=== PATIENT | male | born 1960 | race Caucasian/White ===

== ENCOUNTER 2021-12-15 15:53 | Outpatient (CLI) | payer OTHER, SELFPAY ==
--- NOTE | 2021-12-15 16:02 | US_ITS ---
EXAM: US Soft Tissues Head and Neck, Thyroid CLINICAL INDICATION: 61 years old, Male; nodule TECHNIQUE: Greyscale and color doppler imaging was performed of the thyroid gland. This report was created using [employer] report [employer] technology. COMPARISON: None. FINDINGS: Left thyroid lobe: Left thyroid lobe measures 4.2 x 1.5 x 1.4 cm. Homogeneous echotexture with normal vascularity. No thyroid nodules are present. Right thyroid lobe: Right thyroid lobe measures 4.7 x 1.7 x 1.8 cm. Homogeneous echotexture with normal vascularity. No thyroid nodules are present. Isthmus: Isthmus measures 0.3 cm in thickness. No thyroid nodules are present. US/Thyroid IMPRESSION: No abnormal thyroid findings. No thyroid nodule. Electronically Signed: Aj Harry MD at 2:25 EST ,
== END 2021-12-15 23:59 | disposition home or self-care (01) ==
PROVIDERS: PCP Family Medicine; Referring Provider Family Medicine; Visit Provider Family Medicine
DX: E04.1 Nontoxic single thyroid nodule (principal)
CPT/HCPCS: 76536

== ENCOUNTER → 2022-04-20 | Outpatient (CLI) | payer OTHER, SELFPAY | END | disposition home or self-care (01) | LOC: LABSPEC 17:40 | PROVIDERS: PCP Family Medicine; Visit Provider Family Medicine | DX: U07.1 COVID-19 (principal) | CPT/HCPCS: 87635; U0003; U0005 ==

== ENCOUNTER → 2023-05-25 | Outpatient (CLI) | payer OTHER, SELFPAY ==
--- NOTE | 2023-05-25 15:27 | VDLE_ITS ---
Reason For Study: Right leg pain RIGHT LEFT CFV is compressible with decreased venous CFV is compressible, spontaneous, phasic, flow noted. competent, and demonstrates normal Acute deep vein thrombosis is noted in the augmentation. FV, PopV, T/P Trunk, PTV, PeroV, SoleusV, and GastrocV. It is dilated and NONCOMPRESSIBLE. Thrombus in FV does not extend into CFV. Rouleaux flow noted in the PTV mid-distal and GastrocV. Procedure This is a venous duplex using B-mode, color flow and spectral Doppler. Exam performed in department. A preliminary report was called and/or faxed to [facility]. VL/Venous Duplex US, Unilateral Interpretation Summary Decrease flow noted within the right common femoral vein with acute deep venous thrombosis noted in the right femoral, popliteal, tibioperoneal trunk, posterior tibial, peroneal, soleus, and gastrocnemius veins. Normal flow patterns left common femoral vein Ordering Physician: Morgan Moore Referring Physician: Morgan Moore Performed By: No Austin RVT
== END | disposition home or self-care (01) ==
LOC: CVS 15:24
PROVIDERS: PCP Family Medicine; Referring Provider Family Medicine; Visit Provider Family Medicine
DX: M79.661 Pain in right lower leg (principal)
CPT/HCPCS: 93971

== ENCOUNTER → 2023-06-06 | Outpatient (CLI) | payer OTHER, SELFPAY ==
[2023-06-13 12:08] LABS: Dilute Prothrombin Time (dPT) 40.6 sec (0.0-47.6); Interpretation Comment: (.); PTT-LA 31.9 sec (0.0-43.5); Protein C Antigen 119 % (60-150); Protein S, Free 142 % (61-136); Protein S, Total 96 % (60-150); Thrombin Time 16.1 sec (0.0-23.0); dPT Confirm Ratio 1.04 Ratio (0.00-1.34)
== END | disposition home or self-care (01) ==
LOC: MFPLAB 15:48
PROVIDERS: PCP Family Medicine; Visit Provider Family Medicine
DX: I82.409 Acute embolism and thrombosis of unspecified deep veins of unspecified lower extremity (principal)
CPT/HCPCS: 36415; 81241; 85302; 85305; 85306

== ENCOUNTER 2023-12-09 13:06 | Outpatient (CLI) | payer OTHER, SELFPAY ==
--- NOTE | 2023-12-09 13:10 | RAD_ITS ---
INDICATION: ARTHRITIS OF KNEE EXAMINATION/TECHNIQUE: X-RAY - LEFT XR Knee Complete 4 Views or More 4 VIEWS COMPARISON: No relevant prior comparison study available FINDINGS: SOFT TISSUES: No soft tissue swelling or gas. No radiopaque foreign body. BONES/JOINTS: There is medial joint space narrowing, osteophyte formation is noted involving all 3 compartments. Subchondral sclerosis involving the medial compartment particularly the tibial plateau. Additional significant patellofemoral degenerative changes with osteophyte formation. Moderate joint effusion. RAD/Knee 4 or More Views IMPRESSION: 1. Tricompartment osteophytic changes are most significantly the medial compartment however involvement with all 3 compartments. There is a joint effusion. Electronically Signed: Duarte Morrissey MD at 17:30 EST ,
== END 2023-12-09 23:59 | disposition home or self-care (01) ==
LOC: MTRAD 13:09
PROVIDERS: PCP Family Medicine; Referring Provider Family Medicine; Visit Provider Family Medicine
DX: M17.10 Unilateral primary osteoarthritis, unspecified knee (principal)
CPT/HCPCS: 73564

== ENCOUNTER → 2024-01-04 | Outpatient (CLI) | payer OTHER, SELFPAY ==
--- OUTSIDE RECORDS SUMMARY | 2024-01-04 10:25 | XMS RPT_ITS | CCD ---
Author Name Unknown Address [address] [place] [address] Organization [facility] Care Team Providers Care Salesperson [employer] Name Role Phone Azalea Villanueva MD Primary Care Provider Edmundo Yost Unavailable [phone] Unavailable Unavailable MEHNAZ JASSO Attending Unavailable AZALEA VILLANUEVA Primary Care UnavailMEHNAZ Goldstein Admitting Unavailable MEHNAZ JASSO Referring Unavailable AZALEA VILLANUEVA Primary Care UnavailMEHNAZ Goldstein Attending Unavailable AZALEA VILLANUEVA Primary Care Unavailab le Allergies Allergy Classification Reported Allergen(s) Allergy Type Date of Onset Reaction(s) Facility (2 sources) Ibuprofen; Translations: [ibuprofen] Drug Allergy [facility] Work Phone: Medications Current Medications Medication Drug Class(es) Dates Sig (Normalized) Sig (Original) BEE POLLEN ORAL (2 sources) BEE POLLEN ORAL Take by mouth . 0 Active ELDERBERRY FRUIT (2 sources) ELDERBERRY FRUIT ORAL Take by mouth . 0 Active fish oil-omega-3 fatty acids 300-1,000 mg capsule (2 sources) take 1 capsule by mouth once daily fish oil-omega-3 fatty acids 300-1,000 mg capsule Take 2 g by mouth daily. 0 Active loratadine 10 mg oral capsule (2 sources) loratadine 10 mg cap Take by mouth. 0 Active multivitamin capsule (2 sources) take 1 capsule by mouth once daily multivitamin capsule Take 1 capsule by mouth daily. 0 Active Completed/Discontinued Medications Medication Drug Class(es) Dates Sig (Normalized) Sig (Original) aspirin 81 mg delayed release oral tablet (1 source) Platelet Aggregation Inhibitor, Nonsteroidal Anti-inflammatory Drug End: 07-23-2021 take 1 tablet by mouth once daily aspirin 81 MG EC tablet Take 81 mg by mouth daily. 0 07/23/2021 Discontinued (Discontinued by another clinician) pantoprazole 40 mg delayed release oral tablet (2 sources) Proton Pump Inhibitor Start: 10-13-2021 take 1 tablet by mouth once daily Pantoprazole Sodium 40 MG Oral Tablet Delayed Release TAKE 1 TABLET DAILY. Quantity: 30 Refills: 2 Ordered: 13-Oct-2021 Edmundo Yost MD Start : 13-Oct-2021 Active traMADol hydrochloride 50 mg oral tablet (1 source) Opioid Agonist Start: 04-13-2016 End: 07-23-2021 traMADol (ULTRAM) 50 mg tablet 1 ml triamcinolone acetonide 40 mg/ml injection (2 sources) Corticosteroid Start: 10-26-2021 End: 10-26-2021 triamcinolone acetonide (KENALOG-40) injection 40 mg Problems Active Problems Problem Classification Problem Date Documented Da te Episodic/Chronic Esophageal disorders (2 sources) Gastroesophageal reflux disease without esophagitis; Translations: [Esophageal reflux] Chronic Genitourinary symptoms and ill-defined conditions (2 sources) Nocturia; Translations: [Nocturia] Episodic Malaise and fatigue (2 sources) Fatigue; Translations: [Other malaise and fatigue] Episodic Osteoarthritis (2 sources) Osteoarthritis of left knee joint; Translations: [Unilateral primary osteoarthritis, left knee] Chronic Other ear and sense organ disorders (2 sources) Bilateral tinnitus; Translations: [Tinnitus, unspecified] Episodic Other gastrointestinal disorders (2 sources) Dysphagia; Translations: [Dysphagia, unspecified] Episodic Other nervous system disorders (2 sources) Numbness; Translations: [Disturbance of skin sensation] Episodic Other screening for suspected conditions (not mental disorders or infectious disease) (2 sources) Patient encounter status; Translations: [Screening for lipoid disorders] Episodic Past or Other Problems Problem Classification Problem Date Documented Da te Episodic/Chronic Fracture of upper limb (2 sources) Closed fracture of radius; Translations: [Unspecified fracture of unspecified forearm, initial encounter for closed fracture] Onset: 04-14-2016 04-14-2016 Episodic Results Test Name Value Interpretation Reference Range Facil ity Vital Signs Date Time Vital Sign Value Performing Clinician Facility 10-13-2021 14:47-0500 Body height 190.5 cm Edmundo Yost Work Phone: [facility] Work Phone: 10-13-2021 14:47-0500 Body mass index (BMI) [Ratio] 32.66 kg/m2 Edmundo Yost Work Phone: [facility] Work Phone: 10-13-2021 14:47-0500 Body surface area Derived from formula 2.46 m2 Edmundo Yost Work Phone: [facility] Work Phone: 10-13-2021 14:47-0500 Body temperature 96.9 [degF] Edmundo Yost Work Phone: [facility] Work Phone: 10-13-2021 14:47-0500 Body weight 118.53 kg Edmundo Yost Work Phone: [facility] Work Phone: 10-13-2021 14:47-0500 Diastolic blood pressure 68 mm[Hg] Edmundo Yost Work Phone: [facility] Work Phone: 10-13-2021 14:47-0500 Heart rate 69 /min Edmundo Yost Work Phone: [facility] Work Phone: 10-13-2021 14:47-0500 SaO2% (BldA) [Mass fraction] 96 % Edmundo Yost Work Phone: [facility] Work Phone: 10-13-2021 14:47-0500 Systolic blood pressure 116 mm[Hg] Edmundo Yost Work Phone: [facility] Work Phone: 07-23-2021 14:02-0400 Body height 190.5 cm Mehnaz Jasso STATION SUPERVISOR Work Phone: [facility] 07-23-2021 14:02-0400 Body mass index (BMI) [Ratio] 31.87 kg/m2 Mehnaz Gordonarun LEIJA Work Phone: [facility] 07-23-2021 14:02-0400 Body weight 115.67 kg Mehnaz Gordonarun LEIJA Work Phone: [facility] Encounters Encounter Date Encounter Type Care Provider Facility Start: 10-26-2021 End: 10-26-2021 ambulatory MEHNAZ JASSO [facility] Start: 10-26-2021 End: 10-26-2021 Clinical Support Mehnaz Jasso CNP Work Phone: [facility] Procedures Date Procedure Procedure Detail Performing Clinician Start: 10-26-2021 Arthrocentesis aspir &/inj major jt/bursa w/o us Mehnaz Jasso CNP Work Phone: Start: 07-27-2021 Arthrocentesis aspir &/inj major jt/bursa w/o us Mehnazduy Jasso CNP Work Phone: Arthroscopy of knee Edmundotash Yost Work Phone: Strabismus surgery Edmundo T Priyank Work Phone: Tonsillectomy and adenoidectomy Edmundo Parrabrandy Work Phone: Plan of Treatment Date Care Activity Detail Author Start: 07-08-2021 Influenza vaccination Sequenti al Influenza Vaccine (#1) [facility] Start: 03-09-2021 COVID-19 Vaccine (2 - Booster for Dell series) COVID-19 Vaccine (2 - Booster for Dell series) [facility] Start: 2009 Screening for malign ant neoplasm of colon [facility] Start: 1977 Hepatitis C screening Hepatitis C Sc reening [facility] Start: 1974 HIV screening HIV Screening [facility] Start: 1971 Depression screening using PHQ-9 (Patient Health Questionnaire 9) score [facility] Start: 1962 History and physical examination, annual for health maintenance Wellness Visit [facility] Start: 1959 Prostate specific an tigen measurement PSA Level [facility] Start: 1959 Tetanus vaccination Tetanus: Every 1 0yrs [facility] Immunizations Immunization Date Immunization Notes Care Provider Stefan marks 06-09-2021 zoster vaccine recombinant Edmundo Yost Work Phone: [facility] Work Phone: 03-31-2021 zoster vaccine recombinant Edmundotash Parraess Work Phone: [facility] Work Phone: 01-12-2021 Dell COVID-19 Vaccine 0.5 ML Intramuscular Suspension Edmundo Yost Work Phone: [facility] Work Phone: Payers Date Payer Category Payer Unknown [employer] PPO [id number] 2015-Present [phone] [address] [place] [address] [id number] 2015 Unknown 2015 Unknown [id number] 1959 Unknown [id number] 1959 Unknown [id number] 1959 Unknown [id number] Social History Date Type Detail Facility Start: 04-14-2016 Tobacco smoking status NHIS Never sm oked tobacco [facility] Start: 04-14-2016 Tobacco use and exposure Smokeless t obacco non-user [facility] Start: 07-27-2021 End: 10-26-2021 Alcohol intake Ex-drinker (finding) [facility] Start: 07-27-2021 End: 10-26-2021 Alcohol intake [facility] Start: 1960 Sex Assigned At Not on file [facility] Exposure to SARS-CoV -2 (event) Not sure [facility] History of Present illness Narrative 10-26-2021 Mehnaz Jasso CNP - 10/26/2021 11:45 AM [place] Jasso CNP - 10/26/2021 11:41 AM EST Note Date & Type Note Facility 10-26-2021 History of Presen t illness Narrative Associated Order(s): LG Jt Injection/Arthrocentesis: L knee Post-Procedure Diagnose(s): Primary osteoarthritis of left knee LG Jt Injection/Arthrocentesis: L knee Performed by: Mehnaz Jasso CNP Authorized by: Mehnaz Jasso CNP CPT 06011 - Large Joint Arthrocentesis: Consent given by: Patient Time out: Immediately prior to the procedure a time out was called Physician or proceduralist has discussed critical or nonroutine steps, procedure duration and anticipated blood loss: Yes Supporting Documentation: Indications: Pain and diagnostic evaluation Procedure Details: Location: Knee Site: L knee Prep: patient was prepped and draped in usual sterile fashion Needle size: 22 G Approach: Anterolateral Medications: 40 mg triamcinolone acetonide 40 mg/mL Anesthetic used: Lidocaine 1% Anesthetic amount (mL): 2 Patient tolerance: Patient tolerated the procedure well with no immediate complications [facility] [address] [facility] [address] [facility] [id number] Chief Complaint Patient presents with Follow-up Left knee Qian Vora returns to the office today for an injection to his left knee. He has had these in the past and they continue to provide him with adequate pain relief. He isn't ready for any type of surgery at this time. The patient's past medical history, surgical history, social history, family history, medications and allergies were reviewed with the patient today and are available in the chart for further review. 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 Assessment/Plan: Injection to the left knee per patient request. I did this without complications and he tolerated this well. I am more than happy to see him back as needed. documented in this encounter [facility] History of Present illness Narrative 07-27-2021 Mehnaz Jasos CNP - 07/27/2021 12:30 PM [place] Jasso CNP - 07/23/2021 9:02 PM EDT Note Date & Type Note Facility 07-27-2021 History of Presen t illness Narrative Associated Order(s): LG Jt Injection/Arthrocentesis: L knee Post-Procedure Diagnose(s): Primary osteoarthritis of left knee LG Jt Injection/Arthrocentesis: L knee Performed by: Mehnaz Jasso CNP Authorized by: Mehnaz Jasso CNP CPT 31053 - Large Joint Arthrocentesis: Consent given by: Patient Time out: Immediately prior to the procedure a time out was called Physician or proceduralist has discussed critical or nonroutine steps, procedure duration and anticipated blood loss: Yes Supporting Documentation: Indications: Pain and diagnostic evaluation Procedure Details: Location: Knee Site: L knee Prep: patient was prepped and draped in usual sterile fashion Needle size: 22 G Approach: Anterolateral Anesthetic used: Lidocaine 1% Anesthetic amount (mL): 2 Patient tolerance: Patient tolerated the procedure well with no immediate complications Qian Vora 1960 CC: 61 y.o. is a he with left knee pain. Chief Complaint Patient presents with Left Knee - Pain . HPI: Knee Pain: Patient presents to the office with left knee pain. He reports that about 8-9 years ago he felt a tear in the knee. He went on without any type of surgery and up until this past Tuesday never had significant problems with the knee. The past Tuesday, he was walking, turned and felt a sharp pain in the knee. It has been hurting every since. He has swelling in the knee. He has used otc pain medications as needed but only take the edge off. He has been limited to tylenol. He reports he took ibuprofen years ago and had a reaction so he hasn't taken it since. He does feel as though the knee is unstable but it hasn't given out on him. 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 TONSILLECTOMY TONSILLECTOMY Social History Socioeconomic History Marital status: Spouse name: Not on file Number of children: Not on file Years of education: Not on file Highest education level: Not on file Occupational History Not on file Tobacco Use Smoking status: Never Smoker Smokeless tobacco: Never Used Substance and Sexual Activity Alcohol use: Not Currently Alcohol/week: 2.0 standard drinks Types: 2 Cans of beer per week Drug use: Not Currently Sexual activity: Not on file Other Topics Concern Not on file Social History Narrative Not on file Social Determinants of Health Financial Resource Strain: Difficulty of Paying Living Expenses: Not on file Food Insecurity: Worried About Running Out of Food in the Last Year: Not on file Ran Out of Food in the Last Year: Not on file Transportation Needs: Lack of Transportation (Medical): Not on file Lack of Transportation (Non-Medical): Not on file Physical Activity: Days of Exercise per Week: Not on file Minutes of Exercise per Session: Not on file Stress: Feeling of Stress : Not on file Social Connections: Frequency of Communication with Friends and Family: Not on file Frequency of Social Gatherings with Friends and Family: Not on file Attends Yazidism Services: Not on file Active Member of Clubs or Organizations: Not on file Attends Club or Organization Meetings: Not on file Marital Status: Not on file Housing Stability: Unable to Pay for Housing in the Last Year: Not on file Number of Places Lived in the Last Year: Not on file Unstable Housing in the Last Year: Not on file The patient's past medical history, surgical history, social history, family history, medications and allergies were reviewed with the patient today and are available in the chart for further review. ROS: Review of Systems Constitutional: Negative for activity change and fatigue. HENT: Negative for congestion, hearing loss and trouble swallowing. Eyes: Negative for visual disturbance. Respiratory: Negative for chest tightness and shortness of breath. Cardiovascular: Negative for chest pain and palpitations. Gastrointestinal: Negative for abdominal pain, diarrhea, nausea and vomiting. Endocrine: Negative for polydipsia, polyphagia and polyuria. Genitourinary: Negative for decreased urine volume, difficulty urinating and hematuria. Musculoskeletal: Positive for arthralgias and joint swelling. Negative for myalgias. Skin: Negative for color change, rash and wound. Allergic/Immunologic: Negative for immunocompromised state. Neurological: Negative for dizziness, weakness, light-headedness and numbness. Hematological: Does not bruise/bleed easily. Psychiatric/Behavioral: Negative for confusion and sleep disturbance. The patient is not nervous/anxious. PE: Physical Exam Constitutional: Appearance: He is well-developed. HENT: Head: Normocephalic. Eyes: Pupils: Pupils are equal, round, and reactive to light. Cardiovascular: Rate and Rhythm: Normal rate and regular rhythm. Pulmonary: Effort: Pulmonary effort is normal. Breath sounds: Normal breath sounds. Abdominal: General: Bowel sounds are normal. Palpations: Abdomen is soft. Musculoskeletal: General: Swelling and tenderness present. Cervical back: Normal range of motion and neck supple. Left knee: Effusion present. Decreased range of motion. Tenderness present over the medial joint line and lateral joint line. Instability Tests: Medial Bryan test negative and lateral Bryan test negative. Skin: General: Skin is warm and dry. Neurological: Mental Status: He is alert and oriented to person, place, and time. ORTHO: Left Knee Exam Tenderness The patient is experiencing tenderness in the lateral joint line and medial joint line. Range of Motion Extension: normal Flexion: 120 Tests Bryan: Medial - negative Lateral - negative Varus: negative Valgus: negative Barbra: Anterior - negative Drawer: Anterior - negative Posterior - negative Other Erythema: absent Scars: absent Sensation: normal Pulse: present Swelling: mild Effusion: effusion present Imaging:R Knee: No acute osseous abnormality. [id number] medial compartment osteoarthritis. Small suprapatellar joint effusion. Assessment/Plan: After examination and reviewing of the patient x-ray images, we discussed treatment options. I offered him a cortisone injection which he gladly accepted. I did this without complications and he tolerated this well. He is able to have these every 3 months as needed. He verbalizes understanding and is in agreement with the treatment plan. Diagnosis: Problem List Items Addressed This Visit None Follow Up: No follow-ups on file. Mehnaz Jasso CNP documented in this encounter [facility] Evaluation note Note Date & Type Note Facility documented in this encounter [facility] Evaluation note Note Date & Type Note Facility documented in this encounter [facility] History of Present illness Narrative Note Date & Type Note Facility History of Present illness Narrative colonoscopy 2014 - Tics and Hem. 10 years.allergies - takes claritan.heartburn is bad, occ dysphagia. TUMS helps. Need to start him on pantoprazole.home BP 130's/80's.tinnitus - did see ENT Dr Jean-Baptiste.Talked about using low-dose amlodipine or low-dose Zoloft Celexa. He does not want to use medicine at this time. Blood pressure today is good.To think we should check some blood test first. If the blood tests are okay I am okay with watching things for now.OV 6 months, will change the follow-up to 6 weeks for the heartburn [facility] Work Phone: Summary Purpose Family History No Family History Records FoundUnknown Family Member Name Dates Details Family history of type 2 mirza betes mellitus: Mother, Brother(V18.0, Z83.3) Status:Active Family history of abdominal aortic aneurysm (AAA): Father(V17.49, Z82.49) Status:Active Unknown Family Member Name Dates Details Family history of type 2 mirza betes mellitus: Mother, Brother(V18.0, Z83.3) Status:Active Family history of abdominal aortic aneurysm (AAA): Father(V17.49, Z82.49) Status:Active Advance Directives No Advanced Directives Records FoundDocuments on File Type Date Recorded Patient Party Plan 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 Expl anation Advance Directives and Living Will 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 BP Additional Source Comments (unrecognized sect ion and content) No Status Records FoundNo Status Records FoundNo Status Records FoundNo Status Records Found INFORMATION SOURCE (unrecogn ized section and content) DATE CREATED AUTHOR AUTHOR'S ORGANIZ ATION 10/14/2021 [facility] DATE CREATED AUTHOR AUTHOR'S ORGANIZ ATION 10/14/2021 [employer] DATE CREATED AUTHOR AUTHOR'S ORGANIZ ATION 10/26/2021 [facility] Reason for Visit (unrecogniz ed section and content) Reason Comments Follow-up Left knee Care Teams (unrecognized sec tion and content) FOR RECORDS PERTAINING TO PATIENTS WHO ARE OR HAVE BEEN ENROLLED IN A CHEMICAL DEPENDENCY/SUBSTANCEABUSE PROGRAM, SOME INFORMATION MAY BE OMITTED. This clinical summary was aggregated from multiple sources. Caution should be exercised in using it in the provision of clinical care. This summary normalizes information from multiple sources, and as a consequence, information in this document may materially change the coding, format and clinical context of patient data. In addition, data may be omitted in some cases. CLINICAL DECISIONS SHOULD BE BASED ON THE PRIMARY CLINICAL RECORDS. [facility] [employer] provides no warranty or guarantee of the accuracy or completeness of information in this document.
[2024-01-04 10:57] LABS: ALB/GLOB Ratio 1.1 RATIO (0.9-2.4); AST(SGOT) 13 U/L (15-37); Alanine Aminotransfer ALT/SGPT 16 U/L (16-61); Albumin, Serum 3.5 g/dL (3.2-5.0); Alkaline Phosphatase 47 U/L (45-117); Anion Gap 3 (5-15); BUN 21 mg/dL (7-18); BUN/Creat Ratio 21.9 RATIO (10-20); Calcium,Total 8.9 mg/dL (8.5-10.1); Chloride 112 mmol/L (98-107); Cholesterol 232 mg/dL (200); Creatinine, Serum 0.96 mg/dL (0.70-1.30); EST Glomerular Filtration Rate 84 mL/min (>60); Est Glom Filt Rate - Afr Amer 101 mL/min (>60); Globulin 3.3 g/dL (2.2-4.2); Glucose 85 mg/dL (74-106); High Density Lipoprotein 38 mg/dL; PSA,Total- Diagnostic 0.74 ng/mL (0.0-4.0); Protein, Total 6.8 g/dL (6.4-8.2); Sodium Level 141 mmol/L (136-145); Triglycerides 146 mg/dL; Very Low Density Lipoprotein 29 mg/dL (5-40)
== END | disposition home or self-care (01) ==
LOC: MFPLAB 08:58
PROVIDERS: PCP Family Medicine; Visit Provider Family Medicine
DX: Z00.00 Encounter for general adult medical examination without abnormal findings (principal)
CPT/HCPCS: 36415; 80053; 80061; 84153; 84403

== ENCOUNTER 2024-03-17 16:14 | Observation (INO) | payer OTHER, SELFPAY ==
[2024-03-17] VITALS (10 sets, daily range): BP systolic 123–145; BP diastolic 72–94; PULSE 56–68; RESP 13–18; TEMP 35.8–36.6; O2SAT 93–98; BMI 31.4; BMI 30.8
--- NOTE | 2024-03-17 16:25 | CT_ITS ---
INDICATION: NEURO DEFICIT EXAMINATION: CT BRAIN - CT Head Stroke Protocol W/O Contrast Injection TECHNIQUE: Multiple axial images were obtained of the head without intravenous contrast. A radiation dose optimization technique was used for this scan. IV Contrast dosage and agent: None. RADIATION DOSAGE (If Supplied By Facility): CTDIvol = ( 44.99 ) mGy, DLP = ( 847.35 ) mGycm COMPARISON: FINDINGS: BRAIN PARENCHYMA: No intra- or extra-axial hemorrhage. No evidence of acute infarct. No intracranial mass or mass effect. Focal mild diminished attenuation in the left frontal periventricular white matter. Posterior fossa structures are unremarkable. CSF SPACES: Appropriate for age. No hydrocephalus. Basal cisterns are patent. CALVARIUM, SKULL BASE, PARANASAL SINUSES AND MASTOID AIR CELLS: Clear. No discrete lytic or blastic abnormalities. ORBITS: Both globes, extraocular muscles, optic nerves and retrobulbar fat appear unremarkable. CT/STROKE Brain/Head without Cont IMPRESSION: Focal mild diminished attenuation in the left frontal periventricular white matter. Correlate with MRI if clinically indicated. N.B. : The above Results were Read Back by Luan Espino DO to Alex Severino MD, and understanding confirmed on 03/17/2024 17:00:13 (ET). Electronically Signed: Luan Espino DO at 17:01 EDT ,
--- NOTE | 2024-03-17 16:26 | CT_ITS ---
We are attempting to reach an attending provider to discuss findings. An addendum with communication details will be sent when the communication is complete. INDICATION: STROKE EXAMINATION: CTA HEAD, AND CTA NECK TECHNIQUE: Routine carotid CT angiogram protocol was performed without and with IV contrast. In addition, images were obtained of the [place] of [place]. NASCET criteria using the distal ICAs for comparison were used for evaluation of stenoses. 3D reconstructions were reviewed. A radiation dose optimization technique was used for this scan. IV Contrast dosage and agent: COMPARISON: FINDINGS: --CTA NECK: AORTIC ARCH AND BRANCHES: Normal anatomy, patent. RIGHT CCA: No occlusion, significant stenosis or dissection. RIGHT CAROTID BULB: Focal calcification with no hemodynamically significant stenosis. RIGHT ICA: No occlusion, significant stenosis or dissection. LEFT CCA: No occlusion, significant stenosis or dissection. LEFT CAROTID BULB: Focal calcification with no hemodynamically significant stenosis. LEFT ICA: No occlusion, significant stenosis or dissection. RIGHT VERTEBRAL ARTERY: No occlusion, significant stenosis or dissection. LEFT VERTEBRAL ARTERY: No occlusion, significant stenosis or dissection. NECK SOFT TISSUES: Unremarkable. --CTA HEAD: --Anterior circulation: ICAs: No significant stenosis at the intracranial/visualized segments. ACAs: No significant stenosis at the visualized segments. ACOM: Present. MCAs: No significant stenosis at the visualized segments. --Posterior circulation: PCOMs: Patent bilaterally. visitor services information assistant: Hypoplastic P1 segments bilaterally. BASILAR ARTERY: No significant stenosis. VERTEBRAL ARTERIES: Left vertebral artery appears to terminate as the PICA. No evidence of intracranial aneurysm or vascular malformation. CT/STROKE CTA Head AND Neck W/Con IMPRESSION: Negative CTA Carotid, and CTA Brain. Electronically Signed: Luan Espino DO at 17:09 EDT ,
--- NOTE | 2024-03-17 16:27 | NURSING ---
STROKE ALERT CALLED
--- NOTE | 2024-03-17 16:28 | NURSING ---
NO OLD EKGS
[2024-03-17 16:38] LABS: Absolute Lymphocyte Count 1.24 X10^3/uL (0.83-4.51); Absolute Neutrophil Count 4.5 X10^3/uL (2.0-7.7); Basophil# 0.04 X10^3/uL; Basophil% 0.6 % (0-1); Eosinophil# 0.16 X10^3/uL; Eosinophils% 2.4 % (0-5); Hematocrit 44.6 % (40-54); Hemoglobin 14.9 g/dL (13.0-16.5); Lymphocyte # 1.24 X10^3/ul (0.83-4.51); Lymphocyte % 18.4 % (19-41); Mean Corp Hgb Conc 33.4 g/dL (32-36); Mean Corpuscular Volume 95.7 fL (80-94); Mean Platelet Vol. 9.5 fl (6.2-12.0); Monocyte# 0.72 X10^3/uL; Monocyte% 10.7 % (0-10); NRBC Flagged by Analyzer 0 % (0-5); Neutrophil # 4.54 X10^3/uL (2.7-7.7); Neutrophil % 67.5 % (47-70); Platelet Count 218 K/mm3 (150-450); RBC Distribution Width CV 12.5 % (11.6-14.6); RBC Distribution Width SD 43.8 fl (35.1-43.9); Red Blood Count 4.66 M/mm3 (4.6-6.2); White Blood Count 6.7 K/mm3 (4.4-11.0)
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
[2024-03-17 16:46] LABS: Bedside Glucose 93 mg/dL (74-106)
[2024-03-17 16:52] LABS: International Normalized Ratio 1.1; Partial Thromboplast Time 25.5 Seconds (24.1-36.2); Prothrombin Time (Protime)PT. 14.2 SECONDS (11.7-14.9)
[2024-03-17 16:56] LABS: Anion Gap 5 (5-15); BUN 19 mg/dL (7-18); Calcium,Total 9.2 mg/dL (8.5-10.1); Chloride 105 mmol/L (98-107); EST Glomerular Filtration Rate 80 mL/min (>60); Est Glom Filt Rate - Afr Amer 97 mL/min (>60); Estimated Creatinine Clearance 101.59 ml/min; Glucose 101 mg/dL (74-106); Potassium 3.8 mmol/L (3.5-5.1); Sodium Level 138 mmol/L (136-145); Troponin-I HS < 3 pg/mL (3.0-78.0)
--- NOTE | 2024-03-17 16:57 | RAD_ITS ---
INDICATION: Neuro deficit, acute, stroke suspected EXAMINATION/TECHNIQUE: X-RAY - XR Chest 1 View COMPARISON: FINDINGS: LINES/DEVICES: None. LUNGS: Left basilar atelectasis. No pneumothorax. MEDIASTINUM AND CARDIOVASCULAR STRUCTURES: Cardiac silhouette not enlarged. Central airways and mediastinal contour are unremarkable. BONES AND SOFT TISSUES: Unremarkable. RAD/Chest 1 View IMPRESSION: Left basilar atelectasis. Electronically Signed: Luan Espino DO at 17:16 EDT ,
--- NOTE | 2024-03-17 17:02 | ED.RN ---
Dr. Severino called stroke alert to expedite CT scan and lab work. Per Dr. Severino, do not need to call [facility] for neurology d/t resolution of symptoms.
--- NOTE | 2024-03-17 17:26 | ED.RN ---
per Dr. Severino, okay to discontinue NIHSS at this time.
--- NOTE | 2024-03-17 17:28 | NURSING ---
DR CARMEN FOR DR HAGEN
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
--- NOTE | 2024-03-17 17:46 | NURSING ---
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
[2024-03-17 18:16] LABS: Hemoglobin A1c 5.3 % (3.8-5.6)
[2024-03-17] MEDS: Atorvastatin Calcium 40 MG Tablet PO (21:38)
[2024-03-17] MEDS: Acetaminophen 325 MG Tablet 650 MG PO (21:38)
[2024-03-17] MEDS: APIXABAN 5 MG TABLET PO (21:38)
[2024-03-18 01:31] VITALS: BMI 30.8
[2024-03-18 01:38] VITALS: BP 121/70; PULSE 51; RESP 18; TEMP 36.6; O2SAT 96
[2024-03-18 05:35] VITALS: BP 129/77; PULSE 64; RESP 18; TEMP 36.4; O2SAT 959
[2024-03-18 05:35] LABS: Hematocrit 45.5 % (40-54); Hemoglobin 15.4 g/dL (13.0-16.5); Mean Corp Hgb Conc 33.8 g/dL (32-36); Mean Corpuscular Hgb 32.4 pg (27.0-32.0); Mean Corpuscular Volume 95.8 fL (80-94); Mean Platelet Vol. 9.5 fl (6.2-12.0); Platelet Count 217 K/mm3 (150-450); RBC Distribution Width CV 12.4 % (11.6-14.6); RBC Distribution Width SD 44.1 fl (35.1-43.9); Red Blood Count 4.75 M/mm3 (4.6-6.2)
[2024-03-18 06:06] LABS: Anion Gap 4 (5-15); BUN 15 mg/dL (7-18); BUN/Creat Ratio 16.1 RATIO (10-20); Chloride 107 mmol/L (98-107); Cholesterol 164 mg/dL (200); Creatinine, Serum 0.93 mg/dL (0.70-1.30); EST Glomerular Filtration Rate 86 mL/min (>60); Est Glom Filt Rate - Afr Amer 105 mL/min (>60); Estimated Creatinine Clearance 108.57 ml/min; Glucose 86 mg/dL (74-106); High Density Lipoprotein 40 mg/dL; Sodium Level 139 mmol/L (136-145); Triglycerides 159 mg/dL; Very Low Density Lipoprotein 32 mg/dL (5-40)
[2024-03-18 08:00] VITALS: O2SAT 96
[2024-03-18 09:30] VITALS: BP 130/84; PULSE 60; RESP 16; TEMP 36.3; O2SAT 97
[2024-03-18] MEDS: 0.9% Saline Lock 10 ML Syringe IV (09:35)
[2024-03-18] MEDS: Loratadine 10 MG Tablet PO (09:35)
[2024-03-18] MEDS: APIXABAN 5 MG TABLET PO (09:35)
--- NOTE | 2024-03-18 12:32 | CON.PCM.NE_ITS ---
Assessment and Plan: Neuro Assessment/Plan Telestroke (Bidirectiona Audio-video) [facility] Consult Note 63 y/o man with h/o unprovoked right lower extremity DVT in May 2023 on eliquis, ibuprofen allergic episode, DLD on crestor p/w an episode of confusion and right facial numbness/droop while going to his son. Vitals in ED with mild hypertension, otherwise unremarkable. NIHSS-0. CT Head - no acute intracranial process. CTA- no LVO. Today, patient reports feeling back to normal. Discussed with at bedside. Noticed to have mild right facial droop. Diagnosis: TIA/small stroke Plan: Continue eliquis and statin. Follow up MRI brain and TTE. OT/PT/CLIENT CARE REPRESENTATIVE I personally attended this patient and spent a total time of 71 minutes genie luating this patient including clinical assessment, review of chart, medical history imaging, and determining appropriate treatment and workup. HPI Consult Data Date of Consult: 03/18/24 HPI Narrative HPI Narrative: 63 y/o man with h/o unprovoked right lower extremity DVT in May 2023 on eliquis, ibuprofen allergic episode, DLD on crestor p/w an episode of confusion and right facial numbness/droop while going to his son. Vitals in ED with mild hypertension, otherwise unremarkable. NIHSS-0. CT Head - no acute intracranial process. CTA- no LVO. Today, patient reports feeling back to normal. Discussed with at bedside. Noticed to have mild right facial droop. ROS Constitutional Constitutional: Denies chills, fatigue, fever(s) or weakness Eyes Eyes: Denies change in vision Cardiovascular Cardiovascular: Denies chest pain or rapid heart rate Respiratory/Chest Respiratory/Chest: Denies cough or shortness of breath at rest Gastrointestinal Gastrointestinal: Denies abdominal pain Neurologic Neurologic: Denies abnormal gait, abnormal speech, confusion, dizziness, focal weakness, headache(s), numbness, paresthesias or tingling [facility] Medical History Blood clot in leg Blood clots in brain DVT (deep venous thrombosis) Family history of abdominal aortic aneurysm Hypercholesteremia Non-smoker Home Medications apixaban 5 mg tablet (Eliquis) 5 mg PO BID 03/17/24 [History Last Taken Unknown] inositol-choline [id number] B complex and C 500 mg tablet ([employer]) 1 tab PO TID tinnitus 03/17/24 [History Last Taken Unknown] loratadine-pseudoephedrine ER 10 mg-240 mg tablet,extended [id number] (Loratadine-D) 1 tab PO DAILY 03/17/24 [History Last Taken Unknown] rosuvastatin 5 mg tablet 5 mg PO QHS 03/17/24 [History Last Taken Unknown] Allergy/AdvReac Type Severity Reaction Status Date / Time ibuprofen Allergy MAKES Verified 03/17/24 16:16 RIGHT SIDE OF FACE TO GO NUMB Social History (Updated 03/17/24 @ 16:[address] Alex Severino MD) household members: spouse Smoking Status: Never smoker Vital Signs Vital Signs Vital Signs: 03/17/24 16:16 03/17/24 16:15 03/17/24 16:29 Temperature 96.5 F L 96.5 F L Temperature Source Temporal Temporal Pulse Rate 68 68 Pulse Strength Respiratory Rate 16 16 Respiratory Effort Respiratory Depth Respiratory Pattern Blood Pressure 134/87 H 134/87 H Blood Pressure Mean 102 102 Blood Pressure Source Blood Pressure Position Blood Pressure Location Pulse Ox 95 Oxygen Delivery Method Room Air 03/17/24 16:27 03/17/24 16:55 03/17/24 17:27 Temperature Temperature Source Pulse Rate 61 64 65 Pulse Strength Respiratory Rate 13 15 14 Respiratory Effort Respiratory Depth Respiratory Pattern Blood Pressure 138/72 H 123/78 H 145/77 H Blood Pressure Mean 94 93 99 Blood Pressure Source Blood Pressure Position Blood Pressure Location Pulse Ox 97 95 93 Oxygen Delivery Method Room Air Room Air Room Air 03/17/24 17:50 03/17/24 18:19 03/17/24 19:53 Temperature 97.8 F 96.8 F L Temperature Source Temporal Pulse Rate 60 56 L Pulse Strength Respiratory Rate 13 18 Respiratory Effort Normal Non-Labored Respiratory Depth Normal Respiratory Pattern Normal Blood Pressure 127/76 H 128/94 H Blood Pressure Mean 93 105 Blood Pressure Source Monitor Blood Pressure Position Semi-Fowlers Blood Pressure Location Right Arm Pulse Ox 96 98 Oxygen Delivery Method Room Air Room Air 03/17/24 21:32 03/17/24 20:10 03/17/24 21:40 Temperature 96.9 F L Temperature Source Temporal Pulse Rate 64 Pulse Strength Normal (2+) Respiratory Rate 18 Respiratory Effort Respiratory Depth Respiratory Pattern Blood Pressure 127/80 H Blood Pressure Mean 95 Blood Pressure Source Monitor Blood Pressure Position Sitting Blood Pressure Location Right Arm Pulse Ox 95 97 Oxygen Delivery Method Room Air Room Air 03/18/24 01:38 03/18/24 01:45 03/18/24 05:35 Temperature 97.8 F 97.6 F L Temperature Source Oral Oral Pulse Rate 51 L 64 Pulse Strength Respiratory Rate 18 18 Respiratory Effort Normal Non-Labored Respiratory Depth Normal Respiratory Pattern Normal Blood Pressure 121/70 H 129/77 H Blood Pressure Mean 87 94 Blood Pressure Source Monitor Monitor Blood Pressure Position Semi-Fowlers Semi-Fowlers Blood Pressure Location Right Arm Right Arm Pulse Ox 96 959 Oxygen Delivery Method Room Air Room Air Room Air 03/18/24 08:00 03/18/24 09:30 03/18/24 10:00 Temperature 97.3 F L Temperature Source Temporal Pulse Rate 60 Pulse Strength Normal (2+) Respiratory Rate 16 Respiratory Effort Respiratory Depth Respiratory Pattern Blood Pressure 130/84 H Blood Pressure Mean 99 Blood Pressure Source Monitor Blood Pressure Position Semi-Fowlers Blood Pressure Location Right Arm Pulse Ox 96 97 Oxygen Delivery Method Room Air Room Air 03/18/24 10:00 Temperature Temperature Source Pulse Rate Pulse Strength Respiratory Rate Respiratory Effort Normal Non-Labored Respiratory Depth Normal Respiratory Pattern Normal Blood Pressure Blood Pressure Mean Blood Pressure Source Blood Pressure Position Blood Pressure Location Pulse Ox Oxygen Delivery Method Room Air Weight Weight: 112.4 kg Body Mass Index (BMI) 30.8 EEG Results Procedure Details EEG Procedure Details: QIAN SEGAL is a 63 year old M with a past medical history of , who presents for evaluation of Electroencephalogram on DATE at TIME NIHSS NIHSS Nursing Documentation NIHSS Nursing Documentation: NIHSS: Ischemic Stroke/TIA Start: 03/17/24 18:13 Text: For PCU Patients: NIH and Neuro Check every 4 Status: Active hours, PRN and with change in RN caregiver. Freq: [id number] Protocol: Activity Type Activity Date Activity User E-sign Co-sign Detail Recorded Client Recorded Date Recorded By Document 03/18/24 10:00 BS Desktop 03/18/24 12:17 BS 03/18/24 10:00 NIH Stroke Scale [NIHSS] A score of 0 is normal or asymptomatic . Total possible score is 42. Inpatient: RN or Physician to activate a stroke alert for onset of new stroke symptoms or with NIHSS increase >/= 3 points. Following change in neurological status, NIHSS will be performed per physician order or more frequently PRN. -1a. Level of Consciousness Alert; keenly responsive -1b. LOC Questions Answers BOTH questions correctly. -1c. LOC Commands Performs both tasks correctly . -2. Best Gaze Normal -3. Visual No visual loss -4. Facial Palsy Normal symmetrical movements -5a. Left Arm No drift; arm holds 90 (or 45 ) degrees for full 10 seconds -5b. Right Arm No drift; arm holds 90 (or 45 ) degrees for full 10 seconds -6a. Left Leg No drift; leg holds 30-degree position for full 5 seconds -6b. Right Leg No drift; leg holds 30-degree position for full 5 seconds -7. Limb Ataxia Absent -8. Sensory Normal; no sensory loss -9. Best Language No aphasia; normal -10. Dysarthria Normal -11. Extinction and Inattention No abnormality -Total 0 Query Text:A score of 0 is normal or asymptomatic. Total possible score is 42 . ED: Notify Physician for NIHSS increase by > / = 3 points. Inpatient: RN or Physician to activate a stroke alert for NIHSS increase of > / = 3 points. Coma Scale [Assess] -Eye Opening Spontaneous -Motor Obeys Commands -Verbal Oriented [Total] -Coma Scale Total 15 NIHSS 1a. Level of Consciousness: Alert; keenly responsive 1b. LOC Questions: Answers BOTH questions correctly. 1c. LOC Commands: Performs both tasks correctly. 2. Best Gaze: Normal 3. Visual: No visual loss 4. Facial Palsy: Minor paralysis (flattened nasolabial fold, asymmetry on smiling) 5a. Left Arm: No drift; arm holds 90 (or 45) degrees for full 10 seconds 5b. Right Arm: No drift; arm holds 90 (or 45) degrees for full 10 seconds 6a. Left Leg: No drift; leg holds 30-degree position for full 5 seconds 6b. Right Leg: No drift; leg holds 30-degree position for full 5 seconds 7. Limb Ataxia: Absent 8. Sensory: Normal; no sensory loss 9. Best Language: No aphasia; normal 10. Dysarthria: Normal 11. Extinction and Inattention: No abnormality Total: 1 Physical Exam Narrative General: The patient appears nutritionally appropriate, well-groomed, and appears comfortable in no acute distress. Mental Status:? The patient?s mental status was normal including orientation.? Language was intact.? Cranial nerves:? Visual smith full, and extra-ocular motion was intact. Mild right facial droop.? There was no dysarthria. Motor: Normal strength and tone in all four extremities. No pronator drift. Sensation: Intact light touch bilaterally, no extinction.? Coordination:? Bilateral finger to nose was normal.? There was no dysmetria. Gait:? deferred Lab / Micro Data 03/18/24 04:55 03/18/24 04:55 Labs: Laboratory Results - last 24 hr 03/17/24 16:25: WBC 6.7, RBC 4.66, Hgb 14.9, Hct 44.6, MCV 95.7 H, MCH 32.0, MCHC 33.4, RDW Std Deviation 43.8, RDW Coeff of Eladio 12.5, Plt Count 218, MPV 9.5, Immature Gran % (Auto) 0.400, Neut % (Auto) 67.5, Lymph % (Auto) 18.4 L, [place] % (Auto) 10.7 H, Eos % (Auto) 2.4, Baso % (Auto) 0.6, Absolute Neuts (auto) 4.5, Absolute Lymphs (auto) 1.24, Nucleated RBC % 0, PT 14.2, INR 1.1, APTT 25.5, Sodium 138, Potassium 3.8, Chloride 105, Carbon Dioxide 28.0, Anion Gap 5, BUN 19 H, Creatinine 1.00, Estim Creat Clear Calc 101.59, Est GFR (MDRD) Af Amer 97, Est GFR (MDRD) Non-Af 80, BUN/Creatinine Ratio 19.0, Glucose 101, Hemoglobin A1c 5.3, Calcium 9.2, Troponin I High Sens < 3 L, TSH 1.40 03/17/24 16:28: POC Glucose 93 03/18/24 04:55: WBC 7.0, RBC 4.75, Hgb 15.4, Hct 45.5, MCV 95.8 H, MCH 32.4 H, MCHC 33.8, RDW Std Deviation 44.1 H, RDW Coeff of Eladio 12.4, Plt Count 217, MPV 9.5, Sodium 139, Potassium 4.0, Chloride 107, Carbon Dioxide 28.0, Anion Gap 4 L , BUN 15, Creatinine 0.93, Estim Creat Clear Calc 108.57, Est GFR (MDRD) Af Amer 105, Est GFR (MDRD) Non-Af 86, BUN/Creatinine Ratio 16.1, Glucose 86, Calcium 9.0, Triglycerides 159, Cholesterol 164, LDL Cholesterol 92, VLDL Cholesterol 32, HDL Cholesterol 40 Imaging Radiology Impression Brain CT 03/17/24 16:25 IMPRESSION: Focal mild diminished attenuation in the left frontal periventricular white matter. Correlate with MRI if clinically indicated. N.B. : The above Results were Read Back by Luan Espino DO to Alex Severino MD, and understanding confirmed on 03/17/2024 17:00:13 (ET). Electronically Signed: Luan Espino DO at 17:01 EDT , Head/Neck CTA 03/17/24 16:26 IMPRESSION: Negative CTA Carotid, and CTA Brain. Electronically Signed: Luan Espino DO at 17:09 EDT , ADDENDUM: 03/17/24 1718 IMPRESSION: Negative CTA Carotid, and CTA Brain. N.B. : The above Results were Read Back by Luan Espino DO to Alex Severino MD, and understanding confirmed on 03/17/2024 17:11:37 (ET). Electronically Signed: Luan Espino DO at 17:09 EDT , Chest X-Ray 03/17/24 16:57 IMPRESSION: Left basilar atelectasis. Electronically Signed: Luan Espino DO at 17:16 EDT , Active Medications Active Medications Active Medications: Current Medications Generic Name Dose Route Start Last Admin Trade Name Freq PRN Reason Stop Dose Admin Acetaminophen 650 mg 03/17/24 18:13 03/17/24 21:38 Acetaminophen 325 Mg Tablet PO 650 mg Q6H PRN PRN Administration Pain 1-10 Or Fever>100.7 Apixaban 5 mg 03/17/24 22:00 03/18/24 09:35 Apixaban 5 Mg Tablet PO 5 mg BID ANNIE Administration Atorvastatin Calcium 40 mg 03/17/24 22:00 03/17/24 21:38 Atorvastatin Calcium 40 Mg Tablet PO 40 mg QHS ANNIE Administration Sodium Chloride 250 mls @ 15 mls/hr 03/17/24 18:11 IV .[id number] PRN Additional IVPB Infusion Sodium Chloride 250 mls @ 15 mls/hr 03/17/24 18:11 IV .[id number] PRN Saline Flush Labetalol HCl 20 mg 03/17/24 16:25 Labetalol (Prefilled) 20 Mg/4 Ml IV 03/18/24 16:25 X1 PRN Blood Pressure Loratadine 10 mg 03/18/24 10:00 03/18/24 09:35 Loratadine 10 Mg Tablet PO 10 mg DAILY ANNIE Administration Melatonin 3 mg 03/17/24 18:13 Melatonin 3 Mg Tablet PO QHS PRN PRN INSOMNIA Ondansetron HCl 4 mg 03/17/24 18:13 Ondansetron 4 Mg/2 Ml Vial IV Q8H PRN PRN NAUSEA/VOMITING Sodium Chloride 10 - 40 ml 03/17/24 18:11 03/18/24 09:35 0.9% Saline Lock 10 Ml Syringe IV 10 ml UD PRN Administration SALINE FLUSH
--- NOTE | 2024-03-18 14:21 | DS.PCM_ITS ---
Providers Date of Admission: 03/17/24 Date of Discharge: 03/18/24 Primary Care Physician: Dr. Morgan Moore MD Consultations 03/17/24 18:13 Consult: Tele-Neurology Routine Consulting Provider: [facility] Reason for Consult: Acute Ischemic Stroke/TIA EMERGENT Consult: No MD Notified: Yes Date Notified: 03/17/24 Time Notified: 17:36 Method of Notification: Answering Service Nursing Unit Staff Notify [facility] of Tele-Neurology Consult: Yes Reason For Visit: RIGHT FACIAL DROOP W/ NUMBNESS, CVA RULE OUT Diagnosis Discharge Diagnosis (1) Acute confusion: Status: Acute Code(s): R41.0 - Disorientation, unspecified (2) Numbness and tingling of right side of face: Status: Acute Code(s): R20.0 - Anesthesia of skin; R20.2 - Paresthesia of skin Medications at Discharge Home Medications apixaban 5 mg tablet (Eliquis) 5 mg PO BID 03/17/24 inositol-choline [id number] B complex and C 500 mg tablet ([facility] [employer] [facility]) 1 tab PO TID tinnitus 03/17/24 loratadine-pseudoephedrine ER 10 mg-240 mg tablet,extended [id number] (Loratadine-D) 1 tab PO DAILY 03/17/24 aspirin 81 mg capsule 81 mg PO DAILY #1 cap 03/18/24 rosuvastatin 10 mg tablet 10 mg PO DAILY #30 tabs 03/18/24 Hospital Course Operations None Procedures EKG and - (CT brain/CTA head and neck/chest x-ray/MRI brain) Summary of Care Provided Minutes Spent on Discharge: 38 Hospital Course: Mr. 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 Patient reported that he was driving to their grandsons birthday earlier in the afternoon when his reported she began to notice that he was more confused and missed some exits off the highway with the journey. 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 He is never had anything like this previously. Given the above his brought him into the emergency department for further evaluation. Vital signs on presentation showed a temperature of 96.5, heart rate 68, respiratory was 16, blood pressure was 134/87 and oxygen saturations were 95% on room air. His CBC was completely unremarkable. But his differential did show a monocytosis. Coagulation studies were unremarkable. Chemistry panel was unremarkable. Troponin was negative. We did obtain a lipid panel and his total cholesterol was 164/LDL 92/HDL 40 and triglycerides were 159. TSH was 1.4. CT of the brain showed mild focal diminished attenuation in the left frontal periventricular white matter. CTA of the head and neck was negative for any LVO or stenosis. Chest x-ray was unremarkable for any acute findings other than some mild left basilar atelectasis. Given the above there was concern that he could have TIA versus stroke and his NIH was initially 1 for facial droop. Patient was admitted to the telemetry floor where an MRI was performed on the a.m. of 03/18/2024 which was negative for any acute findings. He does have evidence of chronic involutional changes consistent with chronic ischemic changes. He was evaluated by neurology and they recommended continuing his Eliquis and improved control of his LDL. We increased his rosuvastatin from 5 to 10 mg daily and sent a new prescription for Tue supply to his local pharmacy. We also added aspirin 81 mg daily. Neurology felt it was fine for him to go home and follow-up as an outpatient to obtain the echocardiogram to complete workup for stroke. He will need an echocardiogram with bubble study in the next few weeks. NIH was 0 after admission. He was discharged home in stable condition on 03/18/2024. Of asked that he follow-up with his primary care physician within the next week. Discharge diagnoses: Left facial droop/left-sided facial paresthesias-resolved TIA History of DVT Hyperlipidemia Tinnitus Seasonal allergies Obesity Physical Exam Const alert, oriented x3, no apparent distress, no limitations, healthy appearing and well nourished; Negative for average body habitus Constitutional Narrative: Upper middle-aged, white male, sitting up in bed eating lunch, family at bedside, patient appears comfortable and nontoxic General Appearance: cooperative, comfortable, well kempt and well developed Orientation / Consciousness: awake, oriented to person, oriented to place and oriented to time Exam Limitations: no limitations Nutritional Appearance: obese HEENT normocephalic, head/scalp atraumatic, hearing grossly normal bilaterally and moist oral mucous membranes HEENT Narrative: Mallampati 3, no thrush Eyes PERRL, EOMs intact bilaterally and conjunctivae normal Eyes Narrative: No scleral icterus Neck no lymphadenopathy and supple Neck Narrative: Trachea midline, no thyroid enlargement Resp normal respiratory effort, no retractions, no use of accessory muscles and clear to auscultation bilaterally Auscultation: Negative for rales, rhonchi or wheezes Cardio regular rate, regular rhythm, S1 normal heart sound, S2 normal heart sound, no murmurs, no rub, no gallops and no clicks GI normal to inspection, nondistended, normoactive bowel sounds, soft to palpation, non-tender and non-distended Extremity no clubbing, cyanosis or edema Extremity Narrative: Pedal pulses are 2+ Skin no rashes or lesions noted, no wounds, skin turgor normal and no jaundice Neuro oriented x3, CN's II-XII intact bilaterally, moves all extremities, no focal motor deficits and no sensory deficits noted Speech: speech normal Psych affect normal Psych Narrative: Eye contact is good and patient interacts appropriately Weight / BMI Weight Weight: 112.4 kg Body Mass Index (BMI) 30.8 ABG / Lab / Microbiology Data 03/18/24 04:55 03/18/24 04:55 Laboratory: Laboratory Results - last 24 hr 03/17/24 16:25: WBC 6.7, RBC 4.66, Hgb 14.9, Hct 44.6, MCV 95.7 H, MCH 32.0, MCHC 33.4, RDW Std Deviation 43.8, RDW Coeff of Eladio 12.5, Plt Count 218, MPV 9.5, Immature Gran % (Auto) 0.400, Neut % (Auto) 67.5, Lymph % (Auto) 18.4 L, [place] % (Auto) 10.7 H, Eos % (Auto) 2.4, Baso % (Auto) 0.6, Absolute Neuts (auto) 4.5, Absolute Lymphs (auto) 1.24, Nucleated RBC % 0, PT 14.2, INR 1.1, APTT 25.5, Sodium 138, Potassium 3.8, Chloride 105, Carbon Dioxide 28.0, Anion Gap 5, BUN 19 H, Creatinine 1.00, Estim Creat Clear Calc 101.59, Est GFR (MDRD) Af Amer 97, Est GFR (MDRD) Non-Af 80, BUN/Creatinine Ratio 19.0, Glucose 101, Hemoglobin A1c 5.3, Calcium 9.2, Troponin I High Sens < 3 L, TSH 1.40 03/17/24 16:28: POC Glucose 93 03/18/24 04:55: WBC 7.0, RBC 4.75, Hgb 15.4, Hct 45.5, MCV 95.8 H, MCH 32.4 H, MCHC 33.8, RDW Std Deviation 44.1 H, RDW Coeff of Eladio 12.4, Plt Count 217, MPV 9.5, Sodium 139, Potassium 4.0, Chloride 107, Carbon Dioxide 28.0, Anion Gap 4 L , BUN 15, Creatinine 0.93, Estim Creat Clear Calc 108.57, Est GFR (MDRD) Af Amer 105, Est GFR (MDRD) Non-Af 86, BUN/Creatinine Ratio 16.1, Glucose 86, Calcium 9.0, Triglycerides 159, Cholesterol 164, LDL Cholesterol 92, VLDL Cholesterol 32, HDL Cholesterol 40 Radiography Diagnostic Testing: Radiology Impression Brain CT 03/17/24 16:25 IMPRESSION: Focal mild diminished attenuation in the left frontal periventricular white matter. Correlate with MRI if clinically indicated. N.B. : The above Results were Read Back by Luan Espino DO to Alex Severino MD, and understanding confirmed on 03/17/2024 17:00:13 (ET). Electronically Signed: Luan Espino DO at 17:01 EDT , Head/Neck CTA 03/17/24 16:26 IMPRESSION: Negative CTA Carotid, and CTA Brain. Electronically Signed: Luan Espino DO at 17:09 EDT , ADDENDUM: 03/17/24 1718 IMPRESSION: Negative CTA Carotid, and CTA Brain. N.B. : The above Results were Read Back by Luan Espino DO to Alex Severino MD, and understanding confirmed on 03/17/2024 17:11:37 (ET). Electronically Signed: Luan Espino DO at 17:09 EDT , Chest X-Ray 03/17/24 16:57 IMPRESSION: Left basilar atelectasis. Electronically Signed: Luan Espino DO at 17:16 EDT , Brain MRI 03/18/24 17:39 IMPRESSION: 1. Involutional and chronic ischemic changes of the brain, as described above. Electronically Signed: Kota Flores MD at 13:58 EDT , D/C Instructions Discharge Diet: Low fat / Low cholesterol Discharge Activity: Return to Normal Activity Return to work on: 03/19/24 Meaningful Use Info Meaningful Use Meaningful Use Diagnoses (Choose all that apply): None applicable Ischemic Stroke Statin Dosing Therapy Reference: STATIN DOSE THERAPY REFERENCE: * Patients > 75 years receive moderate or high dose statin therapy. * Patients 75 years or YOUNGER should receive HIGH intensity statin dose unless contraindicated. You will be required to document reason for non-treatment if statin daily dose does not meet guidelines. HIGH DOSE STATIN THERAPY DAILY Atorvastatin > than or = to 40 mg Rosuvastatin > than or = to 20 mg Amlodipine + Atorvastatin > than or = to 2.5/40 mg Ezetimibe + Simvastatin 10/80 mg Simvastatin 80mg Discharge Plan Admission Admit Date/Time: 03/17/24 17:34 Primary Reason for Your Visit: Conclusions/right facial droop/right facial numbness Attending Provider: Di Garcia Primary Care Provider: Morgan Moore Consulting Providers: Santino Roland; Lorenzo Holland; Mayra Hutchinson; Kaya Pollock; Zari Meyer; Abraham Molina; Kirstie Licona; Andrew Jean Baptiste; Alberto Wong; Joana Mckay; Andriy Aguilar; Sheree Weir; Char Miller; Jillian Carlin; Vamshi Wen; Jorgito Ortiz; Suhail Hurtado; Nancy Garcia; Awa Wu; Mark James Instructions Additional Instructions / Restrictions: 1. MRI was negative so highly suspect this was a TIA or transient ischemic attack. We will add aspirin 81 mg daily and have you continue your Eliquis. Also your cholesterol LDL is above goal of 70 so we will increase your rosuvastatin from 5 to 10 mg. 2. All of your workup was completed except your echocardiogram. Please follow- up with your primary care physician and asked that an echocardiogram be performed to complete workup for stroke. This was not done while hospitalized due to the fact that we do not do echocardiograms on Sundays. Discharge Orders/Prescriptions Prescriptions: New aspirin 81 mg capsule 81 mg PO DAILY Qty: 1 0RF rosuvastatin 10 mg tablet 10 mg PO DAILY Qty: 30 0RF Discontinued rosuvastatin 5 mg tablet 5 mg PO QHS No Action Eliquis 5 mg tablet 5 mg PO BID [employer] Plus 500 mg tablet 1 tab PO TID Loratadine-D 10-240 mg tablet extended release 24 hr 1 tab PO DAILY Referrals / Follow Up: Morgan Moore MD [Primary Care Provider] - Within 1 Week Disposition Disposition (needs filled in before D/C Order can be placed): Home, Self Care Charges/Coding Visit Charges Inpatient E&M: 64080 Disch Hosp >30min
[2024-03-18 15:30] VITALS: BP 128/76; PULSE 62; RESP 18; TEMP 36.6; O2SAT 96
[2024-03-18 16:00] VITALS: BP 126/74; PULSE 61; RESP 16; TEMP 36.8; O2SAT 98
--- NOTE | 2024-03-18 17:39 | MRI_ITS ---
STUDY: MRI BRAIN WITHOUT CONTRAST REASON FOR EXAM: Male, 63 years old. R facial droop w/ numbness, CVA rule out TECHNIQUE: Standardized multiplanar fat and water weighted pulse sequences were obtained. COMPARISON: Head CT dated March 17, 2024 FINDINGS: Normal size of the ventricles and extra-axial spaces for the patient''s age. There are multiple white matter hyperintensities, distributed throughout the deep white matter tracts of the cerebral hemispheres, consistent with mild to moderate chronic white matter ischemic changes. Normal T2* images of the brain without demonstrated susceptibility artifact. There is no demonstrated hemosiderin stain. There is no evidence for recent intracranial ischemia or other cause of cytotoxic edema on diffusion weighted imaging (DWI). Normal bilateral basal ganglia. Normal thalami. There is no extra-axial fluid accumulation. Normal flow voids within the major intracranial circulation suggesting patency by spin echo criteria. Normal sella turcica, pituitary gland, infundibular stalk, optic chiasm and hypothalamus. Normal tectal plate and pineal gland. Normal midbrain, curt and medulla. Normal cerebellum. Normal basal cisterns. Normal bilateral temporal bones. Normal bilateral internal auditory canals. No demonstrated orbital abnormality, within the constraints of a routine brain study. Normal visualized paranasal sinuses. Normal calvarium and skull base. Normal visualized soft tissue structures. Normal visualized upper cervical spine. MRI/Brain without Contrast IMPRESSION: 1. Involutional and chronic ischemic changes of the brain, as described above. Electronically Signed: Kota Flores MD at 13:58 EDT ,
== END 2024-03-18 16:41 | disposition home or self-care (01) ==
LOC: ED 17:33 → PCU 17:56
PROVIDERS: Admitting Provider Hospitalist; Emergency Provider Emergency Medicine; PCP Family Medicine; Visit Provider Internal Medicine
DX: G45.9 Transient cerebral ischemic attack, unspecified (principal); E78.00 Pure hypercholesterolemia, unspecified; R41.0 Disorientation, unspecified; Z79.01 Long term (current) use of anticoagulants; R20.0 Anesthesia of skin; R29.810 Facial weakness; Z86.718 Personal history of other venous thrombosis and embolism; Z79.899 Other long term (current) drug therapy; R29.701 NIHSS score 1; H93.19 Tinnitus, unspecified ear; E66.9 Obesity, unspecified; Z68.31 Body mass index [BMI] 31.0-31.9, adult; J98.11 Atelectasis
CPT/HCPCS: 36415; 70450; 70496; 70498; 70551; 71045; 80048; 80061; 82962; 83036; 84443; 84484; 85025; 85027; 85610; 85730; 92610; 93005; 94762; 97802; 99221; 99285; Q9967; A4216; G0378

== ENCOUNTER → 2024-07-03 | Outpatient (CLI) | payer MEDICARE, BC, SELFPAY ==
--- NOTE | 2024-07-03 13:06 | ECHOD_ITS ---
Reason For Study: TIA/CVA Procedure This was a 2D Doppler, Color Flow transthoracic echocardiogram. The study was technically difficult. Contrast injection was performed. Exam performed in department. Left Ventricle Normal size and thickness. The left ventricular ejection fraction is 65 %. Normal diastology for age. Right Ventricle Normal right ventricle. Atria The left and right atria are normal. Bubble contrast study is negative for PFO/ASD. Mitral Valve Trivial mitral valve insufficiency. Tricuspid Valve Normal tricuspid valve. Aortic Valve Trisinus/trileaflet aortic valve. Pulmonic Valve The pulmonic valve is not well visualized. Great Vessels Normal sized aortic root. Pericardium/Pleural No pericardial effusion. Medication 22 gauge I.V. with prn adaptor inserted into left arm. Performed a rapid injection of agitated mix of 9 cc saline and 1cc air to assess for atrial septal defect. Diluted definity 2.5ml given slow IV push to enhance endocardial definition. MMode/2D Measurements & Calculations LVIDd: 4.8 cm IVSd: 1.2 cm LVOT diam: 2.2 cm LVIDs: 3.1 cm LVPWd: 1.1 cm RVDd: 4.5 cm FS: 36.0 % LVOT area: 3.9 cm2 Ao root diam: 3.6 cm LAV(MOD-bp): 47.5 ml LVAd ap4: 37.3 cm2 LAV(MOD-bp) Indexed: 19.9 ml/m2 LVLd ap4: 8.6 cm LAV(MOD-sp2): 48.5 ml EDV(MOD-sp4): 128.6 ml LAV(MOD-sp4): 46.1 ml EDV(sp4-el): 136.9 ml LVAs ap4: 24.9 cm2 LVLs ap4: 7.7 cm ESV(MOD-sp4): 65.3 ml ESV(sp4-el): 68.4 ml EF(MOD-sp4): 49.2 % EF(sp4-el): 50.0 % LVAd ap2: 34.4 cm2 SV(MOD-sp4): 63.3 ml SV(MOD-sp2): 55.7 ml LVLd ap2: 9.0 cm EDV(MOD-sp2): 107.2 ml EDV(sp2-el): 111.9 ml LVAs ap2: 22.0 cm2 LVLs ap2: 7.5 cm ESV(MOD-sp2): 51.5 ml ESV(sp2-el): 54.9 ml EF(MOD-sp2): 52.0 % SV(sp4-el): 68.5 ml LA dimension(2D): 3.9 cm LA A4 area: 17.4 cm2 RA A4 area: 12.3 cm2 TAPSE: 2.1 cm Time Measurements MV dec time: 0.20 sec Doppler Measurements & Calculations MV E max travon: 50.7 cm/sec Lat Peak E' Travon: 9.8 cm/sec Med Peak E' Travon: 7.2 cm/sec MV A max travon: 60.9 cm/sec E/E' lat: 5.2 E/E' med: 7.1 MV E/A: 0.83 Ao V2 max: 105.2 cm/sec LV V1 max: 88.1 cm/sec MV dec slope: 257.7 cm/sec2 Ao max P.4 mmHg LV V1 max P.1 mmHg Ao V2 mean: 75.9 cm/sec LV V1 mean P.8 mmHg Ao mean P.5 mmHg LV V1 mean: 62.4 cm/sec Ao V2 VTI: 20.2 cm LV V1 VTI: 20.1 cm AV (velocity ratio): 1.00 RENA(I,D): 3.9 cm2 RENA(V,D): 3.3 cm2 SV(LVOT): 78.3 ml PA V2 max: 101.1 cm/sec PA max PG (full): 3.0 mmHg ECHO/Echo Complete W/ Contrast Interpretation Summary The left ventricular ejection fraction is 65 %. Bubble contrast study is negative for PFO/ASD. Ordering Physician: Krish Leos Referring Physician: Morgan Moore Performed By: Génesis East RDCS
== END | disposition home or self-care (01) ==
PROVIDERS: PCP Family Medicine; Referring Provider Internal Medicine Cardiovascular Disease; Visit Provider Internal Medicine Cardiovascular Disease
DX: G45.9 Transient cerebral ischemic attack, unspecified (principal); E78.5 Hyperlipidemia, unspecified; R03.0 Elevated blood-pressure reading, without diagnosis of hypertension
CPT/HCPCS: 93306; Q9957; A4216; C8929

== ENCOUNTER → 2024-12-10 | Outpatient (CLI) | payer MEDICARE, BC, SELFPAY ==
--- NOTE | 2024-12-10 10:59 | STRESSREP ---
Stress Test Report Date: 12/10/2024 Procedure: Exercise tolerance test Indications: Abnormal ECG Consent: Per the patient Procedure: The patient exercised on a Samuel protocol for 6 minutes achieving a peak heart rate of 155 bpm (100% predicted maximal heart rate) with a peak blood pressure 192/70 mmHg and a peak MET capacity of approximately 7.2 MET's. The baseline ECG demonstrated sinus rhythm. The peak exercise ECG demonstrated sinus tachycardia with no ischemic changes. Rare PVC and PACs noted. The functional capacity was considered average for age. The patient had no complaints of chest discomfort during exercise or recovery. Some shortness of breath with exercise. The examination was discontinued secondary to target heart rate being achieved and fatigue. Impression: 1. Technically adequate (percent predicted maximal heart rate greater than 85%) exercise tolerance test 2. Peak exercise ECG with no ischemic changes 3. No significant cardiac dysrhythmias noted This note was generated with [employer] software. It may contain incorrect words, spelling, and punctuation that were not noted in checking the note before signing.
== END | disposition home or self-care (01) ==
LOC: CVS 10:05
PROVIDERS: PCP Family Medicine; Referring Provider Family Medicine; Visit Provider Family Medicine
DX: R94.31 Abnormal electrocardiogram [ECG] [EKG] (principal)
CPT/HCPCS: 93017

== ENCOUNTER → 2025-02-15 | Outpatient (CLI) | payer MEDICARE, BC, SELFPAY ==
[2025-02-15 17:41] LABS: Hematocrit 43.2 % (40-54); Hemoglobin 14.5 g/dL (13.0-16.5); Mean Corp Hgb Conc 33.6 g/dL (32-36); Mean Corpuscular Hgb 31.9 pg (27.0-32.0); Mean Corpuscular Volume 95.2 fL (80-94); Mean Platelet Vol. 9.8 fl (6.2-12.0); Platelet Count 249 K/mm3 (150-450); RBC Distribution Width CV 12.8 % (11.6-14.6); RBC Distribution Width SD 44.9 fl (35.1-43.9); Red Blood Count 4.54 M/mm3 (4.6-6.2)
[2025-02-15 18:29] LABS: Anion Gap 11 (5-15); BUN 17 mg/dL (4-19); BUN/Creat Ratio 16.8 RATIO (10-20); Calcium,Total 9.4 mg/dL (7.6-11.0); Carbon Dioxide 23.1 mmol/L (21.0-32.0); Chloride 104 mmol/L (98-108); EST Glomerular Filtration Rate 84 (>60); Glucose 92 mg/dL (70-99); Magnesium 2.1 mg/dL (1.5-2.2); Potassium 4.3 mmol/L (3.3-5.1); Sodium Level 138 mmol/L (133-145)
== END | disposition home or self-care (01) ==
LOC: MFPLAB 15:26
PROVIDERS: PCP Family Medicine
DX: R20.0 Anesthesia of skin (principal); R20.2 Paresthesia of skin
CPT/HCPCS: 36415; 80048; 83735; 85027

== ENCOUNTER → 2025-05-15 | Outpatient (CLI) | payer MEDICARE, BC, SELFPAY ==
--- NOTE | 2025-05-15 16:02 | RAD_ITS ---
PROCEDURE: HIPS B/L MIN 2 VIEWS W/ PELVIS 05/15/2025 REASON FOR EXAM: PAIN TECHNIQUE: HIPS B/L MIN 2 VIEWS W/ PELVIS FINDINGS: 1-Right Hip Alignment is within normal limits. Mild hip joint space narrowing and subtle acetabulum sclerosis. No focal lesion noted. Soft tissues appear normal. 2-Left Hip Alignment is within normal limits. There is no evidence of acute fracture or dislocation. Mild hip joint space narrowing and subtle acetabulum sclerosis. No focal lesion noted. Soft tissues appear normal. RAD/Hips B/L min 2 views w/ Pelvis IMPRESSION: No acute osseus abnormality seen. Mild bilateral hips arthritic changes. Reading Location: [id number]
== END | disposition home or self-care (01) ==
LOC: MTRAD 16:01
PROVIDERS: PCP Family Medicine; Referring Provider Family Medicine; Visit Provider Family Medicine
DX: M25.559 Pain in unspecified hip (principal)
CPT/HCPCS: 73521

== ENCOUNTER 2025-09-01 15:38 | Observation (INO) | payer MEDICARE, BC, SELFPAY ==
[2025-09-01] VITALS (8 sets, daily range): BP systolic 120–142; BP diastolic 60–86; PULSE 55–83; RESP 12–22; TEMP 36.6–36.8; O2SAT 96–99; BMI 31.7; BMI 32.1
--- NOTE | 2025-09-01 16:05 | EX.ED.DYSGE1 ---
HPI History of Present Illness Chief Complaint: Confusion Narrative Narrative: Patient is a 65-year-old male presenting to the emergency department for an episode of retrograde amnesia and facial numbness for 1 hour. Patient has a past medical history of DVT on Eliquis. States he is compliant. He also has a history of TIA. He was here in March for a similar occurrence however at that time he did have an NIH of 1. MRI once admitted in the hospital was negative. Patient states that today he was at home with his when he developed a "metallic taste in my mouth" and reportedly complained of facial numbness to his . For about an hour he did not remember his dog's name or having knee replacement surgery for example. He states he does not remember the episode at all other than the metallic taste in his mouth and then coming out of it afterwards. He denies any symptoms at this time including headache, neck pain, vision changes, slurred speech, focal numbness or weakness. Denies any recent head trauma or falls. [facility] Medical History Bone spur Elevated blood pressure reading BMI 31.0-31.9,adult Arthritis of knee Anticoagulant long-term use Dyslipidemia TIA (transient ischemic attack) Non-smoker DVT (deep venous thrombosis) Family history of abdominal aortic aneurysm Hypercholesteremia Blood clot in leg Blood clots in brain Home Medications Medication Instructions Recorded Last Taken Type apixaban 5 mg tablet (Eliquis) 5 mg PO BID blood thinner 03/17/24 09/01/25 History vit B complex and 1 tab PO TID tinnitus 03/17/24 09/01/25 History D-owimkjn-ctdoevgr-bioflavonoid,lemon 500 mg tablet (Ear Health Plus) rosuvastatin 10 mg tablet 10 mg PO DAILY #30 tabs 03/18/24 08/31/25 Rx bee pollen 550 mg capsule 550 mg PO TID 05/30/24 09/01/25 History cinnamon bark 500 mg capsule 500 mg PO BID 05/30/24 09/01/25 History (Cinnamon) elderberry fruit 350 mg capsule 350 mg PO BID 05/30/24 09/01/25 History loratadine 10 mg tablet (Claritin) 10 mg PO DAILY 05/30/24 09/01/25 History beta carotene 30 mg capsule 30 mg PO DAILY 06/28/24 09/01/25 History lycopene 10 mg capsule 10 mg PO QDAY 12/11/24 09/01/25 History mecobalamin (vitamin B12) 1,000 1,000 mcg PO QDAY 12/11/24 09/01/25 History mcg chewable tablet omega-3 fatty acids 1,000 mg 1,000 mg PO QDAY 12/11/24 09/01/25 History capsule Allergy/AdvReac Type Severity Reaction Status Date / Time ibuprofen Allergy MAKES Verified 09/01/25 15:39 RIGHT SIDE OF FACE TO GO NUMB Family History Father AAA (abdominal aortic aneurysm) Surgical History Hx of wisdom tooth extraction Social History household members: spouse Smoking Status: Never smoker alcohol intake: never substance use type: does not use caffeine: No ROS ROS ED ROS Narrative see HPI EXAM Physical Exam Narrative Exam Narrative: Vital signs: Reviewed General: Alert and oriented x 3. No acute distress HEENT: Head is normocephalic and atraumatic, sinuses nontender, pupils equal round and reactive. Nares are patent. Oropharynx and throat exams normal. Neck: Supple without lymphadenopathy nontender Cardiovascular: Regular rate and rhythm, no murmurs. No rubs or gallops. Normal S1 and S2 Respiratory: Clear to auscultation bilaterally. No wheezes, rales, rhonchi Abdominal: Soft and nontender. Normal bowel sounds. No guarding or rebound. Nonsurgical abdomen Extremities: No tenderness. No bruising. Normal range of motion. Normal sensation. Skin: No rash or redness. Neurological: Cranial nerves II through XII are grossly intact. Normal strength and sensation. Normal cerebellar function The rest of the physical exam is unremarkable Const Vital Signs: 09/01/25 15:39 09/01/25 17:27 09/01/25 17:30 Temperature 98.3 F Temperature Source Oral Pulse Rate 80 55 L 58 L Respiratory Rate 18 22 H 16 Blood Pressure 139/84 H 120/60 127/77 H Blood Pressure Mean 102 77 93 Pulse Ox 98 96 97 Oxygen Delivery Method Room Air 09/01/25 17:49 09/01/25 18:00 09/01/25 19:00 Temperature 98 F Temperature Source Pulse Rate 83 60 60 Respiratory Rate 16 12 19 H Blood Pressure 133/82 H 124/75 H 130/82 H Blood Pressure Mean 99 88 96 Pulse Ox 99 99 99 Oxygen Delivery Method NIHSS NIHSS Initial: 1a Level of Consciousness: 0 1b LOC Questions (Score 2 if aphasic/stupor): 0 1c LOC Commands (Only score 1st attempt): 0 4 Facial Palsy: 0 5 Motor Arm Right (UN = amputation/fusion): 0 5 Motor Arm Left: 0 6 Motor Leg Right: 0 6 Motor Leg Left: 0 7 Limb ataxia (Only + if out of proportion): 0 8 Sensory (Aphasia/stupor=0 or 1, coma=2): 0 9 Best Language: 0 10 Dysarthria (mute, coma=2, intubated=UN): 0 11 Extinction and Inattention (only scored if +): 0 Total Score: 0 MDM MDM MDM Narrative Medical decision making narrative: Patient is a 65-year-old male presenting to the emergency department for episode of retrograde amnesia and facial numbness. Patient was seen and examined. Vitals are stable. Patient resting bed comfortably no acute distress. NIH here on my evaluation is 0. No indication for stroke team to be called. Differential includes but is not limited to: TIA, transient global amnesia, partial seizure? CT brain ordered as well as a stroke workup including EKG and labs. EKG shows normal sinus rhythm at a rate of 67 with no ischemic changes. No dysrhythmia. CBC with no leukocytosis and a normal hemoglobin. BMP with no significant abnormalities. CT of brain shows no acute intracranial abnormality. Discussed admission with the patient for MRI, neurology consult possible EEG. Patient agreeable with the plan. Patient admitted to Dr. James. Clinical impression: retrograde amnesia facial numbness History & Record Review Discussion w/independent historian: Patient and Significant other Additional record(s) reviewed:: Prior inpatient record and Prior ED visit Lab Data Attestation: I reviewed the patient's lab results. Labs: Laboratory Results - last 24 hr 09/01/25 16:20 WBC 7.0 RBC 4.68 Hgb 15.2 Hct 43.6 MCV 93.2 MCH 32.5 H MCHC 34.9 RDW Std Deviation 42.0 RDW Coeff of Eladio 12.2 Plt Count 208 MPV 9.6 Immature Gran % (Auto) 0.300 Neut % (Auto) 73.8 H Lymph % (Auto) 15.8 L Elliott % (Auto) 8.6 Eos % (Auto) 0.9 Baso % (Auto) 0.6 Absolute Neuts (auto) 5.2 Absolute Lymphs (auto) 1.10 Nucleated RBC % 0 Sodium 140 Potassium 4.2 Chloride 104 Carbon Dioxide 25.0 Anion Gap 11 BUN 19 Creatinine 1.10 Estim Creat Clear Calc 90.43 Est GFR (MDRD) Non-Af 74 BUN/Creatinine Ratio 17.6 Glucose 99 Calcium 10.0 Radiography Diagnostic Testing: Clinical Impression(s) from Imaging Studies Brain CT 09/01/25 16:40 IMPRESSION: No acute intracranial abnormality. Reading Location: [facility] Discharge Plan Triage Chief Complaint: Confusion ED Provider: Kalie Adorno Dx/Rx/DC Orders Prescriptions: No Action elderberry fruit 350 mg capsule 350 mg PO BID cinnamon bark [Cinnamon] 500 mg capsule 500 mg PO BID bee pollen 550 mg capsule 550 mg PO TID loratadine [Claritin] 10 mg tablet 10 mg PO DAILY beta carotene 30 mg capsule 30 mg PO DAILY mecobalamin (vitamin B12) 1,000 mcg tablet,chewable 1,000 mcg PO QDAY lycopene 10 mg capsule 10 mg PO QDAY Rx Instructions: administer after a meal omega-3 fatty acids 1,000 mg capsule 1,000 mg PO QDAY Eliquis 5 mg tablet 5 mg PO BID Ear Health Plus 500 mg tablet 1 tab PO TID rosuvastatin 10 mg tablet 10 mg PO DAILY Qty: 30 0RF Primary Care Provider: Morgan Moore Referrals: Morgan Moore MD [Primary Care Provider, Family Practice] Print Language: Ethiopian
--- OUTSIDE RECORDS SUMMARY | 2025-09-01 16:05 | XMS RPT_ITS | CCD ---
Author Organization [facility] Care Team Providers Care Supervisor Travel Trailer Name Role Phone Azalea Bay MD Primary Care Provider Edmundo Yost Unavailable Unavailable Unavailable RENATA JASSO Attending Unavailable KAY, AZALEA LAUGHLIN Primary Care Unavailab RENATA Massey Admitting Unavailable RENATA JASSO Referring Unavailable AZALEA BAY Primary Care Unavailab RENATA Massey Attending Unavailable KAY, AZALEA LAUGHLIN Primary Care Unavailab Dr. Morgan Whittaker Primary Care Provider Dr. Morgan Moore Referring Provider Dr. Austin White Attending Provider Dr. Morgan Moore Primary Care Provider Dr. Alex Severino Emergency Provider Dr. Mark James Admit Provider [phone] Dr. Mark James Attending Provider Dr. Mark James Other Provider MD Santino Roland Other Provider Unavailable Dr. Lorenzo Holland Other Provider MD Mayra Hutchinson Other Provider Unavailable Dr. Kaya Pollock Other Provider Dr. Zari Meyer Other Provider Dr. Abraham Molina Other Provider Dr. Kirstie Licona Other Provider Dr. Andrew Jean Baptiste Other Provider Dr. Alberto Wong Other Provider MD Joana Mckay Other Provider Dr. Andriy Aguilar Other Provider Dr. Sheree Weir Other Provider Dr. Char Miller Other Provider Dr. Jillian Carlin Other Provider Dr. Vamshi Wen Other Provider Dr. Jorgito Ortiz Other Provider Dr. Suhail Hurtado Other Provider [phone] Nancy Garcia Other Provider Unavailable MD Awa Wu Other Provider Unavailable Dr. Di Garcia Attending Provider Dr. Di Garcia Other Provider TERESA MONTES DE OCA, DR MORGAN Guerrier Primary Care Physician RIGOBERTO MONTES DE OCA, DR MARISOL Valdez Attending Fletcher Whittaker MD, DR MORGAN Guerrier Primary Care Kimi FRANKLIN MD, DR MARISOL Valdez Attending Fletcher Whittaker MD, DR MORGAN Guerrier Primary Care Kimi FRANKLIN MD, DR MARISOL Valdez Admitting Fletcher Domingo MD, DR MARISOL Valdez Attending Violetaab bhavin ALMANZA REWINDER-BALLER TENDER, EBENEZER M Consulting Unavaila sharan MOORE MD, DR MORGAN Guerrier Primary Care Unavailberenice Moore MD, Dr. Mora Primary Care Provider [phone] Dr. Morgan Moore MD Attending Provider Teresa MONTES DE OCA, Dr. Mora Referring Provider Teresa MONTES DE OCA, Dr. Mora Other Provider Deric MONTES DE OCA, Dr. Rutherford Attending Provider Vannesa FRUIT CUTTER-CAj Attending Provider McMorrow FRUIT CUTTER-C, Jatinder Attending Provider Teresa MONTES DE OCA, Dr. Mora Primary Care Provider Teresa MONTES DE OCA, Dr. Mora Attending Provider Teresa MONTES DE OCA, Dr. Mora Referring Provider [phone] Teresa, Morgan Primary Care Unavailable Deric, Krish Attending Unavailable Faizan FRUIT CUTTER, Mervat Attending Unavailable Moore, Morgan Primary Care Unavailable Ramon Finney Attending Unavailable Moore, Morgan Referring Unavailable Moore, Morgan Primary Care Unavailable Moore, Morgan Consulting Unavailable Moore, Morgan Referring Unavailable Moore, Morgan Primary Care Unavailable Deric, Krish Attending Unavailable Moore, Morgan Primary Care Unavailable Moore, Mrogan Referring Unavailable Deric, Krish Attending Unavailable Moore, Morgan Referring Unavailable Moore, Morgan Primary Care Unavailable Vannesa FRUIT CUTTER, Aj Oneil Attending Unavailable Deric, Krish Referring Unavailable Moore, Morgan Primary Care Unavailable Deric, Krish Attending Unavailable Moore, Morgan Attending Unavailable Moore, Morgan Referring Unavailable Moore, Morgan Primary Care Unavailable McMorrow, Jatinder Attending Unavailable Moore, Morgan Primary Care Unavailable Moore, Morgan Attending Unavailable Moore, Morgan Referring Unavailable Moore, Morgan Primary Care Unavailable Allergies Allergy Classification Reported Allergen(s) Allergy Type Date of Onset Reaction(s) Facility (9 sources) Ibuprofen; Translations: [ibuprofen] Drug Allergy 4 MAKES RIGHT SIDE OF FACE TO GO NUMB, Facial edema [facility] (1 source) Ibuprofen Drug Allergy 5 [facility] Repository Medications Current Medications Medication Drug Class(es) Dates Sig (Normalized) Sig (Original) acetaminophen 1000 mg oral tablet (1 source) Start: 12-19-2024 take 1 tablet by mouth once daily Tylenol Dose : 1,000 mg = 2 tab(s), Oral, TID, not to exceed 3000 mg/day, 0 Refill(s) Start Date: 12/19/24 Status: Ordered Repeat number: 1 apixaban 5 mg oral tablet (7 sources) Factor Xa Inhibitor Start: 03-17-2024 take 1 tablet by mouth twice daily Apixaban (Apixaban 5 Mg Tablet) 5 mg tablet Active 5 mg PO TWICE A DAY March 17, 2024 12:00am blood thinner bee pollen 550 mg oral capsule (2 sources) Start: 05-30-2024 take 1 capsule by mouth three times daily Bee Pollen 550 mg capsule Active 550 mg PO THREE TIMES A DAY May 30, 2024 12:00am BEE POLLEN ORAL (2 sources) BEE POLLEN ORAL Take by mouth . 0 Active Bee pollen oral capsule (3 sources) Start: 11-26-2024 Bee pollen oral capsule 0 Refill(s) Start Date: 11/26/24 Status: Ordered Repeat number: 1 beta carotene 30 mg oral capsule (2 sources) Start: 06-28-2024 Beta Carotene 30 mg capsule Active mg PO June 28, 2024 12:00am cinnamon bark 500 mg oral capsule (5 sources) Start: 05-30-2024 take 1 capsule by mouth twice daily Cinnamon Bark (Cinnamon) 500 mg capsule Active 500 mg PO TWICE A DAY May 30, 2024 12:00am docusate sodium 50 mg / sennosides, long-term 8.6 mg oral tablet (1 source) Start: 12-19-2024 End: 12-22-2024 take 1 tablet by mouth twice daily Senokot S 50 mg-8.6 mg oral tablet Dose = 2 tab(s), Oral, BID, Take until first bowel movement, then as needed, X 3 day(s), # 12 tab(s), 0 Refill(s), Pharmacy: [facility]/pharmacy #[id number], 187.9, cm, 12/18/24 11:12:00 EST, Height, kg, 12/18/24 11:12:00 EST, Dosing Weight Start Date: 12/19/24 Stop Date: 12/22/24 Status: Ordered Quantity: 12.0 Unit: tab(s) Repeat number: 1 ELDERBERRY FRUIT (4 sources) Start: 05-30-2024 take 1 capsule by mouth twice daily Elderberry Fruit 350 mg capsule Active 350 mg PO TWICE A DAY May 30, 2024 12:00am ELDERBERRY FRUIT ORAL Take by mouth . 0 Active Elderberry preparation (3 sources) Start: 11-26-2024 take 1 capsule by mouth once daily elderberry 350 mg oral capsule 350 mg Dose = 1 cap(s), Oral, qDay, # 60 cap(s), 0 Refill(s) Start Date: 11/26/24 Status: Ordered Quantity: 60.0 Unit: cap(s) Repeat number: 1 famotidine 20 mg oral tablet (1 source) Histamine-2 Receptor Antagonist Start: 12-19-2024 Pepcid 20 mg oral tablet Dose : 20 mg = 1 tab(s), Oral, qDay, # 30 tab(s), 0 Refill(s), Pharmacy: [facility]/pharmacy #[id number], 187.9, cm, 12/18/24 11:12:00 EST, Height, kg, 12/18/24 11:12:00 EST, Dosing Weight Start Date: 12/19/24 Status: Ordered Quantity: 30.0 Unit: tab(s) Repeat number: 1 fish oil-omega-3 fatty acids 300-1,000 mg capsule (2 sources) take 1 capsule by mouth once daily fish oil-omega-3 fatty acids 300-1,000 mg capsule Take 2 g by mouth daily. 0 Active Fish Oils (3 sources) Start: 11-26-2024 Fish Oil 1000 mg oral capsule Dose : 1,000 mg = 1 cap(s), Oral, qDay, # 90 cap(s), 0 Refill(s) Start Date: 11/26/24 Status: Ordered Quantity: 90.0 Unit: cap(s) Repeat number: 1 Inositol-Choline Lpf-Hybct-V-C (Ear Health Plus) 500 mg tablet (3 sources) Start: 03-17-2024 Inositol-Choli ne Zpb-Soisr-U-C (Ear Health Plus) 500 mg tablet Active 1 {tbl} PO THREE TIMES A DAY March 17, 2024 12:00am tinnitus Start: 03-17-2024 Inositol-Choli ne Gnz-Efgcu-R-C (Ear Health Plus) 500 mg tablet Active 1 {tbl} PO THREE TIMES A DAY March 17, 2024 12:00am Start: 03-17-2024 take 1 tablet by [facility] three times daily Inositol-Choline Zlc-Vccsq-Z-C (Ear Health Plus) 500 mg tablet Active 1 TABLET PO THREE TIMES A DAY March 17, 2024 12:00am loratadine 5 mg chewable tab let (7 sources) Start: 11-26-2024 loratadine 5 m g oral tablet, chewable Dose : 5 mg = 1 tab(s), Chewed, qDay, # 30 tab(s), 0 Refill(s) Start Date: 11/26/24 Status: Ordered Quantity: 30.0 Unit: tab(s) Repeat number: 1 Start: 05-30-2024 take 1 tablet by christine th once daily Loratadine (Claritin) 10 mg tablet Active 10 mg PO DAILY May 30, 2024 12:00am loratadine 10 mg cap Take by mouth. 0 Active lycopene 10 mg oral capsule (2 sources) Start: 12-11-2024 take 1 capsule by mouth once daily after mealtime Lycopene 10 mg capsule Active 10 mg PO daily December 11, 2024 1:00am administer after a meal mecobalamin 1 mg chewable tablet (4 sources) Start: 12-11-2024 take 1 tablet by mouth once daily Mecobalamin (Vitamin B12) 1,000 mcg tablet,chewable Active 1000 ug PO daily December 11, 2024 2:58pm Start: 05-30-2024 End: 12-11-2024 take 1 tablet by mouth twice daily Mecobalamin (Vitamin B12) 1,000 mcg tablet,chewable Discontinued 1000 ug PO TWICE A DAY May 30, 2024 12:00am December 11, 2024 2:58pm [facility] [facility] (3 sources) Start: 11-26-2024 [facility] [place] [facility] [place] Refill(s) Start Date: 11/26/24 Status: Ordered Repeat number: 1 multivitamin capsule (2 sources) take 1 capsule by mouth once daily multivitamin capsule Take 1 capsule by mouth daily. 0 Active Vienna-3 Fatty Acids 1,000 mg capsule (2 sources) Start: 12-11-2024 take 1 capsule by mouth once daily Vienna-3 Fatty Acids 1,000 mg capsule Active 1000 mg PO daily December 11, 2024 1:00am oxyCODONE hydrochloride 5 mg oral tablet (1 source) Opioid Agonist Start: 12-19-2024 End: 12-26-2024 take 1-2 tablets by mouth every four hours as needed for pain oxyCODONE 5 mg oral tablet ( IMMEDIATE release ) See Instructions, PRN as needed for pain, 1-2 tab(s) Oral q4h, # 42 tab(s), 0 Refill(s), 12/26/24 7:52:00 AM EST, Pharmacy: [facility]/pharmacy #[id number], Status post total left knee replacement, 187.9, cm, 12/18/24 11:12:00 EST, Height, 111.8, kg, 12/18/24 11:12:00 EST, Dosing Weight Start Date: 12/19/24 Stop Date: 12/26/24 Status: Ordered Quantity: 42.0 Unit: tab(s) Repeat number: 1 Indication: Presence of left artificial knee joint rosuvastatin calcium 10 mg oral tablet (10 sources) HMG-CoA Reductase Inhibitor Start: 03-18-2024 take 1 tablet by mouth once daily Rosuvastatin 10 mg tablet Active 10 mg PO DAILY 30 March 18, 2024 12:00am Start: 03-17-2024 End: 03-18-2024 take 1 tablet by mouth at bedtime Rosuvastatin 5 mg tablet Discontinued 5 mg PO AT BEDTIME March 17, 2024 12:00am March 18, 2024 2:23pm Theratrum Complete with Lute in and Lycopene (3 sources) Start: 11-26-2024 Theratrum Comp lete with Lutein and Lycopene Oral, qDay, 0 Refill(s) Start Date: 11/26/24 Status: Ordered Repeat number: 1 Vitamin B12 50 mcg oral tabl et (3 sources) Start: 11-26-2024 Vitamin B12 50 mcg oral tablet Dose : 50 mcg = 1 tab(s), Oral, qDay, # 30 tab(s), 0 Refill(s) Start Date: 11/26/24 Status: Ordered Quantity: 30.0 Unit: tab(s) Repeat number: 1 Vitamin D3 (3 sources) Start: 11-26-2024 Vitamin D3 Dos e : 100 mcg = 1 tab(s), Oral, Daily, # 90 tab(s), 0 Refill(s) Start Date: 11/26/24 Status: Ordered Quantity: 90.0 Unit: tab(s) Repeat number: 1 Completed/Discontinued Medications Medication Drug Class(es) Dates Sig (Normalized) Sig (Original) aspirin 81 mg oral tablet (4 sources) Platelet Aggregation Inhibitor, Nonsteroidal Anti-inflammatory Drug Start: 03-18-2024 End: 06-28-2024 take 1 capsule by mouth once daily Aspirin 81 mg capsule Discontinued 81 mg PO DAILY 1 March 18, 2024 12:00am June 28, 2024 10:39am End: 07-23-2021 take 1 tablet by mouth once daily aspirin 81 MG EC tablet Take 81 mg by mouth daily. 0 07/23/2021 Discontinued (Discontinued by another clinician) 24 hr loratadine 10 mg / pseudoephedrine sulfate 240 mg extended release oral tablet (3 sources) alpha-Adrenergic Agonist Start: 03-17-2024 End: 05-30-2024 take 1 tablet by mouth every twenty-four hours Loratadine-Pseudoephedrine (Loratadine-D) 10-240 mg tablet extended release 24 hr Discontinued 1 {tbl} PO DAILY March 17, 2024 12:00am May 30, 2024 10:09am allergies Start: 03-17-2024 take 1 tablet by christine th once daily, then take 1 tablet by mouth every twenty-four hours Loratadine-Pseudoephedrine (Loratadine-D ) 10-240 mg tablet extended release 24 hr Active 1 TABLET PO DAILY March 17, 2024 12:00am pantoprazole 40 mg delayed release oral tablet [...] 10-26-2021 triamcinolone acetonide (KENALOG-40) injection 40 mg Start: 07-23-2021 End: 07-24-2021 triamcinolone acetonide (SHAISTA ALOG-40) injection 40 mg Problems Active Problems Problem Classification Problem Date Documented Da te Episodic/Chronic Acute cerebrovascular disease (6 sources) Weakness of face muscles; Translations: [Cerebral infarction, unspecified] 03-17-2024 Chronic Cardiac dysrhythmias (3 sources) Premature atrial contraction; Translations: [Atrial premature depolarization] 06-28-2024 Chronic Disorders of lipid metabolism (8 sources) Dyslipidemia; Translations: [Hyperlipidemia, unspecified] Onset: 4 03-17-2024 Chronic Esophageal disorders (3 sources) Gastroesophageal reflux disease without esophagitis; Translations: [Esophageal reflux] Onset: 02-12-202 5 Chronic Genitourinary symptoms and ill-defined conditions (2 sources) Nocturia; Translations: [Nocturia] Episodic Malaise and fatigue (2 sources) Fatigue; Translations: [Other malaise and fatigue] Episodic Osteoarthritis (2 sources) Osteoarthritis of left knee joint; Translations: [Unilateral primary osteoarthritis, left knee] Chronic Other aftercare (5 sources) Long-term current use of anticoagulant; Translations: [senior living (current) use of anticoagulants] 03-17-2024 Episodic Other circulatory disease (2 sources) Elevated blood pressure; Translations: [Elevated blood-pressure reading, without diagnosis of hypertension] 05-30-2024 Episodic Other circulatory disease (3 sources) History of transient ischemic attack; Translations: [Personal history of transient ischemic attack (TIA), and cerebral infarction without residual deficits] 06-28-2024 Episodic Other connective tissue disease (1 source) Artificial knee joint present; Translations: [Presence of left artificial knee joint] Onset: 5 Chronic Other ear and sense organ disorders (2 sources) Bilateral tinnitus; Translations: [Tinnitus, unspecified] Episodic Other gastrointestinal disorders (2 sources) Dysphagia; Translations: [Dysphagia, unspecified] Episodic Other nervous system disorders (2 sources) Numbness; Translations: [Disturbance of skin sensation] Episodic Other nervous system disorders (4 sources) Facial paresthesia; Translations: [Anesthesia of skin] 03-17-2024 Episodic Other non-traumatic joint disorders (1 source) Pain in unspecified hip; Translations: [Pain in unspecified hip] Onset: 5 Episodic Other nutritional; endocrine; and metabolic disorders (2 sources) Body mass index 30+ - obesity; Translations: [Body mass index (BMI) 31.0-31.9, adult] 05-30-2024 Chronic Other nutritional; endocrine; and metabolic disorders (1 source) Body mass index (BMI) 31.0-31.9, adult; Translations: [Body mass index [BMI] 31.0-31.9, adult] Onset: 4 Chronic Phlebitis; thrombophlebitis and thromboembolism (4 sources) Acute deep vein thrombosis of lower limb; Translations: [Acute embolism and thrombosis of unspecified deep veins of unspecified lower extremity] Onset: 5 Episodic Residual codes; unclassified (4 sources) Acute confusion; Translations: [Disorientation, unspecified] 03-17-2024 Episodic Residual codes; unclassified (2 sources) Disorientation, unspecified; Translations: [Delirium due to conditions classified elsewhere] 03-17-2024 Episodic Transient cerebral ischemia (3 sources) Transient cerebral ischemia; Translations: [Transient cerebral ischemic attack, unspecified] Onset: 05-30-2024 Chronic Past or Other Problems Problem Classification Problem Date Documented Da te Episodic/Chronic Fracture of upper limb (2 sources) Closed fracture of radius; Translations: [Unspecified fracture of unspecified forearm, initial encounter for closed fracture] Onset: 04-14-2016 04-14-2016 Episodic Other aftercare (3 sources) senior living (current) use of anticoagulants; Translations: [Long-term (current) use of anticoagulants] Onset: 06-28-2024 03-17-2024 Episodic Other circulatory disease (1 source) Elevated blood-pressure reading, without diagnosis of hypertension; Translations: [Elevated blood-pressure reading, without diagnosis of hypertension] Onset: 06-28-2024 Episodic Other nervous system disorders (3 sources) Anesthesia of skin; Translations: [Disturbance of skin sensation] Onset: 02-18-2025 03-17-2024 Episodic Other screening for suspected conditions (not mental disorders or infectious disease) (4 sources) Patient encounter status; Translations: [Screening for lipoid disorders] Onset: 12-27-2024 Episodic Results Test Name Value Interpretation Reference Range Facility Hips B/L min 2 views w/ Pelv jessica 05-15-2025 Hips B/L min 2 views w/ Pelvis [facility] Imaging Services [facility] [place], [place] [id number] Hips B/L min 2 views w/ Pelvis MR#: [id number] Acct: [id number] Name: QIAN SEGAL Rep #: [id number] : 1960 M 64 From: Dianelys palacios MD PCP: Dr. Morgan Moore MD Status: REG CLI Study: Hips B/L min 2 views w/ Pelvis Date of Exam: 0 05/15/25 Exam# [id number] Ordering Dr: Morgan Moore MD PROCEDURE: HIPS B/L MIN 2 VIEWS W/ PELVIS 05/15/2025 REASON FOR EXAM: PAIN TECHNIQUE: HIPS B/L MIN 2 VIEWS W/ PELVIS FINDINGS: 1-Right Hip Alignment is within normal limits. Mild hip joint space narrowing and subtle acetabulum sclerosis. No focal lesion noted. Soft tissues appear normal. 2-Left Hip Alignment is within normal limits. There is no evidence of acute fracture or dislocation. Mild hip joint space narrowing and subtle acetabulum sclerosis. No focal lesion noted. Soft tissues appear normal. RAD/Hips B/L min 2 views w/ Pelvis IMPRESSION: No acute osseus abnormality seen. Mild bilateral hips arthritic changes. Reading Location: [place] [address] CC: Dr. Morgan Moore MD [employer]urbine Assembler: Signed Normal [facility] Anion gap in Serum or Plasma Ordered By: Jatinder Matias on 02-15-2025 Anion gap [Moles/Vol] 11 mmol/L - [facility] BUN/creatinine ratioOrdered By: Jatinder Matias on 02-15-2025 Urea nitrogen/Creatinine [Mass ratio] 16.8 mg/mg - [facility] Basic Metabolic Profile (BMP )on 02-15-2025 BUN/CRE 16.8 RATIO Normal - [facility] Comment on above: Order Comment: Order Date: 02/15/25 Order Info: [id number] - BMP Order Info: [id number] - MG Comments: numbness in head right side numbness in head right side Performed By: #### L 500.2500 #### [facility] [address] [place], [place], [id number] Calcium [Mass/Vol] 9.4 mg/dL Normal 7.6-11.0 [facility] Comment on above: Order Comment: Order Date: 02/15/25 Order Info: [id number] - BMP Order Info: [id number] - MG Comments: numbness in head right side numbness in head right side Performed By: #### L 500.2500 #### [facility] [address] [place], [place], [id number] Chloride [Moles/Vol] 104 mmol/L Normal 98-108 [facility] Comment on above: Order Comment: Order Date: 02/15/25 Order Info: 0667- - BMP Order Info: [id number] - MG Comments: numbness in head right side numbness in head right side Performed By: #### L 500.2500 #### [facility] [address] [place], [place], [address] CO2 [Moles/Vol] 23.1 mmol/L Normal 21.0-32.0 [facility] Comment on above: Order Comment: Order Date: 02/15/25 Order Info: 06 - BMP Order Info: [id number] - MG Comments: numbness in head right side numbness in head right side Performed By: #### L 500.2500 #### [facility] [address] [place], [place], [address] Creatinine [Mass/Vol] 1.00 mg/dL Normal 0.70-1.20 [facility] Comment on above: Order Comment: Order Date: 02/15/25 Order Info: 0667- - BMP Order Info: [id number] - MG Comments: numbness in head right side numbness in head right side Performed By: #### L 500.2500 #### [facility] [address] [place], [place], [address] GAP 11 Normal 5-15 [facility] Comment on above: Order Comment: Order Date: 02/15/25 Order Info: 0667- - BMP Order Info: [id number] - MG Comments: numbness in head right side numbness in head right side Performed By: #### L 500.2500 #### [facility] [address] [place], [place], [address] GFR/1.73 sq M.predicted among non-blacks MDRD (S/P/Bld) [Vol rate/Area] 84 mL/min/{1.73_m2} Normal >60 [facility] Comment on above: Order Comment: Order Date: 02/15/25 Order Info: 06 - BMP Order Info: [id number] - MG Comments: numbness in head right side numbness in head right side Result Comment: mL/m in/1.73m2 CKD-EPI Creatinine Equation (2020) Performed By: #### L 500.2500 #### [facility] [address] [place], [place], [id number] (005) Glucose [Mass/Vol] 92 mg/dL Normal 70-99 [facility] Comment on above: Order Comment: Order Date: 02/15/25 Order Info: [id number] - BMP Order Info: [id number] - MG Comments: numbness in head right side numbness in head right side Performed By: #### L 500.2500 #### [facility] [address] [place], [address] Potassium [Moles/Vol] 4.3 mmol/L Normal 3.3-5.1 [facility] Comment on above: Order Comment: Order Date: 02/15/25 Order Info: 06 - BMP Order Info: [id number] - MG Comments: numbness in head right side numbness in head right side Performed By: #### L 500.2500 #### [facility] [address] [place], [address] Sodium [Moles/Vol] 138 mmol/L Normal 133-145 [facility] Comment on above: Order Comment: Order Date: 02/15/25 Order Info: 06 - BMP Order Info: [id number] - MG Comments: numbness in head right side numbness in head right side Performed By: #### L 500.2500 #### [facility] [address] [place], [place], [address] [phone] Urea nitrogen [Mass/Vol] 17 mg/dL Normal 4-19 [facility] Comment on above: Order Comment: Order Date: 02/15/25 Order Info: 06- - BMP Order Info: [id number] - MG Comments: numbness in head right side numbness in head right side Performed By: #### L 500.2500 #### [facility] [address] [place], [place], [id number] CBC-Complete Blood Cnt No Violette haji 02-15-2025 Erythrocyte distribution width (RBC) [Ratio] 12.8 % Normal 11.6-14.6 [facility] Comment on above: Order Comment: Order Date: 02/15/25 Order Info: [id number] - CBC Comments: numbness in head Performed By: #### L 100.0500 #### [facility] [address] [place], [address] Hematocrit (Bld) [Volume fraction] 43.2 % Normal 40-54 [facility] Comment on above: Order Comment: Order Date: 02/15/25 Order Info: [id number] - CBC Comments: numbness in head Performed By: #### L 100.0500 #### [facility] [address] [place], [address] Hemoglobin (Bld) [Mass/Vol] 14.5 g/dL Normal 13.0-16.5 [facility] Comment on above: Order Comment: Order Date: 02/15/25 Order Info: [id number] - CBC Comments: numbness in head Performed By: #### L 100.0500 #### [facility] [address] [place], [address] MCH (RBC) [Entitic mass] 31.9 pg Normal 27.0-32.0 [facility] Comment on above: Order Comment: Order Date: 02/15/25 Order Info: [id number] - CBC Comments: numbness in head Performed By: #### L 100.0500 #### [facility] [address] [place], [address] MCHC (RBC) [Mass/Vol] 33.6 g/dL Normal 32-36 [facility] Comment on above: Order Comment: Order Date: 02/15/25 Order Info: [id number] - CBC Comments: numbness in head Performed By: #### L 100.0500 #### [facility] [address] [place], [address] MCV (RBC) [Entitic vol] 95.2 fL High 80-[address] [facility] Comment on above: Order Comment: Order Date: 02/15/25 Order Info: [id number] - CBC Comments: numbness in head Performed By: #### L 100.0500 #### [facility] [address] [place], [address] Platelet mean volume (Bld) [Entitic vol] 9.8 fL Normal 6.2-12.0 [facility] Comment on above: Order Comment: Order Date: 02/15/25 Order Info: [id number] - CBC Comments: numbness in head Performed By: #### L 100.0500 #### [facility] [address] [place], [address] Platelets (Bld) [#/Vol] 249 10*3/uL Normal 150-450 [facility] Comment on above: Order Comment: Order Date: 02/15/25 Order Info: [id number] - CBC Comments: numbness in head Performed By: #### L 100.0500 #### [facility] [address] [place], [address] RBC (Bld) [#/Vol] 4.54 10*6/uL Low 4.6-6.2 [facility] Comment on above: Order Comment: Order Date: 02/15/25 Order Info: [id number] - CBC Comments: numbness in head Performed By: #### L 100.0500 #### [facility] [address] [place], [address] RDW SD 44.9 fl High 35.1-43.9 [facility] Comment on above: Order Comment: Order Date: 02/15/25 Order Info: [id number] - CBC Comments: numbness in head Performed By: #### L 100.0500 #### [facility] [address] [place], [place], [id number] WBC (Bld) [#/Vol] 8.0 10*3/uL Normal 4.4-11.0 [facility] Comment on above: Order Comment: Order Date: 02/15/25 Order Info: [id number] - CBC Comments: numbness in head Performed By: #### L 100.0500 #### [facility] [address] [facility] [place], [place], [address] Carbon dioxide, total [Moles /volume] in Central venous bloodOrdered By: [facility]der [facility] on 02-15-2025 CO2 [Moles/Vol] 23.1 mmol/L 21.0-32.0 [facility] Chloride assayOrdered By: An gel orr on 02-15-2025 Chloride [Moles/Vol] 104 mmol/L 98-108 [facility] Erythrocyte distribution wid th (RBC) [Ratio]Ordered By: [facility]atinder [facility] on 02-15-2025 Erythrocyte distribution width (RBC) [Entitic vol] 44.9 fL High 35.1-43.9 [facility] Erythrocyte distribution wid th ratioOrdered By: Jatinder [facility]-2025 Erythrocyte distribution width (RBC) [Ratio] 12.8 % 11.6-14.6 [facility] Erythrocyte distribution wid th standard deviationOrdered By: Jatinder [facility] on 02-15-2025 Erythrocyte distribution width (RBC) [Ratio] 44.9 fl High 35.1-43.9 [facility] GFR/1.73 sq M.predicted hai g non-blacks MDRD (S/P/Bld) [Vol rate/Area]Ordered By: Jatinder Cora on 02-15-2025 Estimated GFR (MDRD) Non-Af Amer 84 >60 [facility] Comment on above: mL/min/1.73m2 CKD-EP I Creatinine Equation (2020) Glomerular filtration rate ( GFR) estimation/1.73 sq m using serum, plasma, or whole bOrdered By: Jatinder Cora on 02-15-2025 GFR/1.73 sq M.predicted among non-blacks MDRD (S/P/Bld) [Vol rate/Area] 84 mL/min/{1.73_m2} >60 [facility] Comment on above: mL/min/1.73m2 CKD-EP I Creatinine Equation (2020) Hematocrit Auto (Bld) [Volum e fraction]Ordered By: Jatinder Matias on 02-15-2025 Hematocrit (Bld) [Volume fraction] 43.2 % 40-54 [facility] Hemoglobin measurementOrdere d By: Jatinder Matias on 02-15-2025 Hemoglobin (Bld) [Mass/Vol] 14.5 g/dL 13.0-16.5 [facility] MCV (mean corpuscular volume ) determinationOrdered By: Jatinder Matias on 02-15-2025 MCV (RBC) [Entitic vol] 95.2 fL High 80-[address] [facility] Magnesiumon 02-15-2025 Magnesium [Mass/Vol] 2.1 mg/dL Normal 1.5-2.2 [facility] Comment on above: Order Comment: Order Date: 02/15/25 Order Info: [id number] - BMP Order Info: [id number] - MG Comments: numbness in head right side Performed By: #### L 501.5200 #### [facility] [address] [place] [address], [id number] Magnesium (Unsp spec) [Mass/ Vol]Ordered By: Jatinder Matias on 02-15-2025 Magnesium [Mass/Vol] 2.1 mg/dL 1.5-2.2 [facility] Magnesium measurement (mass/ volume)Ordered By: Jatinder Matias on 02-15-2025 Magnesium (Unsp spec) [Mass/Vol] 2.1 mg/dL 1.5-2.2 [facility] Mean corpuscular hemoglobin (MCH) determinationOrdered By: Jatinder Matias on 02-15-2025 MCH (RBC) [Entitic mass] 31.9 pg 27.0-32.0 [facility] Mean corpuscular hemoglobin concentration (MCHC) determinationOrdered By: Jatinder Matias on 02-15-2025 MCHC (RBC) [Mass/Vol] 33.6 g/dL 32-36 [facility] Mean platelet volume determi nationOrdered By: Jatinder Corasiria on 02-15-2025 Platelet mean volume (Bld) [Entitic vol] 9.8 fL 6.2-12.0 [facility] Platelet countOrdered By: Paola lynn orrsiria on 02-15-2025 Platelets (Bld) [#/Vol] 249 10*3/uL 150-450 [facility] Potassium (Unsp spec) [Mass/ Vol]Ordered By: Jatinder Corasiria on 02-15-2025 Potassium [Moles/Vol] 4.3 mmol/L 3.3-5.1 [facility] Potassium measurement (mass/ volume)Ordered By: Jatinder Indrasiria on 02-15-2025 Potassium (Unsp spec) [Mass/Vol] 4.3 mmol/L 3.3-5.1 [facility] RBC Auto (Bld) [#/Vol]Ordere d By: Jatinder Indrasiria on 02-15-2025 RBC (Bld) [#/Vol] 4.54 10*6/uL Low 4.6-6.2 [facility] Serum creatinine measurement (mass/volume)Ordered By: Jatinder Corasiria on 02-15-2025 Creatinine [Mass/Vol] 1.00 mg/dL 0.70-1.20 [facility] Serum glucose measurement (m ass/volume)Ordered By: Jatinder Burrell on 02-15-2025 Glucose [Mass/Vol] 92 mg/dL 70-99 [facility] Serum or plasma calcium fabrizio urement (mass/volume)Ordered By: Jatinder Indrasiria on 02-15-2025 Calcium [Mass/Vol] 9.4 mg/dL 7.6-11.0 [facility] Serum or plasma urea nitroge n measurement (mass/volume)Ordered By: Jatinder Corasiria 02-15-2025 Urea nitrogen [Mass/Vol] 17 mg/dL 4-19 [facility] Sodium levelOrdered By: Lisa Matias on 02-15-2025 Sodium [Moles/Vol] 138 mmol/L 133-145 [facility] White blood cell (WBC) count Ordered By: Jatinder Corasiria 02-15-2025 WBC (Bld) [#/Vol] 8.0 10*3/uL 4.4-11.0 [facility] .Auto Diffon 12-19-2024 Basophil, Absolute 0.0 10 3/mcL Normal 0.0-0.2 [facility] Comment on above: Performed By: #### A NICK ABSGEL #### [address] [address] Basophils/100 WBC (Bld) 0.1 % Normal 0.0-2.5 [facility] Comment on above: Performed By: #### A NICK ABSGEL #### [address] [address] Eosinophil, Absolute 0.0 10 3/mcL Normal 0.0-0.7 [facility] Comment on above: Performed By: #### A NICK ABSGEL #### [address] [address] Eosinophils/100 WBC (Bld) 0.0 % Normal 0.0-7.0 [facility] Comment on above: Performed By: #### A NICK ABSGEL #### [address] [address] Lymphocyte, Absolute 0.8 10 3/mcL Low 0.9-4.3 [facility] Comment on above: Performed By: #### A NICK ABSGEL #### [address] [address] Lymphocytes/100 WBC (Bld) 5.4 % Low 20.0-40.0 [facility] Comment on above: Performed By: #### A NICK ABSGEL #### [address] [address] Monocyte, Absolute 1.9 10 3/mcL High 0.1-1.4 [facility] Comment on above: Performed By: #### A NICK ABSGEL #### [address] [address] Monocytes/100 WBC (Bld) 13.3 % High 2.0-13.0 [facility] Comment on above: Performed By: #### A ALYSSIA ROMERO #### [address] [address] Neutrophils/100 WBC (Bld) 81.2 % High 50.0-75.0 [facility] Comment on above: Performed By: #### A ALYSSIA ROMERO #### [address] [address] .GFRon 12-19-2024 Estimated Glomerular Filtration Rate 77 ml/min/1.73sqm Normal [facility] Comment on above: Result Comment: Stages of Chronic Kidney Disease (CKD) Stage Description eGFR(ml/min/1.73 sq.m.) CKD 1 Normal kidney function or >=90 normal kindney function with possible kidney damage (ex. Proteinuria) CKD 2 Kidney damage with mild loss 60-89 of kidney function CKD 3a Mild to moderate loss of kidney 45-59 function CKD 3b Moderate to severe loss of 30-44 of kindey function CKD 4 Severe loss of kidney function 15-29 CKD 5 Kidney failure <15 Note: (go live 2024) the eGFR calculation was updated to the 2020 CKD-EPI creatinine equation without a race factor to calculate the eGFR results. Performed By: #### A ALYSSIA ROMERO #### [address] [address] .NEUABSon 12-19-2024 Neutrophil, Absolute 11.8 10 3/mcL High 2.3-8.1 [facility] Comment on above: Performed By: #### ALYSSIA OBRIEN #### [address] [address] BMPon 12-19-2024 BUN/Creatinine Ratio 23 ratio Normal 7-27 [facility] Comment on above: Performed By: #### A ALYSSIA ROMERO #### [address] [address] Calcium [Mass/Vol] 8.9 mg/dL Normal 8.4-10.2 [facility] Comment on above: Performed By: #### A ALYSSIA ROMERO #### [address] [address] Chloride [Moles/Vol] 102 mmol/L Normal 98-107 [facility] Comment on above: Performed By: #### A ALYSSIA ROMERO #### [address] [address] CO2 [Moles/Vol] 28 mmol/L Normal 23-31 [facility] Comment on above: Performed By: #### A ALYSSIA ROMERO #### [address] [address] Creatinine [Mass/Vol] 1.07 mg/dL Normal 0.70-1.[address] [facility] Comment on above: Result Comment: Test ing performed on Siemens Dimension EXL analyzer using a modified kinetic Angi technique. Performed By: #### A ALYSSIA ROMERO #### [address] [address] Electrolyte Balance 6.0 mEq/L Normal 4.0-15.0 [facility] Comment on above: Performed By: #### A ALYSSIA ROMERO #### [address] [address] Glucose [Mass/Vol] 124 mg/dL High 80-115 [facility] Comment on above: Performed By: #### A ALYSSIA ROMERO #### [address] [address] Potassium [Moles/Vol] 4.8 mmol/L Normal 3.5-5.[address] [facility] Comment on above: Performed By: #### A ALYSSIA ROMERO #### [address] [address] Sodium [Moles/Vol] 136 mmol/L Normal 136-145 [facility] Comment on above: Performed By: #### A ALYSSIA ROMERO #### [address] [address] Urea nitrogen [Mass/Vol] 25 mg/dL High 7-18 [facility] Comment on above: Performed By: #### A ALYSSIA ROMERO #### [address] [address] CBCon 12-19-2024 Erythrocyte distribution width (RBC) [Ratio] 12.9 % Normal 11.5-15.5 [facility] Comment on above: Performed By: #### A ALYSSIA ROMERO #### [address] [address] Hematocrit (Bld) [Volume fraction] 37.9 % Low 40.0-52.0 [facility] Comment on above: Performed By: #### A ALYSSIA ROMERO #### [address] [address] Hgb 13.0 G/dL Normal 13.0-17.5 [facility] Comment on above: Performed By: #### A ALYSSIA ROMERO #### [address] [address] MCH (RBC) [Entitic mass] 32.5 pg Normal 27.0-33.0 [facility] Comment on above: Performed By: #### A ALYSSIA ROMERO #### [address] [address] MCHC 34.3 G/dL Normal 32.0-36.0 [facility] Comment on above: Performed By: #### A ALYSSIA ROMERO #### [address] [address] MCV (RBC) [Entitic vol] 94.7 fL Normal 81.0-100.0 [facility] Comment on above: Performed By: #### A ALYSSIA ROMERO #### [address] [address] Platelet 193 10 3/mcL Normal 150-450 [facility] Comment on above: Performed By: #### A ALYSSIA ROMERO #### [address] [address] Platelet mean volume (Bld) [Entitic vol] 8.0 fL Normal 6.4-10.5 [facility] Comment on above: Performed By: #### A ALYSSIA ROMERO #### [address] [place], [place] [address] RBC 4.00 10 6/mcL Low 4.50-6.00 [facility] Comment on above: Performed By: #### ALYSSIA OBRIEN #### [facility] [address] [place], [place] [address] WBC 14.5 10 3/mcL High 4.5-10.8 [facility] Comment on above: Performed By: #### ALYSSIA OBRIEN #### [address] [place], [place] [address] LABORATORYOrdered By: SYSTEM SYSTEM on 12-19-2024 Basophils (Bld) [#/Vol] 0.0 103/mcL Normal 0.0 - 0.2 10^3/mcL AO Workflow SS Basophils/100 WBC (Bld) 0.1 % Normal 0.0 - 2.5 % AO Workflow SS Calcium [Mass/Vol] 8.9 mg/dL Normal 8.4 - 10. 2 mg/dL AO ADM SS Chloride [Moles/Vol] 102 mmol/L Normal 98 - 10 7 mmol/L AO ADM SS CO2 [Moles/Vol] 28 mmol/L Normal 23 - 31 mmol/L AO ADM SS Creatinine [Mass/Vol] 1.07 mg/dL Normal 0.70 - 1.30 mg/dL AO ADM SS Comment on above: Interpretive Data: T esting performed on Siemens Dimension EXL analyzer using a modified kinetic Angi technique. Electrolyte Balance 6.0 mEq/L Normal 4.0 - 15 .0 mEq/L AO ADM SS Eosinophil, Absolute 0.0 103/mcL Normal 0.0 - 0 .7 10^3/mcL AO Workflow SS Eosinophils/100 WBC (Bld) 0.0 % Normal 0.0 - 7.0 % AO Workflow SS Erythrocyte distribution width (RBC) [Ratio] 12.9 % Normal 11.5 - 15.5 % AO Workflow SS Estimated Glomerular Filtration Rate 77 ml/min/1.73sqm Invalid Interpretation Code AO Chemistry S Comment on above: Interpretive Data: Stages of Chronic Kidney Disease (CKD) Stage Description eGFR(ml/min/1.73 sq.m.) CKD 1 Normal kidney function or >=90 normal kindney function with possible kidney damage (ex. Proteinuria) CKD 2 Kidney damage with mild loss 60-89 of kidney function CKD 3a Mild to moderate loss of kidney 45-59 function CKD 3b Moderate to severe loss of 30-44 of kindey function CKD 4 Severe loss of kidney function 15-29 CKD 5 Kidney failure <15 Note: (go live 2024) the eGFR calculation was updated to the 2020 CKD-EPI creatinine equation without a race factor to calculate the eGFR results. Glucose [Mass/Vol] 124 mg/dL High 80 - 115 mg/dL AO ADM SS Hematocrit (Bld) [Volume fraction] 37.9 % Low 40.0 - 52.0 % AO Workflow SS Hemoglobin (Bld) [Mass/Vol] 13.0 G/dL Normal 13.0 - 17.5 G/dL AO Workflow SS Lymphocytes (Bld) [#/Vol] 0.8 103/mcL Low 0.9 - 4.3 10^3/mcL AO Workflow SS Lymphocytes/100 WBC (Bld) 5.4 % Low 20.0 - 40.0 % AO Workflow SS MCH (RBC) [Entitic mass] 32.5 pg Normal 27.0 - 33.0 pg AO Workflow SS MCHC 34.3 G/dL Normal 32.0 - 36.0 G/dL AO Workflow SS MCV (RBC) [Entitic vol] 94.7 fL Normal 81.0 - 100.0 fL AO Workflow SS Monocytes (Bld) [#/Vol] 1.9 103/mcL High 0.1 - 1.4 10^3/mcL AO Workflow SS Monocytes/100 WBC (Bld) 13.3 % High 2.0 - 13.0 % AO Workflow SS Neutrophils (Bld) [#/Vol] 11.8 103/mcL High 2.3 - 8.1 10^3/mcL AO Workflow SS Neutrophils/100 WBC (Bld) 81.2 % High 50.0 - 75.0 % AO Workflow SS Platelet mean volume (Bld) [Entitic vol] 8.0 fL Normal 6.4 - 10.5 fL AO Workflow SS Platelets (Bld) [#/Vol] 193 103/mcL Normal 150 - 450 10^3/mcL AO Workflow SS Potassium [Moles/Vol] 4.8 mmol/L Normal 3.5 - 5.1 mmol/L AO ADM SS RBC (Bld) [#/Vol] 4.00 106/mcL Low 4.50 - 6.0 0 10^6/mcL AO Workflow SS Sodium [Moles/Vol] 136 mmol/L Normal 136 - 145 mmol/L AO ADM SS Urea nitrogen [Mass/Vol] 25 mg/dL High 7 - 18 mg/dL AO ADM SS Urea nitrogen/Creatinine [Mass ratio] 23 ratio Normal 7 - 27 ratio AO ADM SS WBC (Bld) [#/Vol] 14.5 103/mcL High 4.5 - 10.8 10^3/mcL AO Workflow SS ABO/Rh (Gel)on 12-18-2024 ABO/Rh Interp Positive Invalid Interpretation Code [facility] Comment on above: Performed By: #### A ALYSSIA ROMERO #### [address] [place], [place] [address] ABS (Gel)on 12-18-2024 ABSC Interp (Gel) Negative Normal [facility] Comment on above: Performed By: #### A ALYSSIA ROMERO #### [address] [address] LABORATORYOrdered By: Kristal Rodrigez on 12-18-2024 ABO and Rh group Nom (Bld) Blood group A Rh(D) positive Invalid Interpretation Code AO BB Auto SS Blood group antibody screen Ql Negative ABSC (12/18/24 6:02 AM) Normal AO BB Auto SS US ANESTHESIA BLOCKon 2024 US ANESTHESIA BLOCK ORIGINAL Images acquired, not reported on this accession number. Normal [facility] XR KNEE 1 OR 2 VIEWS LEFTon 12-18-2024 XR KNEE 1 OR 2 VIEWS LEFT ORIGINAL EXAMINATION: TWO XRAY VIEWS OF THE LEFT KNEE 12/18/2024 9:12 am COMPARISON: CT knee 11/26/2024 HISTORY: ORDERING SYSTEM PROVIDED HISTORY: Reason for Exam: Status Post Arthroplasty IMPRESSION: Postop surgical skin vinh along the left knee. Left knee arthroplasty. Immediate expected postoperative changes including swelling subcutaneous and intra-articular gas and joint effusion. The hardware is intact. There is no evidence of periprosthetic lucency or fracture. Interpreted by: Fatimah Mcintyre Preliminary Report By: Fatimah Mcintyre Electronically signed By Fatimah Mcintyre Dictated Date: 12/18/2024 9:40:29 AM Prelim Date: 12/18/2024 9:41:30 AM Sign Date: 12/18/2024 9:41:30 AM Ordering Provider: MARISOL Dhaliwal [facility] Cardiology Visit Reporton Cardiology Visit Report [facility] [address] [place] [address] OFFICE VISIT Date of Service: 12/11/24 MR#: [id number] Acct: [id number] Name: QIAN SEGAL Rep #: [id number] : 1960 Provider: SUKHI dominguez Age/Sex: 64/M Location: [facility] Status: Signed HPI HPI History of Present Illness Details: This gentleman was admitted to the hospital in March with transient facial droop. Workup was negative for CVA. Likely a TIA. He has been referred to us for evaluation of any cardiac cause of his TIA. He states 1 episode of chest spasm after food poisoning and violent vomiting. This has not been reoccurring. This has not occurred with exercise. He denies chest, arm, jaw, or neck discomfort. He denies palpitations. He denies bilateral lower extremity edema. He denies claudication. He denies shortness of breath with activity, shortness of breath at rest, orthopnea, or PND. He denies chronic cough. He denies significant, sudden weight gain. He denies lightheadedness, dizziness, near-syncope, or syncope. He denies blood in urine, blood in stool, or epistaxis. He denies fever with chills. He denies myalgia. He states chronic fatigue that he attributes to boredom. His exercise level has remained stable. Intake Vital Signs 06/28/24 10:32 12/11/24 12:26 Height 6 ft 3.2 in 6 ft 3 in Weight: 253 lb BMI 31.6 BP 113/78 Blood Pressure Location Lt brachial Position Sitting Respiration 16 Pulse 71 Pulse Source NIBP Intake Visit Reasons: Pre-op visit (general surgery) Radiation Control Specialist Required: No Is patient in pain?: No Allergies ibuprofen Allergy (Verified 12/11/24 13:57) MAKES RIGHT SIDE OF FACE TO GO NUMB Medications ???Medication ???Instructions ???Recorded ???Confirmed ???Type apixaban 5 mg tablet (Eliquis) 5 mg PO BID blood thinner 03/17/24 12/11/24 History inositol-choline [id number] 1 tab PO TID tinnitus 03/17/24 0 12/11/24 History B complex and C 500 mg tablet (Ear Health Plus) rosuvastatin 10 mg tablet 10 mg PO DAILY #30 tabs 03/18/24 0 12/11/24 Rx bee pollen 550 mg capsule 550 mg PO TID 05/30/24 12/11/24 Hi story cinnamon bark 500 mg capsule 500 mg PO BID 05/30/24 12/11/24 Hi story (Cinnamon) elderberry fruit 350 mg capsule 350 mg PO BID 05/30/24 12/11/24 Hi story loratadine 10 mg tablet (Claritin) 10 mg PO DAILY 05/30/24 12/11/24 History beta carotene 30 mg capsule mg PO 06/28/24 12/11/24 History lycopene 10 mg capsule 10 mg PO QDAY 12/11/24 12/11/24 Hi story mecobalamin (vitamin B12) 1,000 1,000 mcg PO QDAY 12/11/24 5 History mcg chewable tablet omega-3 fatty acids 1,000 mg 1,000 mg PO QDAY 12/11/24 12/11/24 History capsule Ejection fraction %: 65 Have you fallen in the past year?: No Nurse's Note: Last dose of Eliquis was taken yesterday prior to surgery on 12/18/24 [facility] Medical History Bone spur Elevated blood pressure reading BMI 31.0-31.9,adult Arthritis of knee Anticoagulant long-term use Dyslipidemia TIA (transient ischemic attack) Non-smoker DVT (deep venous thrombosis) Family history of abdominal aortic aneurysm Hypercholesteremia Blood clot in leg 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 Relates to being bored); Negative for weakness Eyes Eyes: Negative for change in vision ENT ENT: Negative for dizziness or balance problems Cardio Chest Pain: Yes (Spasm type pain after food poisoning and violent vomiting) Palpitations: No Edema: None Muscle aches with walking: None Resp Respiratory: Negative for SOB with activity, SOB at rest or SOB orthopnea SOB lying down GI GI: Negative nausea or heartburn : Negative for hematuria or frequent nighttime urination/ nocturia Musc Musc: Negative for balance problems Skin Skin: Negative non-healing lesions or rash Neuro Neuro: Negative for dizziness, lightheadedness, near syncope, syncope or weakness Endo Endo: Positive for fatigue (Always tired. Relates to being bored) Allergy Allergy/Immunology: Negative for rash Cardiology Exam Const Appearance: cooperative, healthy appearing, comfortable and no acute distress Nutritional Appearance: well nourished and obese Orientation: alert, awake and oriented x3 Head Head: normal to inspection Ears: hearing grossly normal bilaterally (more content not included)... Normal [facility] Stress Reporton 12-10-2024 Stress Report [facility] [address] [place] [address] MR#: [id number] Acct: [id number] Name: QIAN SEGAL Rep #: [id number] : 1960 64 From: Krish Leos MD Primary Care: Dr. Morgan Moore MD Status: REG I Referring Dr: Morgan Moore MD Sex: M C Stress Test Report Date: 12/10/2024 Procedure: Exercise tolerance test Indications: Abnormal ECG Consent: Per the patient Procedure: The patient exercised on a Samuel protocol for 6 minutes achieving a peak heart rate of 155 bpm (100% predicted maximal heart rate) with a peak blood pressure 192/70 mmHg and a peak MET capacity of approximately 7.2 MET's. The baseline ECG demonstrated sinus rhythm. The peak exercise ECG demonstrated sinus tachycardia with no ischemic changes. Rare PVC and PACs noted. The functional capacity was considered average for age. The patient had no complaints of chest discomfort during exercise or recovery. Some shortness of breath with exercise. The examination was discontinued secondary to target heart rate being achieved and fatigue. Impression: 1. Technically adequate (percent predicted maximal heart rate greater than 85%) exercise tolerance test 2. Peak exercise ECG with no ischemic changes 3. No significant cardiac dysrhythmias noted This note was generated with [employer] software. It may contain incorrect words, spelling, and punctuation that were not noted in checking the note before signing. 12/10/24 1101 Date Krish Leos MD CC: Dr. Morgan Moore MD Date Dictated: 12/10/241058 Date Transcribed: 12/10/241058 [employer]: [place] Dhaliwal [facility] .Auto Diffon 11-26-2024 Basophil, Absolute 0.0 10 3/mcL Normal 0.0-0.2 [facility] Comment on above: Performed By: #### A BSGEL, BMP, ANEU, GFR, ADIFF, ABOGEL, ALB, CBC #### [address] [address] Basophils/100 WBC (Bld) 0.5 % Normal 0.0-2.5 [facility] Comment on above: Performed By: #### A BSGEL, BMP, ANEU, GFR, ADIFF, ABOGEL, ALB, CBC #### [address] [address] Eosinophil, Absolute 0.1 10 3/mcL Normal 0.0-0.7 [facility] Comment on above: Performed By: #### A BSGEL, BMP, ANEU, GFR, ADIFF, ABOGEL, ALB, CBC #### [address] [address] Eosinophils/100 WBC (Bld) 2.2 % Normal 0.0-7.0 [facility] Comment on above: Performed By: #### A BSGEL, BMP, ANEU, GFR, ADIFF, ABOGEL, ALB, CBC #### [address] [address] Lymphocyte, Absolute 0.9 10 3/mcL Normal 0.9-4.3 [facility] Comment on above: Performed By: #### A BSGEL, BMP, ANEU, GFR, ADIFF, ABOGEL, ALB, CBC #### [address] [address] Lymphocytes/100 WBC (Bld) 14.3 % Low 20.0-40.0 [facility] Comment on above: Performed By: #### A BSGEL, BMP, ANEU, GFR, ADIFF, ABOGEL, ALB, CBC #### [address] [address] Monocyte, Absolute 0.7 10 3/mcL Normal 0.1-1.4 [facility] Comment on above: Performed By: #### A BSGEL, BMP, ANEU, GFR, ADIFF, ABOGEL, ALB, CBC #### [address] [address] Monocytes/100 WBC (Bld) 10.4 % Normal 2.0-13.0 [facility] Comment on above: Performed By: #### A BSGEL, BMP, ANEU, GFR, ADIFF, ABOGEL, ALB, CBC #### [address] [address] Neutrophils/100 WBC (Bld) 72.6 % Normal 50.0-75.0 [facility] Comment on above: Performed By: #### A BSGEL, BMP, ANEU, GFR, ADIFF, ABOGEL, ALB, CBC #### [address] [address] .GFRon 11-26-2024 GFR 82 ml/min/1.73sqm Normal [facility] Comment on above: Result Comment: GFR Population mean for , Non- Americans Ages 20-29 = 116 mL/min/1.73 sq.m. Ages 30-39 = 107 mL/min/1.73 sq.m. Ages 40-49 = 99 mL/min/1.73 sq.m. Ages 50-59 = 93 mL/min/1.73 sq.m. Ages 60-69 = 85 mL/min/1.73 sq.m. Ages 70+ = 75 mL/min/1.73 sq.m. Chronic Kidney Disease: Less than 60 mL/min/1.73 square meters End Stage Renal Disease: Less than 15 mL/min/1.73 square meters Performed By: #### A ALYSSIA ROMERO #### [address] [address] GFR Non- 68 ml/min/1.73sqm Normal [facility] Comment on above: Result Comment: GFR Population mean for , Non- Americans Ages 20-29 = 116 mL/min/1.73 sq.m. Ages 30-39 = 107 mL/min/1.73 sq.m. Ages 40-49 = 99 mL/min/1.73 sq.m. Ages 50-59 = 93 mL/min/1.73 sq.m. Ages 60-69 = 85 mL/min/1.73 sq.m. Ages 70+ = 75 mL/min/1.73 sq.m. Chronic Kidney Disease: Less than 60 mL/min/1.73 square meters End Stage Renal Disease: Less than 15 mL/min/1.73 square meters Performed By: #### A ALYSSIA ROMERO #### [address] [address] .NEUABSon 11-26-2024 Neutrophil, Absolute 4.7 10 3/mcL Normal 2.3-8.1 [facility] Comment on above: Performed By: #### A BSGEL, BMP, ANEU, GFR, ADIFF, ABOGEL, ALB, CBC #### [address] [address] ABO/Rh (Gel)on 11-26-2024 ABO/Rh Interp Positive Invalid Interpretation Code [facility] Comment on above: Order Comment: SURG ANNIE 2/11 -AC Performed By: #### A ALYSSIA ROMERO #### [address] [address] ABS (Gel)on 11-26-2024 ABSC Interp (Gel) Negative Normal [facility] Comment on above: Order Comment: SURG ANNIE 2/11 -AC Performed By: #### A ALYSSIA ROMERO #### [address] [address] ALBon 11-26-2024 Albumin Level 3.5 G/dL Normal 3.4-4.8 [facility] Comment on above: Performed By: #### A BSGEL, BMP, ANEU, GFR, ADIFF, ABOGEL, ALB, CBC #### [address] [address] BMPon 11-26-2024 BUN/Creatinine Ratio 18 ratio Normal 7-27 [facility] Comment on above: Performed By: #### A BSGEL, BMP, ANEU, GFR, ADIFF, ABOGEL, ALB, CBC #### [address] [address] Calcium [Mass/Vol] 9.1 mg/dL Normal 8.4-10.2 [facility] Comment on above: Performed By: #### A BSGEL, BMP, ANEU, GFR, ADIFF, ABOGEL, ALB, CBC #### [address] [address] Chloride [Moles/Vol] 106 mmol/L Normal 98-107 [facility] Comment on above: Performed By: #### A BSGEL, BMP, ANEU, GFR, ADIFF, ABOGEL, ALB, CBC #### [address] [address] CO2 [Moles/Vol] 27 mmol/L Normal 23-31 [facility] Comment on above: Performed By: #### A BSGEL, BMP, ANEU, GFR, ADIFF, ABOGEL, ALB, CBC #### [address] [address] Creatinine [Mass/Vol] 1.09 mg/dL Normal 0.70-1.[address] [facility] Comment on above: Result Comment: Test ing performed on [employer] Dimension EXL analyzer using a modified kinetic Angi technique. Performed By: #### A BSGEL, BMP, ANEU, GFR, ADIFF, ABOGEL, ALB, CBC #### [address] [address] Electrolyte Balance 8.0 mEq/L Normal 4.0-15.0 [facility] Comment on above: Performed By: #### A BSGEL, BMP, ANEU, GFR, ADIFF, ABOGEL, ALB, CBC #### [address] [address] Glucose [Mass/Vol] 94 mg/dL Normal 80-115 [facility] Comment on above: Performed By: #### A BSGEL, BMP, ANEU, GFR, ADIFF, ABOGEL, ALB, CBC #### [address] [address] Potassium [Moles/Vol] 4.1 mmol/L Normal 3.5-5.[address] [facility] Comment on above: Performed By: #### A BSGEL, BMP, ANEU, GFR, ADIFF, ABOGEL, ALB, CBC #### [address] [address] Sodium [Moles/Vol] 141 mmol/L Normal 136-145 [facility] Comment on above: Performed By: #### A BSGEL, BMP, ANEU, GFR, ADIFF, ABOGEL, ALB, CBC #### [address] [address] Urea nitrogen [Mass/Vol] 20 mg/dL High 7-18 [facility] Comment on above: Performed By: #### A BSGEL, BMP, ANEU, GFR, ADIFF, ABOGEL, ALB, CBC #### [address] [address] CBCon 11-26-2024 Erythrocyte distribution width (RBC) [Ratio] 13.1 % Normal 11.5-15.5 [facility] Comment on above: Order Comment: Pre-A dmission Testing Performed By: #### A BSGEL, BMP, ANEU, GFR, ADIFF, ABOGEL, ALB, CBC #### [address] [address] Hematocrit (Bld) [Volume fraction] 45.4 % Normal 40.0-52.0 [facility] Comment on above: Order Comment: Pre-A dmission Testing Performed By: #### A BSGEL, BMP, ANEU, GFR, ADIFF, ABOGEL, ALB, CBC #### [address] [address] Hgb 15.7 G/dL Normal 13.0-17.5 [facility] Comment on above: Order Comment: Pre-A dmission Testing Performed By: #### A BSGEL, BMP, ANEU, GFR, ADIFF, ABOGEL, ALB, CBC #### [address] [address] MCH (RBC) [Entitic mass] 32.9 pg Normal 27.0-33.0 [facility] Comment on above: Order Comment: Pre-A dmission Testing Performed By: #### A BSGEL, BMP, ANEU, GFR, ADIFF, ABOGEL, ALB, CBC #### [place] [address] MCHC 34.6 G/dL Normal 32.0-36.0 [facility] Comment on above: Order Comment: Pre-A dmission Testing Performed By: #### A BSGEL, BMP, ANEU, GFR, ADIFF, ABOGEL, ALB, CBC #### [place] [address] MCV (RBC) [Entitic vol] 95.1 fL Normal 81.0-100.0 [facility] Comment on above: Order Comment: Pre-A dmission Testing Performed By: #### A BSGEL, BMP, ANEU, GFR, ADIFF, ABOGEL, ALB, CBC #### [address] [address] Platelet 201 10 3/mcL Normal 150-450 [facility] Comment on above: Order Comment: Pre-A dmission Testing Performed By: #### A BSGEL, BMP, ANEU, GFR, ADIFF, ABOGEL, ALB, CBC #### [address] [address] Platelet mean volume (Bld) [Entitic vol] 8.2 fL Normal 6.4-10.5 [facility] Comment on above: Order Comment: Pre-A dmission Testing Performed By: #### A BSGEL, BMP, ANEU, GFR, ADIFF, ABOGEL, ALB, CBC #### [place] [address] [place], [place] [address] RBC 4.77 10 6/mcL Normal 4.50-6.00 [facility] Comment on above: Order Comment: Pre-A dmission Testing Performed By: #### A BSGEL, BMP, ANEU, GFR, ADIFF, ABOGEL, ALB, CBC #### [place] [address] [place], [place] [address] WBC 6.5 10 3/mcL Normal 4.5-10.8 [facility] Comment on above: Order Comment: Pre-A dmission Testing Performed By: #### A BSGEL, BMP, ANEU, GFR, ADIFF, ABOGEL, ALB, CBC #### [place] [address] [place], [place] [address] CT KNEE W/O CONTRAST LEFTon 11-26-2024 CT KNEE W/O CONTRAST LEFT ORIGINAL EXAMINATION: CT OF THE LEFT KNEE WITHOUT CONTRAST 11/26/2024 1:45 pm TECHNIQUE: CT of the left knee was performed without the administration of intravenous contrast. Multiplanar reformatted images are provided for review. Automated exposure control, iterative reconstruction, and/or weight based adjustment of the mA/kV was utilized to reduce the radiation dose to as low as reasonably achievable. MA KO protocol was performed with axial images through the left hip and left ankle. COMPARISON: None. HISTORY ORDERING SYSTEM PROVIDED HISTORY: Reason for Exam: N17.12 kisha protocol FINDINGS: There is no acute fracture or dislocation. There is no suspicious lytic or blastic osseous lesion. There is no aggressive periosteal reaction. Bone demineralization. Mild left femoroacetabular joint space narrowing. The pelvis is only partially visualized, there are some prostatic calcifications recommend correlation with PSA and KIRK. Diffuse moderate to severe vascular calcifications. Quadriceps enthesopathy. Moderate knee joint effusion. Severe tricompartmental osteoarthritis of the left knee most pronounced in the medial compartment with [id number], asymmetric joint space narrowing, marginal osteophyte formation and subchondral sclerosis. There is mild lateral coronal tibiofemoral subluxation. There is no evidence of solid or cystic soft tissue mass. Limited evaluation of the neurovascular structures lack contrast. IMPRESSION: Severe tricompartmental osteoarthritis of the left knee most pronounced in the medial compartment. Moderate knee joint effusion. Additional incidental findings above. Interpreted by: Fatimah Mcintyre Preliminary Report By: Fatimah Mcintyre Electronically signed By Fatimah Mcintyre Dictated Date: 11/26/2024 3:39:18 PM Prelim Date: 11/26/2024 3:43:26 PM Sign Date: 11/26/2024 3:43:26 PM Ordering Provider: MARISOL Dhaliwal [facility] LABORATORYOrdered By: Kisha Silveira on 11-26-2024 ABO and Rh group Nom (Bld) Blood group A Rh(D) positive Invalid Interpretation Code AO BB Auto SS Blood group antibody screen Ql Negative ABSC (11/26/24 12:18 PM) Normal AO BB Auto SS LABORATORYOrdered By: [employer] on 11-26-2024 Albumin BCP dye [Mass/Vol] 3.5 G/dL Normal 3.4 - 4.8 G/dL AO ADM SS Basophils (Bld) [#/Vol] 0.0 103/mcL Normal 0.0 - 0.2 10^3/mcL AO Workflow SS Basophils/100 WBC (Bld) 0.5 % Normal 0.0 - 2.5 % AO Workflow SS Calcium [Mass/Vol] 9.1 mg/dL Normal 8.4 - 10. 2 mg/dL AO ADM SS Chloride [Moles/Vol] 106 mmol/L Normal 98 - 10 7 mmol/L AO ADM SS CO2 [Moles/Vol] 27 mmol/L Normal 23 - 31 mmol/L AO ADM SS Creatinine [Mass/Vol] 1.09 mg/dL Normal 0.70 - 1.30 mg/dL AO ADM SS Comment on above: Interpretive Data: T esting performed on [employer] Dimension EXL analyzer using a modified kinetic Angi technique. Electrolyte Balance 8.0 mEq/L Normal 4.0 - 15 .0 mEq/L AO ADM SS Eosinophil, Absolute 0.1 103/mcL Normal 0.0 - 0 .7 10^3/mcL AO Workflow SS Eosinophils/100 WBC (Bld) 2.2 % Normal 0.0 - 7.0 % AO Workflow SS Erythrocyte distribution width (RBC) [Ratio] 13.1 % Normal 11.5 - 15.5 % AO Workflow SS GFR/1.73 sq M.predicted among blacks MDRD (S/P/Bld) [Vol rate/Area] 82 ml/min/1.73sqm Invalid Interpretation Code AO Chemistry S Comment on above: Interpretive Data: GFR Population mean for , Non- Americans Ages 20-29 = 116 mL/min/1.73 sq.m. Ages 30-39 = 107 mL/min/1.73 sq.m. Ages 40-49 = 99 mL/min/1.73 sq.m. Ages 50-59 = 93 mL/min/1.73 sq.m. Ages 60-69 = 85 mL/min/1.73 sq.m. Ages 70+ = 75 mL/min/1.73 sq.m. Chronic Kidney Disease: Less than 60 mL/min/1.73 square meters End Stage Renal Disease: Less than 15 mL/min/1.73 square meters GFR/1.73 sq M.predicted among non-blacks MDRD (S/P/Bld) [Vol rate/Area] 68 ml/min/1.73sqm Invalid Interpretation Code AO Chemistry S Comment on above: Interpretive Data: GFR Population mean for , Non- Americans Ages 20-29 = 116 mL/min/1.73 sq.m. Ages 30-39 = 107 mL/min/1.73 sq.m. Ages 40-49 = 99 mL/min/1.73 sq.m. Ages 50-59 = 93 mL/min/1.73 sq.m. Ages 60-69 = 85 mL/min/1.73 sq.m. Ages 70+ = 75 mL/min/1.73 sq.m. Chronic Kidney Disease: Less than 60 mL/min/1.73 square meters End Stage Renal Disease: Less than 15 mL/min/1.73 square meters Glucose [Mass/Vol] 94 mg/dL Normal 80 - 115 mg/dL AO ADM SS Hematocrit (Bld) [Volume fraction] 45.4 % Normal 40.0 - 52.0 % AO Workflow SS Hemoglobin (Bld) [Mass/Vol] 15.7 G/dL Normal 13.0 - 17.5 G/dL AO Workflow SS Lymphocytes (Bld) [#/Vol] 0.9 103/mcL Normal 0.9 - 4.3 10^3/mcL AO Workflow SS Lymphocytes/100 WBC (Bld) 14.3 % Low 20.0 - 40.0 % AO Workflow SS MCH (RBC) [Entitic mass] 32.9 pg Normal 27.0 - 33.0 pg AO Workflow SS MCHC 34.6 G/dL Normal 32.0 - 36.0 G/dL AO Workflow SS MCV (RBC) [Entitic vol] 95.1 fL Normal 81.0 - 100.0 fL AO Workflow SS Monocytes (Bld) [#/Vol] 0.7 103/mcL Normal 0.1 - 1.4 10^3/mcL AO Workflow SS Monocytes/100 WBC (Bld) 10.4 % Normal 2.0 - 13.0 % AO Workflow SS Neutrophils (Bld) [#/Vol] 4.7 103/mcL Normal 2.3 - 8.1 10^3/mcL AO Workflow SS Neutrophils/100 WBC (Bld) 72.6 % Normal 50.0 - 75.0 % AO Workflow SS Platelet mean volume (Bld) [Entitic vol] 8.2 fL Normal 6.4 - 10.5 fL AO Workflow SS Platelets (Bld) [#/Vol] 201 103/mcL Normal 150 - 450 10^3/mcL AO Workflow SS Potassium [Moles/Vol] 4.1 mmol/L Normal 3.5 - 5.1 mmol/L AO ADM SS RBC (Bld) [#/Vol] 4.77 106/mcL Normal 4.50 - 6.0 0 10^6/mcL AO Workflow SS Sodium [Moles/Vol] 141 mmol/L Normal 136 - 145 mmol/L AO ADM SS Urea nitrogen [Mass/Vol] 20 mg/dL High 7 - 18 mg/dL AO ADM SS Urea nitrogen/Creatinine [Mass ratio] 18 ratio Normal 7 - 27 ratio AO ADM SS WBC (Bld) [#/Vol] 6.5 103/mcL Normal 4.5 - 10.8 10^3/mcL AO Workflow SS LABORATORYOrdered By: Toby Carranza on 11-26-2024 MRSA (PCR) Not Detected 1 (11/26/24 12:18 PM) Normal Not Detected AH Auto Viro/Sero SS Comment on above: Result Comment: [place] [id number] MRSA PCR Int MRSA DNA not detecte d by Real-Time Polymerase Chain Reaction (PCR). A negative result may be due to intermittent colonization. Colonization may vary depending on patient treatment, patient status, or exposure to high-risk environments.As with all PCR based in vitro diagnostic tests, extremely low levels of target below the limit of detection of the assay may be detected, but results may not be reproducible. Invalid Interpretation Code AH Auto Viro/Sero SS MRSAPCRon 11-26-2024 MRSA (PCR) Not detected Normal Not Detected [facility] Comment on above: Result Comment: [place] [id number] Performed By: #### A ALYSSIA ROMERO #### [address] [id number] [place], [place] [address] MRSA PCR Int Normal [facility] Comment on above: Result Comment: MRSA DNA not detected by Real-Time Polymerase Chain Reaction (PCR). A negative result may be due to intermittent colonization. Colonization may vary depending on patient treatment, patient status, or exposure to high-risk environments. As with all PCR based in vitro diagnostic tests, extremely low levels of target below the limit of detection of the assay may be detected, but results may not be reproducible. See Below Performed By: #### A ALYSSIA ROMERO #### [address] [address] Echo Complete W/ Contraston 07-03-2024 Echo Complete W/ Contrast [facility] [address] [place] [address] Echo Complete W/ Contrast 07/03/24 1316 MR#: [id number] Acct: [id number] Name: QIAN SEGAL Rep #: [id number] : 1960 64 From: Krish Leos MD Attending Dr: Dr. Krish Leos MD Status: REG CLI Ordering Dr: Krish Leos MD Date: 07/03/24 Location: CVS Sex: M C Admitted: Reason For Study: TIA/CVA Procedure This was a 2D Doppler, Color Flow transthoracic echocardiogram. The study was technically difficult. Contrast injection was performed. Exam performed in department. Left Ventricle Normal size and thickness. The left ventricular ejection fraction is 65 %. Normal diastology for age. Right Ventricle Normal right ventricle. Atria The left and right atria are normal. Bubble contrast study is negative for PFO/ASD. Mitral Valve Trivial mitral valve insufficiency. Tricuspid Valve Normal tricuspid valve. Aortic Valve Trisinus/trileaflet aortic valve. Pulmonic Valve The pulmonic valve is not well visualized. Great Vessels Normal sized aortic root. Pericardium/Pleural No pericardial effusion. Medication 22 gauge I.V. with prn adaptor inserted into left arm. Performed a rapid injection of agitated mix of 9 cc saline and 1cc air to assess for atrial septal defect. Diluted definity 2.5ml given slow IV push to enhance endocardial definition. MMode/2D Measurements Calculations LVIDd: 4.8 cm IVSd: 1.2 cm LVOT diam: 2.2 cm LVIDs: 3.1 cm LVPWd: 1.1 cm RVDd: 4.5 cm FS: 36.0 % LVOT area: 3.9 cm2 Ao root diam: 3.6 cm LAV(MOD-bp): 47.5 ml LVAd ap4: 37.3 cm2 LAV(MOD-bp) Indexed: 19.9 ml/m2 LVLd ap4: 8.6 cm LAV(MOD-sp2): 48.5 ml EDV(MOD-sp4): 128.6 ml LAV(MOD-sp4): 46.1 ml EDV(sp4-el): 136.9 ml LVAs ap4: 24.9 cm2 LVLs ap4: 7.7 cm ESV(MOD-sp4): 65.3 ml ESV(sp4-el): 68.4 ml EF(MOD-sp4): 49.2 % EF(sp4-el): 50.0 % LVAd ap2: 34.4 cm2 SV(MOD-sp4): 63.3 ml SV(MOD-sp2): 55.7 ml LVLd ap2: 9.0 cm EDV(MOD-sp2): 107.2 ml EDV(sp2-el): 111.9 ml LVAs ap2: 22.0 cm2 LVLs ap2: 7.5 cm ESV(MOD-sp2): 51.5 ml ESV(sp2-el): 54.9 ml EF(MOD-sp2): 52.0 % SV(sp4-el): 68.5 ml LA dimension(2D): 3.9 cm LA A4 area: 17.4 cm2 RA A4 area: 12.3 cm2 TAPSE: 2.1 cm Time Measurements MV dec time: 0.20 sec Doppler Measurements Calculations MV E max oziel: 50.7 cm/sec Lat Peak E' Oziel: 9.8 cm/sec Med Peak E' Oziel: 7.2 cm/sec MV A max oziel: 60.9 cm/sec E/E' lat: 5.2 E/E' med: 7.1 MV E/A: 0.83 Ao V2 max: 105.2 cm/sec LV V1 max: 88.1 cm/sec MV dec slope: 257.7 cm/sec2 Ao max P.4 mmHg LV V1 max P.1 mmHg Ao V2 mean: 75.9 cm/sec LV V1 mean P.8 mmHg Ao mean P.5 mmHg LV V1 mean: 62.4 cm/sec Ao V2 VTI: 20.2 cm LV V1 VTI: 20.1 cm AV (velocity ratio): 1.00 RENA(I,D): 3.9 cm2 RENA(V,D): 3.3 cm2 SV(LVOT): 78.3 ml PA V2 max: 101.1 cm/sec PA max PG (full): 3.0 mmHg ECHO/Echo Complete W/ Contrast Interpretation Summary The left ventricular ejection fraction is 65 %. Bubble contrast study is negative for PFO/ASD. Ordering Physician: Krish Leos Referring Physician: Morgan Moore Performed By: Génesis East RDCS 07/04/24 1001 Date Krish Leos MD CC: Dr. Krish Leos MD; Dr. Morgan Moore MD Date Dictated: 07/03/24 1316 Date Transcribed: 07/04/24 1001 [employer]er: Signed Normal [facility] 12 Lead EKG performed by [facility] on 06-28-2024 12 Lead EKG performed by [facility] [address] [place] [address] 12 Lead EKG performed by [facility] 06/28/24 1032 MR#: [id number] Acct: [id number] Name: QIAN SEGAL Rep #: [id number] : 1960 64 From: Krish Leos MD Attending Dr: Dr. Krish Leos MD Status: DEP AMB Ordering Dr: Krish Leos MD Date: 06/28/24 Location: [facility] Sex: M C Admitted: [facility]/12 Lead EKG performed by [facility] ECG Report Interpretation ---Sinus Rhythm WITHIN NORMAL LIMITSElectronically signed on 12/03/2024 at 10:[address] Krish Leos [employer] Version [id number] 12/03/24 1029 Date Krish Leos MD CC: Dr. Morgan Moore MD Date Dictated: 06/28/24 1032 Date Transcribed: 06/28/24 1032 [employer]er: AR Signed Normal [facility] Cardiology Visit Reporton Cardiology Visit Report [facility] [address] [place] [address] OFFICE VISIT Date of Service: 06/28/24 MR#: [id number] Acct: [id number] Name: QIAN SEGAL Rep #: [id number] : 1960 Provider: Dr. Krish Leos MD Age/Sex: 64/M Location: [facility] Status: Signed HPI HPI History of Present Illness Details: This gentleman was admitted to the hospital in March of this year with transient facial droop. Workup was negative for CVA. Likely a TIA. He has been referred to us for evaluation of any cardiac cause of his TIA. Patient denies any history of coronary artery disease. Denies any chest pains or shortness of breath either at rest or with exertion. Denies any palpitations. No orthopnea. No PND. No syncope or presyncope. According to him, sometimes if he changes his posture from lying to a standing position quickly, he feels momentarily lightheaded. 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 Patient has had event monitoring done which is reported as showing some episodes of atrial tachycardia. Longest was 3 beats. No atrial fibrillation was reported. Intake Vital Signs 03/18/24 10:55 06/28/24 10:32 Height 6 ft 3.2 in 6 ft 3.2 in Weight: 249 lb 7 oz BMI 31.0 BP 135/88 H Blood Pressure Location Lt brachial Position Sitting Respiration 16 Pulse 75 Pulse Source Monitor Intake Visit Reasons: TIA (TERESA) Radiation Control Specialist Required: No Accompanied by: Is patient in pain?: No Allergies ibuprofen Allergy (Verified 06/28/24 10:38) MAKES RIGHT SIDE OF FACE TO GO NUMB Medications ???Medication ???Instructions ???Recorded ???Confirmed ???Type apixaban 5 mg tablet (Eliquis) 5 mg PO BID blood thinner 03/17/24 06/28/24 History inositol-choline [id number] 1 tab PO TID tinnitus 03/17/24 06/28/24 History B complex and C 500 mg tablet (Ear Health Plus) rosuvastatin 10 mg tablet 10 mg PO DAILY #30 tabs 03/18/24 06/28/24 Rx bee pollen 550 mg capsule 550 mg PO TID 05/30/24 06/28/24 History cinnamon bark 500 mg capsule 500 mg PO BID 05/30/24 06/28/24 History (Cinnamon) elderberry fruit 350 mg capsule 350 mg PO BID 05/30/24 06/28/24 History loratadine 10 mg tablet (Claritin) 10 mg PO DAILY 05/30/24 06/28/24 History mecobalamin (vitamin B12) 1,000 1,000 mcg PO BID 05/30/24 06/28/24 History mcg chewable tablet beta carotene 30 mg capsule mg PO 06/28/24 06/28/24 History Have you fallen in the past year?: No PFSH Medical History (Updated 06/28/24 @ 11:[address] Krish Leos MD) Bone spur Elevated blood pressure reading BMI 31.0-31.9,adult Arthritis of knee Anticoagulant long-term use Dyslipidemia TIA (transient ischemic attack) Non-smoker DVT (deep venous thrombosis) Family history of abdominal aortic aneurysm Hypercholesteremia Blood clot in leg Blood clots in brain Surgical History (Updated 06/28/24 @ 10:41 by Lilly Rose, LUCIO) Hx of wisdom tooth extraction Family History (Updated 06/28/24 @ 10:41 by Lilly Rose RN) Father AAA (abdominal aortic aneurysm) Social History household members: spouse Smoking Status: Never smoker ROS Const Const: Positive for fatigue, headache(s) and daytime sleepiness; Negative for weakness or difficulty sleeping ENT ENT: Positive for headache(s); Negative for dizziness or Nosebleed/epistaxis Cardio Chest Pain: Yes Frequency: other ("once in awhile") Character: tightness Onset: with meals Location: epigastric and mid sternal Duration: minutes Exacerbation: eating Relieving: positional Palpitations: No Edema: None Resp Respiratory: Positive for SOB with activity; Negative for SOB at rest, SOB orthopnea SOB lying down or Cough GI GI: Negative nausea, vomiting or heartburn Neuro Neuro: Positive for headache(s); Negative for dizziness, lightheadedness, near syncope or weakness Endo Endo: Positive for fatigue Cardiology Exam Const Appearance: comfortable and no acute distress Nutritional Appearance: well nourished Neck Neck: no JVD Carotids: Negative bruit Chest Auscultation: Bilateral: Clear to Auscultation Cardio Rate: regular rate Rhythm: regular rhythm Heart sounds: S1 normal and S2 normal Neuro General: patient alert, patient awake and patient oriented x3 Extremities Lower Extremity Edema: None: Bilateral Supplemental Info Supplemental Information 7 DAY EVENT MONITOR 03/23/24-03/30/24: FINDINGS SUMMARY - Predominant rhythm: NSR - Atrial Tachycardia (AT) 68 episodes, longest 6 beats @ AVG 81 bpm up to 238 bpm, Fastest 3 beats @AVG 226 bpm up to 250 bpm - PAC 0.1% - PVC <0.1% - AVG HR 70 bpm - MIN HR 42 bpm 03/26 0602 - MAX HR 154 bpm 03/29 1824 V (more content not included)... Normal [facility] Basophil percentageOrdered B y: Mark James on 03-18-2024 Chloride [Moles/Vol] 107 mmol/L 98-107 [facility] Cholesterol [Mass/Vol] 164 mg/dL <200 [facility] Comment on above: <200 mg/dL Desirable 200-240 mg/dL Borderline >240 mg/dL High Risk Glucose [Mass/Vol] 86 mg/dL 74-106 [facility] Hemoglobin (Bld) [Mass/Vol] 15.4 g/dL 13.0-16.5 [facility] Potassium [Moles/Vol] 4.0 mmol/L 3.5-5.1 [facility] Sodium [Moles/Vol] 139 mmol/L 136-145 [facility] Triglyceride [Mass/Vol] 159 mg/dL <[address] [facility] Comment on above: The drugs N-Acetylcy steine and Metamizole may falsely depress this assay.Serum Triglycerides Reference Interval Normal <150 mg/dL Borderline high 150 - 199 mg/dL High 200 - 499 mg/dL Very High > or = 500 mg/dL WBC (Bld) [#/Vol] 7.0 10*3/uL 4.4-11.0 [facility] Determination of erythrocyte mean corpuscular volume (MCV)Ordered By: Mark James on 03-18-2024 MCV (RBC) [Entitic vol] 95.8 fL 80-[address] [facility] Erythrocyte distribution wid th ratioOrdered By: Mark James on 03-18-2024 Erythrocyte distribution width (RBC) [Ratio] 12.4 % 11.6-14.6 [facility] Erythrocyte distribution wid th standard deviationOrdered By: Mark James on 03-18-2024 Erythrocyte distribution width (RBC) [Entitic vol] 44.1 fL 35.1-43.9 [facility] Hematocrit Auto (Bld) [Volum e fraction]Ordered By: Mark James on 03-18-2024 Hematocrit (Bld) [Volume fraction] 45.5 % 40-54 [facility] - Chemistry and C hemistry - challengeOrdered By: Mark James on 03-18-2024 Cholesterol in HDL [Mass/Vol] 40 mg/dL >40 [facility] Comment on above: The drugs N-Acetylcy steine and Metamizole may falsely depress this assay. Reference Range HDL <40 mg/dL Low HDL Cholesterol HDL >or= 60 mg/dL High HDL Cholesterol Cholesterol in LDL [Mass/Vol] 92 mg/dL 0-130 [facility] CO2 [Moles/Vol] 28.0 mmol/L 21.0-32.0 [facility] Urea nitrogen/Creatinine [Mass ratio] 16.1 mg/mg 10-20 [facility] - Hematology and Cell countsOrdered By: Mark James on 03-18-2024 MCH (RBC) [Entitic mass] 32.4 pg 27.0-32.0 [facility] MCHC (RBC) [Mass/Vol] 33.8 g/dL 32-36 [facility] Platelet mean volume (Bld) [Entitic vol] 9.5 fL 6.2-12.0 [facility] Platelets (Bld) [#/Vol] 217 10*3/uL 150-450 [facility] No Panel InformationOrdered By: Mark James on 03-18-2024 Estimated Creatinine Clearance Calc 108.57 ml/min [facility] Estimated GFR (MDRD) Amer 105 mL/min >60 [facility] Comment on above: GFR Calc Estimated GFR (MDRD) Non-Af Amer 86 mL/min >60 [facility] Comment on above: Non- GFR Calc VLDL Cholesterol 32 mg/dL 5-40 [facility] RBC Auto (Bld) [#/Vol]Ordere d By: Mark James on 03-18-2024 RBC (Bld) [#/Vol] 4.75 10*6/uL 4.6-6.2 [facility] Serum or plasma calcium fabrizio urement (mass/volume)Ordered By: Mark James on 03-18-2024 Calcium [Mass/Vol] 9.0 mg/dL 8.5-10.1 [facility] Serum or plasma creatinine m easurement (mass/volume)Ordered By: Mark James on 03-18-2024 Creatinine [Mass/Vol] 0.93 mg/dL 0.70-1.30 [facility] Comment on above: The validity of the calculated GFR & GFRAA in patients over 70 years has not been determined. Clinical correlation is essential. Serum or plasma urea nitroge n measurement (mass/volume)Ordered By: Mark James on 03-18-2024 Urea nitrogen [Mass/Vol] 15 mg/dL 7-18 [facility] Thin prep Papanicolaou smear with manual screeningOrdered By: Mark James on 03-18-2024 Thin prep Papanicolaou smear with manual screening 4 5-15 [facility] Absolute lymphocyte countOrd ered By: [facility] on 03-17-2024 Lymphocytes Auto (Unsp spec) [#/Vol] 1.24 10*3/uL 0.83-4.51 [facility] Activated partial thrombopla stin time (aPTT) in platelet poor plasma by coagulation aOrdered By: [facility] on 03-17-2024 aPTT Coag (PPP) [Time] 25.5 s 24.1-36.2 [facility] Automated lymphocyte count a s percentage of total leukocytesOrdered By: Alex [facility] on 03-17-2024 Lymphocytes/100 WBC Auto (Unsp spec) 18.4 % 19-41 [facility] Basophil percentageOrdered B y: [facility] on 03-17-2024 Basophils/100 WBC (Bld) 0.6 % 0-1 [facility] Chloride [Moles/Vol] 105 mmol/L 98-107 [facility] Eosinophils/100 WBC (Bld) 2.4 % 0-5 [facility] Glucose [Mass/Vol] 101 mg/dL 74-106 [facility] Comment on above: Fasting Glucose resu lt from 100 to 125 mg/dL suggests IMPAIRED HOMEOSTASIS per A.D.A. criteria. Hemoglobin (Bld) [Mass/Vol] 14.9 g/dL 13.0-16.5 [facility] Monocytes/100 WBC (Bld) 10.7 % 0-10 [facility] Neutrophils (Bld) [#/Vol] 4.5 10*3/uL 2.0-7.7 [facility] Neutrophils/100 WBC (Bld) 67.5 % 47-70 [facility] Potassium [Moles/Vol] 3.8 mmol/L 3.5-5.1 [facility] Sodium [Moles/Vol] 138 mmol/L 136-145 [facility] WBC (Bld) [#/Vol] 6.7 10*3/uL 4.4-11.0 [facility] Determination of erythrocyte mean corpuscular volume (MCV)Ordered By: Alexjordan Severino on 03-17-2024 MCV (RBC) [Entitic vol] 95.7 fL 80-[address] [facility] Erythrocyte distribution wid th ratioOrdered By: [facility] Erythrocyte distribution width (RBC) [Ratio] 12.5 % 11.6-14.6 [facility] Erythrocyte distribution wid th standard deviationOrdered By: [facility] on 03-17-2024 Erythrocyte distribution width (RBC) [Entitic vol] 43.8 fL 35.1-43.9 [facility] Hematocrit Auto (Bld) [Volum e fraction]Ordered By: Alexjordan Severino on 03-17-2024 Hematocrit (Bld) [Volume fraction] 44.6 % 40-54 [facility] Immature granulocytes/100 WB C Auto (Bld)Ordered By: [facility] on 03-17-2024 Immature granulocytes/100 WBC (Bld) 0.400 % 0.0-0.9 [facility] Comment on above: IG% - Immature Granu locytes (promyelocytes, myelocytes and metamyelocytes) > 1% indicates that a LEFT SHIFT is Present. Laboratory - Chemistry and C hemistry - challengeOrdered By: Alex Severino on 03-17-2024 CO2 [Moles/Vol] 28.0 mmol/L 21.0-32.0 [facility] Urea nitrogen/Creatinine [Mass ratio] 19.0 mg/mg 10-20 [facility] Laboratory - CoagulationOrde red By: Alexjordan Severino on 03-17-2024 INR Coag (Bld) [Relative time] 1.1 {INR} [facility] PT Coag (PPP) [Time] 14.2 s 11.7-14.9 [facility] Laboratory - Hematology and Cell countsOrdered By: Alexjordan Severino on 03-17-2024 MCH (RBC) [Entitic mass] 32.0 pg 27.0-32.0 [facility] MCHC (RBC) [Mass/Vol] 33.4 g/dL 32-36 [facility] Nucleated RBC/100 WBC (Bld) [Ratio] 0 % 0-5 [facility] Platelet mean volume (Bld) [Entitic vol] 9.5 fL 6.2-12.0 [facility] Platelets (Bld) [#/Vol] 218 10*3/uL 150-450 [facility] No Panel InformationOrdered By: Alex Severino on 03-17-2024 Estimated Creatinine Clearance Calc 101.59 ml/min [facility] Estimated GFR (MDRD) Amer 97 mL/min >60 [facility] Comment on above: GFR Calc Estimated GFR (MDRD) Non-Af Amer 80 mL/min >60 [facility] Comment on above: Non- GFR Calc Troponin I High Sensitivity < 3 pg/mL 3.0-78.0 [facility] Comment on above: Please Note: New Elva t Units and Gender Specific Reference Ranges. For more information see Policy Stat Procedure [place] High Sensitivity Troponin (TNIH) and attachments. RBC Auto (Bld) [#/Vol]Ordere d By: Alex Severino on 03-17-2024 RBC (Bld) [#/Vol] 4.66 10*6/uL 4.6-6.2 [facility] Serum or plasma calcium fabrizio urement (mass/volume)Ordered By: Alex Severino on 03-17-2024 Calcium [Mass/Vol] 9.2 mg/dL 8.5-10.1 [facility] Serum or plasma creatinine m easurement (mass/volume)Ordered By: Alexjordan Severino on 03-17-2024 Creatinine [Mass/Vol] 1.00 mg/dL 0.70-1.30 [facility] Comment on above: The validity of the calculated GFR & GFRAA in patients over 70 years has not been determined. Clinical correlation is essential. Serum or plasma thyroid stim ulating hormone (TSH) measurement (units/volume)Ordered By: Mark James on 03-17-2024 TSH Qn 1.40 uIU/mL 0.358-3.74 [facility] Serum or plasma urea nitroge n measurement (mass/volume)Ordered By: Alex Severino on 03-17-2024 Urea nitrogen [Mass/Vol] 19 mg/dL 7-18 [facility] Thin prep Papanicolaou smear with manual screeningOrdered By: Alex Severino on 03-17-2024 Thin prep Papanicolaou smear with manual screening 93 mg/dL 74-106 [facility] Comment on above: MANAGEMENT OF PATIEN T CARE PER NURSING PROTOCOL Thin prep Papanicolaou smear with manual screening 5 5-15 [facility] Whole blood hemoglobin A1c/t otal hemoglobin ratio (mass fraction)Ordered By: Mark James on 03-17-2024 HbA1c (Bld) [Mass fraction] 5.3 % 3.8-5.6 [facility] Comment on above: Normal < 5.7 % Predi abetic 5.7 - 6.4 % Diabetic >or= 6.5 % Please note range changes. Basophil percentageOrdered B y: Morgan Moore on 01-04-2024 Basophil percentage 0.74 ng/mL 0.0-4.0 [facility] Comment on above: This test was perfor med using the TPSA assay method for the[employer]es chemistry system. Values obtained with differentassay methods cannot be used interchangably.When changing PSA assays in the course of monitoring apatient, additional sequential testing should be carriedout to confirm baseline values. Bilirubin [Mass/Vol] 0.50 mg/dL 0.20-1.00 [facility] Comment on above: For patients on eltr ombopag therapy, use of Dimension [place] TBIL is not recommended. Chloride [Moles/Vol] 112 mmol/L 98-107 [facility] Cholesterol [Mass/Vol] 232 mg/dL <200 [facility] Comment on above: <200 mg/dL Desirable 200-240 mg/dL Borderline >240 mg/dL High Risk Glucose [Mass/Vol] 85 mg/dL 74-106 [facility] Potassium [Moles/Vol] 4.0 mmol/L 3.5-5.1 [facility] Protein [Mass/Vol] 6.8 g/dL 6.4-8.2 [facility] Sodium [Moles/Vol] 141 mmol/L 136-145 [facility] Testosterone [Mass/Vol] 688.23 ng/dL [facility] Comment on above: CENTRAL 90% REFERENC E RANGES MALE AGE <50 197.44 - 669.58 ng/dL MALE AGE > or = 50 187.72 - 684.19 ng/dL FEMALE AGE <50 8.38 - 35.01 ng/dL FEMALE AGE > or = 50 <7.00 - 35.92 ng/dL Effective as of 06/02/21 Triglyceride [Mass/Vol] 146 mg/dL <[address] [facility] Comment on above: The drugs N-Acetylcy steine and Metamizole may falsely depress this assay.Serum Triglycerides Reference Interval Normal <150 mg/dL Borderline high 150 - 199 mg/dL High 200 - 499 mg/dL Very High > or = 500 mg/dL Laboratory - Chemistry and C hemistry - challengeOrdered By: Morgan Moore on 01-04-2024 Albumin/Globulin [Mass ratio] 1.1 {ratio} 0.9-2.4 [facility] ALP [Catalytic activity/Vol] 47 U/L 45-117 [facility] ALT [Catalytic activity/Vol] 16 U/L 16-61 [facility] Cholesterol in HDL [Mass/Vol] 38 mg/dL >40 [facility] Comment on above: The drugs N-Acetylcy steine and Metamizole may falsely depress this assay. Reference Range HDL <40 mg/dL Low HDL Cholesterol HDL >or= 60 mg/dL High HDL Cholesterol Cholesterol in LDL [Mass/Vol] 165 mg/dL 0-130 [facility] CO2 [Moles/Vol] 26.0 mmol/L 21.0-32.0 [facility] Globulin (S) [Mass/Vol] 3.3 g/dL 2.2-4.[address] [facility] Urea nitrogen/Creatinine [Mass ratio] 21.9 mg/mg 10-20 [facility] No Panel InformationOrdered By: Morgan Moore on 01-04-2024 Estimated GFR (MDRD) Amer 101 mL/min >60 [facility] Comment on above: GFR Calc Estimated GFR (MDRD) Non-Af Amer 84 mL/min >60 [facility] Comment on above: Non- GFR Calc VLDL Cholesterol 29 mg/dL 5-40 [facility] Serum or plasma calcium fabrizio urement (mass/volume)Ordered By: Morgan Moore on 01-04-2024 Calcium [Mass/Vol] 8.9 mg/dL 8.5-10.1 [facility] Serum or plasma creatinine m easurement (mass/volume)Ordered By: Morgan Moore on 01-04-2024 Creatinine [Mass/Vol] 0.96 mg/dL 0.70-1.30 [facility] Comment on above: The validity of the calculated GFR & GFRAA in patients over 70 years has not been determined. Clinical correlation is essential. Serum or plasma urea nitroge n measurement (mass/volume)Ordered By: Morgan Moore on 01-04-2024 Urea nitrogen [Mass/Vol] 21 mg/dL 7-18 [facility] Thin prep Papanicolaou smear with manual screeningOrdered By: Morgan Moore on 01-04-2024 Thin prep Papanicolaou smear with manual screening 3.5 g/dL 3.2-5.0 [facility] Thin prep Papanicolaou smear with manual screening 13 U/L 15-37 [facility] Thin prep Papanicolaou smear with manual screening 3 5-15 [facility] Laboratory - Microbiology an d Antimicrobial susceptibilityon 04-20-2022 SARS-CoV-2 (COVID-19) RNA PIO+probe Ql (Unsp spec) Detected Not Detect [facility] Work Phone: Comment on above: Normal Reference Ran ge: Not DetectedMethod:(RT-PCR) real-time reverse transcriptase PCRLuminex HALIE Instrument*The Food and Drug Administration (FDA) has issued an Emergency Use Authorization (EAU) for the HALIE SARS-CoV-2 Assay for the rapid detection of the virus that causes COVID-19. This test has been validated, but the FDAs independent review of this validation is pending.*Negative results do not preclude infection and should not be used as the sole basis for treatment or patient management. Optimum specimen types and timing for peak viral levels during infections caused by SARS-CoV-2 have not been determined. Collection of multiple specimens from the same patient may be necessary to detect the virus. The possibility of a false negative result should be considered if the patient has clinical presentation or has had recent exposure. BONITA Jt Injection/Arthrocentes is: Margaret mcnally 10-26-2021 Renata Jasso CNP 10/26/2021 11:46 AM LG Jt Injection/Arthrocentesi s: L knee Performed by: Renata Jasso CNP Authorized by: Renata Jasso CNP CPT 07038 - Large Joint Arthrocentesis: Consent given by: [...] the procedure well with no immediate complications [facility] 10-13-2021 Erythrocyte distribution width (RBC) [Ratio] 13.4 % Normal 11.5 - 14.5 [facility] Comment on above: Performed By: #### C BC #### [place] [address] Hematocrit (Bld) [Volume fraction] 46.1 % Normal 41.0 - 52.0 [facility] Comment on above: Performed By: #### C BC #### [address] [address] Hemoglobin (Bld) [Mass/Vol] 15.5 g/dL Normal 13.5 - 17.5 [facility] Comment on above: Performed By: #### C BC #### [address] [address] MCHC (RBC) [Mass/Vol] 33.7 g/dL Normal 32.0 - 36.0 [facility] Comment on above: Performed By: #### C BC #### [address] [address] MCV (RBC) [Entitic vol] 97 fL Normal 80 - 100 [facility] Comment on above: Performed By: #### C BC #### [place] [id number] Platelets (Bld) [#/Vol] 222 10*3/uL Normal 150 - 450 [facility] Comment on above: Performed By: #### C BC #### [address] [address] RBC 4.77 x10E12/L Normal 4.50 - 5.90 [facility] [place] Comment on above: Performed By: #### C BC #### [address] [address] WBC (Bld) [#/Vol] 5.9 10*3/uL Normal 4.4 - 11.3 [facility] Comment on above: Performed By: #### C BC #### [address] [address] COMPREHENSIVE PANELon 2020 Albumin [Mass/Vol] 4.4 g/dL Normal 3.4 - 5.0 [facility] Comment on above: Performed By: #### C MP #### [address] [address] ALP [Catalytic activity/Vol] 43 U/L Normal 33 - 136 [facility] Comment on above: Performed By: #### C MP #### [address] [address] ALT [Catalytic activity/Vol] 12 U/L Normal 10 - 52 [facility] Comment on above: Result Comment: Jannie ents treated with Sulfasalazine may generate falsely decreased results for ALT. Performed By: #### C MP #### [address] [address] Anion gap [Moles/Vol] 11 mmol/L Normal 10 - 20 [facility] Comment on above: Performed By: #### C MP #### [address] [address] AST [Catalytic activity/Vol] 13 U/L Normal 9 - 39 [facility] Comment on above: Performed By: #### C MP #### [address] [address] Bilirubin [Mass/Vol] 0.5 mg/dL Normal 0.0 - 1.2 [facility] Comment on above: Performed By: #### C MP #### [address] [address] Calcium [Mass/Vol] 9.1 mg/dL Normal 8.6 - 10.3 [facility] Comment on above: Performed By: #### C MP #### [address] [address] Chloride [Moles/Vol] 106 mmol/L Normal 98 - 107 [facility] Comment on above: Performed By: #### C MP #### [address] [address] Creatinine [Mass/Vol] 0.95 mg/dL Normal 0.50 - 1.30 [facility] Comment on above: Performed By: #### C MP #### [address] [address] GFR- AM. >60 Normal >60 [facility] Comment on above: Result Comment: CALC ULATIONS OF ESTIMATED GFR ARE PERFORMED USING THE MDRD STUDY EQUATION FOR THE IDMS-TRACEABLE CREATININE METHODS. CLIN CHEM 2007;53:766-72 Performed By: #### C MP #### [address] [address] GFR-NON AM. >60 Normal >60 [facility] Comment on above: Performed By: #### C MP #### [address] [address] Glucose [Mass/Vol] 86 mg/dL Normal 74 - 99 [facility] Comment on above: Performed By: #### C MP #### [address] [address] HCO3 (Bld) [Moles/Vol] 28 mmol/L Normal 21 - 32 [facility] Comment on above: Performed By: #### C MP #### [address] [address] Potassium [Moles/Vol] 4.2 mmol/L Normal 3.5 - 5.3 [facility] Comment on above: Performed By: #### C MP #### [address] [address] Protein [Mass/Vol] 6.6 g/dL Normal 6.4 - 8.2 [facility] Comment on above: Performed By: #### C MP #### [address] [address] Sodium [Moles/Vol] 141 mmol/L Normal 136 - 145 [facility] Comment on above: Performed By: #### C MP #### [address] [address] Urea nitrogen [Mass/Vol] 19 mg/dL Normal 6 - 23 [facility] Comment on above: Performed By: #### C MP #### [address] [address] LIPID PANEL (CORONARY RISK 2 )on 10-13-2021 Cholesterol [Mass/Vol] 226 mg/dL High 0 - 199 [facility] Comment on above: Result Comment: . AGE DESIRABLE BORDERLINE HIGH HIGH 0-19 Y 0 - 169 170 - 199 >/= 200 20-24 Y 0 - 189 190 - 224 >/= 225 >24 Y 0 - 199 200 - 239 >/= 240 All ranges are based on fasting samples. Specific therapeutic targets will vary based on patient-specific cardiac risk. . Pediatric guidelines reference:Pediatrics 2011, 128(S5). Adult guidelines reference: NCEP ATPIII Guidelines, DESTIN 2001, 258:2486-97 . Venipuncture immediately after or during the administration of Metamizole may lead to falsely low results. Testing should be performed immediately prior to Metamizole dosing. Performed By: #### L IPID #### [address] [address] Cholesterol in HDL [Mass/Vol] 37.0 mg/dL Abnormal [facility] Comment on above: Result Comment: . AGE VERY LOW LOW NORMAL HIGH 0-19 Y < 35 < 40 40-45 ---- 20-24 Y ---- < 40 >45 ---- >24 Y ---- < 40 40-60 >60 . Performed By: #### L IPID #### [address] [address] Cholesterol in LDL [Mass/Vol] 139 mg/dL High 0 - 99 [facility] Comment on above: Result Comment: . NEAR BORD AGE DESIRABLE OPTIMAL HIGH HIGH VERY HIGH 0-19 Y 0 - 109 --- 110-129 >/= 130 ---- 20-24 Y 0 - 119 --- 120-159 >/= 160 ---- >24 Y 0 - 99 100-129 130-159 160-189 >/=190 . Performed By: #### L IPID #### [address] [address] Cholesterol in VLDL [Mass/Vol] 50 mg/dL High 0 - 40 [facility] Comment on above: Performed By: #### L IPID #### [address] [address] Cholesterol.total/Ingrid sterol in HDL [Mass ratio] 6.1 {ratio} Abnormal [facility] Comment on above: Result Comment: REF VALUES DESIRABLE < 3.4 HIGH RISK > 5.0 Performed By: #### L IPID #### [address] [address] NON-HDL CHOLESTEROL 189 mg/dL Normal [facility] Comment on above: Result Comment: AGE DESIRABLE BORDERLINE HIGH HIGH VERY HIGH 0-19 Y 0 - 119 120 - 144 >/= 145 >/= 160 20-24 Y 0 - 149 150 - 189 >/= 190 ---- >24 Y 30 MG/DL ABOVE LDL CHOLESTEROL GOAL . Performed By: #### L IPID #### [address] [address] Triglyceride [Mass/Vol] 250 mg/dL High 0 - 149 [facility] Comment on above: Result Comment: . AGE DESIRABLE BORDERLINE HIGH HIGH VERY HIGH 0 D-90 D 19 - 174 ---- ---- ---- 91 D- 9 Y 0 - 74 75 - 99 >/= 100 ---- 10-19 Y 0 - 89 90 - 129 >/= 130 ---- 20-24 Y 0 - 114 115 - 149 >/= 150 ---- >24 Y 0 - 149 150 - 199 200- 499 >/= 500 . Venipuncture immediately after or during the administration of Metamizole may lead to falsely low results. Testing should be performed immediately prior to Metamizole dosing. Performed By: #### L IPID #### [facility] [address] [place] [id number] Laboratory - Chemistry and C hemistry - challengeon 10-13-2021 Albumin BCP dye [Mass/Vol] 4.4 g/dL 3.4 - 5.[address] [facility] Work Phone: ALP [Catalytic activity/Vol] 43 U/L 33 - [address] [facility] Work Phone: [phone] ALT With P-5'-P [Catalytic activity/Vol] 12 U/L 10 - [address] [facility] Work Phone: [phone] Comment on above: Patients treated wit h Sulfasalazine may generate falsely decreased results for ALT. Anion gap [Moles/Vol] 11 mmol/L 10 - [address] [facility] Work Phone: [phone] AST With P-5'-P [Catalytic activity/Vol] 13 U/L 9 - [address] [facility] Work Phone: [phone] Bilirubin [Mass/Vol] 0.5 mg/dL 0.0 - 1.2 [facility] [employer] [facility] Work Phone: Calcium [Mass/Vol] 9.1 mg/dL 8.6 - 10.3 [employer] [facility] Work Phone: Chloride [Moles/Vol] 106 mmol/L 98 - 107 [employer] [facility] Work Phone: CO2 [Moles/Vol] 28 mmol/L 21 - 32 [facility] [employer] [facility] Work Phone: Creatinine [Mass/Vol] 0.95 mg/dL See Below [facility] Work Phone: [phone] Comment on above: Reference Range: 0.5 0 - 1.30 Glucose [Mass/Vol] 86 mg/dL 74 - 99 [facility] [employer] [facility] Work Phone: [phone] Potassium [Moles/Vol] 4.2 mmol/L 3.5 - 5.[address] [facility] Work Phone: [phone] Protein [Mass/Vol] 6.6 g/dL 6.4 - 8.2 [facility] Work Phone: [phone] Sodium [Moles/Vol] 141 mmol/L 136 - 145 [facility] Work Phone: [phone] Urea nitrogen [Mass/Vol] 19 mg/dL 6 - [address] [facility] Work Phone: [phone] Laboratory - Hematology and Cell countson 10-13-2021 Erythrocyte distribution width (RBC) [Ratio] 13.4 % See Below [facility] Work Phone: [phone] Comment on above: Reference Range: 11. 5 - 14.5 Hematocrit (Bld) [Volume fraction] 46.1 % See Below [facility] Work Phone: [phone] Comment on above: Reference Range: 41. 0 - 52.0 Hemoglobin (Bld) [Mass/Vol] 15.5 g/dL See Below [facility] Work Phone: [phone] Comment on above: Reference Range: 13. 5 - 17.5 MCHC (RBC) [Mass/Vol] 33.7 g/dL See Below [facility] Work Phone: [phone] Comment on above: Reference Range: 32. 0 - 36.0 MCV (RBC) [Entitic vol] 97 fL 80 - 100 [facility] Work Phone: [phone] Platelets (Bld) [#/Vol] 222 10*3/uL 150 - 450 [facility] Work Phone: [phone] RBC (Bld) [#/Vol] 4.77 {x10E12/L} See Below [facility] Work Phone: [phone] Comment on above: Reference Range: 4.5 0 - 5.90 WBC (Bld) [#/Vol] 5.9 10*3/uL 4.4 - 11.3 [employer] [facility] [employer] [facility] Work Phone: Lipid Panelon 10-13-2021 Cholesterol [Mass/Vol] 226 mg/dL above hig h threshold 0 - 199 [employer] [facility] Work Phone: Comment on above: . AGE DESIRABLE BORD DEZ HIGH HIGH 0-19 Y 0 - 169 170 - 199 >/= 200 20-24 Y 0 - 189 190 - 224 >/= 225 >24 Y 0 - 199 200 - 239 >/= 240 All ranges are based on fasting samples. Specific therapeutic targets will vary based on patient-specific cardiac risk.. Pediatric guidelines reference:Pediatrics 2011, 128(S5). Adult guidelines reference: NCEP ATPIII Guidelines, DESTIN 2001, 258:2486-97. Venipuncture immediately after or during the administration of Metamizole may lead to falsely low results. Testing should be performed immediately prior to Metamizole dosing. Cholesterol in HDL [Mass/Vol] 37.0 mg/dL Abnormal [employer] [facility] Work Phone: Comment on above: . AGE VERY LOW LOW N ORMAL HIGH 0-19 Y < 35 < 40 40-45 ---- 20-24 Y ---- < 40 >45 ---- >24 Y ---- < 40 40-60 >60. Cholesterol in LDL [Mass/Vol] 139 mg/dL above high threshold 0 - 99 [employer] [facility] Work Phone: Comment on above: . NEAR BORD AGE ROHINI RABLE OPTIMAL HIGH HIGH VERY HIGH 0-19 Y 0 - 109 --- 110-129 >/= 130 ---- 20-24 Y 0 - 119 --- 120-159 >/= 160 ---- >24 Y 0 - 99 100-129 130-159 160-189 >/=190. Cholesterol non HDL [Mass/Vol] 189 mg/dL [employer] [facility] Work Phone: Comment on above: AGE DESIRABLE BORDER LINE HIGH HIGH VERY HIGH 0-19 Y 0 - 119 120 - 144 >/= 145 >/= 160 20-24 Y 0 - 149 150 - 189 >/= 190 ---- >24 Y 30 MG/DL ABOVE LDL CHOLESTEROL GOAL. Cholesterol.total/Ingrid sterol in HDL [Mass ratio] 6.1 {ratio} Abnormal [employer] [facility] Work Phone: Comment on above: REF VALUESDESIRABLE < 3.4HIGH RISK > 5.0 Triglyceride [Mass/Vol] 250 mg/dL above hi gh threshold 0 - 149 [employer] [facility] Work Phone: Comment on above: . AGE DESIRABLE BORD DEZ HIGH HIGH VERY HIGH 0 D-90 D 19 - 174 ---- ---- ----91 D- 9 Y 0 - 74 75 - 99 >/= 100 ---- 10-19 Y 0 - 89 90 - 129 >/= 130 ---- 20-24 Y 0 - 114 115 - 149 >/= 150 ---- >24 Y 0 - 149 150 - 199 200- 499 >/= 500. Venipuncture immediately after or during the administration of Metamizole may lead to falsely low results. Testing should be performed immediately prior to Metamizole dosing. Lipid Panel 50 mg/dL above high threshold 0 - 40 [employer] [facility] Work Phone: No Panel Informationon 10-13 >60 >60 [employer] [facility] Work Phone: Comment on above: CALCULATIONS OF FANY MATED GFR ARE PERFORMED USING THE MDRD STUDY EQUATION FOR THE IDMS-TRACEABLE CREATININE METHODS. CLIN CHEM 2007;53:766-72 Office Visit (Primary Care T xt/Forms)on 10-13-2021 Follow-up visit Diagnoses/Problems Assessed Fatigue (780.79) (R53.83) Gastroesophageal reflux disease without esophagitis (530.81) (K21.9) Nocturia (788.43) (R35.1) Numbness (782.0) (R20.0) Screening for hyperlipidemia (V77.91) (Z13.220) Tinnitus of both ears (388.30) (H93.13) Dysphagia (787.20) (R13.10) Orders Fatigue, Nocturia, Numbness, Screening for hyperlipidemia Complete Blood Count; Status:In Progress - Specimen/Data Collected; Done: [id number] Comprehensive Metabolic Panel; Status:In Progress - Specimen/Data Collected; Done: [id number] Lipid Panel; Status:In Progress - Specimen/Data Collected; Done: [id number] Prostate Specific Antigen; Status:In Progress - Specimen/Data Collected; Done: [id number] TSH - Thyroid Stimulating Hormone, Serum; Status:In Progress - Specimen/Data Collected; Done: [id number] Vitamin B12, Serum; Status:In Progress - Specimen/Data Collected; Done: [id number] Provider Impressions Provider Impressions Free Text Note Form: 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 10 years. allergies - takes claritan. heartburn is bad, occ dysphagia. TUMS helps. Need to start him on pantoprazole. home BP 130's/80's. tinnitus - did see ENT Dr Jean-Baptiste. Talked about using low-dose amlodipine or low-dose Zoloft Celexa. He does not want to use medicine at this time. Blood pressure today is good. To think we should check some blood test first. If the blood tests are okay I am okay with watching things for now. OV 6 months, will change the follow-up to 6 weeks for the heartburn Review of Systems Constitutional: feeling tired. Eyes: no eyesight problems, no blurry vision and no double vision. ENT: ringing in ears, but no ear pain, no nasal discharge, no nasal congestion and no post nasal drip. Cardiovascular: no chest pain, no palpitations and no chest pressure. Respiratory: chronic cough, but no dyspnea with exertion, no wheezing and no coughing up sputum. Gastrointestinal: heartburn, bloody stools and dysphagia, but no abdominal pain, no constipation, no diarrhea and no nausea. Genitourinary: nocturia, but no hematuria. No change in urine stream, no urinary retention, nocturia x 0-1. Musculoskeletal: joint pain localized to one or more joints and joint stiffness, but no myalgias. Integumentary: no skin lesions and no rashes. Neurological: headache and numbness/tingling, but no dizziness. Psychiatric: feelings of anxiety, but no mood changes and no sleep disturbances. Endocrine: no weight change, no temperature intolerance and no increase in thirst. Surgical History Problems History of Knee arthroscopy History of Strabismus surgery History of Tonsillectomy with adenoidectomy Family History Mother Family history of type 2 diabetes mellitus (V18.0) (Z83.3) Father Family history of abdominal aortic aneurysm (AAA) (V17.49) (Z82.49) Brother Family history of type 2 diabetes mellitus (V18.0) (Z83.3) Social History Problems No alcohol use No illicit drug use Non-smoker (V49.89) (Z78.9) Allergies Medication ibuprofen Vitals Vital Signs Recorded: [id number] 02:47PM Temperature: 96.9 F Heart Rate: 69 Systolic: 116 Diastolic: 68 Height: 6 ft 3 in Weight: 261 lb 5 oz BMI Calculated: 32.66 kg/m2 BSA Calculated: 2.46 Tobacco Use: b) No Fall Screening: a) No falls within the last year O2 Saturation: 96 Physical Exam General: Alert and oriented, No acute distress. Ambulation status: With steady gait. Appearance: Well nourished, Calm. Behavior: Cooperative. Respiratory: Lungs are clear to auscultation, Respirations are non-labored, Breath sounds are equal, Symmetrical chest wall expansion. Cardiovascular: Normal rate, Regular rhythm, No murmur, No gallop. Integumentary: Warm, Dry, Dewar, Intact. Psychiatric: Cooperative, Appropriate mood AND affect, Normal judgment. Signatures Electronically signed by : Edmundo Yost MD; Oct 13 2021 3:24PM EST (Author) Normal [employer] PROSTATE SPECIFIC AGon 10-13 Prostate specific Ag [Mass/Vol] 0.60 ng/mL Normal 0.00 - 4.00 [facility] Comment on above: Result Comment: The FDA requires that the method used for PSA assay be reported to the physician. Values obtained with different assay methods must not be used interchangeably. This test was performed at [facility] using the [employer] PSA assay is a two-site immunoenzymatic sandwich assay. The assay is approved for measurement of prostate-specific antigen (PSA)in serum and may be used in conjunction with a digital rectal examination in men 50 years and older as an aid in detection of prostate cancer. 0-Gkmyz-jvrofykrz inhibitors (e.g. Proscar, Finasteride, Avodart, Dutasteride and Miriam) for the treatment of BPH have been shown to lower PSA levels by an average of 50% after 6 months of treatment. Performed By: #### P SA #### [address] [address] Prostate Specific Antigenon 10-13-2021 Prostate specific Ag [Mass/Vol] 0.60 ng/mL See Below -[employer] [facility] Work Phone: Comment on above: Reference Range: 0.0 0 - 4.00The FDA requires that the method used for PSA assay be reported to the physician. Values obtained with different assay methods must not be used interchangeably. This testwas performed at [facility] using the [employer] PSA assay is a two-site immunoenzymatic sandwich assay. The assay is approved for measurement of prostate-specific antigen (PSA)in serum and may be used in conjunction with a digital rectal examination in men 50 years and older as an aid in detection of prostate cancer.2-Cdcon-hnqatcvfv inhibitors (e.g. Proscar, Finasteride, Avodart, Dutasteride and Miriam) for the treatment of BPH have been shown to lower PSA levels by an average of 50% after 6 months of treatment. TSHon 10-13-2021 TSH Qn 1.64 m[IU]/L Normal 0.44 - 3.98 [facility] Comment on above: Result Comment: TSH testing is performed using different testing methodology at [facility] than at other [facility]. Direct result comparisons should only be made within the same method. Performed By: #### T SH2 #### [address] [address] TSH - Thyroid Stimulating Ho rmone, Serumon 10-13-2021 TSH Qn 1.64 m[IU]/L See Below [employer] [facility] Work Phone: Comment on above: Reference Range: 0.4 4 - 3.98 TSH testing is performed using different testing methodology at [facility] than at other [facility]. Direct result comparisons should only be made within the same method. Tobacco Screening.on Fall risk assessment a) No falls within the last year MP[facility] Work Phone: Tobacco use status CPHS b) No M -[facility] Work Phone: VITAMIN B12on 10-13-2021 Cobalamin (Vitamin B12) [Mass/Vol] pg/mL High 211 - 911 [facility] Comment on above: Performed By: #### V TB12 #### [facility] [address] [place] [address] Vitamin B12, Serumon 021 Cobalamin (Vitamin B12) [Mass/Vol] pg/mL above high threshold 211 - 911 [employer] [facility] Work Phone: [place] ORT LARGE JOINT ARTHROCEN TESISon 07-27-2021 Renata Jasso CNP 07/27/2021 12:33 PM LG Jt Injection/Arthrocentesi s: L knee Performed by: Renata Jasso CNP Authorized by: Renata Jasso CNP CPT 14481 - Large Joint Arthrocentesis: Consent given by: [...] the procedure well with no immediate complications [facility] XR KNEE LEFT 4+ VIEWS (SPECI FY VIEWS IN COMMENTS)on 07-23-2021 XR KNEE LEFT 4+ VIEWS (SPECIFY VIEWS IN COMMENTS) EXAMINATION: XR KNEE LEFT 4+ VIEWS (SPECIFY VIEWS IN COMMENTS) 07/23/2021 2:13 PM HISTORY: ORDERING SYSTEM PROVIDED HISTORY: Pain, TECHNOLOGIST PROVIDED HISTORY: Injury/Trauma Reason for exam: l knee pain x 10 yrs getting worse Cancer History: u Surgery, RadiationHistory: u Encounter Type: Unknown Mechanism of injury: l knee pain x 10 yrs getting worse ORDERING SYSTEM PROVIDED DIAGNOSIS CODES: R52 Pain COMPARISON: None. FINDINGS: LEFT KNEE: The knee alignment is preserved. There is no acute fracture. The soft tissues are radiographically normal. Zffrpfny-ed-cptsgh medial compartment, mild lateral, hzlg-yr-nbrunxme patellofemoral compartment osteoarthritis. Small suprapatellar joint effusion. Arteriovascular calcifications. Limited evaluation of the right knee demonstrates preserved alignment. Fzcq-lg-dxibdkzk medial compartment osteoarthritis. IMPRESSION: No acute osseous abnormality. Fxygdski-cy-lddgni medial compartment osteoarthritis. Small suprapatellar joint effusion. SA/lab Workstation ID: [id number] Dictated by: JONATHAN MCKENNA on TueJul 24, 2021 6:13:56 AM EDT Transcribed by: RIVERA DUBOSE on TueJul 24, 2021 6:31:33 AM EDT Finalized by: JONATHAN MCKENNA on TueJul 26, 2021 1:23:11 PM EDT Normal [facility] Comment on above: Order Comment: Injur y/Trauma or Illness?:Injury/Trauma How long have you had these symptoms (acute/chronic)?:Chronic Reason for exam?:l knee pain x 10 yrs getting worse History of cancer?:u Surgeries, chemotherapy, or radiation?:u Type of Exam?:Unknown Mechanism of injury?:l knee pain x 10 yrs getting worse Auto Diffon 09-30-2018 Basophils Auto #/vol (Bld) 0.1 E3/mcL Normal 0.0-0.2 [facility] Comment on above: Order Comment: Order Added by Discern Expert. Performed By: #### 2 [id number] ####SHARONA [address] [place] [address] Basophils/100 WBC Auto (Bld) 0.8 % Normal 0.0-2.0 [facility] Comment on above: Order Comment: Order Added by Discern Expert. Performed By: #### 2 [id number] ####SHARONA [address] [place] [address] Eos Absolute 0.3 E3/mcL Normal 0.0-0.7 [facility] Comment on above: Order Comment: Order Added by Discern Expert. Performed By: #### 2 [id number] ####SHARONA [address] [place] [address] Eosinophils/100 WBC Auto (Bld) 3.8 % Normal 0.0-11.0 [facility] Comment on above: Order Comment: Order Added by Discern Expert. Performed By: #### 2 [id number] ####SHARONA [address] [place] [address] Lymphocytes Auto #/vol (Bld) 1.4 E3/mcL Normal 1.2-3.4 [facility] Comment on above: Order Comment: Order Added by Discern Expert. Performed By: #### 2 [id number] ####SHARONA [address] [place] [address] Lymphocytes/100 WBC Auto (Bld) 19.3 % Low 20.0-55.0 [facility] Comment on above: Order Comment: Order Added by Discern Expert. Performed By: #### 2 [id number] ####SHARONA [address] [place] [address] [place] Absolute 0.8 E3/mcL High 0.0-0.7 [facility] Comment on above: Order Comment: Order Added by Discern Expert. Performed By: #### 2 [id number] ####SHARONA [address] [place] [address] Monocytes/100 WBC Auto (Bld) 10.0 % Normal 0.0-10.0 [facility] Comment on above: Order Comment: Order Added by Discern Expert. Performed By: #### 2 605241 ####SHARONA [address] [place] [address] Neutro Absolute 5.0 E3/mcL Normal 1.4-6.5 [facility] Comment on above: Order Comment: Order Added by Discern Expert. Performed By: #### 2 653839 ####SHARONA [address] [place] [address] Neutro Auto 66.1 % Normal 37.0-75.0 [facility] Comment on above: Order Comment: Order Added by Discern Expert. Performed By: #### 2 079246 ####SHARONA [address] [place] [address] BMPon 09-30-2018 Anion gap 3 molar conc 9 mmol/L Low 10-20 [facility] Comment on above: Performed By: #### 2 [id number] ####SHARONA [address] [place] [address] Calcium mass conc 9.0 mg/dL Normal 8.6-10.3 [facility] Comment on above: Performed By: #### 2 809976 ####SHARONA [address] [place] [address] Chloride molar conc 108 mmol/L High 98-107 [facility] Comment on above: Performed By: #### 2 [id number] ####SHARONA [address] [place] [address] CO2 molar conc 26.0 mmol/L Normal 21.0-32.0 [facility] Comment on above: Performed By: #### 2 898529 ####SHARONA [address] [place] [address] Creatinine mass conc 0.9 mg/dL Normal 0.5-1.3 [facility] Comment on above: Performed By: #### 2 249375 ####SHARONA [address] [place] [address] Glucose mass conc 92 mg/dL Normal 70-99 [facility] Comment on above: Performed By: #### 2 510352 ####SHARONA [address] [place] [address] Potassium molar conc 3.9 mmol/L Normal 3.5-5.3 [facility] Comment on above: Performed By: #### 2 484584 ####SHARONA [address] [place] [address] Sodium molar conc 139 mmol/L Normal 136-145 [facility] Comment on above: Performed By: #### 2 005123 ####SHARONA [address] [place] [address] Urea nitrogen mass conc 15 mg/dL Normal 6-23 [facility] Comment on above: Performed By: #### 2 826921 ####SHARONA [address] [place] [address] Urea nitrogen/Creatinine mass ratio 16.7 ratio Normal 5.4-30.0 [facility] Comment on above: Performed By: #### 2 246134 ####SHARONA [address] [place] [address] CBC w/ Auto Diffon 8 Erythrocyte distribution width Auto Ratio (RBC) 13.2 % Normal 11.5-14.5 [facility] Comment on above: Performed By: #### 2 806123 ####SHARONA [address] [place] [id number] Hematocrit Auto Volume Fraction (Bld) 42.6 % Normal 42.0-52.0 [facility] Comment on above: Performed By: #### 2 335479 ####SHARONA [address]Cir[address] [place] [address] Hemoglobin mass conc (Bld) 14.5 g/dL Normal 13.5-18.0 [facility] Comment on above: Performed By: #### 2 525903 ####SHARONA [address]rs[address] [place] [address] MCH Auto Entitic mass (RBC) 32.4 pg High 27.0-31.0 [facility] Comment on above: Performed By: #### 2 019750 ####SHARONA [address]zl[address] [place] [address] MCHC Auto mass conc (RBC) 34.2 g/dL Normal 33.0-37.0 [facility] Comment on above: Performed By: #### 2 410379 ####SHARONA [address] [place] [address] MCV Auto Entitic volume (RBC) 94.8 fL Normal 78.0-100.0 [facility] Comment on above: Performed By: #### 2 093115 ####SHARONA [address]zaf[address] [place] [address] Platelet mean volume Auto Entitic volume (Bld) 7.9 fL Normal 7.4-11.0 [facility] Comment on above: Performed By: #### 2 161771 ####SHARONA ZfcEtws[address] [place] [address] Platelets Auto #/vol (Bld) 228 E3/mcL Normal 130-400 [facility] Comment on above: Performed By: #### 2 522009 ####SHARONACourtney [address]zNfdb[address] [place] [address] RBC Auto #/vol (Bld) 4.49 E6/mcL Normal 3.90-6.10 [facility] Comment on above: Performed By: #### 2 822577 ####SHARONA [address]tp[address]few[address] [place] [address] WBC Auto #/vol (Bld) 7.5 E3/mcL Normal 3.6-11.0 [facility] Comment on above: Performed By: #### 2 [id number] ####SHARONA L[address]Qlwb[address] [place] [address] CT Soft Tissue Neck w/ Contr stacy 09-30-2018 CT Soft Tissue Neck w/ Contrast Exam Date/Time:09/29/2018 22:59 ESTReason for Exam:Sore throat (pharyngitis)ReportSTUD Y:CT Soft Tissue Neck w/ Contrast; 09/29/2018 10:59 pmINDICATION:Sore throat (pharyngitis).COMPARISO N:NoneACCESSION NUMBER(S):[id number] CLINICIAN:Jean Marie Garibay:Followi ng intravenous injection axial CT was performed from the skullbase to the thoracic inlet and multiplanar reconstructions were made. 90 mL Omnipaque 350FINDINGS:There is dental metallic artifact.There is prominence of the pharyngeal mucosa and multiple nonenlarged lymph nodes, likely reactive in nature; attention on follow-up.There is no focal mass or abscess.There is moderate polypoid mucosal thickening of the maxillary sinuses.The other visualized paranasal sinuses, mastoid air cells, nasopharynx and oropharynx, major salivary glands, larynx and related cartilages, and thyroid gland are unremarkable.There is mild-moderate multilevel spondylosis and bilateral dependent atelectasis and areas of air trapping.IMPRESSION:Pro minence of the pharyngeal mucosa and multiple nonenlarged lymph nodes, likely reactive in nature; attention on follow-up.No focal mass or abscess.Exam Date/Time:09/29/2018 22:59 ESTReportDirect visualization is recommended for further evaluation if clinically indicated. FINAL REPORT Dictated: 09/29/2018 11:56 pm Avel Lam MD OSigned (Electronic Signature): 09/29/2018 11:56 pmSigned by: Carole MONTES DE OCA, Avel Neil Technologist: ABRAHAM [facility] eGFRon 09-30-2018 eGFR AA >[address] [facility] Comment on above: Order Comment: Order added by Discern Expert. Performed By: #### 1 [id number] ####SHARONA [address]uvx[address] [place] [address] GFR/1.73 sq M predicted among non-blacks MDRD vol rate/area (S/P/Bld) mL/min/{1.73_m2} [facility] Comment on above: Order Comment: Order added by Discern Expert. Performed By: #### 1 [id number] ####SHARONA [address]dd[address] [place] [address] Vital Signs Date Time Vital Sign Value Performing Clinician Facility 12-19-2024 14:15-0500 Body temperature 98.06 [degF] DR MARISOL FRANKLIN MD [facility] 12-19-2024 14:15-0500 Diastolic Blood Pressure Non-Invasive 66 mm[Hg] DR MARISOL FRANKLIN MD [facility] 12-19-2024 14:15-0500 Heart rate 78 /min DR MARISOL FRANKLIN MD [facility] 12-19-2024 14:15-0500 Reason For Taking VItal Signs DR MARISOL FRANKLIN MD [facility] 12-19-2024 14:15-0500 Respiratory rate 18 /min DR MARISOL FRANKLIN MD [facility] 12-19-2024 14:15-0500 Systolic Blood Pressure Non-Invasive 146 mm[Hg] DR MARISOL FRANKLIN MD [facility] 12-19-2024 07:19-0500 Body temperature 98.42 [degF] DR MARISOL FRANKLIN MD [facility] 12-19-2024 07:19-0500 Diastolic Blood Pressure Non-Invasive 68 mm[Hg] DR MARISOL FRANKLIN MD [facility] 12-19-2024 07:19-0500 Heart rate 61 /min DR MARISOL FRANKLIN MD [facility] 12-19-2024 07:19-0500 Reason For Taking VItal Signs DR MARISOL FRANKLIN MD [facility] 12-19-2024 07:19-0500 Respiratory rate 18 /min DR MARISOL FRANKLIN MD [facility] 12-19-2024 07:19-0500 Systolic Blood Pressure Non-Invasive 142 mm[Hg] DR MARISOL FRANKLIN MD [facility] 12-19-2024 04:12-0500 Body temperature 96.8 [degF] DR MARISOL FRANKLIN MD [facility] 12-19-2024 04:12-0500 Diastolic Blood Pressure Non-Invasive 66 mm[Hg] DR MARISOL FRANKLIN MD [facility] 12-19-2024 04:12-0500 Heart rate 64 /min DR MARISOL FRANKLIN MD [facility] 12-19-2024 04:12-0500 Reason For Taking VItal Signs DR MARISOL FRANKLIN MD [facility] 12-19-2024 04:12-0500 Respiratory rate 18 /min DR MARISOL FRANKLIN MD [facility] 12-19-2024 04:12-0500 Systolic Blood Pressure Non-Invasive 137 mm[Hg] DR MARISOL FRANKLIN MD [facility] 12-18-2024 23:11-0500 Heart rate 66 /min DR MARISOL FRANKLIN MD [facility] 12-18-2024 18:48-0500 Heart rate 68 /min DR MARISOL FRANKLIN MD [facility] 12-18-2024 14:30-0500 Heart rate 60 /min DR MARISOL FRANKLIN MD [facility] 12-18-2024 11:12-0500 Body height 187.[address] MARISOL FRANKLIN MD [facility] 12-18-2024 11:12-0500 Body weight 111.[address] MARISOL FRANKLIN MD [facility] 12-18-2024 11:12-0500 Body weight 31.67 kg/m2 DR MARISOL FRANKLIN MD [facility] 12-18-2024 10:39-0500 Body temperature 97.7 [degF] DR MARISOL FRANKLIN MD [facility] 12-18-2024 08:50-0500 Respiratory Rate - Anes 3 br/min DR MARISOL FRANKLIN MD [facility] 12-18-2024 08:45-0500 Respiratory Rate - Anes 17 br/min DR MARISOL FRANKLIN MD [facility] 12-18-2024 08:40-0500 Respiratory Rate - Anes 18 br/min DR MARISOL FRANKLIN MD [facility] 12-18-2024 05:55-0500 Body height 187.[address] MARISOL FRANKLIN MD [facility] 12-18-2024 05:55-0500 Body temperature 98.6 [degF] DR MARISOL FRANKLIN MD [facility] 12-18-2024 05:55-0500 Body weight 111.[address] MARISOL FRANKLIN MD [facility] 12-18-2024 05:55-0500 Heart rate 64 /min DR MARISOL FRANKLIN MD [facility] 12-11-2024 12:26-0500 Body height 190.[address] Morgan Moore MD Work Phone: [facility] 12-11-2024 12:26-0500 Body mass index (BMI) [Ratio] 31.6 kg/m2 Dr. Morgan Moore MD Work Phone: [facility] 12-11-2024 12:26-0500 Body weight 114.[address] Morgan Moore MD Work Phone: [facility] 12-11-2024 12:26-0500 Diastolic blood pressure 78 mm[Hg] Dr. Morgan Moore MD Work Phone: [facility] 12-11-2024 12:26-0500 Heart rate 71 /min Dr. Morgan Moore MD Work Phone: [facility] 12-11-2024 12:26-0500 Respiratory rate 16 /min Dr. Morgan Moore MD Work Phone: [facility] 12-11-2024 12:26-0500 Systolic blood pressure 113 mm[Hg] Dr. Morgan Moore MD Work Phone: [facility] 11-26-2024 11:45-[address] MARISOL FRANKLIN MD [facility] 11-26-2024 11:45-[address] MARISOL FRANKLIN MD [facility] 11-26-2024 11:45-0500 Body height [address] MARISOL FRANKLIN MD [facility] 11-26-2024 11:45-0500 Body weight 113.[address] MARISOL FRANKLIN MD [facility] 11-26-2024 11:45-0500 Body weight 32.14 kg/m2 DR MARISOL FRANKLIN MD [facility] 11-26-2024 11:45-0500 Diastolic Blood Pressure Non-Invasive 82 mm[Hg] DR MARISOL FRANKLIN MD [facility] 11-26-2024 11:45-0500 Heart rate 74 /min DR MARISOL FRANKLIN MD [facility] 11-26-2024 11:45-0500 Respiratory rate 18 /min DR MARISOL FRANKLIN MD [facility] 11-26-2024 11:45-0500 Systolic Blood Pressure Non-Invasive 124 mm[Hg] DR MARISOL FRANKLIN MD [facility] 03-18-2024 16:00-0400 Body temperature 98.3 [degF] Dr. Morgan Moore Work Phone: [facility] 03-18-2024 16:00-0400 Diastolic blood pressure 74 mm[Hg] Dr. Morgan Moore Work Phone: [facility] 03-18-2024 16:00-0400 Heart rate 61 /min Dr. Morgan Moore Work Phone: [facility] 03-18-2024 16:00-0400 Respiratory rate 16 /min Dr. Morgan Moore Work Phone: [facility] 03-18-2024 16:00-0400 SaO2% (BldA) [Mass fraction] 98 % Dr. Morgan Moore Work Phone: [facility] 03-18-2024 16:00-0400 Systolic blood pressure 126 mm[Hg] Dr. Morgan Moore Work Phone: [facility] 03-18-2024 10:55-0400 Body height 191.[address] Morgan Moore Work Phone: [facility] 03-18-2024 10:55-0400 Body weight 112.[address] Morgan Moore Work Phone: [facility] 03-18-2024 01:31-0400 Body mass index (BMI) [Ratio] 30.8 kg/m2 Dr. Morgan Moore Work Phone: [facility] 03-17-2024 17:50-0400 Body temperature 97.8 [degF] [facility] 03-17-2024 17:50-0400 Diastolic blood pressure 76 mm[Hg] [facility] 03-17-2024 17:50-0400 Heart rate 60 /min [facility] 03-17-2024 17:50-0400 Respiratory rate 13 /min [facility] 03-17-2024 17:50-0400 SaO2% (BldA) [Mass fraction] 96 % [facility] 03-17-2024 17:50-0400 Systolic blood pressure 127 mm[Hg] [facility] 03-17-2024 16:29-0400 Body height 190.5 cm [facility] 03-17-2024 16:29-0400 Body mass index (BMI) [Ratio] 31.4 kg/m2 [facility] 03-17-2024 16:29-0400 Body weight 113.85 kg [facility] 10-13-2021 14:47-0500 Body height 190.5 cm Edmundo Yost Work Phone: -Medical [facility] Work Phone: 10-13-2021 14:47-0500 Body mass index (BMI) [Ratio] 32.66 kg/m2 Edmundo Yost Work Phone: [facility] Work Phone: 10-13-2021 14:47-0500 Body surface area Derived from formula 2.46 m2 Edmundo Yost Work Phone: [facility] Work Phone: 10-13-2021 14:47-0500 Body temperature 96.9 [degF] Edmundo Yost Work Phone: [facility] Work Phone: 10-13-2021 14:47-0500 Body weight 118.53 kg Edmundo Yost Work Phone: [facility] Work Phone: 10-13-2021 14:47-0500 Diastolic blood pressure 68 mm[Hg] Edmundo Yost Work Phone: [facility] Work Phone: 10-13-2021 14:47-0500 Heart rate 69 /min Edmundo Yost Work Phone: [facility] Work Phone: 10-13-2021 14:47-0500 SaO2% (BldA) [Mass fraction] 96 % Edmundo Yost Work Phone: [facility] Work Phone: 10-13-2021 14:47-0500 Systolic blood pressure 116 mm[Hg] Edmundo Yost Work Phone: [facility] Work Phone: 07-23-2021 14:02-0400 Body height 190.5 cm Renata Jasso CNP Work Phone: [facility] 07-23-2021 14:02-0400 Body mass index (BMI) [Ratio] 31.87 kg/m2 Renata Jasso CNP Work Phone: [facility] 07-23-2021 14:02-0400 Body weight 115.67 kg Renata Jasso CNP Work Phone: [facility] Encounters Encounter Date Encounter Type Care Provider Facility Start: 06-26-2025 ambulatory Ramon Finney Facility :[facility] Start: 05-15-2025 End: 05-15-[address] Morgan Moore MD Work Phone: -[facility] Start: 05-15-2025 End: 05-15-[address] Morgan Moore MD -[facility] Work Phone: Start: 05-15-2025 End: 05-15-2025 ambulatory Morgan Moore Facility:[facility] Start: 02-15-2025 End: 02-15-[address] Morgan Moore MD Work Phone: [facility] Work Phone: Start: 02-15-2025 End: 02-15-2025 Patient encounter procedure Jatinder [facility] FRUIT CUTTER-C -[facility] Start: 02-15-2025 End: 02-15-2025 ambulatory Jatinder [facility] Facility:[facility] Start: 12-18-2024 End: 12-19-[address] MARISOL FRANKLIN MD Facility:[facility] Start: 12-18-2024 End: 12-19-[address] MARISOL FRANKLIN MD [facility] Start: 12-11-2024 End: 12-11-2024 Patient encounter procedure Aj Granado NP-C -[facility] Work Phone: Start: 12-11-2024 End: 12-11-2024 Preoperative state Aj Granado NP-C [facility] Start: 12-11-2024 End: 12-11-2024 ambulatory Morgan Moore Facility:[facility] Start: 12-11-[address] Christian Moore MD Work Phone: [facility] Start: 12-10-2024 ambulatory Morgan Moore Facility:[facility] Start: 12-10-2024 Non-patient / Non-visit Dr. Krish olson MD -[facility] Start: 12-10-2024 End: 12-10-[address] Morgan Moore MD -Cardiovascular Services Work Phone: Start: 12-10-2024 End: 12-10-2024 ambulatory Morgan Moore Facility:[facility] Start: 11-26-2024 End: 11-26-[address] MARISOL FRANKLIN MD Facility:[facility] Start: 11-26-2024 End: 11-26-[address] MARISOL FRANKLIN MD [facility] Start: 11-26-2024 End: 11-26-[address] MARISOL FRANKLIN MD [facility] Start: 11-26-2024 End: 11-26-[address] MARISOL FRANKLIN MD Facility:[facility] Start: 07-04-2024 ambulatory Mervat Gloria NP Facili ty:[facility] Start: 07-03-2024 ambulatory Morgan Moore Facility:[facility] Start: 07-03-2024 End: 07-03-2024 ambulatory Krish Leos Facility:[facility] Start: 06-28-2024 End: 06-28-2024 ambulatory Morgan Moore Facility:[facility] Start: 03-18-2024 Non-patient / Non-visit Dr. Serafin Moore Work Phone: [facility] Work Phone: Start: 03-17-2024 Non-patient / Non-visit Dr. Serafin Moore Work Phone: [facility] Work Phone: Start: 03-17-2024 End: 03-18-2024 Evaluation and management of inpatient [facility] Work Phone: Start: 03-17-2024 End: 03-18-[address] Morgan Moore Work Phone: [facility] Work Phone: Start: 01-04-2024 End: 01-04-2024 ambulatory [facility] Work Phone: Start: 01-04-2024 End: 01-04-2024 Patient encounter procedure [facility] Start: 12-09-2023 End: 12-09-2023 ambulatory [facility] Work Phone: Start: 12-09-2023 End: 12-09-2023 [facility] Start: 06-06-2023 End: 06-06-[address] Morgan Moore Work Phone: [facility] Work Phone: Start: 06-06-2023 End: 06-06-[address] Morgan Moore Work Phone: [facility] Start: 05-25-2023 Non-patient / Non-visit Dr. Serafin Moore Work Phone: [facility] Start: 05-25-2023 End: 05-25-[address] Morgan Moore Work Phone: [facility]Cardiov[facility]cul[facility] Work Phone: Start: 04-20-2022 End: 04-20-2022 Patient encounter procedure [facility]-Laboratory, Specimen Start: 10-26-2021 End: 10-26-2021 ambulatory RENATA JASSO [facility] Start: 10-26-2021 End: 10-26-2021 Clinical Support Renata Jasso [facility] Work Phone: [facility] Comment on above: Primary osteoarthrit is of left knee (Primary Dx) Start: 10-14-2021 Chart Update Edmundo nava Work Phone: [facility] Work Phone: Start: 10-13-2021 Office outpatient ne w 45 minutes Edmundo Yost Work Phone: [facility] Work Phone: Start: 07-23-2021 End: 07-27-2021 [facility] Start: 07-23-2021 End: 07-23-2021 Office outpatient new 45 minutes Renata Gordoncock BALLER TENDER Work Phone: [facility] Comment on above: Primary osteoarthrit is of left knee (Primary Dx) Procedures Date Procedure Procedure Detail Performing Clinician Start: 05-15-2025 Plain x-ray of pelvi s and lower extremity Dr. Morgan Moore MD Work Phone: Start: 03-18-2024 MRI of brain without contrast Dr. Morgan Moore Work Phone: Start: 03-17-2024 Plain chest X-ray Start: 03-17-2024 CT angiography of he ad and neck Start: 03-17-2024 CT of head without contrast Dr. Morgan Moore Work Phone: Start: 12-09-2023 Radiologic examinati on of knee Start: 10-26-2021 Arthrocentesis aspir &/inj major jt/bursa w/o us Renata Jasso BALLER TENDER Work Phone: Start: 07-27-2021 Arthrocentesis aspir &/inj major jt/bursa w/o us Renata Jasso BALLER TENDER Work Phone: Arthroplasty of knee DR EDILSON FRANKLIN MD Comment on above: LEFT Arthroscopy of knee Edmundo Yost Work Phone: Colonoscopy DR MARISOL Guerrier MD Osteophyte of bone (disorder) DR MARISOL FRANKLIN MD Comment on above: left knee Strabismus surgery Edmundo Yost Work Phone: Tonsillectomy and adenoidectomy Edmundo Ribeiro Priyank Work Phone: Tonsillectomy and adenoidectomy DR MARISOL FRANKLIN MD Plan of Treatment Date Care Activity Detail Author Start: 03-18-2024 Patient discharge [facility] Start: 03-17-2024 Aspiration precautions [facility] Start: 03-17-2024 Assessment of risk of venous thromboembolism [facility] Start: 03-17-2024 Cardiac monitoring [facility] Start: 03-17-2024 Catheterization of vein [facility] Start: 03-17-2024 Consultation [facility] Start: 03-17-2024 Continuous pulse oximetry [facility] Start: 03-17-2024 Elevation of head of bed [facility] Start: 03-17-2024 Exercises [facility] Start: 03-17-2024 Insertion of catheter into peripheral vein [facility] Start: 03-17-2024 Notification of physician [facility] Start: 03-17-2024 Patient referral to dietitian [facility] Start: 03-17-2024 Providing care according to standard [facility] Start: 03-17-2024 Referral to occupational therapist [facility] Start: 03-17-2024 Referral to service [facility] Start: 03-17-2024 Speech therapy assessment [facility] Start: 03-17-2024 Telemedicine consultation with patient [facility] Start: 03-17-2024 Tobacco use cessation education [facility] Start: 03-17-2024 End: 03-17-2024 [facility] Start: 03-17-2024 Vital signs measurements [facility] Start: 03-17-2024 Following clinical pathway protocol [facility] Start: 03-17-2024 MRI of brain without contrast Brain without Contrast [facility] Start: 03-17-2024 Verification routine [facility] Start: 03-17-2024 Admission procedure [facility] Start: 03-17-2024 Hospital admission, emergency, from emergency room, medical nature [facility] Start: 03-17-2024 CT of head without contrast STROKE Brain/Head without Cont [facility] Start: 03-17-2024 CT Unspecified body region WO contrast [facility] Start: 03-17-2024 Oxygen therapy [facility] Start: 03-17-2024 Thyroid stimulating hormone measurement [facility] Start: 03-17-2024 [facility] Start: 03-17-2024 Patient referral to dietitian [facility] Start: 03-17-2024 [facility] Start: 06-06-2023 Factor V Leiden genotype [facility] Start: 06-06-2023 Lupus anticoagulant assay [facility] Start: 06-06-2023 Protein S assay [facility] Start: 07-08-2021 Influenza vaccination Sequential Influenza Vaccine (#1) [facility] Start: 03-09-2021 COVID-19 Vaccine (2 - Booster for Dell series) COVID-19 Vaccine (2 - Booster for Dell series) [facility] Start: 2009 Scre[facility] Start: 1977 Hepatitis C screening Hepatitis C Screening [facility] Start: 1974 HIV screening HIV Screening [facility] Start: 1971 Depression screening using PHQ-9 (Patient Health Questionnaire 9) score [facility] Start: 1962 History and physical examination, annual for health maintenance Wellness Visit [facility] Start: 1959 Prostate specific antigen measurement PSA Level [facility] Start: 1959 Tetanus vaccination Tetanus: Every 10yrs [facility] F5 gene mutations fo und [Identifier] in Blood or Tissue by Molecular genetics method Nominal [facility] Hemoglobin A1c/Hemoglobin.total in Blood [facility] Lupus anticoagulant neutralization platelet [Time] in Platelet poor plasma by Coagulation assay [facility] Partial thromboplast in time ratio [facility] Patient referral [facility] Work Phone: Protein C Ag actual/ normal in Platelet poor plasma by Immunoassay [facility] Protein S Free Ag actual/normal in Platelet poor plasma by Immunoassay [facility] Thrombin time [facility] Immunizations Immunization Date Immunization Notes Care Provider Fa cility 10-02-2024 influenza virus vacc ine, unspecified formulation DR MARISOL FRANKLIN MD [facility] 09-06-2023 influenza virus vacc ine, unspecified formulation DR MARISOL FRANKLIN MD [facility] 09-22-2022 influenza virus vacc ine, unspecified formulation DR MARISOL FRANKLIN MD [facility] 09-22-2022 SARS-CoV-2 (CV19)mRNA-[address] MARISOL FRANKLIN MD [facility] Comment on above: Result Comment: 2024: [id number] 12-01-2021 tetanus toxoid, redu joseph diphtheria toxoid, and acellular pertussis vaccine, adsorbed DR MARISOL FRANKLIN MD [facility] 10-14-2021 SARS-CoV-2 (COVID-19 ) Ad26 vaccine, recombinant DR MARISOL FRANKLIN MD [facility] 06-09-2021 zoster vaccine recombinant Edmundo T Aidabrandy Work Phone: [facility] 03-31-2021 zoster vaccine recombinant Edmundo T Furness Work Phone: [facility] 01-12-2021 Dell COVID-19 Vac cine 0.5 ML Intramuscular Suspension Edmundo T Priyank Work Phone: [facility] Comment on above: Result Comment: 2024: [id number] Payers Date Payer Category Payer Medicare [id number] 2024 Medicare [id number] 2024 Unknown [id number] 2024 Self-pay [id number] 2015 Unknown MMO MED [employer] S UPERMED PPO [id number] 2015-Present [phone] [address] [place] [address] [id number] 2015 Unknown 2015 Unknown [id number] 1959 Unknown [id number] 1959 Unknown [id number] 1959 Unknown [id number] [id number] 1959 Unknown [id number] [id number] 1959 Unknown [id number] 1959 Unknown [id number] [id number] Unknown [id number] Unknown [facility] [id number] Unknown [id number] Unknown [id number] [id number] Unknown [id number] Unknown [id number] [id number] Unknown [id number] Unknown [id number] Unknown [id number] [id number] Unknown [id number] Unknown [id number] Unknown [id number] Social History Date Type Detail Facility Start: 04-14-2016 End: 12-11-2024 Tobacco smoking status NHIS Never smoked tobacco [facility] Start: 04-14-2016 Tobacco use and exposure Smoke less tobacco non-user [facility] Start: 07-27-2021 End: 10-26-2021 Alcohol intake Ex-drinker (finding) [facility] Start: 07-27-2021 End: 10-26-2021 Alcohol intake [facility] Start: 1960 Sex Assigned At Not on file [facility] Exposure to SARS-CoV -2 (event) Not sure [facility] Start: 1960 Sex Assigned At Male W [facility] Start: 03-17-2024 End: 03-18-2024 Tobacco smoking status NHIS Unknown if ever smoked [facility] Start: 03-18-2024 Non-smoker [facility] Sexual Orientation [facility] Start: 11-20-2024 End: 02-18-2025 Sex Male (finding) [facility] Goals Date Patient Goal Desired Activity /State Functional Status Date Assessment Result Facility 12-19-2024 Functional Status Supervised [facility] 12-19-2024 Functional Status [facility] 12-19-2024 Functional Status Breakfast Percent 100 A [facility] 12-19-2024 Functional Status Identified as high risk, Fall ID band on, Room located near nursing station, Door open, Non-Slip footwear [facility] 12-19-2024 Functional Status [facility] 12-19-2024 Functional Status Shikha [facility] 12-18-2024 Functional Status Antiembolism S tocking On/Re-applied bilateral thigh high [facility] 12-18-2024 Functional Status Shikha [facility] 12-18-2024 Functional Status Shikha [facility] 12-18-2024 Functional Status Shikha [facility] 12-18-2024 [facility] Functional Status Multilevel glenn e, 2nd floor bedroom, 2nd floor bathroom [facility] 12-18-2024 Functional Status [facility] 03-18-2024 Functional status Ambulates [facility] Work Phone: Mental Status Date Assessment Result Facility 12-19-2024 Mental Status Oriented x 4 [facility] 12-18-2024 Mental Status [facility] 12-18-2024 Mental Status [facility] 03-18-2024 Cognitive function Voice/Name [facility] Work Phone: 03-17-2024 Cognitive function Voice/Name [facility] Work Phone: Clinical Notes 07-27-2021 to 05-16-2025 Note Date & Type Note Facility 05-16-2025 Radiology Diagnostic study note [facility] Imaging Services [address] [place] [address] Hips B/L min 2 views w/ Pelvis MR#: [id number] Acct: [id number] Name: QIAN SEGAL Rep #: [id number] : 1960 M 64 From: Danitza Pleitez MD PCP: Dr. Morgan Moore MD Status: REG C RENETTA Study:Hips B/L min 2 views w/ Pelvis Date of Exam: 05/15/25 Exam# [id number] Ordering Dr: Morgan Moore MD PROCEDURE: HIPS B/L MIN 2 VIEWS W/ PELVIS 05/15/2025 REASON FOR EXAM: PAIN TECHNIQUE: HIPS B/L MIN 2 VIEWS W/ PELVIS FINDINGS: 1-Right Hip Alignment is within normal limits. Mild hip joint space narrowing and subtle acetabulum sclerosis. No focal lesion noted. Soft tissues appear normal. 2-Left Hip Alignment is within normal limits. There is no evidence of acute fracture or dislocation. Mild hip joint space narrowing and subtle acetabulum sclerosis. No focal lesion noted. Soft tissues appear normal. RAD/Hips B/L min 2 views w/ Pelvis IMPRESSION: No acute osseus abnormality seen. Mild bilateral hips arthritic changes. Reading [facility] CC: Dr. Morgan Moore MD ~ [employer]ine [employer]er: Signed [facility] 12-19-2024 Hospital Discharge instructions Patient Education 12/19/2024 13:49:00 Total Knee Replacement, Care After, [id number] Total Knee Replacement, Care After This sheet gives you information about how to care for yourself after your procedure. Your doctor may also give you more specific instructions. If you have problems or questions, contact your doctor. What can I expect after the procedure? After the procedure, it is common to have: Pain. Swelling. A small amount of blood coming from your cut from surgery (incision). Clear fluid coming from your cut from surgery. Limited movement of your knee. Follow these instructions at home: Medicines Take gmjm-rmg-fryrnov and prescription medicines only as told by your doctor. If you were prescribed a blood thinner (anticoagulant), take it as told by your doctor. Ask your doctor if the medicine prescribed to you: ?Requires you to avoid driving or using heavy machinery. ?Can cause trouble pooping (constipation). You may need to take steps to prevent or treat trouble pooping: ?Drink enough fluid to keep your pee (urine) pale yellow. ?Take oahp-itg-xocghtm or prescription medicines. ?Eat foods that are high in fiber. These include beans, whole grains, and fresh fruits and vegetables. ?Limit foods that are high in fat and sugar. These include fried or sweet foods. Bathing Do not take baths, swim, or use a hot tub until your doctor approves. Ask your doctor if you may take showers. You may only be allowed to take sponge baths. Keep your bandage (dressing) dry until your doctor says it can be taken off. Incision care and drain care Follow instructions from your doctor about how to take care of your cut from surgery. Make sure you: ?Wash your hands with soap and water before and after you change your bandage. If you cannot use soap and water, use hand cod clerk. ?Change your bandage as told by your doctor. ?Leave stitches (sutures), skin glue, or skin tape (adhesive) strips in place. They may need to stay in place for 2 weeks or longer. If tape strips get loose and curl up, you may trim the loose edges. Do not remove tape strips completely unless your doctor says it is okay. Check your cut from surgery and your drain site every day for signs of infection. Check for: ?More redness, swelling, or pain. ?More fluid or blood. ?Warmth. ?Pus or a bad smell. If you have a drain, follow instructions from your doctor about caring for it. Managing pain, stiffness, and swelling If told, put ice on your knee. ?Put ice in a plastic bag or use the icing device (cold flow pad or cryocuff) that you were given. Follow your doctor's directions about how to use the icing device. ?Place a towel between your skin and the bag or between your skin and the icing device. ?Leave the ice on for 20 minutes, 2 3 times per day. If told, put heat on your knee before you exercise. Use the heat source that your doctor recommends, such as a moist heat pack or a heating pad. ?Place a towel between your skin and the heat source. ?Leave the heat on for 20 30 minutes. ?Remove the heat if your skin turns bright red. This is very important if you are unable to feel pain, heat, or cold. You may have a greater risk of getting burned. Move your toes often. Raise (elevate) your knee above the level of your heart while you are sitting or lying down. ?Use several pillows to keep your leg straight. ?Do not put a pillow just under the knee. If the knee is bent for a long time, this may make the knee stiff. Wear elastic knee support as told by your doctor. Activity Rest as told by your doctor. Do not sit for a long time without moving. Get up to take short walks every 1 2 hours. This is important. Ask for help if you feel weak or unsteady. Ask your doctor what activities are safe for you. Avoid activities that put stress on your knees. These include running, jumping rope, and jumping jacks. Do not play contact sports until your doctor says it is okay. Do exercises as told by your physical therapist. If you have been sent home with a knee joint motion machine (continuous passive motion machine), use it as told by your doctor. Safety Do not use your leg to support your body weight until your doctor says that you can. Use crutches or a walker as told by your doctor. Do not drive until your doctor says it is okay. Ask your doctor when it is safe to drive. General instructions Do not use any products that contain nicotine or tobacco, such as cigarettes, e-cigarettes, and chewing tobacco. These can delay healing. If you need help quitting, ask your doctor. Wear special socks (compression stockings) as told by your doctor. Tell your doctor if you plan to have dental work. Also: ?Tell your dentist about your joint replacement. ?Ask your doctor if there are instructions you need to follow before dental care and routine cleanings. Keep all follow-up visits as told by your doctor. This is important. Contact a doctor if: You have more redness, swelling, or pain around your cut from surgery or your drain. You have more fluid or blood coming from your cut from surgery or your drain. You have pus or a bad smell coming from your cut from surgery or your drain. Your cut from surgery or your drain area feels warm to the touch. You have a fever. Your cut breaks open. You have knee pain that does not go away. The movement of your knee is getting worse. Your new joint feels loose. Get help right away if you have: Pain in your calf or thigh. Swelling in your calf or thigh. Shortness of breath. Trouble breathing. Chest pain. Summary After the procedure, it is common to have pain and swelling, blood or fluid coming from your cut from surgery, and trouble moving your knee. Follow instructions from your doctor about how to take care of your cut from surgery. Use crutches or a walker as told by your doctor. If you were prescribed a blood thinner, take it as told by your doctor. Keep all follow-up visits as told by your doctor. This is important. This information is not intended to replace advice given to you by your health care provider. Make sure you discuss any questions you have with your health care provider. Document Released: 01/15/2013 Document Revised: 03/03/2020 Document Reviewed: 06/07/2019 [employer] Patient Education 2020 [employer]. 12/19/2024 07:50:55 5 - [facility] Post-op Instruction 06/2017 ([id number]) [facility] Post-operative Instructions PLEASE FOLLOW [facility] POST-OP INSTRUCTIONS GIVEN WATCH FOR SIGNS OF INFECTION: call the office ([phone]) if experencing any of the following: (Usually appears 36-48 hours after surgery) Increased temperature (101 degrees Fahrenheit or higher) Redness or swelling Increased uncontrolled pain Foul odor or drainage Calf discomfort Significant swelling Or if having any chest pain, shortness of breath, or difficulty breathing or swallowing call the office or go the nearest Emergency Room. If you have any questions, please call your doctor at the number listed on your follow up instructions. Form: [id number]) R: 03/13 Follow Up Care 11/20/2024 09:15:24 With:Donavan Overton [facility] Address: [address] [place] [phone] When:12/21/2024 10:00:00 Comments:This is your first physical therapy appointment. Follow-up as scheduled. With:DARYL PASTRANA PA-C, Orthopedic Address: [facility] [address] [place] [phone] When:12/31/2024 15:15:00 Comments:This is your post-op appointment. Follow-up as scheduled. [facility] 12-19-2024 Note Discharge Instructions Thank you for allowing [facility] to assist you with your healthcare needs. The following is important discharge information regarding your hospital visit. Your Care Team Marisol Franklin MD Your Diagnosis DVT (deep venous thrombosis) GERD (gastroesophageal reflux disease) Status post total left knee replacement What to do next Follow Up Appointments Follow Up with [facility] When:12/21/2024 10:00 AM EST Where:[address] [place] [address]- [phone] Additional Information: This is your first physical therapy appointment. Follow-up as scheduled. Follow Up with DARYL PASTRANA PA-C, Orthopedic When:12/31/2024 03:15 PM EST Where:[facility] [address] [place] [address]- Additional Information: This is your post-op appointment. Follow-up as scheduled. The Following Treatments Have Been Ordered for You Discharge Labs No qualifying data available. Discharge Radiology No qualifying data available. Other Therapies No qualifying data available. Post Acute Orders No qualifying data available. Allergies ibuprofen Facial edema Medications Please ask your primary doctor or pharmacist before taking any other medication not listed, including over the counter drugs, herbal medications, vitamins and or supplements as they may interact with your home medications. What How Much When Why Instructions Last Dose Unchanged acetaminophen (Tylenol) 1,000 Milligram by mouth Three (3) times a day not to exceed 3000 mg/ day Unchanged apixaban (Eliquis 5 mg oral tablet) 1 tab(s) by mouth Two (2) times a day Unchanged cholecalciferol (Vitamin D3) 100 Microgram by mouth Every day Unchanged cinnamon (do notuse) (cinnamon 500 mg oral capsule) 2 cap by mouth Two (2) times a day Unchanged cyanocobalamin (Vitamin B12 50 mcg oral tablet) 1 tab(s) by mouth Once a day Unchanged docusate-senna (Senokot S 50 mg-8.6 mg oral tablet) 2 tab(s) by mouth Two (2) times a day Duration: 3 Days Take until first bowel movement, then as needed Pickup at [facility]/pharmacy #[id number] Unchanged elderberry (elderberry 350 mg oral capsule) 1 cap by mouth Once a day Unchanged famotidine (Pepcid 20 mg oral tablet) 1 tab(s) by mouth Once a day Pickup at [facility]/pharmacy #[id number] Unchanged herbal/ nutritional product (Bee pollen oral capsule) Unchanged loratadine (loratadine 5 mg oral tablet, chewable) 1 tab(s) Chewed Once a day Unchanged Misc Medication Unchanged multivitamin with minerals (Theratrum Complete with Lutein and Lycopene) by mouth Once a day Unchanged omega-3 polyunsaturated fatty acids (Fish Oil 1000 mg oral capsule) 1 cap by mouth Once a day Unchanged oxyCODONE (oxyCODONE 5 mg oral tablet ( IMMEDIATE release )) See instructions Status post total left knee replacement 1-2 tab(s) Oral q4h, As needed for as needed for pain Pickup at [facility]/pharmacy #[id number] Unchanged rosuvastatin (rosuvastatin 10 mg oral tablet) 1 tab(s) by mouth Once a day Pharmacy Information [facility]/pharmacy #[id number]: [address] [place], [place] [phone] Please take this list to your next doctor s visit. Bring all medications you take, including over the counter medications, herbals and other supplements with you to your doctor s visit. Patients and families are reminded to discard old lists and to update any records with all medication providers or retail pharmacies. Medication Leaflets famotidine (oral/injection) (fam [place] ti pepito) Heartburn Relief, Pepcid, Pepcid AC, Pepcid AC Maximum Strength, Zantac 360 What is the most important information I should know about famotidine? Follow all directions on the label and package. Use exactly as directed. What is famotidine? Famotidine is used to treat and prevent ulcers in the stomach and intestines. It also treats conditions in which the stomach produces too much acid, such as Mark-Gaston syndrome. Famotidine also treats gastroesophageal reflux disease (GERD) and other conditions in which acid backs up from the stomach into the esophagus, causing heartburn. The Zantac 360 brand of this medicine does not contain ranitidine, a medicine that was withdrawn from market in the [place]. Famotidine may also be used for purposes not listed in this medication guide. What should I discuss with my healthcare provider before taking famotidine? Heartburn can feel like a heart attack. Get emergency medical help if you have chest pain that spreads to your jaw or shoulder. You should not use this medicine if you are allergic to famotidine or similar medicines such as ranitidine (Zantac), cimetidine (Tagamet), or nizatidine (Axid). Ask a doctor or pharmacist if this medicine is safe to use if you have: kidney disease; liver disease; cancer stomach; or long QT syndrome (in you or a family member). Ask a doctor before using this medicine if you are or . How should I take famotidine? Use exactly as directed on the label, or as prescribed by your doctor. Famotidine oral is taken by mouth. Famotidine injection is given in a vein if you are unable to take the medicine by mouth. You may take famotidine oral with or without food. Measure liquid medicine with the supplied syringe or a dose-measuring device (not a kitchen spoon). Most ulcers heal within 4 weeks of famotidine treatment, but it may take up to 8 weeks of using this medicine before your ulcer heals. Keep using the medication as directed. Call your doctor if the condition you are treating with famotidine does not improve, or if it gets worse while using famotidine. Your treatment may also include changes in diet or lifestyle habits. Follow all instructions of your doctor or dietitian. Store at room temperature away from moisture, heat, and light. Do not allow the liquid medicine to freeze. Throw away any unused famotidine liquid that is older than 30 days. What happens if I miss a dose? Take the medicine as soon as you can, but skip the missed dose if it is almost time for your next dose. Do not take two doses at one time. What happens if I overdose? Seek emergency medical attention or call the Poison Help line at . What should I avoid while taking famotidine? Drinking alcohol may increase the risk of damage to your stomach. Avoid taking other stomach acid reducers unless your doctor has told you to. However, you may take an antacid (such as Maalox, Mylanta, Gaviscon, Milk of Magnesia, Rolaids, or Tums) with famotidine. What are the possible side effects of famotidine? Get emergency medical help if you have signs of an allergic reaction: hives; difficult breathing; swelling of your face, lips, tongue, or throat. Stop using famotidine and call your doctor at once if you have: confusion, hallucinations, agitation, lack of energy; a seizure; fast or pounding heartbeats, sudden dizziness (like you might pass out); or unexplained muscle pain, tenderness, or weakness especially if you also have fever, unusual tiredness, and dark colored urine. Some side effects may be more likely in older adults and in people who have severe kidney disease. Common side effects may include: headache; dizziness; or constipation or diarrhea. This is not a complete list of side effects and others may occur. Call your doctor for medical advice about side effects. You may report side effects to FDA at 3-189-ZMN-8941. What other drugs will affect famotidine? Famotidine oral can make it harder for your body to absorb other medicines you take by mouth. Tell your doctor if you are taking: cefditoren; dasatinib; delavirdine; fosamprenavir; or tizanidine (if you are taking famotidine liquid). This list is not complete. Other drugs may affect famotidine, including prescription and mavy-zge-tsdbjbq medicines, vitamins, and herbal products. Not all possible drug interactions are listed here. Where can I get more information? Your doctor or pharmacist can provide more information about famotidine. Remember, keep this and all other medicines out of the reach of children, never share your medicines with others, and use this medication only for the indication prescribed. Every effort has been made to ensure that the information provided by [employer] is accurate, up-to-date, and complete, but no guarantee is made to that effect. Drug information contained herein may be time sensitive. [employer] information has been compiled for use by healthcare practitioners and consumers in the [place] and therefore [employer] does not warrant that uses outside of the [place] are appropriate, unless specifically indicated otherwise. [employer] drug information does not endorse drugs, diagnose patients or recommend therapy. [employer] drug information is an informational resource designed to assist licensed healthcare practitioners in caring for their patients and/or to serve consumers viewing this service as a supplement to, and not a substitute for, the expertise, skill, knowledge and judgment of healthcare practitioners. The absence of a warning for a given drug or drug combination in no way should be construed to indicate that the drug or drug combination is safe, effective or appropriate for any given patient. [employer] does not assume any responsibility for any aspect of healthcare administered with the aid of information [employer] provides. The information contained herein is not intended to cover all possible uses, directions, precautions, warnings, drug interactions, allergic reactions, or adverse effects. If you have questions about the drugs you are taking, check with your doctor, nurse or pharmacist. Copyright 3538-9209 [employer]. Version: . Revision Date: 05/30/2023. docusate and senna (DOK danny sate and SEN a) Colace 2-in-1, Senexon-S, Senna Plus, Senna S, Senna-Time S, Senokot S, SenoSol-SS, Stool Softener + Stimulant Laxative, Stool Softener with Laxative What is the most important information I should know about docusate and senna? Use exactly as directed on the label, or as prescribed by your doctor. What is docusate and senna? Docusate is a stool softener. Senna is a laxative. Docusate and senna is a combination medicine used to treat occasional constipation. Docusate and senna may also be used for purposes not listed in this medication guide. What should I discuss with my healthcare provider before using docusate and senna? You should not use this medicine if you are allergic to docusate or senna, or if you are also taking mineral oil. Ask a doctor or pharmacist if this medicine is safe to use if you have ever had: nausea or vomiting; stomach pain; a sudden change in bowel habits that lasts for 2 weeks or longer; or an intestinal disorder such as Crohn's disease or ulcerative colitis. Ask a doctor before using this medicine if you are or . Do not give this medicine to a child younger than 2 years old without medical advice. How should I use docusate and senna? Use exactly as directed on the label, or as prescribed by your doctor. Take docusate and senna with a full glass of water. It may be best to take this medicine at night or at bedtime. Docusate and senna should cause you to have a bowel movement within 6 to 12 hours. Do not take docusate and senna for longer than 7 days in a row, unless your doctor tells you to. Call your doctor if your constipation does not improve or if it gets worse after taking docusate and senna. Store at room temperature away from moisture and heat. What happens if I miss a dose? Since docusate and senna is used when needed, you may not be on a dosing schedule. Skip any missed dose if it's almost time for your next dose. Do not use two doses at one time. What happens if I overdose? Seek emergency medical attention or call the Poison Help line at . Overdose symptoms may include nausea, vomiting, stomach pain, or diarrhea. What should I avoid while using docusate and senna? Ask a doctor or pharmacist before using any other laxative or other stool softener that may contain ingredients similar to docusate or senna. What are the possible side effects of docusate and senna? Get emergency medical help if you have signs of an allergic reaction: hives; difficulty breathing; swelling of your face, lips, tongue, or throat. Stop using docusate and senna and call your doctor at once if you have: rectal bleeding; severe stomach pain, nausea, vomiting; or no bowel movement. Common side effects may include: gas, bloating; diarrhea; or mild nausea. This is not a complete list of side effects and others may occur. Call your doctor for medical advice about side effects. You may report side effects to FDA at 1-368-TVR-1004. What other drugs will affect docusate and senna? Other drugs may affect docusate and senna, including prescription and hzif-ill-gwovhpa medicines, vitamins, and herbal products. Tell your doctor about all your current medicines and any medicine you start or stop using. Where can I get more information? Your pharmacist can provide more information about docusate and senna. Remember, keep this and all other medicines out of the reach of children, never share your medicines with others, and use this medication only for the indication prescribed. Every effort has been made to ensure that the information provided by [employer] is accurate, up-to-date, and complete, but no guarantee is made to that effect. Drug information contained herein may be time sensitive. [employer] information has been compiled for use by healthcare practitioners and consumers in the [place] and therefore [employer] does not warrant that uses outside of the [place] are appropriate, unless specifically indicated otherwise. [employer]'s drug information does not endorse drugs, diagnose patients or recommend therapy. [employer] drug information is an informational resource designed to assist licensed healthcare practitioners in caring for their patients and/or to serve consumers viewing this service as a supplement to, and not a substitute for, the expertise, skill, knowledge and judgment of healthcare practitioners. The absence of a warning for a given drug or drug combination in no way should be construed to indicate that the drug or drug combination is safe, effective or appropriate for any given patient. [facility] does not assume any responsibility for any aspect of healthcare administered with the aid of information [facility] provides. The information contained herein is not intended to cover all possible uses, directions, precautions, warnings, drug interactions, allergic reactions, or adverse effects. If you have questions about the drugs you are taking, check with your doctor, nurse or pharmacist. Copyright 9198-8444 [facility]. Version: 5.. Revision Date: 06/13/2023. oxycodone (ox i KOE done) Oxaydo, OxyCONTIN, Roxicodone, RoxyBond, Xtampza ER What is the most important information I should know about oxycodone? MISUSE OF OPIOID MEDICINE CAN CAUSE ADDICTION, OVERDOSE, OR . Fatal side effects may occur if you also drink alcohol or use other drugs that cause drowsiness or slow breathing. Using opioid medicine during may cause life-threatening withdrawal symptoms in the . What is oxycodone? Oxycodone is an opioid pain medication used to treat moderate to severe pain. Oxycodone is usually given after other treatments did not work or were not tolerated. Extended-release oxycodone is for eqmzae-agt-segts treatment of severe and chronic pain that requires longer treatment. This medicine is not for use on an as-needed basis. Oxycodone may also be used for purposes not listed in this medication guide. What should I discuss with my healthcare provider before taking oxycodone? You should not use oxycodone if you are allergic to it, or if you have severe asthma, breathing problems or a stomach or bowel obstruction (including paralytic ileus). Tell your doctor if you have ever had: other breathing problems, sleep apnea (breathing that stops during sleep); a head injury, brain tumor, high pressure inside the skull, or seizures, drug or alcohol addiction, or mental illness; if you have used an MAO inhibitor in the past 14 days, such as isocarboxazid, linezolid, methylene blue injection, phenelzine, or tranylcypromine; urination problems, problems with your gallbladder, pancreas, thyroid, or adrenal gland; or liver or kidney disease. Most forms of oxycodone are not approved for use in people under 18 years old. The extended-release tablets should not be given to a child younger than 11 years old. Tell your doctor if you also use stimulant medicine, opioid medicine, herbal products, or medicine for depression, mental illness, Parkinson's disease, migraine headaches, serious infections, or prevention of nausea and vomiting. An interaction with oxycodone could cause a serious condition called serotonin syndrome. May harm an unborn baby. Tell your doctor if you are or plan to become . If you use oxycodone during , your baby could be born with life-threatening withdrawal symptoms, and may need medical treatment for several weeks. Do not breastfeed. Oxycodone in breast milk can cause life-threatening side effects in a nursing baby. Long-term oxycodone may affect fertility in men or women. could be harder to achieve while either parent is using this medicine. How should I take oxycodone? Follow the directions on your prescription label and read all medication guides or instruction sheets. Never use oxycodone in larger amounts, or for longer than prescribed. Tell your doctor if you feel an increased urge to use more of this medicine. Never share opioid medicine with another person, especially someone with a history of drug addiction. MISUSE CAN CAUSE ADDICTION, OVERDOSE, OR . Keep the medicine where others cannot get to it. Selling or giving away this medicine is against the law. Never crush a pill or use the liquid to inhale the mixture or inject it into your vein. This could result in . Your dose needs may change if you switch to a different brand, strength, or form of this medicine. Avoid medication errors by using exactly as directed on the label, or as prescribed by your doctor. Stop taking all other jtjzru-elk-nuwxs opioid pain medicines when you start taking extended-release oxycodone. Swallow the extended-release forms whole to avoid exposure to a potentially fatal overdose. Do not crush, chew, break, open, or dissolve. Take the extended-release capsules with food. Read and carefully follow the instructions for use on how to prepare and take this medicine if you cannot swallow extended release capsules whole or you use a feeding tube. Ask your doctor or pharmacist if you don't understand these instructions. Measure liquid medicine with the supplied measuring device (not a kitchen spoon). You may be given other medications to help prevent or treat certain side effects. You may have withdrawal symptoms if you stop using oxycodone suddenly. Ask your doctor before stopping the medicine. Store at room temperature away from moisture and heat. Keep your medicine in a place where no one can use it improperly. Do not keep leftover medicine. Just one dose can cause in someone using it accidentally or improperly. Ask your pharmacist about a drug take-back program, or flush the unused medicine down the toilet. What happens if I miss a dose? Since oxycodone is used for pain, you are not likely to miss a dose. Skip any missed dose if it is almost time for your next dose. Do not use two doses at one time. What happens if I overdose? Seek emergency medical attention or call the Poison Help line at . An overdose can be fatal, especially in a child or person using opioid medicine without a prescription. Your doctor may recommend you get naloxone (a medicine to reverse an opioid overdose) and keep it with you at all times. A person caring for you can give the naloxone if you stop breathing or don't wake up. Your caregiver must still get emergency medical help and may need to perform CPR (cardiopulmonary resuscitation) on you while waiting for help to arrive. Anyone can buy naloxone from a pharmacy or local health department. Make sure any person caring for you knows where you keep naloxone and how to use it. What should I avoid while taking oxycodone? Do not drink alcohol or any products that contain alcohol. Dangerous side effects or could occur. Avoid driving or hazardous activity until you know how this medicine will affect you. Dizziness or drowsiness can causing falls, accidents, or severe injuries. Also avoid getting up too fast from a sitting or lying position, or you may feel dizzy. What are the possible side effects of oxycodone? Get emergency medical help if you have signs of an allergic reaction: hives, difficult breathing, swelling of your face, lips, tongue, or throat. Opioid medicine can slow or stop your breathing, and may occur, especially if you drink alcohol or use other drugs that cause drowsiness or slow breathing. A person caring for you should give naloxone and/or seek emergency medical attention if you have slow breathing with long pauses, blue colored lips, or if you are hard to wake up. Call your doctor at once if you have: slow heart rate, weak pulse, fainting, slow breathing (breathing may stop); chest pain, fast or pounding heartbeats; a seizure, extreme drowsiness; or decreased adrenal gland hormones--nausea, vomiting, stomach pain, loss of appetite, feeling tired or light-headed, muscle or joint pain, skin discoloration, craving salty foods. Serious breathing problems may be more likely in older adults and in those who are debilitated or have wasting syndrome or chronic breathing disorders. Seek medical attention right away if you have symptoms of serotonin syndrome, such as: agitation, hallucinations, fever, sweating, shivering, fast heart rate, muscle stiffness, twitching, loss of coordination, nausea, vomiting, or diarrhea. Common side effects may include: sleep problems (insomnia), itching; drowsiness, headache, dizziness, tiredness; or constipation, stomach pain, nausea, vomiting. This is not a complete list of side effects and others may occur. Call your doctor for medical advice about side effects. You may report side effects to FDA at 7-374-ABC-1309. What other drugs will affect oxycodone? You may have a fatal oxycodone overdose if you start or stop using certain medicines. Tell your doctor about all your medications. Tell your doctor about all your medications especially if you use medicine to treat HIV, antibiotic, antifungal medication, or seizure medication. Many other drugs can be dangerous when used with opioid medicine. Tell your doctor if you also use: medicine for allergies, asthma, blood pressure, motion sickness, irritable bowel, or overactive bladder; other opioid medicines, a benzodiazepine sedative like Valium, Klonopin, or Xanax; sleep medicine, muscle relaxers, or other drugs that make you drowsy; or drugs that affect serotonin, such as antidepressants, stimulants, or medicine for migraines or Parkinson's disease. This list is not complete and many other drugs may affect oxycodone. This includes prescription and wios-avn-pfxkkam medicines, vitamins, and herbal products. Not all possible drug interactions are listed here. Where can I get more information? Your doctor or pharmacist can provide more information about oxycodone. Remember, keep this and all other medicines out of the reach of children, never share your medicines with others, and use this medication only for the indication prescribed. Every effort has been made to ensure that the information provided by [employer]. ('[employer]') is accurate, up-to-date, and complete, but no guarantee is made to that effect. Drug information contained herein may be time sensitive. [employer] information has been compiled for use by healthcare practitioners and consumers in the [place] and therefore [employer] does not warrant that uses outside of the [place] are appropriate, unless specifically indicated otherwise. [employer]'s drug information does not endorse drugs, diagnose patients or recommend therapy. [employer] drug information is an informational resource designed to assist licensed healthcare practitioners in caring for their patients and/or to serve consumers viewing this service as a supplement to, and not a substitute for, the expertise, skill, knowledge and judgment of healthcare practitioners. The absence of a warning for a given drug or drug combination in no way should be construed to indicate that the drug or drug combination is safe, effective or appropriate for any given patient. [employer] does not assume any responsibility for any aspect of healthcare administered with the aid of information [employer] provides. The information contained herein is not intended to cover all possible uses, directions, precautions, warnings, drug interactions, allergic reactions, or adverse effects. If you have questions about the drugs you are taking, check with your doctor, nurse or pharmacist. Copyright 8129-6786 [employer]. Version: 17.. Revision Date: 11/29/2023. Education Materials Total Knee Replacement, Care After This sheet gives you information about how to care for yourself after your procedure. Your doctor may also give you more specific instructions. If you have problems or questions, contact your doctor. What can I expect after the procedure? After the procedure, it is common to have: Pain. Swelling. A small amount of blood coming from your cut from surgery (incision). Clear fluid coming from your cut from surgery. Limited movement of your knee. Follow these instructions at home: Medicines Take ocrl-ckp-hfhdlgd and prescription medicines only as told by your doctor. If you were prescribed a blood thinner (anticoagulant), take it as told by your doctor. Ask your doctor if the medicine prescribed to you: ? Requires you to avoid driving or using heavy machinery. ? Can cause trouble pooping (constipation). You may need to take steps to prevent or treat trouble pooping: ? Drink enough fluid to keep your pee (urine) pale yellow. ? Take hjbk-fhn-slzmecp or prescription medicines. ? Eat foods that are high in fiber. These include beans, whole grains, and fresh fruits and vegetables. ? Limit foods that are high in fat and sugar. These include fried or sweet foods. Bathing Do not take baths, swim, or use a hot tub until your doctor approves. Ask your doctor if you may take showers. You may only be allowed to take sponge baths. Keep your bandage (dressing) dry until your doctor says it can be taken off. Incision care and drain care Follow instructions from your doctor about how to take care of your cut from surgery. Make sure you: ? Wash your hands with soap and water before and after you change your bandage. If you cannot use soap and water, use hand cod clerk. ? Change your bandage as told by your doctor. ? Leave stitches (sutures), skin glue, or skin tape (adhesive) strips in place. They may need to stay in place for 2 weeks or longer. If tape strips get loose and curl up, you may trim the loose edges. Do not remove tape strips completely unless your doctor says it is okay. Check your cut from surgery and your drain site every day for signs of infection. Check for: ? More redness, swelling, or pain. ? More fluid or blood. ? Warmth. ? Pus or a bad smell. If you have a drain, follow instructions from your doctor about caring for it. Managing pain, stiffness, and swelling If told, put ice on your knee. ? Put ice in a plastic bag or use the icing device (cold flow pad or cryocuff) that you were given. Follow your doctor's directions about how to use the icing device. ? Place a towel between your skin and the bag or between your skin and the icing device. ? Leave the ice on for 20 minutes, 2 3 times per day. If told, put heat on your knee before you exercise. Use the heat source that your doctor recommends, such as a moist heat pack or a heating pad. ? Place a towel between your skin and the heat source. ? Leave the heat on for 20 30 minutes. ? Remove the heat if your skin turns bright red. This is very important if you are unable to feel pain, heat, or cold. You may have a greater risk of getting burned. Move your toes often. Raise (elevate) your knee above the level of your heart while you are sitting or lying down. ? Use several pillows to keep your leg straight. ? Do not put a pillow just under the knee. If the knee is bent for a long time, this may make the knee stiff. Wear elastic knee support as told by your doctor. Activity Rest as told by your doctor. Do not sit for a long time without moving. Get up to take short walks every 1 2 hours. This is important. Ask for help if you feel weak or unsteady. Ask your doctor what activities are safe for you. Avoid activities that put stress on your knees. These include running, jumping rope, and jumping jacks. Do not play contact sports until your doctor says it is okay. Do exercises as told by your physical therapist. If you have been sent home with a knee joint motion machine (continuous passive motion machine), use it as told by your doctor. Safety Do not use your leg to support your body weight until your doctor says that you can. Use crutches or a walker as told by your doctor. Do not drive until your doctor says it is okay. Ask your doctor when it is safe to drive. General instructions Do not use any products that contain nicotine or tobacco, such as cigarettes, e-cigarettes, and chewing tobacco. These can delay healing. If you need help quitting, ask your doctor. Wear special socks (compression stockings) as told by your doctor. Tell your doctor if you plan to have dental work. Also: ? Tell your dentist about your joint replacement. ? Ask your doctor if there are instructions you need to follow before dental care and routine cleanings. Keep all follow-up visits as told by your doctor. This is important. Contact a doctor if: You have more redness, swelling, or pain around your cut from surgery or your drain. You have more fluid or blood coming from your cut from surgery or your drain. You have pus or a bad smell coming from your cut from surgery or your drain. Your cut from surgery or your drain area feels warm to the touch. You have a fever. Your cut breaks open. You have knee pain that does not go away. The movement of your knee is getting worse. Your new joint feels loose. Get help right away if you have: Pain in your calf or thigh. Swelling in your calf or thigh. Shortness of breath. Trouble breathing. Chest pain. Summary After the procedure, it is common to have pain and swelling, blood or fluid coming from your cut from surgery, and trouble moving your knee. Follow instructions from your doctor about how to take care of your cut from surgery. Use crutches or a walker as told by your doctor. If you were prescribed a blood thinner, take it as told by your doctor. Keep all follow-up visits as told by your doctor. This is important. This information is not intended to replace advice given to you by your health care provider. Make sure you discuss any questions you have with your health care provider. Document Released: 01/15/2013 Document Revised: 03/03/2020 Document Reviewed: 06/07/2019 [employer] Patient Education 2020 [employer] [facility] Post-operative Instructions PLEASE FOLLOW [facility] POST-OP INSTRUCTIONS GIVEN WATCH FOR SIGNS OF INFECTION: call the office ([phone]) if experencing any of the following: (Usually appears 36-48 hours after surgery) Increased temperature (101 degrees Fahrenheit or higher) Redness or swelling Increased uncontrolled pain Foul odor or drainage Calf discomfort Significant swelling Or if having any chest pain, shortness of breath, or difficulty breathing or swallowing call the office or go the nearest Emergency Room. If you have any questions, please call your doctor at the number listed on your follow up instructions. Form: 338A (34432) R: 03/13 Additional Information VACCINATE! IT SAVES LIVES! Members of the community who have not yet received the COVID-19 vaccine and would like to receive it can visit one of [facility] vaccine clinics. There are many vaccine clinic locations within the [facility]. For locations and available times, please visit https://gettheshot.coronavirus.[place] h[place].gov/. It is important to note that some COVID mobile vaccine clinics are held outdoors and may be canceled in rainy or stormy conditions. To learn more about pediatric vaccinations (ages 5-11), we invite you to visit the [facility] webpage. https://www.[employer].org/p ages/6611-Ojxge-Vghxgnnztdu-Freq gniusw-Auiup-Htqafesld.html To learn more about the COVID-19 vaccine, we invite you to visit the CDC website for a list of frequently asked questions.https://www.cdc.gov/co ronavirus/2019-ncov/vaccines/faq .html [email or web address] Patient Portal Access Instructions: Stay connected with your healthcare team and access your personal medical information anytime with the [email or web address] Patient Portal. Please follow the directions below to create your [email or web address] account: 1.Access the email account you provided upon registration to the hospital/physician office.2.Look for an invitation email from [facility].3.Open the email and access the invitation link: Accept Invitation to [email or web address].4.Fill in the required smith to create your account. To access your account, visit [facility]. Click the blue button labeled "Access Patient Portal" and then log in with the username and password that you created in the steps above. You will be able to view your test results, lab results, a summary of your visits, upcoming appointments and more. There is also a convenient messaging option where you can send secure messages to your provider. In addition, you will have the ability to download any documents or summaries to your computer and/or send the information securely to a physician. Remember that your healthcare information is confidential, so carefully consider who you will allow to register on the [email or web address] Patient Portal for access to your information. You can also access the [email or web address] Patient Portal on the [employer] nilo. Simply click on "Patient Portal" and then log into your account. If you would like to receive a full copy of your medical records, please contact the [facility] Medical Records Department by calling [phone], Tuesday through Tuesday between 8 a.m. and 4:30 p.m. HOW TO SAFELY DISPOSE OF PRESCRIPTION MEDICATIONS Please use one of the following methods to safely dispose of your unused medications. 1.Use a drug disposal kit: the drug disposal pouch allows you to safely discard your old and unused drugs. Ask your nurse to give you one when you are discharged.2.Visit a local take-back location: Many local pharmacies and police departments have programs that collect old and unwanted prescription drugs. Call your local pharmacy or go to http://Nirvanix.Natrix Separations/8Y1Di1l to find one close to you.3.Make use of household items: Use cat litter or old coffee grounds to dispose medications if other options are not available. Mix your drugs with these household products, seal them in an airtight container and throw it into the garbage. Call [facility]: [phone] to be sure your drugs can be disposed of in this way. Some medicines may require a different approach.4.Never flush your medications down the toilet. IF YOU HAVE BEEN PRESCRIBED AN OPIOID FOR PAIN If you have been prescribed an opioid (such as hydrocodone, oxycodone or morphine), it is critical to understand the possible side effects and risks of opioid pain medications. Even when taken as directed, opioids can have several side effects including: Tolerance, meaning you might need to take more of a medication for the same pain relief. Nausea, vomiting and/or constipation. Sleepiness, dizziness, dry mouth, confusion, depression or itching. Physical dependence, meaning you have withdrawal symptoms when a medication is stopped, can develop within a few days. KNOW YOUR RESPONSIBILITIES It is important to know exactly how much and how often to take the opioid pain medications you are prescribed. Never take opioids in higher amounts or more often than prescribed. Do not combine opioids with alcohol or other drugs that cause drowsiness, such as benzodiazepines, also known as benzos, including diazepam and alprazolam, muscle relaxants or sleep aids. Never sell or share prescription opioids. This is illegal. Store opioids in a secure place and out of reach of others (including children, family, friends and visitors). The last page of this document has been signed and retained as a CHART COPY. Signatures Patient Education Materials Total Knee Replacement, Care After, Dddi-qz-Tfbu 5 - [facility] Post-op Instruction 06/2017 (41765) Medication Leaflets famotidine (oral/injection), docusate and senna, oxycodone My discharge plan and instructions have been reviewed and explained to me and I,QIAN SEGAL understand my current condition and have read and understand these discharge instructions. I have received a written copy of the plan/instructions. If I have questions, I am aware that I should contact my doctor. Patient/Pharmacy Graduate Intern Signature: Date/Time: Relationship to Patient: Witness Name/Signature: Date/Time: [facility] 12-19-2024 Note Date of Service December 19, 2024 Subjective The patient was sitting in bed upon examination. Patient denies any chest pain, shortness of breath, dizziness, lightheadedness, nausea or vomiting, or calf pain this morning. Patient states he has had lightheadedness yesterday and was not able to get out of the bed. He denies lightheadedness this morning. He has been able to stand at the bedside with his walker in which she tolerated. He has increased pain with weightbearing. Patient states he feels "wiped out". Objective Vitals and Measurements T: 36.9 C (Oral) TMIN: 36 C (Oral) TMAX: 36.9 C (Oral) HR: 61 (Monitored) RR: 18 BP: 142/68 SpO2: 92% HT: 187.9 cm WT: 111.8 kg BMI: 31.67 Intake and Output 7AM Yesterday to 7AM Today Intake and Output (Last 24 hours) Intake Administration Information 1348.66 Oral Intake 180.00 Supplement Intake 120.00 Output Urine Voided 380.00 Intra-Op EBL 200.00 Urine Count 1.00 Total Summary Total Intake 1648.66 Total Output 580.00 Fluid Balance 1068.66 Physical Exam Vital signs stable, afebrile SCD's and MAYRA Hose in place bilaterally Patient is able to plantarflex and dorsiflex actively Sensation is intact to saphenous, sural, superficial and deep peroneal, and tibial distribution Dressings are clean dry and intact Negative signs and symptoms of DVT, negative Homans bilaterally Weight Dosing Weight: 111.8 kg (12/18/24) Dosing Weight: 111.8 kg (12/18/24) Medications Medications (21) Active Scheduled: (11) acetaminophen 500 mg Tablet 1,000 mg 2 tab(s), Oral, q8h atorvastatin 10 mg tablet 20 mg 2 tab(s), Oral, qHS bisacodyl 5 mg EC tablet 10 mg 2 tab(s), Oral, Once docusate sodium 100 mg Capsule 100 mg 1 cap(s), Oral, BID docusate-senna (Senokot S) 50 mg-8.6 mg Tablet 2 tab(s), Oral, BID famotidine 20 mg tablet 20 mg 1 tab(s), Oral, qDay loratadine 10 mg Tablet 5 mg 0.5 tab(s), Oral, qDay magnesium hydroxide 8% Suspension 30 mL UD 30 mL, Oral, Daily multivitamin (Myadec) with minerals Therapeutic Multiple Vitamins with Minerals Tablet 1 tab(s), Oral, qDayM iebvg-4-jdpa ethyl esters 1000 mg capsule 1,000 mg 1 cap(s), Oral, qDay ondansetron 2 mg/ 1 mL 2 mL INJ 4 mg 2 mL, IV Push, q8h Continuous: (1) Lactated Ringers 1,000 mL 1,000 mL, Intravenous, 100 mL/hr PRN: (9) acetaminophen 325 mg Tablet 650 mg 2 tab(s), Oral, q4h diphenhydramine 25 mg tablet 25 mg 1 tab(s), Oral, q6h diphenhyDRAMINE 50 mg/mL (1 mL) INJ 25 mg 0.5 mL, IV Push, q6h morphine 2 mg/mL 1 mL syringe 2 mg 1 mL, IV Push, q1h ondansetron 2 mg/ 1 mL 2 mL INJ 4 mg 2 mL, IV Push, q8h oxycodone 5 mg tablet (immediate release) 5 mg 1 tab(s), Oral, q4h oxycodone 5 mg tablet (immediate release) 10 mg 2 tab(s), Oral, q4h prochlorperazine 10 mg/2 mL vial 5 mg 1 mL, IV Push, q6h sodium biphosphate-sodium phosphate 19 gm-7 gm Enema 133 mL, Rectal, qDay Lab Results 12/19 06:13 WBC: 14.5 H Hgb: 13.0 Hct: 37.9 L Platelet: 193 Neutrophil %: 81.2 H Glucose Level: 124 H Sodium Level: 136 Potassium Level: 4.8 BUN: 25 H Creatinine Lvl (s): 1.07 EKG No qualifying data available. Assessment/Plan 1. Status post left robotic assisted total knee arthroplasty postop day #1 2. Continue pain medications: Tylenol and oxycodone. We are avoiding nonsteroidal anti-inflammatories due to anticoagulation 3. DVT prophylaxis: Patient will resume his Eliquis today. 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 This will cover him for DVT prophylaxis. Patient will continue with MAYRA hose postoperatively. 4. Physical therapy: Weightbearing as tolerated with walker. I would like therapy to assess patient today and appreciate recommendations for appropriate discharge. Patient was not able to do any therapy or get out of bed yesterday due to lightheadedness. 5. H & H: 13.0/37.9, asymptomatic. Postoperative drop in hemoglobin from surgery without intraoperative complications. At this time there is no need for treatment. 6. Reactive Leukocytosis: currently 14.5, afebrile. Patient did receive decadron intra-operatively. No clinical signs of infection. 7. Encouraged incentive spirometry 8. Continue postoperative medical management per medicine 9. Thigh pain: I did discuss with the patient thigh pain secondary to tourniquet. I do recommend gentle massage over the thigh. Do not massage near the incision. He voiced understanding. Instructed patient it can take a couple weeks for improvement. 10. Postoperative constipation: Discussed with the patient to continue stool softener until first bowel movement. After first bowel movement patient can then take as needed. They were also instructed that if they are not able to have a bowel movement within 3 days they are to contact our office for change of medication. Patient voiced understanding. 11. Disposition: Plan will be for possible discharge home today as long as patient is medically stable. Patient had difficulty yesterday due to lightheadedness getting out of bed. He does feel better today. I would like therapy to assess patient and appreciate recommendations for discharge planning. He does have outpatient physical therapy established. Patient had his on the phone in which she was able to ask questions. Plan will be for possible discharge home this afternoon if patient is doing well. Patient initially wanted his prescriptions E scribed to [facility]. However I did discuss with him the complications we have had with narcotics with this pharmacy. We will now send his medications to [facility] in [facility]. He does have outpatient physical therapy established. Upon discharge patient will contact our office with any concerns or complications. I will call back in to talk with nursing to see how patient has done with therapy and possible discharge. I have reviewed the [place] Automated Rx Reporting System (OARRS) report for this patient for refill pattern and other prescriber involvement as part of the appropriate surveillance for the provision of acute and chronic controlled medications. The report was requested and reviewed on the date of this entry, and was considered in the prescribing process This dictation was created using voice recognition software. Phonetic and/or grammatical errors may exist. Digitally Signed by DARYL PASTRANA PA-C on 12/19/2024 07:50 AM Digitally Signed by DARYL PASTRANA PA-C on 12/19/2024 08:14 AM [facility] 12-18-2024 Note Exam Date Time Procedure Performing Provider Status 12/18/24 9:12 AM XR Knee 1 or 2 Views Left BUZZ MCINTYRE MD; Auth (Verified) [id number] ORIGINAL EXAMINATION: TWO XRAY VIEWS OF THE LEFT KNEE 12/18/2024 9:12 am COMPARISON: CT knee 11/26/2024 HISTORY: ORDERING SYSTEM PROVIDED HISTORY: Reason for Exam: Status Post Arthroplasty IMPRESSION: Postop surgical skin vinh along the left knee. Left knee arthroplasty. Immediate expected postoperative changes including swelling subcutaneous and intra-articular gas and joint effusion. The hardware is intact. There is no evidence of periprosthetic lucency or fracture. Interpreted by: Fatimah Mcintyre Preliminary Report By: Fatimah Mcintyre Electronically signed By Fatimah Mcintyre Dictated Date: 12/18/2024 9:40:29 AM Prelim Date: 12/18/2024 9:41:30 AM Sign Date: 12/18/2024 9:41:30 AM Ordering Provider: MARISOL FRANKLIN [facility]02-11-2025 Note* Exam Date Time Procedure Performing Provider Status 12/18/24 7:36 AM US Anesthesia Block Auth (Verified) [id number] ORIGINAL Images acquired, not reported on this accession number. [facility]02-11-2025 Anesthesiology Consult note Patient: QIAN SEGAL Age: 64 years Sex: Male : 1960 Associated Diagnoses: None Author: JACEY DUPONT APRN-ORTHOPEDIC DESIGNER Preoperative Information Anesthesia history Patient's history: negative. Family's history: negative. Health Status Allergies: Allergic Reactions (Selected) Severity Not Documented Ibuprofen- Facial edema., Allergies (1) ActiveSeverityReaction ibuprofenFacial edema Current medications: (Selected) Inpatient Medications Ordered Cyklokapron IVPB: 2,000 mg, 20 mL, 0 mL/hr, Topical (INT), PREOP pharm Decadron: 10 mg, 1 mL, IV Push, AsDirected Naropin 25 mg + morphine 2.5 mg + EPINEPHrine 0.3 m mg, 5 mL, 0 mL/hr, Other, PREOP pharm Naropin 25 mg + morphine 2.5 mg + EPINEPHrine 0.3 m mg, 5 mL, 0 mL/hr, Other, PREOP pharm ceFAZolin: 2 gram(s), 200 mL/hr, IV Piggyback, PREOP pharm Documented Medications Documented Bee pollen oral capsule: 0 Refill(s) Eliquis 5 mg oral tablet: 5 mg, 1 tab(s), Oral, BID, 0 Refill(s) Fish Oil 1000 mg oral capsule: 1,000 mg, 1 cap(s), Oral, qDay, 90 cap(s), 0 Refill(s) Misc Medication: 0 Refill(s) Theratrum Complete with Lutein and Lycopene: Oral, qDay, 0 Refill(s) Vitamin B12 50 mcg oral tablet: 50 mcg, 1 tab(s), Oral, qDay, 30 tab(s), 0 Refill(s) Vitamin D3: 100 mcg, 1 tab(s), Oral, Daily, 90 tab(s), 0 Refill(s) cinnamon 500 mg oral capsule: 1,000 mg, 2 cap(s), Oral, BID, 100 cap(s), 0 Refill(s) elderberry 350 mg oral capsule: 350 mg, 1 cap(s), Oral, qDay, 60 cap(s), 0 Refill(s) loratadine 5 mg oral tablet, chewable: 5 mg, 1 tab(s), Chewed, qDay, 30 tab(s), 0 Refill(s) rosuvastatin 10 mg oral tablet: 10 mg, 1 tab(s), Oral, qDay, 0 Refill(s), Medications (5) Active Scheduled: (5) ceFAZolin 2 gram(s), IV Piggyback, PREOP pharm dexamethasone 10 mg/mL (1mL) SDV 10 mg 1 mL, IV Push, AsDirected ropivacaine 25 mg + morphine 2.5 mg + epinephrine 0.3 mg 25 mg 5 mL, Other, PREOP pharm ropivacaine 25 mg + morphine 2.5 mg + epinephrine 0.3 mg 25 mg 5 mL, Other, PREOP pharm tranexamic acid 2,000 mg 20 mL, Topical (INT), PREOP pharm Continuous: (0) PRN: (0) Problem list: Active Problems (7) DVT (deep venous thrombosis) GERD (gastroesophageal reflux disease) Hyperlipidemia Osteoarthritis Stroke TIA (transient ischemic attack) Tinnitus Histories Past Medical History: No active or resolved past medical history items have been selected or recorded. Family History: Diabetes Mother Brother Procedure history: Tonsillectomy and adenoidectomy ([id number]). Colonoscopy ([id number]). Bone spur ([id number]). Comments: 12/18/2024 5:50 EST - Juany Rogel RN left knee Social History: Social & Psychosocial Habits Alcohol 11/26/2024 Use: Never Substance Abuse 11/26/2024 Use: Never Tobacco 11/26/2024 Tobacco Use: Never (less than 100 in l Home/Environment 11/26/2024 Domestic Concerns None Lives In Multilevel home Spouse Name BRIGID Marital Status of Patient if Patient Independent Adult: Nutrition/Health 11/26/2024 Type of diet: Regular Eating Difficulties None Physical Examination Vital Signs 12/18/2024 5:55 EST Temperature Temporal Artery 37.0 DegC Apical Heart Rate 64 bpm Respiratory Rate 16 br/min Systolic Blood Pressure Non-Invasive 133 mmHg Diastolic Blood Pressure Non-Invasive 83 mmHg Vital Signs (last 24 hrs) Last Charted Temp Jjfssmjf05.0 DegC (DEC 18 05:55) Heart Rate Fyeisa45 bpm (DEC 18 05:55) GEE810 mmHg (DEC 18 05:55) DBP83 mmHg (DEC 18 05:55) Measurements from flowsheet : Measurements 12/18/2024 5:55 EST Height 187.9 cm Height in inches 74 inch(es) Admission Weight 111.8 kg Weight Lbs 246 lb [place] Body Weight 82.15 kg Admission Body Mass Index 31.67 m2 Pain assessment: Pain Assessment 12/18/2024 6:21 EST Primary Pain Intensity 0 12/18/2024 5:55 EST Primary Pain Intensity 0 Pain Scale Type 0-10 Pain scale . General: Alert and oriented. Airway: Normal temporomandibular joint mobility. Mallampati classification: II (soft palate, fauces, uvula visible). Dentition Evaluation: Denies loose/chipped teeth. Respiratory: Lungs are clear to auscultation, Respirations are non-labored. Cardiovascular: Normal rate, Regular rhythm. Neurologic: Alert, Oriented. Review / Management Results review: No qualifying data available , Lab results 12/18/2024 6:51 EST SN - CAt - Case Attendee SN - CAt - Case Attendee 12/18/2024 6:50 EST SN - SP - Prep Agents Chloraprep SN - SP - HR - Method Clipped 12/18/2024 6:50 EST SN - Irl - Irrigant Normal Saline SN - Irl - Irrigant Sterile Water SN - IrI - Volume In 450 mL SN - IrI - Volume In 450 mL SN - Irl - Additive IRRIGATION CHG 0.05% IRRISEPT /CA [id number] SN - Irl - Additive BETADINE (POVIDONE IODINE) SOLUT SN - IrI - Volume Out 450 mL SN - IrI - Volume Out 450 mL 12/18/2024 6:46 EST SN - WV - Route of Administration Local SN - WV - Route of Administration Local SN - WV - Route of Administration Local SN - WV - By (Single) SN - WV - By (Single) SN - WV - By (Single) SN - WV - By (Single) SN - WV - By (Single) SN - WV - By (Single) 12/18/2024 6:44 EST SN - CAt - Case Attendee SN - CAt - Case Attendee SN - CAt - Case Attendee SN - CAt - Case Attendee SN - CAt - Case Attendee SN - CAt - Case Attendee SN - CAt - Case Attendee SN - CAt - Case Attendee SN - CAt - Case Attendee SN - CAt - Case Attendee SN - CAt - Case Attendee SN - CAt - Case Attendee SN - CAt - Role Performed Primary Surgeon SN - CAt - Role Performed Goat Driver 1 SN - CAt - Role Performed Scrub 1 SN - CAt - Role Performed Checker 1 SN - CAt - Role Performed ORTHOPEDIC DESIGNER SN - CAt - Role Performed Physician Opto Mechanical Engineer SN - CAt - Role Performed Washtub Worker 12/18/2024 6:24 EST SN - Preop - CTm Pt Ready for OR/Proced 12/18/2024 6:24 12/18/2024 6:21 EST Primary Pain Intensity 0 oxyCODONE 10 mg mg Lactated Ringers Injection 1,000 mL mL 12/18/2024 6:20 EST famotidine 20 mg mg 12/18/2024 6:03 EST Continuous IV Infusions NS Hand Right 12/18/2024 20 gauge Peripheral IV Activity: Insert new site Peripheral IV Dressing Condition: Clean, Dry, Intact Peripheral IV Dressing Activity: Applied, Transparent dressing Peripheral IV Line Status/Patency: Flushes easily, Continuous infusion Peripheral IV Site Condition: No complications Peripheral IV Equipment: Extension set, PRN Adaptor 12/18/2024 6:00 EST citric acid-sodium citrate Not Done: Not Appropriate at this Time (Not Done) 12/18/2024 5:55 EST Height 187.9 cm Height in inches 74 inch(es) Admission Weight 111.8 kg Weight Lbs 246 lb [place] Body Weight 82.15 kg Admission Body Mass Index 31.67 m2 Temperature Temporal Artery 37.0 DegC Apical Heart Rate 64 bpm Respiratory Rate 16 br/min Systolic Blood Pressure Non-Invasive 133 mmHg Diastolic Blood Pressure Non-Invasive 83 mmHg Primary Pain Intensity 0 Pain Scale Type 0-10 Pain scale Heart Rhythm Regular Respirations Unlabored Respiratory Pattern Regular All Lobes Breath Sounds Clear Oxygen Therapy Room air Oxygen Saturation 95 % Abdomen Description Non-distended Abdomen Palpation Non-Tender Bowel Sounds All Quadrants Present Urinary Elimination Voiding, no difficulties Skin Temperature Warm Skin Description Dewar, Normal for ethnicity, Dry Skin Integrity Intact Neurological Symptoms Patient denies Extremity Movement Equal Characteristics of Speech Clear Level of Consciousness Alert Strength All Extremities Strong Tone All Extremities Normal Sensation All Extremities Intact Affect/Behavior Appropriate Orientation Oriented x 4 Activity Status ADL Awake Sequential Compression Device right knee high applied/on Antiembolism Stocking On/Re-applied right thigh high Standard Safety ID band on, Allergy Band on, Call device within reach, Bed in low position, Wheels locked, Upper/Half-Length side-rails up, Safety level maintained, Non-Slip footwear 12/18/2024 5:51 EST Designated Person #1 We May Share PHI BRIGID [phone] Designated Person #1 Relationship Spouse Privacy Restrictions Requested None Status N/A IV Present Present Sensory Deficits None Sleep Apnea Snore Yes Sleep Apnea Tired Yes Sleep Apnea Obstruction No Sleep Apnea Pressure No Sleep Apnea BMI No Sleep Apnea Age Yes Sleep Apnea Neck No Sleep Apnea Gender Yes Sleep Apnea Score 4 Diagnosed With Sleep Apnea No Advanced Directives Yes Advance Directive Type [place] Durable Power of Welding Process [place] Declaration (Living Will) Advance Directive Location Patient instructed to bring in copy Infectious Disease Symptoms Patient states no symptoms Infectious Disease Recent Exposure No Alcohol and Drug Use No Employee of Institutional Living No Health Care Employee No History of Exposure to TB No History of Positive Chest X-Ray for TB No History of Positive TB Skin Test No Homeless No Known Immunosuppression No Recent Immigrant No Resident of Institutional Living No Bloody Sputum No Fatigue No Fever No Loss of Appetite No Night Sweats No Persistent Cough > 3 Weeks No Weight Loss No Pre-Op Patient Education NPO after midnight, No smoking after midnight, No makeup, No jewelry, Aware of surgery location, Pre-op education done, 1 bottle CHG wash with instructions given, No ordered medications, Anesthesia block education provided SN - Preprocedure Comments Spoke with patient, Verbalizes/Nonverbally indicates understanding Allergies Yes Anesthesia Extension Set Applied Yes Sleep Medicine Physician On Yes Consent Form Signed Yes Patient Dressed In Hospital gown CHG Preoperative Wash/Wipe Night before procedure, Day of procedure, Site specific wipe Preop Nasal Swab Povidone-Iodine CHG Skin Prep Completed for Eligible Surgery History & Physical Update On Chart Yes History & Physical On Chart Yes Obstructive Sleep Apnea Assess Completed Yes Barriers to Learning None evident Teaching Method Explanation, Printed materials Preferred Spoken Language German Preferred Written Language German Teaching Evaluation Verbalizes/Nonverbally indicates understanding Total Joint Book Given Yes Safety Brochure Information Reviewed Unable to complete Shikha Curran Video Viewed No Patient's Current Physicians Patient's Current Physicians Belongings At Bedside Pants, Shirt, Shoes, Socks, T-shirt, Undergarments Discharge To, Anticipated Home with family care NPO Status Maintained Prev Test Positive/Diagnosis w/COVID-19 Yes Previous COVID-19 Positive Date 2020 Current Quarantine/Isolated any Illness No Any Contact with Sick Animals/Birds No Traveled Anywhere in Last 30 Days No Allergy Band on and Verified Yes Patient ID Band on and Verified Yes Implants Verified Yes Pacemaker/AICD Verified Yes Site Verified by Patient/Family Yes Anesthesia Consent Signed Yes Blood Consent Signed Yes Last Fluid Intake 12/17/2024 21:30 Last Food Intake 12/17/2024 21:30 Patient Cleared for Surgery By MORGAN MOORE MD Lost Weight Unintentionally Recently No Eat Poorly Due to Decreased Appetite No Total MST Score 0 N/A Personal Devices, Patient Valuables Glasses Anesthesia/Transfusions Prior anesthesia Admission Note-Nursing Same Day Patient History 12/18/2024 5:47 EST SN - Preop - CTm Pt in SDS Room 12/18/2024 5:41 . Assessment and Plan [place] [employer] Anesthesiologists (ASA) physical status classification: Class III. Anesthetic Preoperative Plan Anesthetic technique: Spinal. Regional: Spinal. Postoperative pain management: adductor canal block. Risks discussed: nausea, vomiting, headache, hypotension, allergic reaction, serious complications. Informed consent: signed by patient. Digitally Signed by JACEY DUPONT on 12/18/2024 06:52 AM [facility]02-04-2025 Evaluation note* Diagnosis Onset Date Resolution Status Admit Date Anticoagulant long-term use chronic December 11, 2024 1:22pm Dyslipidemia chronic December 1:22pm History of DVT (deep vein thrombosis) chronic December 11 1:22pm PAC (premature atrial contraction) chronic December 11 1:22pm History of TIA (transient ischemic attack) resolved December 11 1:22pm Encounter for preoperative examination for general surgical procedure noneactive December 11, 2024 1:22pm [facility] Work Phone: 1(701) 287-581801-20-2025 Note* Exam Date Time Procedure Performing Provider Status 11/26/24 1:[address] Knee w/o Contrast Left BUZZ MCINTYRE MD; Auth (Verified) [id number] ORIGINAL EXAMINATION: CT OF THE LEFT KNEE WITHOUT CONTRAST 11/26/2024 1:45 pm TECHNIQUE: CT of the left knee was performed without the administration of intravenous contrast. Multiplanar reformatted images are provided for review. Automated exposure control, iterative reconstruction, and/or weight based adjustment of the mA/kV was utilized to reduce the radiation dose to as low as reasonably achievable. MA KO protocol was performed with axial images through the left hip and left ankle. COMPARISON: None. HISTORY ORDERING SYSTEM PROVIDED HISTORY: Reason for Exam: N17.12 kisha protocol FINDINGS: There is no acute fracture or dislocation. There is no suspicious lytic or blastic osseous lesion. There is no aggressive periosteal reaction. Bone demineralization. Mild left femoroacetabular joint space narrowing. The pelvis is only partially visualized, there are some prostatic calcifications recommend correlation with PSA and KIRK. Diffuse moderate to severe vascular calcifications. Quadriceps enthesopathy. Moderate knee joint effusion. Severe tricompartmental osteoarthritis of the left knee most pronounced in the medial compartment with zaeo-kq-idin, asymmetric joint space narrowing, marginal osteophyte formation and subchondral sclerosis. There is mild lateral coronal tibiofemoral subluxation. There is no evidence of solid or cystic soft tissue mass. Limited evaluation of the neurovascular structures lack contrast. IMPRESSION: Severe tricompartmental osteoarthritis of the left knee most pronounced in the medial compartment. Moderate knee joint effusion. Additional incidental findings above. Interpreted by: Fatimah Mcintyre Preliminary Report By: Fatimah Mcintyre Electronically signed By Fatimah Mcintyre Dictated Date: 11/26/2024 3:39:18 PM Prelim Date: 11/26/2024 3:43:26 PM Sign Date: 11/26/2024 3:43:26 PM Ordering Provider: [facility]05-12-2024 Discharge summary Author Di Garcia [facility] March 18, 2024 2:34pm Note Date/Time March 18, 2024 2:23p m [facility] Medical Records Department [address] [place] [address] Discharge Summary 03/18/24 1421 MR#: [id number] Acct: [id number] Name: QIAN SEGAL Rep #:[id number] : 1960 63 From: Di Garcia DO PCP: Dr. Morgan Moore MD Status:ADM I NO Location: [place] [address] Providers Date of Admission: 03/17/24 Date of Discharge: 03/18/24 Primary Care Physician: Dr. Morgan Moore MD Consultations 03/17/24 18:13 Consult: Tele-Neurology Routine Consulting Provider: [facility] Reason for Consult: Acute Ischemic Stroke/TIA EMERGENT Consult: No MD Notified: Yes Date Notified: 03/17/24 Time Notified: 17:36 Method of Notification: Answering Service Nursing Unit Staff Notify [facility] of Tele-Neurology Consult: Yes Reason For Visit: RIGHT FACIAL DROOP W/ NUMBNESS, CVA RULE OUT Diagnosis Discharge Diagnosis (1) Acute confusion: Status: Acute Code(s): R41.0 - Disorientation, unspecified (2) Numbness and tingling of right side of face: Status: Acute Code(s): R20.0 - Anesthesia of skin; R20.2 - Paresthesia of skin Medications at Discharge Home Medications apixaban 5 mg tablet (Eliquis) 5 mg PO BID 03/17/24 inositol-choline [id number]-dcm B complex and C 500 mg tablet (Ear Health Plus) 1 tab PO TID tinnitus 03/17/24 loratadine-pseudoephedrine ER 10 mg-240 mg tablet,extended [id number] (Loratadine-D) 1 tab PO DAILY 03/17/24 aspirin 81 mg capsule 81 mg PO DAILY #1 cap 03/18/24 rosuvastatin 10 mg tablet 10 mg PO DAILY #30 tabs 03/18/24 Hospital Course Operations None Procedures EKG and - (CT brain/CTA head and neck/chest x-ray/MRI brain) Summary of Care Provided Minutes Spent on Discharge: 38 Hospital Course: Mr. 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 Patient reported that he was driving to their grandsons birthday earlier in the afternoon when his reported she began to notice that he was more confused and missed some exits [address]fthe highway with the journey. 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 He is never had anything like this previously. Given the above his brought him into the emergency department for further evaluation. Vital signs on presentation showed a temperature of 96.5, heart rate 68, respiratory was 16, blood pressure was 134/87 and oxygen saturations were 95% on room air. His CBC was completely unremarkable. But hisdifferential did show a monocytosis. Coagulation studies were unremarkable. Chemistry panel was unremarkable. Troponin was negative. We did obtain a lipidpanel and his total cholesterol was 164/LDL 92/HDL 40 and triglycerides were 159. TSH was 1.4. CT of the brain showed mild focal diminished attenuation in the left frontal periventricular white matter. CTA of the head and neck was negative for any LVO or stenosis. Chest x-ray was unremarkable for any acute findings other than some mild left basilar atelectasis. Given the above there was concern that he could have TIA versus stroke and his NIH was initially 1 forfacial droop. Patient was admitted to the telemetry floor where an MRI was performed on the a.m. of 03/18/2024 which was negative for any acute findings. He does have evidence of chronic involutional changes consistent with chronic ischemic changes. He was evaluated by neurology and they recommended continuinghis Eliquis and improved control of his LDL. We increased his rosuvastatin from5 to 10 mg daily and sent a new prescription for Tue month supply to his local pharmacy. We also added aspirin 81 mg daily. Neurology felt it was fine for him to go home and follow-up as an outpatient to obtain the echocardiogram to complete workup for stroke. He will need an echocardiogram with bubble study inthe next few weeks. NIH was 0 after admission. He was discharged home in stable condition on 03/18/2024. Of asked that he follow-up with his primary care physician within the next week. Discharge diagnoses: Left facial droop/left-sided facial paresthesias-resolved TIA History of DVT Hyperlipidemia Tinnitus Seasonal allergies Obesity Physical Exam Const alert, oriented x3, no apparent distress, no limitations, healthy appearing and well nourished; Negative for average body habitus Constitutional Narrative: Upper middle-aged, white male, sitting up in bed eating lunch, family at bedside, patient appears comfortable and nontoxic General Appearance: cooperative, comfortable, well kempt and well developed Orientation / Consciousness: awake, oriented to person, oriented to place and oriented to time Exam Limitations: no limitations Nutritional Appearance: obese HEENT normocephalic, head/scalp atraumatic, hearing grossly normal bilaterally and moist oral mucous membranes HEENT Narrative: Mallampati 3, no thrush Eyes PERRL, EOMs intact bilaterally and conjunctivae normal Eyes Narrative: No scleral icterus Neck no lymphadenopathy and supple Neck Narrative: Trachea midline, no thyroid enlargement Resp normal respiratory effort, no retractions, no use of accessory muscles and clearto auscultation bilaterally Auscultation: Negative for rales, rhonchi or wheezes Cardio regular rate, regular rhythm, S1 normal heart sound, S2 normal heart sound, no murmurs, no rub, no gallops and no clicks GI normal to inspection, nondistended, normoactive bowel sounds, soft to palpation,non-tender and non-distended Extremity no clubbing, cyanosis or edema Extremity Narrative: Pedal pulses are 2+ Skin no rashes or lesions noted, no wounds, skin turgor normal and no jaundice Neuro oriented x3, CN's II-XII intact bilaterally, moves all extremities, no focal motor deficits and no sensory deficits noted Speech: speech normal Psych affect normal Psych Narrative: Eye contact is good and patient interacts appropriately Weight / BMI Weight Weight: 112.4 kg Body Mass Index (BMI) 30.8 ABG / Lab / Microbiology Data 03/18/24 04:55 03/18/24 04:55 Laboratory: Laboratory Results - last 24 hr 03/17/24 16:25: WBC 6.7, RBC 4.66, Hgb 14.9, Hct 44.6, MCV 95.7 H, MCH 32.0, MCHC 33.4, RDW Std Deviation 43.8, RDW Coeff of Eladio 12.5, Plt Count 218, MPV 9.5, Immature Gran % (Auto) 0.400, Neut % (Auto) 67.5, Lymph % (Auto) 18.4 L, [place] % (Auto) 10.7 H, Eos % (Auto) 2.4, Baso % (Auto) 0.6, Absolute Neuts (auto)4.5, Absolute Lymphs (auto) 1.24, Nucleated RBC % 0, PT 14.2, INR 1.1, APTT 25.5, Sodium 138, Potassium 3.8, Chloride 105, Carbon Dioxide 28.0, Anion Gap 5,BUN 19 H, Creatinine 1.00, Estim Creat Clear Calc 101.59, Est GFR (MDRD) Af Amer97, Est GFR (MDRD) Non-Af 80, BUN/Creatinine Ratio 19.0, Glucose 101, NwjhlljjunX5c 5.3, Calcium 9.2, Troponin I High Sens < 3 L, TSH 1.40 03/17/24 16:28: POC Glucose 93 03/18/24 04:55: WBC 7.0, RBC 4.75, Hgb 15.4, Hct 45.5, MCV 95.8 H, MCH 32.4 H, MCHC 33.8, RDW Std Deviation 44.1 H, RDW Coeff of Eladio 12.4, Plt Count 217, MPV 9.5, Sodium 139, Potassium 4.0, Chloride 107, Carbon Dioxide 28.0, Anion Gap 4 L, BUN 15, Creatinine 0.93, Estim Creat Clear Calc 108.57, Est GFR (MDRD) Af [id number], Est GFR (MDRD) Non-Af 86, BUN/Creatinine Ratio 16.1, Glucose 86, Calcium 9.0, Triglycerides 159, Cholesterol 164, LDL Cholesterol 92, VLDL Cholesterol 32, HDL Cholesterol 40 Radiography Diagnostic Testing: Radiology Impression Brain CT 03/17/24 16:25 IMPRESSION: Focal mild diminished attenuation in the left frontal periventricular white matter. Correlate with MRI if clinically indicated. N.B. : The above Results were Read Back by Luan Espino DO to Alex Severino MD, and understanding confirmed on 03/17/2024 17:00:13 (ET). Electronically Signed: Luan Espino DO at 17:01 EDT , Head/Neck CTA 03/17/24 16:26 IMPRESSION: Negative CTA Carotid, and CTA Brain. Electronically Signed: Luan Espino DO at 17:09 EDT , ADDENDUM: 03/17/24 1718 IMPRESSION: Negative CTA Carotid, and CTA Brain. N.B. : The above Results were Read Back by Luan Espino DO to Alex Severino MD, and understanding confirmed on 03/17/2024 17:11:37 (ET). Electronically Signed: Luan Espino DO at 17:09 EDT , Chest X-Ray 03/17/24 16:57 IMPRESSION: Left basilar atelectasis. Electronically Signed: Luan Espino DO at 17:16 EDT , Brain MRI 03/18/24 17:39 IMPRESSION: 1. Involutional and chronic ischemic changes of the brain, as described above. Electronically Signed: Kota Flores MD at 13:58 EDT , D/C Instructions Discharge Diet: Low fat / Low cholesterol Discharge Activity: Return to Normal Activity Return to work on: 03/19/24 Meaningful Use Info Meaningful Use Meaningful Use Diagnoses (Choose all that apply): None applicable Ischemic Stroke Statin Dosing Therapy Reference: STATIN DOSE THERAPY REFERENCE: * Patients > 75 years receive moderate or high dose statin therapy. * Patients 75 years or YOUNGER should receive HIGH intensity statin dose unless contraindicated. You will be required to document reason for non-treatment if statin daily dose does not meet guidelines. HIGH DOSE STATIN THERAPY DAILY Atorvastatin > than or = to 40 mg Rosuvastatin > than or = to 20 mg Amlodipine + Atorvastatin > than or = to 2.5/40 mg Ezetimibe + Simvastatin 10/80 mg Simvastatin 80mg Discharge Plan Admission Admit Date/Time: 03/17/24 17:34 Primary Reason for Your Visit: Conclusions/right facial droop/right facial numbness Attending Provider: Di Garcia Primary Care Provider: Morgan Moore Consulting Providers: Santino Roland; Lorenzo Holland; Mayra Hutchinson; Kaya Pollock; Zari Meyer; Abraham Molina; Kirstie Licona; Andrew Jean Baptiste; Alberto Wong; Joana Mckay; Andriy Aguilar; Sheree Weir; Char Miller; Jillian Carlin; Vamshi Wen; Jorgito Ortiz; Suhail Hurtado; Nancy Garcia; Awa Wu;Mark James Instructions Additional Instructions / Restrictions: 1. MRI was negative so highly suspect this was a TIA or transient ischemic attack. We will add aspirin 81 mg daily and have you continue your Eliquis. Also your cholesterol LDL is above goal of 70 so we will increase your rosuvastatin from 5 to 10 mg. 2. All of your workup was completed except your echocardiogram. Please follow-up with your primary care physician and asked that an echocardiogram be performed to complete workup for stroke. This was not done while hospitalized due to the fact that we do not do echocardiograms on Sundays. Discharge Orders/Prescriptions Prescriptions: New aspirin 81 mg capsule 81 mg PO DAILY Qty: 1 0RF rosuvastatin 10 mg tablet 10 mg PO DAILY Qty: 30 0RF Discontinued rosuvastatin 5 mg tablet 5 mg PO QHS No Action Eliquis 5 mg tablet 5 mg PO BID Ear Health Plus 500 mg tablet 1 tab PO TID Loratadine-D 10-240 mg tablet extended release 24 hr 1 tab PO DAILY Referrals / Follow Up: Morgan Moore MD [Primary Care Provider] - Within 1 Week Disposition Disposition (needs filled in before D/C Order can be placed): Home, Self Care Charges/Coding Visit Charges Inpatient E&M: 37617 Disch Hosp >30min 03/18/24 1434 <Electronically signed by Di Garcia DO> Cosigner Signature (if applicable): CC: Dr. Di Garcia DO; Dr. Morgan Moore MD~ Signed [facility] Work Phone: 1(844) 691-692705-12-2024 Consult note Author Abraham Molina [facility] March 18, 2024 12:39pm Note Date/Time March 18, 2024 12:39 pm [facility] Medical Records Department [address] [place] [address] Consultation - Neurology 03/18/24 1232 MR#: [id number] Acct: [id number] Name: QIAN SEGAL Rep #:[id number] : 1960 63 From: Abraham Ulrich PCP: Dr. Morgan Moore MD Status:ADM I NO Location: [place] [id number] Assessment and Plan: Neuro Assessment/Plan Telestroke (Bidirectiona Audio-video) [facility] Consult Note 63 y/o man with h/o unprovoked right lower extremity DVT in May 2023 on eliquis, ibuprofen allergic episode, DLD on crestor p/w an episode of confusion and right facial numbness/droop while going to his son. Vitals in ED with mild hypertension, otherwise unremarkable. NIHSS-0. CT Head - no acute intracranial process. CTA- no LVO. Today, patient reports feeling back to normal. Discussed with at bedside. Noticed to have mild right facial droop. Diagnosis: TIA/small stroke Plan: Continue eliquis and statin. Follow up MRI brain and TTE. 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 HPI Consult Data Date of Consult: 03/18/24 HPI Narrative HPI Narrative: 63 y/o man with h/o unprovoked right lower extremity DVT in May 2023 on eliquis, ibuprofen allergic episode, DLD on crestor p/w an episode of confusion and right facial numbness/droop while going to his son. Vitals in ED with mild hypertension, otherwise unremarkable. NIHSS-0. CT Head - no acute intracranial process. CTA- no LVO. Today, patient reports feeling back to normal. Discussed with at bedside. Noticed to have mild right facial droop. ROS Constitutional Constitutional: Denies chills, fatigue, fever(s) or weakness Eyes Eyes: Denies change in vision Cardiovascular Cardiovascular: Denies chest pain or rapid heart rate Respiratory/Chest Respiratory/Chest: Denies cough or shortness of breath at rest Gastrointestinal Gastrointestinal: Denies abdominal pain Neurologic Neurologic: Denies abnormal gait, abnormal speech, confusion, dizziness, focal weakness, headache(s), numbness, paresthesias or tingling [facility] Medical History Blood clot in leg Blood clots in brain DVT (deep venous thrombosis) Family history of abdominal aortic aneurysm Hypercholesteremia Non-smoker Home Medications apixaban 5 mg tablet (Eliquis) 5 mg PO BID 03/17/24 [History Last Taken Unknown] inositol-choline [id number] B complex and C 500 mg tablet (Ear Health Plus) 1 tab PO TID tinnitus 03/17/24 [History Last Taken Unknown] loratadine-pseudoephedrine ER 10 mg-240 mg tablet,extended [id number] (Loratadine-D) 1 tab PO DAILY 03/17/24 [History Last Taken Unknown] rosuvastatin 5 mg tablet 5 mg PO QHS 03/17/24 [History Last Taken Unknown] Allergy/AdvReac Type Severity Reaction Status Date / Time ibuprofen Allergy MAKES Verified 03/17/24 16:16 RIGHT SIDE OF FACE TO GO NUMB Social History (Updated 03/17/24 @ 16:[address] Alex Severino MD) household members: spouse Smoking Status: Never smoker Vital Signs Vital Signs Vital Signs: 03/17/24 16:16 03/17/24 16:15 03/17/24 16:29 Temperature 96.5 F L 96.5 F L Temperature Source Temporal Temporal Pulse Rate 68 68 Pulse Strength Respiratory Rate 16 16 Respiratory Effort Respiratory Depth Respiratory Pattern Blood Pressure 134/87 H 134/87 H Blood Pressure Mean 102 102 Blood Pressure Source Blood Pressure Position Blood Pressure Location Pulse Ox 95 Oxygen Delivery Method Room Air 03/17/24 16:27 03/17/24 16:55 03/17/24 17:27 Temperature Temperature Source Pulse Rate 61 64 65 Pulse Strength Respiratory Rate 13 15 14 Respiratory Effort Respiratory Depth Respiratory Pattern Blood Pressure 138/72 H 123/78 H 145/77 H Blood Pressure Mean 94 93 99 Blood Pressure Source Blood Pressure Position Blood Pressure Location Pulse Ox 97 95 93 Oxygen Delivery Method Room Air Room Air Room Air 03/17/24 17:50 03/17/24 18:19 03/17/24 19:53 Temperature 97.8 F 96.8 F L Temperature Source Temporal Pulse Rate 60 56 L Pulse Strength Respiratory Rate 13 18 Respiratory Effort Normal Non-Labored Respiratory Depth Normal Respiratory Pattern Normal Blood Pressure 127/76 H 128/94 H Blood Pressure Mean 93 105 Blood Pressure Source Monitor Blood Pressure Position Semi-Fowlers Blood Pressure Location Right Arm Pulse Ox 96 98 Oxygen Delivery Method Room Air Room Air 03/17/24 21:32 03/17/24 20:10 03/17/24 21:40 Temperature 96.9 F L Temperature Source Temporal Pulse Rate 64 Pulse Strength Normal (2+) Respiratory Rate 18 Respiratory Effort Respiratory Depth Respiratory Pattern Blood Pressure 127/80 H Blood Pressure Mean 95 Blood Pressure Source Monitor Blood Pressure Position Sitting Blood Pressure Location Right Arm Pulse Ox 95 97 Oxygen Delivery Method Room Air Room Air 03/18/24 01:38 03/18/24 01:45 03/18/24 05:35 Temperature 97.8 F 97.6 F L Temperature Source Oral Oral Pulse Rate 51 L 64 Pulse Strength Respiratory Rate 18 18 Respiratory Effort Normal Non-Labored Respiratory Depth Normal Respiratory Pattern Normal Blood Pressure 121/70 H 129/77 H Blood Pressure Mean 87 94 Blood Pressure Source Monitor Monitor Blood Pressure Position Semi-Fowlers Semi-Fowlers Blood Pressure Location Right Arm Right Arm Pulse Ox 96 959 Oxygen Delivery Method Room Air Room Air Room Air 03/18/24 08:00 03/18/24 09:30 03/18/24 10:00 Temperature 97.3 F L Temperature Source Temporal Pulse Rate 60 Pulse Strength Normal (2+) Respiratory Rate 16 Respiratory Effort Respiratory Depth Respiratory Pattern Blood Pressure 130/84 H Blood Pressure Mean 99 Blood Pressure Source Monitor Blood Pressure Position Semi-Fowlers Blood Pressure Location Right Arm Pulse Ox 96 97 Oxygen Delivery Method Room Air Room Air 03/18/24 10:00 Temperature Temperature Source Pulse Rate Pulse Strength Respiratory Rate Respiratory Effort Normal Non-Labored Respiratory Depth Normal Respiratory Pattern Normal Blood Pressure Blood Pressure Mean Blood Pressure Source Blood Pressure Position Blood Pressure Location Pulse Ox Oxygen Delivery Method Room Air Weight Weight: 112.4 kg Body Mass Index (BMI) 30.8 EEG Results Procedure Details EEG Procedure Details: QIAN SEGAL is a 63 year old M with a past medical history of , who presents for evaluation of Electroencephalogram on DATE at TIME NIHSS NIHSS Nursing Documentation NIHSS Nursing Documentation: NIHSS: Ischemic Stroke/TIA Start: 03/17/24 18:13 Text: For PCU Patients: NIH and Neuro Check every 4 Status: Active hours, PRN and with change in RN caregiver. Freq: [id number] Protocol: Activity Type Activity Date Activity User E-sign Co-sign Detail Recorded Client Recorded Date Recorded By Document 03/18/24 10:00 BS Desktop 03/18/24 12:17 BS 03/18/24 10:00 NIH Stroke Scale [NIHSS] A score of 0 is "normal" or asymptomatic . Total possible score is 42. Inpatient: RN or Physician to activate a stroke alert for onset of new stroke symptoms or with NIHSS increase >/= 3 points. Following change in neurological status, NIHSS will be performed per physician order or more frequently PRN. -1a. Level of Consciousness Alert; keenly responsive -1b. LOC Questions Answers BOTH questions correctly. -1c. LOC Commands Performs both tasks correctly . -2. Best Gaze Normal -3. Visual No visual loss -4. Facial Palsy Normal symmetrical movements -5a. Left Arm No drift; arm holds 90 (or 45 ) degrees for full 10 seconds -5b. Right Arm No drift; arm holds 90 (or 45 ) degrees for full 10 seconds -6a. Left Leg No drift; leg holds 30-degree position for full 5 seconds -6b. Right Leg No drift; leg holds 30-degree position for full 5 seconds -7. Limb Ataxia Absent -8. Sensory Normal; no sensory loss -9. Best Language No aphasia; normal -10. Dysarthria Normal -11. Extinction and Inattention No abnormality -Total 0 Query Text:A score of 0 is "normal" or asymptomatic. Total possible score is 42 . ED: Notify Physician for NIHSS increase by > / = 3 points. Inpatient: RN or Physician to activate a stroke alert for NIHSS increase of > / = 3 points. Coma Scale [Assess] -Eye Opening Spontaneous -Motor Obeys Commands -Verbal Oriented [Total] -Coma Scale Total 15 NIHSS 1a. Level of Consciousness: Alert; keenly responsive 1b. LOC Questions: Answers BOTH questions correctly. 1c. LOC Commands: Performs both tasks correctly. 2. Best Gaze: Normal 3. Visual: No visual loss 4. Facial Palsy: Minor paralysis (flattened nasolabial fold, asymmetry on smiling) 5a. Left Arm: No drift; arm holds 90 (or 45) degrees for full 10 seconds 5b. Right Arm: No drift; arm holds 90 (or 45) degrees for full 10 seconds 6a. Left Leg: No drift; leg holds 30-degree position for full 5 seconds 6b. Right Leg: No drift; leg holds 30-degree position for full 5 seconds 7. Limb Ataxia: Absent 8. Sensory: Normal; no sensory loss 9. Best Language: No aphasia; normal 10. Dysarthria: Normal 11. Extinction and Inattention: No abnormality Total: 1 Physical Exam Narrative General: The patient appears nutritionally appropriate, well-groomed, and appears comfortable in no acute distress. Mental Status:? The patient?s mental status was normal including orientation.? Language was intact.? Cranial nerves:? Visual smith full, and extra-ocular motion was intact. Mild right facial droop.? There was no dysarthria. Motor: Normal strength and tone in all four extremities. No pronator drift. Sensation: Intact light touch bilaterally, no extinction.? Coordination:? Bilateral finger to nose was normal.? There was no dysmetria. Gait:? deferred Lab / Micro Data 03/18/24 04:55 03/18/24 04:55 Labs: Laboratory Results - last 24 hr 03/17/24 16:25: WBC 6.7, RBC 4.66, Hgb 14.9, Hct 44.6, MCV 95.7 H, MCH 32.0, MCHC 33.4, RDW Std Deviation 43.8, RDW Coeff of Eladio 12.5, Plt Count 218, MPV 9.5, Immature Gran % (Auto) 0.400, Neut % (Auto) 67.5, Lymph % (Auto) 18.4 L, [place] % (Auto) 10.7 H, Eos % (Auto) 2.4, Baso % (Auto) 0.6, Absolute Neuts (auto) 4.5, Absolute Lymphs (auto) 1.24, Nucleated RBC % 0, PT 14.2, INR 1.1, APTT 25.5, Sodium 138, Potassium 3.8, Chloride 105, Carbon Dioxide 28.0, Anion Gap 5, BUN 19 H, Creatinine 1.00, Estim Creat Clear Calc 101.59, Est GFR (MDRD) Af Amer 97, Est GFR (MDRD) Non-Af 80, BUN/Creatinine Ratio 19.0, Glucose 101, Hemoglobin A1c 5.3, Calcium 9.2, Troponin I High Sens < 3 L, TSH 1.40 03/17/24 16:28: POC Glucose 93 03/18/24 04:55: WBC 7.0, RBC 4.75, Hgb 15.4, Hct 45.5, MCV 95.8 H, MCH 32.4 H, MCHC 33.8, RDW Std Deviation 44.1 H, RDW Coeff of Eladio 12.4, Plt Count 217, MPV 9.5, Sodium 139, Potassium 4.0, Chloride 107, Carbon Dioxide 28.0, Anion Gap 4 L, BUN 15, Creatinine 0.93, Estim Creat Clear Calc 108.57, Est GFR (MDRD) Af Amer 105, Est GFR (MDRD) Non-Af 86, BUN/Creatinine Ratio 16.1, Glucose 86, Calcium 9.0, Triglycerides 159, Cholesterol 164, LDL Cholesterol 92, VLDL Cholesterol 32, HDL Cholesterol 40 Imaging Radiology Impression Brain CT 03/17/24 16:25 IMPRESSION: Focal mild diminished attenuation in the left frontal periventricular white matter. Correlate with MRI if clinically indicated. N.B. : The above Results were Read Back by Luan Espino DO to Alex Severino MD, and understanding confirmed on 03/17/2024 17:00:13 (ET). Electronically Signed: Luan Espino DO at 17:01 EDT , Head/Neck CTA 03/17/24 16:26 IMPRESSION: Negative CTA Carotid, and CTA Brain. Electronically Signed: Luan Espino DO at 17:09 EDT , ADDENDUM: 03/17/24 1718 IMPRESSION: Negative CTA Carotid, and CTA Brain. N.B. : The above Results were Read Back by Luan Espino DO to Alex Severino MD, and understanding confirmed on 03/17/2024 17:11:37 (ET). Electronically Signed: Luan Espino DO at 17:09 EDT , Chest X-Ray 03/17/24 16:57 IMPRESSION: Left basilar atelectasis. Electronically Signed: Luan DO Srinivas at 17:16 EDT , Active Medications Active Medications Active Medications: Current Medications Generic Name Dose Route Start Last Admin Trade Name Freq PRN Reason Stop Dose Admin Acetaminophen 650 mg 03/17/24 18:13 03/17/24 21:38 Acetaminophen 325 Mg Tablet PO 650 mg Q6H PRN PRN Administration Pain 1-10 Or Fever>100.7 Apixaban 5 mg 03/17/24 22:00 03/18/24 09:35 Apixaban 5 Mg Tablet PO 5 mg BID ANNIE Administration Atorvastatin Calcium 40 mg 03/17/24 22:00 03/17/24 21:38 Atorvastatin Calcium 40 Mg Tablet PO 40 mg QHS ANNIE Administration Sodium Chloride 250 mls @ 15 mls/hr 03/17/24 18:11 IV .[id number] PRN Additional IVPB Infusion Sodium Chloride 250 mls @ 15 mls/hr 03/17/24 18:11 IV .[id number] PRN Saline Flush Labetalol HCl 20 mg 03/17/24 16:25 Labetalol (Prefilled) 20 Mg/4 Ml IV 03/18/24 16:25 X1 PRN Blood Pressure Loratadine 10 mg 03/18/24 10:00 03/18/24 09:35 Loratadine 10 Mg Tablet PO 10 mg DAILY ANNIE Administration Melatonin 3 mg 03/17/24 18:13 Melatonin 3 Mg Tablet PO QHS PRN PRN INSOMNIA Ondansetron HCl 4 mg 03/17/24 18:13 Ondansetron 4 Mg/2 Ml Vial IV Q8H PRN PRN NAUSEA/VOMITING Sodium Chloride 10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 aphasic/stupor): 0 1c LOC Commands (Only score 1st attempt): 0 2 Best Gaze (If aphasic, use reflexive mvmts.): 0 3 Visual: 0 4 Facial Palsy: 1 5 Motor Arm Right (UN = amputation/fusion): 0 5 Motor Arm Left: 0 6 Motor Leg Right: 0 6 Motor Leg Left: 0 7 Limb ataxia (Only + if out of proportion): 0 8 Sensory (Aphasia/stupor=0 or 1, coma=2): 0 9 Best Language: 0 10 Dysarthria (mute, coma=2, intubated=UN): 0 11 Extinction and Inattention (only scored if +): 0 Total Score: 1 MDM MDM MDM Narrative Medical decision making narrative: Patient's symptoms are concerning for neurologic event TIA/stroke. Patient is not a candidate for TNK since he is on Eliquis. Will obtain CT CTA per protocoland stroke order set was initiated. Patient's blood pressure slight elevated. This will be tolerated. History & Record Review Discussion w/independent historian: Patient and Family Additional record(s) reviewed:: Prior outpatient record (May 2023 report for lower extremity exam he was reviewed.) Lab Data Attestation: I reviewed the patient's lab results. Lab results narrative: CBC is normal. Blood sugar is normal. Basic metabolic panel is normal. Troponin is normal. Labs: Laboratory Results - last 24 hr 03/17/24 03/17/24 16:25 16:28 WBC 6.7 RBC 4.66 Hgb 14.9 Hct 44.6 MCV 95.7 H MCH 32.0 MCHC 33.4 RDW Std Deviation 43.8 RDW Coeff of Eladio 12.5 Plt Count 218 MPV 9.5 Immature Gran % (Auto) 0.400 Neut % (Auto) 67.5 Lymph % (Auto) 18.4 L [place] % (Auto) 10.7 H Eos % (Auto) 2.4 Baso % (Auto) 0.6 Absolute Neuts (auto) 4.5 Absolute Lymphs (auto) 1.24 Nucleated RBC % 0 PT 14.2 INR 1.1 APTT 25.5 Sodium 138 Potassium 3.8 Chloride 105 Carbon Dioxide 28.0 Anion Gap 5 BUN 19 H Creatinine 1.00 Estim Creat Clear Calc 101.59 Est GFR (MDRD) Af Amer 97 Est GFR (MDRD) Non-Af 80 BUN/Creatinine Ratio 19.0 Glucose 101 Calcium 9.2 Troponin I High Sens < 3 L POC Glucose 93 Radiography Diagnostic Testing: Clinical Impression(s) from Imaging Studies Head/Neck CTA 03/17/24 16:26 IMPRESSION: Negative CTA Carotid, and CTA Brain. Electronically Signed: Luan Espino DO at 17:09 EDT , ADDENDUM: 03/17/24 1718 IMPRESSION: Negative CTA Carotid, and CTA Brain. N.B. : The above Results were Read Back by Luan Espino DO to Alex Severino MD, and understanding confirmed on 03/17/2024 17:11:37 (ET). Electronically Signed: Luan Espino DO at 17:09 EDT , Chest X-Ray 03/17/24 16:57 IMPRESSION: Left basilar atelectasis. Electronically Signed: Luan Espino DO at 17:16 EDT , I received a call at 1712 by radiologist at the CTA was negative. EKG Initial EKG: Attestation: I personally reviewed and interpreted this EKG as follows: Interpretation: Sinus Rhythm (Rate is 60. MS interval is 186 ms. Cures duration is 98 ms. QT duration 418 ms. [place] is normal. There is a flipped T wave in lead III which is a normal variant.) Management Discussion w/another healthcare provider: Hospitalist (Spoke with Dr. James. 23 observation PCU for TIA/stroke workup) Discharge Plan Triage Chief Complaint: Neuro S/Sx ED Provider: Alex Severino Dx/Rx/DC Orders Clinical Impression: Facial droop due to acute cerebrovascular accident (CVA), Dyslipidemia, Anticoagulant long-term use, Numbness and tingling of right side of face, Acute confusion Prescriptions: No Action rosuvastatin 5 mg tablet 5 mg PO QHS Eliquis 5 mg tablet 5 mg PO BID Primary Care Provider: Morgan Moore Referrals: Morgan Moore MD [Primary Care Provider] - Disposition Disposition: Acute Care Hospital [facility] What to do if you have Problems For any increased pain, shortness of breath, bleeding, nausea or vomiting, chestpain, or any unexpected problems, contact your Primary Care Provider. Call [facility] ([phone]) or report to the closest Emergency Room. Call 911 if necessary. 03/17/24 1733 <Electronically signed by Alex Severino MD> Cosigner Signature (if applicable): CC: Dr. Morgan Moore MD ~ Signed ADDENDUM by Dr. Alex Severino MD on 03/17/24 at 1745 Single view portable chest x-rays obtained reviewed interpreted by me. Patient has some chronic changes. There is probable atelectasis left base. Cardiac silhouette and size normal. Hilum is unremarkable. Osseous structures are unremarkable. 03/17/24 1745<Electronically signed by Alex Severino MD> Cosigner Signature (if applicable): cc: Dr. Morgan Moore MD ~* Signed [facility] Work Phone: 1(939) 114-424912-20-2021 History of Present illness Narrative* Renata Jasso CNP - 10/26/2021 11:45 AM EST Associated Order(s): LG Jt Injection/Arthrocentesis: L knee Post-Procedure Diagnose(s): Primary osteoarthritis of left knee LG Jt Injection/Arthrocentesis: L knee Performed by: Renata Jasso CNP Authorized by: Renata Jasso CNP CPT 35335 - Large Joint Arthrocentesis: Consent given by: [...] the procedure well with no immediate complications * Renata Jasso CNP - 10/26/2021 11:41 AM EST [facility] [address] [facility] [address] [facility] [id number] Chief Complaint Patient presents with Follow-up Left knee Qian Segal returns to the office today for an [...] him back as needed. documented in this [id number] History of Present illness Narrative* Renata Jasso CNP - 07/27/2021 12:30 PM EDT Associated Order(s): LG Jt Injection/Arthrocentesis: L knee Post-Procedure Diagnose(s): Primary osteoarthritis of left knee LG Jt Injection/Arthrocentesis: L knee Performed by: Renata Jasso CNP Authorized by: Renata Jasso CNP CPT 48865 - Large Joint Arthrocentesis: Consent given by: [...] the procedure well with no immediate complications * Renata Jasso CNP - 07/23/2021 9:02 PM EDT Qian Segal 1960 CC: 61 y.o. is a he with left knee pain. Chief Complaint Patient presents with Left Knee - Pain . HPI: Knee Pain: Patient presents to the office with left knee pain. He reports that about 8-9 yearsago he felt a tear in the knee. [...] Friends and Family: Not on file Attends [employer]: Not on file Active Member of [...] present Imaging:R Knee: No acute osseous abnormality. [id number] medial compartment osteoarthritis. Small suprapatellar joint effusion. [...] None Follow Up: No follow-ups on file. Renata Jasso CNP documented in this encounterOhioHealthEvaluation + Plan note Future Appointments [facility] Evaluation note* Diagnosis Primary osteoarthritis of left knee- Primary [facility]* Diagnosis Primary osteoarthritis of left knee- Primary [facility] noteNo assessment information [facility]WMer[facility] Work Phone: Evaluation note* Diagnosis Onset Date Resolution Status Acute confusion acute Anticoagulant long-term use acute Dyslipidemia acute Facial droop due to acute cerebrovascular accident (CV A) acute Numbness and tingling of right side of face acute [facility] Work Phone: History of Present illness Narrative* colonoscopy 2014 - Tics and Hem. 10 years. * allergies - takes claritan. * heartburn is bad, occ dysphagia. TUMS helps. Need to start him on pantoprazole. * home BP 130's/80's. * tinnitus - did see ENT Dr Jean-Baptiste. * Talked about using low-dose amlodipine or low-dose Zoloft Celexa. He does not want to use medicine at this time. Blood pressure today is good. * To think we should check some blood test first. If the blood tests are okay I am okay with watchingthings for now. * OV 6 months, will change the follow-up to 6 weeks for the heartburn [facility] Work Phone: Hospital course Narrative No data available for this section [facility] Hospital Discharge instructions No data available for this section [facility] Progress note No data available for this section [facility] Reason for referral (narrative)No reason for referral information availableWMercy Health St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 Advance Directives and Living Will Advance Directive Response Recorded Date/ Time Name of Medical Power of Welding Process Engineer Brigid Diony March 17, 2024 4:29pm Living Will Yes March 17, 2024 4 :29pm Power of Welding Process Engineer Yes March 17, 2024 4:29pm Advance Directive Response Recorded Date/ Time Name of Medical Power of Welding Process Engineer Brigid Diony March 17, 2024 6:34pm Living Will Yes March 17, 2024 6 :34pm Power of Welding Process Engineer Yes March 17, 2024 6:34pm 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 Chief Complaint and Reason for Visit Chief Complaint Pain in right lower leg Chief Complaint Unilateral primary o steoarthritis, knee Chief Complaint Unilateral primary o steoarthritis, knee RIGHT FACIAL DROOP W/ NUMBNESS, CVA RULE OUT Reason for Visit Acute confusion Anticoagulant long-term use Dyslipidemia Facial droop due to acute cerebrovascular accident (CVA) Numbness and tingling of right side of face Chief Complaint Unilateral primary o steoarthritis, knee RIGHT FACIAL DROOP W/ NUMBNESS, CVA RULE OUT RIGHT FACIAL DROOP W/ NUMBNESS, CVA RULE OUT RIGHT FACIAL DROOP W/ NUMBNESS, CVA RULE OUT Reason for Visit Acute confusion Anticoagulant long-term use Dyslipidemia Facial droop due to acute cerebrovascular accident (CVA) Numbness and tingling of right side of face Chief Complaint Admit Date INVERTED T WAVE December 10, 2024 1 0:03am INVERTED T WAVE December 10, 2024 1 0:59am Pre-op visit (general surgery) December 11, 2024 1:22pm Reason for Visit Admit Date Anticoagulant long-term use December 1:22pm Dyslipidemia December 11, 2024 1 :22pm History of DVT (deep vein thrombosis) Fe bruary 2024 1:22pm PAC (premature atrial contraction) Febru celena 2024 1:22pm History of TIA (transient ischemic attac k) December 11, 2024 1:22pm Encounter for preoperative e xamination for general surgical procedure December 11, 2024 1:22pm Additional Source Comments (unrecognized sect ion and content) No Status Records FoundNo Status Records FoundNo Status Records FoundNo Status Records FoundNo Status Records FoundNo Status Records Found INFORMATION SOURCE (unrecogn ized section and content) DATE CREATED AUTHOR 10/16/2018 [facility] DATE CREATED AUTHOR AUTHOR'S ORGANIZ ATION 10/14/2021 [facility] DATE CREATED AUTHOR AUTHOR'S ORGANIZ ATION 10/14/2021 [employer] DATE CREATED AUTHOR AUTHOR'S ORGANIZ ATION 10/26/2021 [facility] DATE CREATED AUTHOR AUTHOR'S ORGANIZ ATION 12/24/2024 [facility] DATE CREATED AUTHOR AUTHOR'S ORGANIZ ATION 06/25/2025 [facility] Reason for Visit (unrecogniz ed section and content) Reason Comments Pain Reason Comments Follow-up Left knee Care Teams (unrecognized sec tion and content) Team Status: Active Member Role Status Dates Dr. Morgan Moore MD Primary Care Provider Active Team Status: Inactive Member Role Status Dates Dr. Morgan Moore MD Primary Care Provider Active Start: December 10, 2024 End: December 10, 2024 Dr. Morgan Moore MD Attending Provider Active Start: December 10, 2024 End: December 10, 2024 Dr. Morgan Moore MD Referring Provider Active Start: December 10, 2024 End: December 10, 2024 Team Status: Active Member Role Status Dates Dr. Morgan Moore MD Primary Care Provider Active Start: December 10, 2024 Dr. Morgan Moore MD Referring Provider Active Start: December 10, 2024 Dr. Morgan Moore MD Other Provider Active Star t: December 10, 2024 Dr. Krish Leos MD Attending Provider Active Start: December 10, 2024 Team Status: Inactive Member Role Status Dates Dr. Morgan Moore MD Primary Care Provider Active Start: December 11, 2024 End: December 11, 2024 Dr. Morgan Moore MD Referring Provider Active Start: December 11, 2024 End: December 11, 2024 Aj Granado FRUIT CUTTER, FRUIT CUTTER-C Attending Provider Active S tart: December 11, 2024 End: December 11, 2024 Team Status: Inactive Member Role Status Dates Dr. Morgan Moore MD Primary Care Provider Active Start: February 15, 2025 End: February 15, 2025 Jatinder Matias FRUIT CUTTER, FRUIT CUTTER-C Attending Provider Active Start: February 15, 2025 End: February 15, 2025 Team Status: Active Member Role Status Dates Dr. Morgan Moore MD Primary Care Provider Active Dr. Alex Severino MD Emergency Provider Active Dr. Mark James DO Admit Provi andrew, Attending Provider, Other Provider Active Santino Roland MD Other Provider Active Dr. Lorenzo Holland MD Other Provider Active Mayra Hutchinson MD Other Provider Active Dr. Kaya Pollock DO Other Provider Active Dr. Zari Meyer MD Other Provider Active Dr. Abraham Molina MD Other Provider Active Dr. Kirstie Licona MD Other Provider Active Dr. Andrew Jean Baptiste MD Other Provider Active Dr. Alberto Wong MD Other Provider Active Joana Mckay MD Other Provider Active Dr. Andriy Aguilar MD Other Provider Active Dr. Sheree Weir MD Other Provider Active Dr. Char Miller MD Other Provider Active Dr. Jillian Carlin MD Other Provider Active Dr. Vamshi Wen MD Other Provider Active Dr. Jorgito Ortiz MD Other Provider Active Dr. Suhail Hurtado MD Other Provider Active Dr. Nancy Garcia MD Other Provider Active Awa Wu MD Other Provider Active Team Status: Active Member Role Status Dates Dr. Morgan Moore MD Primary Care Provider Active Dr. Alex Severino MD Emergency Provider Active Dr. Mark James , DO Admit Provider, Other Pro vider Active Santino Roland MD Other Provider Active Dr. Lorenzo Holland MD Other Provider Active Mayra Hutchinson MD Other Provider Active Dr. Kaya Pollock DO Other Provider Active Dr. Zari Meyer MD Other Provider Active Dr. Abraham Molina MD Other Provider Active Dr. Kirstie Licona MD Other Provider Active Dr. Andrew Jean Baptiste MD Other Provider Active Dr. Alberto Wong MD Other Provider Active Joana Mckay MD Other Provider Active Dr. Andriy Aguilar MD Other Provider Active Dr. Sheree Weir MD Other Provider Active Dr. Char Miller MD Other Provider Active Dr. Jillian Carlin MD Other Provider Active Dr. Vamshi Wen MD Other Provider Active Dr. Jorgito Ortiz MD Other Provider Active Dr. Suhail Hurtado MD Other Provider Active Dr. Nancy Garcia MD Other Provider Active Awa Wu MD Other Provider Active Dr. Di Garcia DO Attending Provider, Other Provide r Active Team Status: Inactive Member Role Status Dates Dr. Morgan Moore MD Primary Care Provi andrew, Attending Provider, Referring Provider Active Team Status: Inactive Member Role Status Dates Dr. Morgan Moore MD Primary Care Provider, Attending Provider Active Team Status: Inactive Member Role Status Dates Dr. Morgan Moore MD Primary Care Provider Active Dr. Alex Severino MD Emergency Provider Active Dr. Mark James , DO Admit Provider, Other Pro vider Active Santino Roland MD Other Provider Active Dr. Lorenzo Holland MD Other Provider Active Mayra Hutchinson MD Other Provider Active Dr. Kaya Pollock , Other Provider Active Dr. Zari Meyer MD Other Provider Active Dr. Abraham Molina MD Other Provider Active Dr. Kirstie Licona MD Other Provider Active Dr. Andrew Jean Baptiste MD Other Provider Active Dr. Alberto Wong MD Other Provider Active Joana Mckay MD Other Provider Active Dr. Andriy Aguilar MD Other Provider Active Dr. Sheree Weir MD Other Provider Active Dr. Char Miller MD Other Provider Active Dr. Jillian Carlin MD Other Provider Active Dr. Vamshi Wen MD Other Provider Active Dr. Jorgito Ortiz MD Other Provider Active Dr. Shuail Hurtado MD Other Provider Active Dr. Nancy Garcia MD Other Provider Active Awa Wu MD Other Provider Active Dr. Di Garcia DO Attending Provider Active Supervisor Travel Trailer Relationship Specialty Start Date End Date Azalea Bay MD [address] [place] [address] PCP - General Family Medicine 04/14/16 Team Status: Active Member Role Status Dates Dr. Morgan Moore MD Primary Care Provider, Referring Provider Active Dr. Austin White MD Attending Provider Active Team Status: Active Member Role Status Dates Dr. Morgan Moore MD Primary Care Provider Active Dr. Alex Severino MD Emergency Provider Active Dr. Mark James DO Admit Provider, Attending Provider Active Team Status: Active Member Role/Relationship Status Dates Dr. Morgan Moore MD Primary Care Provider Active Team Status: Inactive Member Role/Relationship Status Dates Dr. Morgan Moore MD Primary Care Provider Active Start: February 15, 2025 End: February 15, 2025 [facility] FRUIT CUTTER, FRUIT CUTTER-C Attending Provider Active Start: February 15, 2025 End: February 15, 2025 Team Status: Inactive Member Role/Relationship Status Dates Dr. Morgan Moore MD Primary Care Provider Active Start: May 15, 2025 End: May 15, 2025 Dr. Morgan Moore MD Attending Provider Active Start: May 15, 2025 End: May 15, 2025 Dr. Morgan Moore MD Referring Provider Active Start: May 15, 2025 End: May 15, 2025 Goals (unrecognized section and content) Goals may be documented in a n alternate sectionGoals may be documented in an alternate sectionGoals may be documented in an alternate sectionGoals may be documented in an alternate sectionGoals may be documented in an alternate section No data available for this section No data available for this section No data available for this sectionGoals may be documented in an alternate sectionGoals may be documented in an alternate section FOR RECORDS PERTAINING TO PATIENTS WHO ARE [...] BE BASED ON THE PRIMARY CLINICAL RECORDS. [facility]. provides no warranty or guarantee of the accuracy or completeness of information in this document.
[2025-09-01 16:34] LABS: Hematocrit 43.6 % (40-54); Hemoglobin 15.2 g/dL (13.0-16.5); Immature Granulocytes Count 0.020 X10^3/uL (0.0-0.0); Mean Corp Hgb Conc 34.9 g/dL (32-36); Mean Corpuscular Volume 93.2 fL (80-94); Mean Platelet Vol. 9.6 fl (6.2-12.0); NRBC Flagged by Analyzer 0 % (0-5); Platelet Count 208 K/mm3 (150-450); RBC Distribution Width CV 12.2 % (11.6-14.6); RBC Distribution Width SD 42.0 fl (35.1-43.9); Red Blood Count 4.68 M/mm3 (4.6-6.2); White Blood Count 7.0 K/mm3 (4.4-11.0)
--- NOTE | 2025-09-01 16:40 | CT_ITS ---
PROCEDURE: BRAIN/HEAD WITHOUT CONTRAST 09/01/2025 REASON FOR EXAM: FACIAL NUMBNESS, HX OF TIA, TGA? TECHNIQUE: Procedure Code: CTBR Modality: CT Procedure: BRAIN/HEAD WITHOUT CONTRAST Coronal and Sagittal reconstruction series were provided. One or more dose reduction techniques were used (e.g., Automated exposure control, adjustment of the mA and/or kV according to patient size, use of iterative reconstruction technique. RADIATION DOSE SUMMARY: CTDlvol: 44.99 mGy DLP: 917 mGycm COMPARISON: None. FINDINGS: BRAIN: No acute intraparenchymal hemorrhage. No mass lesion. No CT evidence for acute territorial infarct. No midline shift or extra-axial collection. Mild periventricular white matter low attenuation, likely microvascular ischemic changes. VENTRICLES: No hydrocephalus. ORBITS: The orbits are unremarkable. SINUSES AND MASTOIDS: Bilateral maxillary sinus retention cysts/polyps. The mastoid air cells are clear. SOFT TISSUES: No acute abnormality seen. BONES: No acute osseous abnormality seen. OTHER: Carotid siphon calcification bilaterally. Soft tissue density within the external auditory canals bilaterally, likely cerumen. CT/Brain/Head without Contrast IMPRESSION: No acute intracranial abnormality. Reading Location: [id number]
[2025-09-01 16:52] LABS: Anion Gap 11 (5-15); BUN 19 mg/dL (4-19); BUN/Creat Ratio 17.6 RATIO (10-20); Calcium,Total 10.0 mg/dL (7.6-11.0); Carbon Dioxide 25.0 mmol/L (21.0-32.0); Chloride 104 mmol/L (98-108); Estimated Creatinine Clearance 90.43 ml/min (50-250); Glucose 99 mg/dL (70-99); Potassium 4.2 mmol/L (3.3-5.1)
--- NOTE | 2025-09-01 18:24 | PCM.HP.STD ---
HPI - General General Date of Admission: 09/01/25 Date of Service: 09/01/25 Chief Complaint: Altered sense of taste and transient amnesia HPI Narrative QIAN SEGAL, is a 65 M who presented to [facility] ED on 09/01/2025 with an episode of altered sense of taste and transient amnesia. Patient lives at home with his , has good functional status at baseline. He was hospitalized here in March 2024 for CVA rule out when he presented with acute confusion and right facial droop with numbness. Symptoms resolved during hospitalization and MRI brain was negative, and he was discharged home in stable condition on hospital day 2. Patient notes today that he had an episode of sensing a metallic taste in his mouth, and that he does not remember much for over an hour. His was there and notes that he appeared glassy eyed and was not able to remember anything. He did not have any weakness in his arms or legs and had no facial drooping noted. She notes that after about an hour he started to show signs of improvement and it took another few hours for him to come back to baseline. In the ED he was normotensive, in normal sinus rhythm and stable on room air at rest. CBC and BMP were benign. CT brain was unremarkable. Given his symptoms, hospitalist was contacted for admission. I saw the patient at bedside in the ED, is present. Patient was sitting back comfortably in bed, conversing normally, in no acute distress. On discussion with him, he notes that he has had similar episodes to this over the past several months but never to this degree. Each time he has a sensation of a metallic taste in his mouth prior to the amnesia. He otherwise is in good health, denies any new medications or any recent infections. He has no prior seizure history. No other acute concerns currently. Will be admitted for further management. [facility] Medical History Bone spur Elevated blood pressure reading BMI 31.0-31.9,adult Arthritis of knee Anticoagulant long-term use Dyslipidemia TIA (transient ischemic attack) Non-smoker DVT (deep venous thrombosis) Family history of abdominal aortic aneurysm Hypercholesteremia Blood clot in leg Blood clots in brain Home Medications Medication Instructions Recorded Last Taken Type apixaban 5 mg tablet (Eliquis) 5 mg PO BID blood thinner 03/17/24 09/01/25 History vit B complex and 1 tab PO TID tinnitus 03/17/24 09/01/25 History T-twinrke-jnswhkzn-bioflavonoid,lemon 500 mg tablet (Ear Health Plus) rosuvastatin 10 mg tablet 10 mg PO DAILY #30 tabs 03/18/24 08/31/25 Rx bee pollen 550 mg capsule 550 mg PO TID 05/30/24 09/01/25 History cinnamon bark 500 mg capsule 500 mg PO BID 05/30/24 09/01/25 History (Cinnamon) elderberry fruit 350 mg capsule 350 mg PO BID 05/30/24 09/01/25 History loratadine 10 mg tablet (Claritin) 10 mg PO DAILY 05/30/24 09/01/25 History beta carotene 30 mg capsule 30 mg PO DAILY 06/28/24 09/01/25 History lycopene 10 mg capsule 10 mg PO QDAY 12/11/24 09/01/25 History mecobalamin (vitamin B12) 1,000 1,000 mcg PO QDAY 12/11/24 09/01/25 History mcg chewable tablet omega-3 fatty acids 1,000 mg 1,000 mg PO QDAY 12/11/24 09/01/25 History capsule Allergy/AdvReac Type Severity Reaction Status Date / Time ibuprofen Allergy MAKES Verified 09/01/25 15:39 RIGHT SIDE OF FACE TO GO NUMB Family History Father AAA (abdominal aortic aneurysm) Surgical History Hx of wisdom tooth extraction Social History household members: spouse Smoking Status: Never smoker alcohol intake: never substance use type: does not use caffeine: No ROS Constitutional Constitutional: Denies chills, fatigue, fever(s) or weakness Eyes Eyes: Denies change in vision Cardiovascular Cardiovascular: Denies chest pain, dyspnea on exertion, edema, lightheadedness or palpitations Respiratory/Chest Respiratory/Chest: Denies cough or shortness of breath at rest Gastrointestinal Gastrointestinal: Denies abdominal pain Musculoskeletal Musculoskeletal: Denies arthralgias or myalgias Neurologic Neurologic: Denies dizziness, focal weakness, headache(s), numbness or tingling Vital Signs Vital Signs Vital Signs: 09/01/25 15:39 09/01/25 17:27 09/01/25 17:30 Temperature 98.3 F Temperature Source Oral Pulse Rate 80 55 L 58 L Respiratory Rate 18 22 H 16 Blood Pressure 139/84 H 120/60 127/77 H Blood Pressure Mean 102 77 93 Pulse Ox 98 96 97 Oxygen Delivery Method Room Air 09/01/25 17:49 Temperature 98 F Temperature Source Pulse Rate 83 Respiratory Rate 16 Blood Pressure 133/82 H Blood Pressure Mean 99 Pulse Ox 99 Oxygen Delivery Method Weight Weight: 115.212 kg Body Mass Index (BMI) 31.7 Physical Exam Const alert, oriented x3 and no apparent distress Constitutional Narrative: Pleasant upper middle-age male, class I obesity, sitting back comfortably in bed, conversing normally, in no acute distress. General Appearance: cooperative and comfortable HEENT normocephalic, head/scalp atraumatic, hearing grossly normal bilaterally, nasal mucous membranes and turbinates normal and moist oral mucous membranes Eyes PERRL, EOMs intact bilaterally and conjunctivae normal Neck full ROM Chest inspection of chest normal Resp normal respiratory effort, normal air movement, no use of accessory muscles and clear to auscultation bilaterally Cardio regular rate, regular rhythm, no murmurs and peripheral pulses 2+ throughout GI normal to inspection, nondistended, normoactive bowel sounds, soft to palpation, non-tender and non-distended Back/Spine normal ROM Extremity normal to inspection, full ROM and no pedal edema Skin no rashes or lesions noted Neuro CN's II-XII intact bilaterally, moves all extremities and no focal motor deficits Speech: speech normal Motor Exam: strength 5/5 throughout Psych mental status grossly normal Results Lab / Micro Data 09/01/25 16:20 09/01/25 16:20 Labs: Laboratory Results - last 24 hr 09/01/25 16:20: WBC 7.0, RBC 4.68, Hgb 15.2, Hct 43.6, MCV 93.2, MCH 32.5 H, MCHC 34.9, RDW Std Deviation 42.0, RDW Coeff of Eladio 12.2, Plt Count 208, MPV 9.6, Immature Gran % (Auto) 0.300, Neut % (Auto) 73.8 H, Lymph % (Auto) 15.8 L, [place] % (Auto) 8.6, Eos % (Auto) 0.9, Baso % (Auto) 0.6, Absolute Neuts (auto) 5.2, Absolute Lymphs (auto) 1.10, Nucleated RBC % 0, Sodium 140, Potassium 4.2, Chloride 104, Carbon Dioxide 25.0, Anion Gap 11, BUN 19, Creatinine 1.10, Estim Creat Clear Calc 90.43, Est GFR (MDRD) Non-Af 74, BUN/Creatinine Ratio 17.6, Glucose 99, Calcium 10.0 Imaging Radiology Impression Brain CT 09/01/25 16:40 IMPRESSION: No acute intracranial abnormality. Reading Location: [facility] [place] & Plan Assessment/Plan (1) Dysgeusia: (2) Transient amnesia: PLAN: Plan Patient is a 65-year-old male who presented to [facility] ED on 09/01/2025 with altered taste and transient amnesia. 1. Altered sense of taste and transient amnesia – Admit under observation status to PCU. Neurology consulted. NIH score of 0 in the ED. Had previous stroke workup in March 2024 with MRI brain negative and workup otherwise benign. Patient reports recurrent episodes over the past several months of altered sense of taste/metallic taste followed by a period of amnesia that his /family notice. Episode on this admission is the longest one has lasted. Unclear etiology but cannot rule out CVA or focal seizures. MRI brain with and without contrast and EEG ordered. Given normal NIH score and symptoms have resolved, will hold off on further stroke orders. Appreciate neurology recommendations. 2. History of DVT, hyperlipidemia – Continue home Eliquis and statin. 3. Class I obesity – BMI 31 on admit. Encouraged lifestyle modifications. DVT prophylaxis: Not indicated, on Eliquis CODE STATUS: Full code, verified Expected disposition: Home, 1 to 2 days Total clinical time spent by myself addressing the patient's medical issues, reviewing all the data, and collaborating with patient's care team: 59 minutes. Charges/Coding Visit Charges Inpatient E&M: 81791 Init Hosp L2
--- OUTSIDE RECORDS SUMMARY | 2025-09-01 19:29 | XMS RPT_ITS | CCD ---
Author Organization [facility] Care Team Providers Care Solder Sprayer Name Role Phone Azalea Bay MD Primary Care Provider Edmundo Yost Unavailable [phone] Unavailable Unavailable RENATA JASSO Attending Unavailable KAY, [...] Provider Dr. Mark James Admit Provider [phone] [address]. Mark James Attending Provider Dr. Mark James Other Provider [phone] MD Santino Roland Other Provider Unavailable Dr. Lorenzo Holland Other Provider MD Mayra Hutchinson Other Provider Unavailable Dr. Kaya Pollock Other Provider Dr. Zari Meyer Other Provider Dr. Abraham Molina Other Provider [phone] Kirstie Licona Other Provider Dr. Andrew Jean Baptiste Other Provider Dr. Alberto Wong Other Provider MD Joana Mckay Other Provider Dr. Andriy Aguilar Other Provider Dr. Sheree Weir Other Provider Dr. Char Miller Other Provider Dr. Jillian Carlin Other Provider Dr. Vamshi Wen Other Provider Dr. Jorgito Ortiz Other Provider Dr. Suhail Hurtado Other Provider Dr. Nancy Garcia Other Provider Unavailable MD [...] DR MARISOL Valdez Attending Violetaab bhavin ALMANZA CUSTOMER RETENTION SPECIALIST-RUBBER AND PLASTICS WORKER, EBENEZER M Consulting Unavaila sharan MOORE MD, DR MORGAN Guerrier Primary Care Unavailberenice Moore MD, Dr. Mora Primary Care Provider [phone] Dr. Morgan Moore MD Attending Provider Teresa MONTES DE OCA, Dr. Mora Referring Provider Teresa MONTES DE OCA, Dr. Mora Other Provider Deric MONTES DE OCA, Dr. Rutherford Attending Provider Vannesa EMU FARMER-CAj Attending Provider McMorrow EMU FARMER-C, Jatinder Attending Provider Teresa MONTES DE OCA, Dr. Mora Primary Care Provider Teresa MONTES DE OCA, Dr. Mora Attending Provider [phone] Teresa MONTES DE OCA, Dr. Mora Referring Provider Teresa, Morgan Primary Care Unavailable Deric, Krish Attending Unavailable Faizan EMU FARMER, Mervat Attending Unavailable Moore, Morgan Primary Care Unavailable Ramon Finney Attending Unavailable Moore, Morgan Referring Unavailable Moore, Morgan Primary Care Unavailable Moore, Morgan Consulting Unavailable Moore, Morgan Referring Unavailable Moore, Morgan Primary Care Unavailable Deric, Krish Attending Unavailable Moore, Morgan Primary Care Unavailable Moore, Morgan Referring Unavailable Deric, Krish Attending Unavailable Moore, Morgan Referring Unavailable Moore, Morgan Primary Care Unavailable Vannesa EMU FARMER, Aj Oneil Attending Unavailable Deric, Krish Referring Unavailable Moore, Morgan Primary Care Unavailable Deric, Krish Attending Unavailable Moore, Morgan Attending Unavailable Moore, Morgan Referring Unavailable Moroe, Morgan Primary Care Unavailable McMorrow, Jatinder Attending Unavailable Moore, Morgan Primary Care Unavailable Moore, Morgan Attending Unavailable Moore, Morgan Referring Unavailable Moore, Morgan Primary Care Unavailable Allergies Allergy Classification Reported Allergen(s) Allergy Type Date of Onset Reaction(s) Facility (9 sources) Ibuprofen; Translations: [ibuprofen] Drug Allergy 4 MAKES RIGHT SIDE OF FACE TO GO NUMB, Facial edema [facility] (1 source) Ibuprofen Drug Allergy 5 [facility] Repository Medications Current Medications Medication Drug [...] 12:00am docusate sodium 50 mg / sennosides, mcc 8.6 mg oral tablet (1 source) Start: 12-19-2024 End: 12-22-2024 take 1 tablet by mouth twice daily Senokot S 50 mg-8.6 mg oral tablet Dose = 2 tab(s), Oral, BID, Take until first bowel movement, then as needed, X 3 day(s), # 12 tab(s), 0 Refill(s), Pharmacy: [facility]/pharmacy #[id number], 187.9, cm, 12/18/24 11:12:00 EST, Height, [...] qDay, # 30 tab(s), 0 Refill(s), Pharmacy: [facility]/pharmacy #[id number], 187.9, cm, 12/18/24 11:12:00 EST, Height, [...] 90.0 Unit: cap(s) Repeat number: 1 Inositol-Choline Tjk-Vsmun-V-C ([facility]) 500 mg tablet (3 sources) Start: 03-17-2024 Inositol-Choli ne Xia-Inkjs-Q-C ([facility]) 500 mg tablet Active 1 {tbl} PO THREE TIMES A DAY March 17, 2024 12:00am tinnitus Start: 03-17-2024 Inositol-Choli ne Vcz-Ibsvv-S-C ([facility]) 500 mg tablet Active 1 {tbl} PO THREE TIMES A DAY March 17, 2024 12:00am Start: 03-17-2024 take 1 tablet by [facility] three times daily Inositol-Choline Pjp-Egkds-Z-C ([facility]) 500 mg tablet Active [...] 30, 2024 12:00am December 11, 2024 2:58pm [facility] Medication (3 sources) Start: 11-26-2024 [facility] Medicatio n 0 Refill(s) Start Date: 11/26/24 Status: Ordered Repeat number: 1 multivitamin capsule (2 sources) take 1 capsule by mouth once daily multivitamin capsule Take 1 capsule by mouth daily. 0 Active [place]-3 Fatty Acids 1,000 mg capsule (2 sources) Start: 12-11-2024 take 1 capsule by mouth once daily [place]-3 Fatty Acids 1,000 mg capsule Active 1000 [...] 0 Refill(s), 12/26/24 7:52:00 AM EST, Pharmacy: [facility]/pharmacy #[id number], Status post total left knee replacement, 187.9, [...] sources) Long-term current use of anticoagulant; Translations: [jail (current) use of anticoagulants] 03-17-2024 Episodic Other [...] 04-14-2016 04-14-2016 Episodic Other aftercare (3 sources) jail (current) use of anticoagulants; Translations: [Long-term (current) [...] Hips B/L min 2 views w/ Pelvis [facility] Imaging Services [facility] [place], [place] [id number] Hips B/L min 2 views w/ Pelvis MR#: [id number] Acct: [id number] Name: QIAN SEGAL Rep #: [id number] : 1960 M 64 From: Dianleys paalcios MD PCP: Dr. Morgan Moore MD Status: REG CLI Study: Hips B/L min 2 views w/ Pelvis Date of Exam: 0 05/15/25 Exam# [id number] Ordering Dr: Morgan Moore MD PROCEDURE: HIPS [...] Mild bilateral hips arthritic changes. Reading Location: [place] [address] CC: Dr. Morgan Moore MD Electronic Tester: Signed Normal [facility] Anion gap in Serum or Plasma Ordered By: Jatinder Matias on 02-15-2025 Anion gap [Moles/Vol] 11 mmol/L - [facility] BUN/creatinine ratioOrdered By: Jatinder Matias on 02-15-2025 Urea nitrogen/Creatinine [Mass ratio] 16.8 mg/mg - [facility] Basic Metabolic Profile (BMP )on 02-15-2025 BUN/CRE 16.8 RATIO Normal - [facility] Comment on above: Order Comment: Order Date: 02/15/25 Order Info: 0667-1 - BMP Order Info: [id number] - MG Comments: numbness in head right side numbness in head right side Performed By: #### L 500.2500 #### [facility] [address] [place], [place], [id number] Calcium [Mass/Vol] 9.4 mg/dL Normal 7.6-11.0 [facility] Comment on above: Order Comment: Order Date: 02/15/25 Order Info: 0667-1 - BMP Order Info: [id number] - MG Comments: numbness in head right side numbness in head right side Performed By: #### L 500.2500 #### [facility] [address] [place], [place], [id number] Chloride [Moles/Vol] 104 mmol/L Normal 98-108 [facility] Comment on above: Order Comment: Order Date: 02/15/25 Order Info: 0667- - BMP Order Info: [id number] - MG Comments: numbness in head right side numbness in head right side Performed By: #### L 500.2500 #### [facility] [address] [place], [place], [address] CO2 [Moles/Vol] 23.1 mmol/L Normal 21.0-32.0 [facility] Comment on above: Order Comment: Order Date: 02/15/25 Order Info: 06 - BMP Order Info: 15612-2 - MG Comments: numbness in head right side numbness in head right side Performed By: #### L 500.2500 #### [facility] [address] [place], [place], [address] Creatinine [Mass/Vol] 1.00 mg/dL Normal 0.70-1.20 [facility] Comment on above: Order Comment: Order Date: 02/15/25 Order Info: 0667- - BMP Order Info: [id number] - MG Comments: numbness in head right side numbness in head right side Performed By: #### L 500.2500 #### [facility] [address] [place], [place], [address] GAP 11 Normal 5-15 [facility] Comment on above: Order Comment: Order Date: 02/15/25 Order Info: 0667- - BMP Order Info: 11557-9 - MG Comments: numbness in head right side numbness in head right side Performed By: #### L 500.2500 #### [facility] [address] [place], [place], [address] GFR/1.73 sq M.predicted among non-blacks MDRD (S/P/Bld) [Vol rate/Area] 84 mL/min/{1.73_m2} Normal >60 [facility] Comment on above: Order Comment: Order Date: 02/15/25 Order Info: 06 - BMP Order Info: [id number] - MG Comments: numbness in head right side numbness in head right side Result Comment: mL/m in/1.73m2 CKD-EPI Creatinine Equation (2020) Performed By: #### L 500.2500 #### [facility] [address] [place], [place], [phone] (770) Glucose [Mass/Vol] 92 mg/dL Normal 70-99 [facility] Comment on above: Order Comment: Order Date: 02/15/25 Order Info: 666-11 - BMP Order Info: 21553-0 - MG Comments: numbness in head right side numbness in head right side Performed By: #### L 500.2500 #### [facility] [address] [place], [address] Potassium [Moles/Vol] 4.3 mmol/L Normal 3.3-5.1 [facility] Comment on above: Order Comment: Order Date: 02/15/25 Order Info: 06 - BMP Order Info: [id number] - MG Comments: numbness in head right side numbness in head right side Performed By: #### L 500.2500 #### [facility] [address] [place], [address] Sodium [Moles/Vol] 138 mmol/L Normal 133-145 [facility] Comment on above: Order Comment: Order Date: 02/15/25 Order Info: 06 - BMP Order Info: 70019-8 - MG Comments: numbness in head right side numbness in head right side Performed By: #### L 500.2500 #### [facility] [address] [place], [place], [address] [phone] Urea nitrogen [Mass/Vol] 17 mg/dL Normal 4-19 [facility] Comment on above: Order Comment: Order Date: 02/15/25 Order Info: 06- - BMP Order Info: [id number] - MG Comments: numbness in head right side numbness in head right side Performed By: #### L 500.2500 #### [facility] [address] [place], [place], [id number] CBC-Complete Blood Cnt No Violette haji 02-15-2025 Erythrocyte distribution width (RBC) [Ratio] 12.8 % Normal 11.6-14.6 [facility] Comment on above: Order Comment: Order Date: 02/15/25 Order Info: [id number] - CBC Comments: numbness in head Performed By: #### L 100.0500 #### [facility] [address] [place], [address] Hematocrit (Bld) [Volume fraction] 43.2 % Normal 40-54 [facility] Comment on above: Order Comment: Order Date: 02/15/25 Order Info: [id number] - CBC Comments: numbness in head Performed By: #### L 100.0500 #### [facility] [address] [place], [address] Hemoglobin (Bld) [Mass/Vol] 14.5 g/dL Normal 13.0-16.5 [facility] Comment on above: Order Comment: Order Date: 02/15/25 Order Info: [id number] - CBC Comments: numbness in head Performed By: #### L 100.0500 #### [facility] [address] [place], [address] MCH (RBC) [Entitic mass] 31.9 pg Normal 27.0-32.0 [facility] Comment on above: Order Comment: Order Date: 02/15/25 Order Info: [id number] - CBC Comments: numbness in head Performed By: #### L 100.0500 #### [facility] [address] [place], [address] MCHC (RBC) [Mass/Vol] 33.6 g/dL Normal 32-36 [facility] Comment on above: Order Comment: Order Date: 02/15/25 Order Info: 13650-9 - CBC Comments: numbness in head Performed By: #### L 100.0500 #### [facility] [address] [place], [address] MCV (RBC) [Entitic vol] 95.2 fL High 80-94 [facility] Comment on above: Order Comment: Order Date: 02/15/25 Order Info: [id number] - CBC Comments: numbness in head Performed By: #### L 100.0500 #### [facility] [address] [place], [address] Platelet mean volume (Bld) [Entitic vol] 9.8 fL Normal 6.2-12.0 [facility] Comment on above: Order Comment: Order Date: 02/15/25 Order Info: [id number] - CBC Comments: numbness in head Performed By: #### L 100.0500 #### [facility] [address] [place], [address] Platelets (Bld) [#/Vol] 249 10*3/uL Normal 150-450 [facility] Comment on above: Order Comment: Order Date: 02/15/25 Order Info: [id number] - CBC Comments: numbness in head Performed By: #### L 100.0500 #### [facility] [address] [place], [address] RBC (Bld) [#/Vol] 4.54 10*6/uL Low 4.6-6.2 [facility] Comment on above: Order Comment: Order Date: 02/15/25 Order Info: [id number] - CBC Comments: numbness in head Performed By: #### L 100.0500 #### [facility] [address] [place], [address] RDW SD 44.9 fl High 35.1-43.9 [facility] Comment on above: Order Comment: Order Date: 02/15/25 Order Info: [id number] - CBC Comments: numbness in head Performed By: #### L 100.0500 #### [facility] [address] [place], [place], [phone] WBC (Bld) [#/Vol] 8.0 10*3/uL Normal 4.4-11.0 [facility] Comment on above: Order Comment: Order Date: 02/15/25 Order Info: [id number] - CBC Comments: numbness in head Performed By: #### L 100.0500 #### [facility] [address] [facility] [place], [place], [address] Carbon dioxide, total [Moles /volume] in Central venous bloodOrdered By: Jatinder [facility] on 02-15-2025 CO2 [Moles/Vol] 23.1 mmol/L 21.0-32.0 [facility] Chloride assayOrdered By: An gel orr on 02-15-2025 Chloride [Moles/Vol] 104 mmol/L 98-108 [facility] Erythrocyte distribution wid th (RBC) [Ratio]Ordered By: Jatinder [facility] on 02-15-2025 Erythrocyte distribution width (RBC) [Entitic vol] 44.9 fL High 35.1-43.9 [facility] Erythrocyte distribution wid th ratioOrdered By: Jatinder [facility]-15-2025 Erythrocyte distribution width (RBC) [Ratio] 12.8 % 11.6-14.6 [facility] Erythrocyte distribution wid th standard deviationOrdered By: Jatinder [facility] on 02-15-2025 Erythrocyte distribution width (RBC) [Ratio] 44.9 fl High 35.1-43.9 [facility] GFR/1.73 sq M.predicted hai g non-blacks MDRD (S/P/Bld) [Vol rate/Area]Ordered By: Jatinder Cora on 02-15-2025 Estimated GFR (MDRD) Non-Af Amer 84 >60 [facility] Comment on above: mL/min/1.73m2 CKD-EP I Creatinine Equation (2020) Glomerular filtration rate ( GFR) estimation/1.73 sq m using serum, plasma, or whole bOrdered By: Jatinder Cora on 02-15-2025 GFR/1.73 sq M.predicted among non-blacks MDRD (S/P/Bld) [Vol rate/Area] 84 mL/min/{1.73_m2} >60 [facility] Comment on above: mL/min/1.73m2 CKD-EP I Creatinine Equation (2020) Hematocrit Auto (Bld) [Volum e fraction]Ordered By: Jatinder Matias on 02-15-2025 Hematocrit (Bld) [Volume fraction] 43.2 % 40-54 [facility] Hemoglobin measurementOrdere d By: Jatinder Matias on 02-15-2025 Hemoglobin (Bld) [Mass/Vol] 14.5 g/dL 13.0-16.5 [facility] MCV (mean corpuscular volume ) determinationOrdered By: Jatinder Matias on 02-15-2025 MCV (RBC) [Entitic vol] 95.2 fL High 80-94 [facility] Magnesiumon 02-15-2025 Magnesium [Mass/Vol] 2.1 mg/dL Normal 1.5-2.2 [facility] Comment on above: Order Comment: Order Date: 02/15/25 Order Info: 0667-1 - BMP Order Info: [id number] - MG Comments: numbness in head right side Performed By: #### L 501.5200 #### [facility] [address] [place] [address], [id number] Magnesium (Unsp spec) [Mass/ Vol]Ordered By: Jatinder Matias on 02-15-2025 Magnesium [Mass/Vol] 2.1 mg/dL 1.5-2.2 [facility] Magnesium measurement (mass/ volume)Ordered By: Jatinder Matias on 02-15-2025 Magnesium (Unsp spec) [Mass/Vol] 2.1 mg/dL 1.5-2.2 [facility] Mean corpuscular hemoglobin (MCH) determinationOrdered By: Jatinder Matias on 02-15-2025 MCH (RBC) [Entitic mass] 31.9 pg 27.0-32.0 [facility] Mean corpuscular hemoglobin concentration (MCHC) determinationOrdered By: Jatinder Matias on 02-15-2025 MCHC (RBC) [Mass/Vol] 33.6 g/dL 32-36 [facility] Mean platelet volume determi nationOrdered By: Jatinder Corasiria on 02-15-2025 Platelet mean volume (Bld) [Entitic vol] 9.8 fL 6.2-12.0 [facility] Platelet countOrdered By: Paola lynn orrsiria on 02-15-2025 Platelets (Bld) [#/Vol] 249 10*3/uL 150-450 [facility] Potassium (Unsp spec) [Mass/ Vol]Ordered By: Jatinder Corasriia on 02-15-2025 Potassium [Moles/Vol] 4.3 mmol/L 3.3-5.1 [facility] Potassium measurement (mass/ volume)Ordered By: Jatinder Indrasiria on 02-15-2025 Potassium (Unsp spec) [Mass/Vol] 4.3 mmol/L 3.3-5.1 [facility] RBC Auto (Bld) [#/Vol]Ordere d By: Jatinder Indrasiria on 02-15-2025 RBC (Bld) [#/Vol] 4.54 10*6/uL Low 4.6-6.2 [facility] Serum creatinine measurement (mass/volume)Ordered By: Jatinder Corasiria on 02-15-2025 Creatinine [Mass/Vol] 1.00 mg/dL 0.70-1.20 [facility] Serum glucose measurement (m ass/volume)Ordered By: Jatinder Burrell on 02-15-2025 Glucose [Mass/Vol] 92 mg/dL 70-99 [facility] Serum or plasma calcium fabrizio urement (mass/volume)Ordered By: Jatinder Indrasiria on 02-15-2025 Calcium [Mass/Vol] 9.4 mg/dL 7.6-11.0 [facility] Serum or plasma urea nitroge n measurement (mass/volume)Ordered By: Jatinder Corasiria 02-15-2025 Urea nitrogen [Mass/Vol] 17 mg/dL 4-19 [facility] Sodium levelOrdered By: Lisa Matias on 02-15-2025 Sodium [Moles/Vol] 138 mmol/L 133-145 [facility] White blood cell (WBC) count Ordered By: Jatinder Corasiria 02-15-2025 WBC (Bld) [#/Vol] 8.0 10*3/uL 4.4-11.0 [facility] .Auto Diffon 12-19-2024 Basophil, Absolute 0.0 10 3/mcL Normal 0.0-0.2 [facility] Comment on above: Performed By: #### A NICK ABSGEL #### [address] [address] Basophils/100 WBC (Bld) 0.1 % Normal 0.0-2.5 [facility] Comment on above: Performed By: #### A NICK ABSGEL #### [address] [address] Eosinophil, Absolute 0.0 10 3/mcL Normal 0.0-0.7 [facility] Comment on above: Performed By: #### A NICK ABSGEL #### [address] [address] Eosinophils/100 WBC (Bld) 0.0 % Normal 0.0-7.0 [facility] Comment on above: Performed By: #### A NICK ABSGEL #### [address] [address] Lymphocyte, Absolute 0.8 10 3/mcL Low 0.9-4.3 [facility] Comment on above: Performed By: #### A NICK ABSGEL #### [address] [address] Lymphocytes/100 WBC (Bld) 5.4 % Low 20.0-40.0 [facility] Comment on above: Performed By: #### A NICK ABSGEL #### [address] [address] Monocyte, Absolute 1.9 10 3/mcL High 0.1-1.4 [facility] Comment on above: Performed By: #### A NICK ABSGEL #### [address] [address] Monocytes/100 WBC (Bld) 13.3 % High 2.0-13.0 [facility] Comment on above: Performed By: #### A ALYSSIA ROMERO #### [address] [address] Neutrophils/100 WBC (Bld) 81.2 % High 50.0-75.0 [facility] Comment on above: Performed By: #### A ALYSSIA ROMERO #### [address] [address] .GFRon 12-19-2024 Estimated Glomerular Filtration Rate 77 ml/min/1.73sqm Normal [facility] Comment on above: Result Comment: Stages of [...] Performed By: #### A ALYSSIA ROMERO #### [address] [address] .NEUABSon 12-19-2024 Neutrophil, Absolute 11.8 10 3/mcL High 2.3-8.1 [facility] Comment on above: Performed By: #### ALYSSIA OBRIEN #### [address] [address] BMPon 12-19-2024 BUN/Creatinine Ratio 23 ratio Normal 7-27 [facility] Comment on above: Performed By: #### A ALYSSIA ROMERO #### [address] [address] Calcium [Mass/Vol] 8.9 mg/dL Normal 8.4-10.2 [facility] Comment on above: Performed By: #### A ALYSSIA ROMERO #### [address] [address] Chloride [Moles/Vol] 102 mmol/L Normal 98-107 [facility] Comment on above: Performed By: #### A ALYSSIA ROMERO #### [address] [address] CO2 [Moles/Vol] 28 mmol/L Normal 23-31 [facility] Comment on above: Performed By: #### A ALYSSIA ROMERO #### [address] [address] Creatinine [Mass/Vol] 1.07 mg/dL Normal 0.70-1.30 [facility] Comment on above: Result Comment: Test ing performed on Siemens Dimension EXL analyzer using a modified kinetic Angi technique. Performed By: #### A ALYSSIA ROMERO #### [address] [address] Electrolyte Balance 6.0 mEq/L Normal 4.0-15.0 [facility] Comment on above: Performed By: #### A ALYSSIA ROMERO #### [address] [address] Glucose [Mass/Vol] 124 mg/dL High 80-115 [facility] Comment on above: Performed By: #### A ALYSSIA ROMERO #### [address] [address] Potassium [Moles/Vol] 4.8 mmol/L Normal 3.5-5.1 [facility] Comment on above: Performed By: #### A ALYSSIA ROMERO #### [address] [address] Sodium [Moles/Vol] 136 mmol/L Normal 136-145 [facility] Comment on above: Performed By: #### A ALYSSIA ROMERO #### [address] [address] Urea nitrogen [Mass/Vol] 25 mg/dL High 7-18 [facility] Comment on above: Performed By: #### A ALYSSIA ROMERO #### [address] [address] CBCon 12-19-2024 Erythrocyte distribution width (RBC) [Ratio] 12.9 % Normal 11.5-15.5 [facility] Comment on above: Performed By: #### A ALYSSIA ROMERO #### [address] [address] Hematocrit (Bld) [Volume fraction] 37.9 % Low 40.0-52.0 [facility] Comment on above: Performed By: #### A ALYSSIA ROMERO #### [address] [address] Hgb 13.0 G/dL Normal 13.0-17.5 [facility] Comment on above: Performed By: #### A ALYSSIA ROMERO #### [address] [address] MCH (RBC) [Entitic mass] 32.5 pg Normal 27.0-33.0 [facility] Comment on above: Performed By: #### A ALYSSIA ROMERO #### [address] [address] MCHC 34.3 G/dL Normal 32.0-36.0 [facility] Comment on above: Performed By: #### A ALYSSIA ROMERO #### [address] [address] MCV (RBC) [Entitic vol] 94.7 fL Normal 81.0-100.0 [facility] Comment on above: Performed By: #### A ALYSSIA ROMERO #### [address] [address] Platelet 193 10 3/mcL Normal 150-450 [facility] Comment on above: Performed By: #### A ALYSSIA ROMERO #### [address] [address] Platelet mean volume (Bld) [Entitic vol] 8.0 fL Normal 6.4-10.5 [facility] Comment on above: Performed By: #### A ALYSSIA ROMERO #### [place] [address] [place], [place] [address] RBC 4.00 10 6/mcL Low 4.50-6.00 [facility] Comment on above: Performed By: #### ALYSSIA OBRIEN #### [facility] [address] [place], [place] [address] WBC 14.5 10 3/mcL High 4.5-10.8 [facility] Comment on above: Performed By: #### ALYSSIA OBRIEN #### [place] [address] [place], [place] [address] LABORATORYOrdered By: SYSTEM SYSTEM on 12-19-2024 Basophils [...] 12-18-2024 ABO/Rh Interp Positive Invalid Interpretation Code [facility] Comment on above: Performed By: #### A ALYSSIA ROMERO #### [place] [address] [place], [place] [address] ABS (Gel)on 12-18-2024 ABSC Interp (Gel) Negative Normal [facility] Comment on above: Performed By: #### A ALYSSIA ROMERO #### [address] [address] LABORATORYOrdered By: Kristal Rodrigez on 12-18-2024 ABO and Rh group Nom (Bld) Blood group A Rh(D) positive Invalid Interpretation Code AO BB Auto SS Blood group antibody screen Ql Negative ABSC (12/18/24 6:02 AM) Normal AO BB Auto SS US ANESTHESIA BLOCKon 2024 US ANESTHESIA BLOCK ORIGINAL Images acquired, not reported on this accession number. Normal [facility] XR KNEE 1 OR 2 VIEWS LEFTon [...] 12/18/2024 9:41:30 AM Ordering Provider: MARISOL Dhaliwal [facility] Cardiology Visit Reporton Cardiology Visit Report [facility] [address] [place] [address] OFFICE VISIT Date of Service: 12/11/24 MR#: [id number] Acct: [id number] Name: QIAN SEGAL Rep #: [id number] : 1960 Provider: SUKHI dominguez Age/Sex: 64/M Location: [facility] Status: Signed HPI HPI History of Present [...] Intake Visit Reasons: Pre-op visit (general surgery) Sports Book Board Attendant Required: No Is patient in pain?: No Allergies ibuprofen Allergy (Verified 12/11/24 13:57) MAKES RIGHT SIDE OF FACE TO GO NUMB Medications ???Medication ???Instructions ???Recorded ???Confirmed ???Type apixaban 5 mg tablet (Eliquis) 5 mg PO BID blood thinner 03/17/24 12/11/24 History inositol-choline [id number] 1 tab PO TID tinnitus 03/17/24 0 [...] taken yesterday prior to surgery on 12/18/24 [facility] Medical History Bone spur Elevated blood pressure [...] normal bilaterally (more content not included)... Normal [facility] Stress Reporton 12-10-2024 Stress Report [facility] [address] [place] [address] MR#: [id number] Acct: [id number] Name: QIAN SEGAL Rep #: [id number] : 1960 64 From: Krish Leos MD [...] dysrhythmias noted This note was generated with FLENSation software. It may contain incorrect words, spelling, and punctuation that were not noted in checking the note before signing. 12/10/24 1101 Date Krish Leos MD CC: Dr. Morgan Moore MD Date Dictated: 12/10/241058 Date Transcribed: 12/10/241058 Electronic Tester: AMERICA Dhaliwal [facility] .Auto Diffon 11-26-2024 Basophil, Absolute 0.0 10 3/mcL Normal 0.0-0.2 [facility] Comment on above: Performed By: #### A BSGEL, BMP, ANEU, GFR, ADIFF, ABOGEL, ALB, CBC #### [address] [address] Basophils/100 WBC (Bld) 0.5 % Normal 0.0-2.5 [facility] Comment on above: Performed By: #### A BSGEL, BMP, ANEU, GFR, ADIFF, ABOGEL, ALB, CBC #### [address] [address] Eosinophil, Absolute 0.1 10 3/mcL Normal 0.0-0.7 [facility] Comment on above: Performed By: #### A BSGEL, BMP, ANEU, GFR, ADIFF, ABOGEL, ALB, CBC #### [address] [address] Eosinophils/100 WBC (Bld) 2.2 % Normal 0.0-7.0 [facility] Comment on above: Performed By: #### A BSGEL, BMP, ANEU, GFR, ADIFF, ABOGEL, ALB, CBC #### [address] [address] Lymphocyte, Absolute 0.9 10 3/mcL Normal 0.9-4.3 [facility] Comment on above: Performed By: #### A BSGEL, BMP, ANEU, GFR, ADIFF, ABOGEL, ALB, CBC #### [address] [address] Lymphocytes/100 WBC (Bld) 14.3 % Low 20.0-40.0 [facility] Comment on above: Performed By: #### A BSGEL, BMP, ANEU, GFR, ADIFF, ABOGEL, ALB, CBC #### [address] [address] Monocyte, Absolute 0.7 10 3/mcL Normal 0.1-1.4 [facility] Comment on above: Performed By: #### A BSGEL, BMP, ANEU, GFR, ADIFF, ABOGEL, ALB, CBC #### [address] [address] Monocytes/100 WBC (Bld) 10.4 % Normal 2.0-13.0 [facility] Comment on above: Performed By: #### A BSGEL, BMP, ANEU, GFR, ADIFF, ABOGEL, ALB, CBC #### [address] [address] Neutrophils/100 WBC (Bld) 72.6 % Normal 50.0-75.0 [facility] Comment on above: Performed By: #### A BSGEL, BMP, ANEU, GFR, ADIFF, ABOGEL, ALB, CBC #### [address] [address] .GFRon 11-26-2024 GFR 82 ml/min/1.73sqm Normal [facility] Comment on above: Result Comment: GFR Population [...] Performed By: #### A ALYSSIA ROMERO #### [address] [address] GFR Non- 68 ml/min/1.73sqm Normal [facility] Comment on above: Result Comment: GFR Population [...] Performed By: #### A ALYSSIA ROMERO #### [address] [address] .NEUABSon 11-26-2024 Neutrophil, Absolute 4.7 10 3/mcL Normal 2.3-8.1 [facility] Comment on above: Performed By: #### A BSGEL, BMP, ANEU, GFR, ADIFF, ABOGEL, ALB, CBC #### [address] [address] ABO/Rh (Gel)on 11-26-2024 ABO/Rh Interp Positive Invalid Interpretation Code [facility] Comment on above: Order Comment: SURG ANNIE 2/11 -AC Performed By: #### A ALYSSIA ROMERO #### [address] [address] ABS (Gel)on 11-26-2024 ABSC Interp (Gel) Negative Normal [facility] Comment on above: Order Comment: SURG ANNIE 2/11 -AC Performed By: #### A ALYSSIA ROMERO #### [address] [address] ALBon 11-26-2024 Albumin Level 3.5 G/dL Normal 3.4-4.8 [facility] Comment on above: Performed By: #### A BSGEL, BMP, ANEU, GFR, ADIFF, ABOGEL, ALB, CBC #### [address] [address] BMPon 11-26-2024 BUN/Creatinine Ratio 18 ratio Normal 7-27 [facility] Comment on above: Performed By: #### A BSGEL, BMP, ANEU, GFR, ADIFF, ABOGEL, ALB, CBC #### [address] [address] Calcium [Mass/Vol] 9.1 mg/dL Normal 8.4-10.2 [facility] Comment on above: Performed By: #### A BSGEL, BMP, ANEU, GFR, ADIFF, ABOGEL, ALB, CBC #### [address] [address] Chloride [Moles/Vol] 106 mmol/L Normal 98-107 [facility] Comment on above: Performed By: #### A BSGEL, BMP, ANEU, GFR, ADIFF, ABOGEL, ALB, CBC #### [address] [address] CO2 [Moles/Vol] 27 mmol/L Normal 23-31 [facility] Comment on above: Performed By: #### A BSGEL, BMP, ANEU, GFR, ADIFF, ABOGEL, ALB, CBC #### [address] [address] Creatinine [Mass/Vol] 1.09 mg/dL Normal 0.70-1.30 [facility] Comment on above: Result Comment: Test ing performed on [employer] Dimension EXL analyzer using a modified kinetic Angi technique. Performed By: #### A BSGEL, BMP, ANEU, GFR, ADIFF, ABOGEL, ALB, CBC #### [address] [address] Electrolyte Balance 8.0 mEq/L Normal 4.0-15.0 [facility] Comment on above: Performed By: #### A BSGEL, BMP, ANEU, GFR, ADIFF, ABOGEL, ALB, CBC #### [address] [address] Glucose [Mass/Vol] 94 mg/dL Normal 80-115 [facility] Comment on above: Performed By: #### A BSGEL, BMP, ANEU, GFR, ADIFF, ABOGEL, ALB, CBC #### [address] [address] Potassium [Moles/Vol] 4.1 mmol/L Normal 3.5-5.1 [facility] Comment on above: Performed By: #### A BSGEL, BMP, ANEU, GFR, ADIFF, ABOGEL, ALB, CBC #### [address] [address] Sodium [Moles/Vol] 141 mmol/L Normal 136-145 [facility] Comment on above: Performed By: #### A BSGEL, BMP, ANEU, GFR, ADIFF, ABOGEL, ALB, CBC #### [address] [address] Urea nitrogen [Mass/Vol] 20 mg/dL High 7-18 [facility] Comment on above: Performed By: #### A BSGEL, BMP, ANEU, GFR, ADIFF, ABOGEL, ALB, CBC #### [address] [address] CBCon 11-26-2024 Erythrocyte distribution width (RBC) [Ratio] 13.1 % Normal 11.5-15.5 [facility] Comment on above: Order Comment: Pre-A dmission Testing Performed By: #### A BSGEL, BMP, ANEU, GFR, ADIFF, ABOGEL, ALB, CBC #### [address] [address] Hematocrit (Bld) [Volume fraction] 45.4 % Normal 40.0-52.0 [facility] Comment on above: Order Comment: Pre-A dmission Testing Performed By: #### A BSGEL, BMP, ANEU, GFR, ADIFF, ABOGEL, ALB, CBC #### [address] [address] Hgb 15.7 G/dL Normal 13.0-17.5 [facility] Comment on above: Order Comment: Pre-A dmission Testing Performed By: #### A BSGEL, BMP, ANEU, GFR, ADIFF, ABOGEL, ALB, CBC #### [address] [address] MCH (RBC) [Entitic mass] 32.9 pg Normal 27.0-33.0 [facility] Comment on above: Order Comment: Pre-A dmission Testing Performed By: #### A BSGEL, BMP, ANEU, GFR, ADIFF, ABOGEL, ALB, CBC #### [place] [address] MCHC 34.6 G/dL Normal 32.0-36.0 [facility] Comment on above: Order Comment: Pre-A dmission Testing Performed By: #### A BSGEL, BMP, ANEU, GFR, ADIFF, ABOGEL, ALB, CBC #### [place] [address] MCV (RBC) [Entitic vol] 95.1 fL Normal 81.0-100.0 [facility] Comment on above: Order Comment: Pre-A dmission Testing Performed By: #### A BSGEL, BMP, ANEU, GFR, ADIFF, ABOGEL, ALB, CBC #### [address] [address] Platelet 201 10 3/mcL Normal 150-450 [facility] Comment on above: Order Comment: Pre-A dmission Testing Performed By: #### A BSGEL, BMP, ANEU, GFR, ADIFF, ABOGEL, ALB, CBC #### [address] [address] Platelet mean volume (Bld) [Entitic vol] 8.2 fL Normal 6.4-10.5 [facility] Comment on above: Order Comment: Pre-A dmission Testing Performed By: #### A BSGEL, BMP, ANEU, GFR, ADIFF, ABOGEL, ALB, CBC #### [address] [place], [place] [address] RBC 4.77 10 6/mcL Normal 4.50-6.00 [facility] Comment on above: Order Comment: Pre-A dmission Testing Performed By: #### A BSGEL, BMP, ANEU, GFR, ADIFF, ABOGEL, ALB, CBC #### [address] [place], [place] [address] WBC 6.5 10 3/mcL Normal 4.5-10.8 [facility] Comment on above: Order Comment: Pre-A dmission Testing Performed By: #### A BSGEL, BMP, ANEU, GFR, ADIFF, ABOGEL, ALB, CBC #### [address] [place], [place] [address] CT KNEE W/O CONTRAST LEFTon 11-26-2024 CT [...] most pronounced in the medial compartment with [id number], asymmetric joint space narrowing, marginal osteophyte formation [...] 11/26/2024 3:43:26 PM Ordering Provider: MARISOL Dhaliwal [facility] LABORATORYOrdered By: Kisha Silveira on 11-26-2024 ABO and Rh group Nom (Bld) Blood group A Rh(D) positive Invalid Interpretation Code AO BB Auto SS Blood group antibody screen Ql Negative ABSC (11/26/24 12:18 PM) Normal AO BB Auto SS LABORATORYOrdered By: [employer] on 11-26-2024 Albumin BCP dye [Mass/Vol] [...] Comment on above: Result Comment: [place] [id number] MRSA PCR Int MRSA DNA not detecte [...] MRSA (PCR) Not detected Normal Not Detected [facility] Comment on above: [place]: [place] [id number] Performed By: #### A ALYSSIA ROMERO #### [id number] [place], [place] [address] MRSA PCR Int Normal [facility] Comment on above: Result Comment: MRSA DNA [...] Performed By: #### A ALYSSIA ROMERO #### [address] [address] Echo Complete W/ Contraston 07-03-2024 Echo Complete W/ Contrast [facility] [address] [place] [address] Echo Complete W/ Contrast 07/03/24 1316 MR#: [id number] Acct: [id number] Name: QIAN SEGAL Rep #: [id number] : 1960 64 From: Krish Leos MD [...] Dictated: 07/03/24 1316 Date Transcribed: 07/04/24 1001 Electronic Tester: Signed Normal [facility] 12 Lead EKG performed by [facility] on 06-28-2024 12 Lead EKG performed by [facility] [address] [place] [address] 12 Lead EKG performed by [facility] 06/28/24 1032 MR#: [id number] Acct: [id number] Name: QIAN SEGAL Rep #: [id number] : 1960 64 From: Krish Leos MD Attending Dr: Dr. Krish Leos MD Status: DEP AMB Ordering Dr: Krish Leos MD Date: 06/28/24 Location: [facility] Sex: M C Admitted: [facility]/12 Lead EKG performed by [facility] ECG Report Interpretation ---Sinus Rhythm WITHIN NORMAL LIMITSElectronically signed on 12/03/2024 at 10:[address] Krish Leos [employer] Software Version 8610 12/03/24 1029 Date Krish Leos MD CC: Dr. Morgan Moore MD Date Dictated: 06/28/24 1032 Date Transcribed: 06/28/24 1032 Electronic Tester: AR Signed Normal [facility] Cardiology Visit Reporton Cardiology Visit Report [facility] [address] [place] [address] OFFICE VISIT Date of Service: 06/28/24 MR#: [id number] Acct: [id number] Name: QIAN SEGAL Rep #: [id number] : 1960 Provider: Dr. Krish Leos MD Age/Sex: 64/M Location: [facility] Status: Signed HPI HPI History of Present [...] Source Monitor Intake Visit Reasons: TIA (TERESA) Sports Book Board Attendant Required: No Accompanied by: Is patient in pain?: No Allergies ibuprofen Allergy (Verified 06/28/24 10:38) MAKES RIGHT SIDE OF FACE TO GO NUMB Medications ???Medication ???Instructions ???Recorded ???Confirmed ???Type apixaban 5 mg tablet (Eliquis) 5 mg PO BID blood thinner 03/17/24 06/28/24 History inositol-choline iag-bgyjcsyyi-gmv 1 tab PO TID tinnitus 03/17/24 06/28/24 [...] 1824 V (more content not included)... Normal [facility] Basophil percentageOrdered B y: Mark James on 03-18-2024 Chloride [Moles/Vol] 107 mmol/L 98-107 [facility] Cholesterol [Mass/Vol] 164 mg/dL <200 [facility] Comment on above: <200 mg/dL Desirable 200-240 mg/dL Borderline >240 mg/dL High Risk Glucose [Mass/Vol] 86 mg/dL 74-106 [facility] Hemoglobin (Bld) [Mass/Vol] 15.4 g/dL 13.0-16.5 [facility] Potassium [Moles/Vol] 4.0 mmol/L 3.5-5.1 [facility] Sodium [Moles/Vol] 139 mmol/L 136-145 [facility] Triglyceride [Mass/Vol] 159 mg/dL <199 [facility] Comment on above: The drugs N-Acetylcy steine and Metamizole may falsely depress this assay.Serum Triglycerides Reference Interval Normal <150 mg/dL Borderline high 150 - 199 mg/dL High 200 - 499 mg/dL Very High > or = 500 mg/dL WBC (Bld) [#/Vol] 7.0 10*3/uL 4.4-11.0 [facility] Determination of erythrocyte mean corpuscular volume (MCV)Ordered By: Mark James on 03-18-2024 MCV (RBC) [Entitic vol] 95.8 fL 80-94 [facility] Erythrocyte distribution wid th ratioOrdered By: Mark James on 03-18-2024 Erythrocyte distribution width (RBC) [Ratio] 12.4 % 11.6-14.6 [facility] Erythrocyte distribution wid th standard deviationOrdered By: Mark James on 03-18-2024 Erythrocyte distribution width (RBC) [Entitic vol] 44.1 fL 35.1-43.9 [facility] Hematocrit Auto (Bld) [Volum e fraction]Ordered By: Mark Jamse on 03-18-2024 Hematocrit (Bld) [Volume fraction] 45.5 % 40-54 [facility] Laboratory - Chemistry and C hemistry - challengeOrdered By: Mark James on 03-18-2024 Cholesterol in HDL [Mass/Vol] 40 mg/dL >40 [facility] Comment on above: The drugs N-Acetylcy steine and Metamizole may falsely depress this assay. Reference Range HDL <40 mg/dL Low HDL Cholesterol HDL >or= 60 mg/dL High HDL Cholesterol Cholesterol in LDL [Mass/Vol] 92 mg/dL 0-130 [facility] CO2 [Moles/Vol] 28.0 mmol/L 21.0-32.0 [facility] Urea nitrogen/Creatinine [Mass ratio] 16.1 mg/mg 10-20 [facility] Laboratory - Hematology and Cell countsOrdered By: Mark James on 03-18-2024 MCH (RBC) [Entitic mass] 32.4 pg 27.0-32.0 [facility] MCHC (RBC) [Mass/Vol] 33.8 g/dL 32-36 [facility] Platelet mean volume (Bld) [Entitic vol] 9.5 fL 6.2-12.0 [facility] Platelets (Bld) [#/Vol] 217 10*3/uL 150-450 [facility] No Panel InformationOrdered By: Mark James on 03-18-2024 Estimated Creatinine Clearance Calc 108.57 ml/min [facility] Estimated GFR (MDRD) Amer 105 mL/min >60 [facility] Comment on above: GFR Calc Estimated GFR (MDRD) Non-Af Amer 86 mL/min >60 [facility] Comment on above: Non- GFR Calc VLDL Cholesterol 32 mg/dL 5-40 [facility] RBC Auto (Bld) [#/Vol]Ordere d By: Mark James on 03-18-2024 RBC (Bld) [#/Vol] 4.75 10*6/uL 4.6-6.2 [facility] Serum or plasma calcium fabrizio urement (mass/volume)Ordered By: Mark James on 03-18-2024 Calcium [Mass/Vol] 9.0 mg/dL 8.5-10.1 [facility] Serum or plasma creatinine m easurement (mass/volume)Ordered By: Mark James on 03-18-2024 Creatinine [Mass/Vol] 0.93 mg/dL 0.70-1.30 [facility] Comment on above: The validity of the calculated GFR & GFRAA in patients over 70 years has not been determined. Clinical correlation is essential. Serum or plasma urea nitroge n measurement (mass/volume)Ordered By: Mark James on 03-18-2024 Urea nitrogen [Mass/Vol] 15 mg/dL 7-18 [facility] Thin prep Papanicolaou smear with manual screeningOrdered By: Mark James on 03-18-2024 Thin prep Papanicolaou smear with manual screening 4 5-15 [facility] Absolute lymphocyte countOrd ered By: [facility] on 03-17-2024 Lymphocytes Auto (Unsp spec) [#/Vol] 1.24 10*3/uL 0.83-4.51 [facility] Activated partial thrombopla stin time (aPTT) in platelet poor plasma by coagulation aOrdered By: [facility] on 03-17-2024 aPTT Coag (PPP) [Time] 25.5 s 24.1-36.2 [facility] Automated lymphocyte count a s percentage of total leukocytesOrdered By: Alex [facility] on 03-17-2024 Lymphocytes/100 WBC Auto (Unsp spec) 18.4 % 19-41 [facility] Basophil percentageOrdered B y: [facility] on 03-17-2024 Basophils/100 WBC (Bld) 0.6 % 0-1 [facility] Chloride [Moles/Vol] 105 mmol/L 98-107 [facility] Eosinophils/100 WBC (Bld) 2.4 % 0-5 [facility] Glucose [Mass/Vol] 101 mg/dL 74-106 [facility] Comment on above: Fasting Glucose resu lt from 100 to 125 mg/dL suggests IMPAIRED HOMEOSTASIS per A.D.A. criteria. Hemoglobin (Bld) [Mass/Vol] 14.9 g/dL 13.0-16.5 [facility] Monocytes/100 WBC (Bld) 10.7 % 0-10 [facility] Neutrophils (Bld) [#/Vol] 4.5 10*3/uL 2.0-7.7 [facility] Neutrophils/100 WBC (Bld) 67.5 % 47-70 [facility] Potassium [Moles/Vol] 3.8 mmol/L 3.5-5.1 [facility] Sodium [Moles/Vol] 138 mmol/L 136-145 [facility] WBC (Bld) [#/Vol] 6.7 10*3/uL 4.4-11.0 [facility] Determination of erythrocyte mean corpuscular volume (MCV)Ordered By: Alexjordan Severino on 03-17-2024 MCV (RBC) [Entitic vol] 95.7 fL 80-94 [facility] Erythrocyte distribution wid th ratioOrdered By: [facility] on 03-[facility]-2024 Erythrocyte distribution width (RBC) [Ratio] 12.5 % 11.6-14.6 [facility] Erythrocyte distribution wid th standard deviationOrdered By: [facility] on 03-17-2024 Erythrocyte distribution width (RBC) [Entitic vol] 43.8 fL 35.1-43.9 [facility] Hematocrit Auto (Bld) [Volum e fraction]Ordered By: Alexjordan Severino on 03-17-2024 Hematocrit (Bld) [Volume fraction] 44.6 % 40-54 [facility] Immature granulocytes/100 WB C Auto (Bld)Ordered By: [facility] on 03-17-2024 Immature granulocytes/100 WBC (Bld) 0.400 % 0.0-0.9 [facility] Comment on above: IG% - Immature Granu locytes (promyelocytes, myelocytes and metamyelocytes) > 1% indicates that a LEFT SHIFT is Present. Laboratory - Chemistry and C hemistry - challengeOrdered By: Alex Severino on 03-17-2024 CO2 [Moles/Vol] 28.0 mmol/L 21.0-32.0 [facility] Urea nitrogen/Creatinine [Mass ratio] 19.0 mg/mg 10-20 [facility] Laboratory - CoagulationOrde red By: Alexjordan Severino on 03-17-2024 INR Coag (Bld) [Relative time] 1.1 {INR} [facility] PT Coag (PPP) [Time] 14.2 s 11.7-14.9 [facility] Laboratory - Hematology and Cell countsOrdered By: Alexjordan Severino on 03-17-2024 MCH (RBC) [Entitic mass] 32.0 pg 27.0-32.0 [facility] MCHC (RBC) [Mass/Vol] 33.4 g/dL 32-36 [facility] Nucleated RBC/100 WBC (Bld) [Ratio] 0 % 0-5 [facility] Platelet mean volume (Bld) [Entitic vol] 9.5 fL 6.2-12.0 [facility] Platelets (Bld) [#/Vol] 218 10*3/uL 150-450 [facility] No Panel InformationOrdered By: Alex Severino on 03-17-2024 Estimated Creatinine Clearance Calc 101.59 ml/min [facility] Estimated GFR (MDRD) Amer 97 mL/min >60 [facility] Comment on above: GFR Calc Estimated GFR (MDRD) Non-Af Amer 80 mL/min >60 [facility] Comment on above: Non- GFR Calc Troponin I High Sensitivity < 3 pg/mL 3.0-78.0 [facility] Comment on above: Please Note: New [place] t Units and Gender Specific Reference Ranges. For more information see Policy Stat Procedure [place] High Sensitivity Troponin (TNIH) and attachments. RBC Auto (Bld) [#/Vol]Ordere d By: Alex Severino on 03-17-2024 RBC (Bld) [#/Vol] 4.66 10*6/uL 4.6-6.2 [facility] Serum or plasma calcium fabrizio urement (mass/volume)Ordered By: Alex Severino on 03-17-2024 Calcium [Mass/Vol] 9.2 mg/dL 8.5-10.1 [facility] Serum or plasma creatinine m easurement (mass/volume)Ordered By: Alexjordan Severino on 03-17-2024 Creatinine [Mass/Vol] 1.00 mg/dL 0.70-1.30 [facility] Comment on above: The validity of the calculated GFR & GFRAA in patients over 70 years has not been determined. Clinical correlation is essential. Serum or plasma thyroid stim ulating hormone (TSH) measurement (units/volume)Ordered By: Mark James on 03-17-2024 TSH Qn 1.40 uIU/mL 0.358-3.74 [facility] Serum or plasma urea nitroge n measurement (mass/volume)Ordered By: Alex Severino on 03-17-2024 Urea nitrogen [Mass/Vol] 19 mg/dL 7-18 [facility] Thin prep Papanicolaou smear with manual screeningOrdered By: Alex Severino on 03-17-2024 Thin prep Papanicolaou smear with manual screening 93 mg/dL 74-106 [facility] Comment on above: MANAGEMENT OF PATIEN T CARE PER NURSING PROTOCOL Thin prep Papanicolaou smear with manual screening 5 5-15 [facility] Whole blood hemoglobin A1c/t otal hemoglobin ratio (mass fraction)Ordered By: Mark James on 03-17-2024 HbA1c (Bld) [Mass fraction] 5.3 % 3.8-5.6 [facility] Comment on above: Normal < 5.7 % Predi abetic 5.7 - 6.4 % Diabetic >or= 6.5 % Please note range changes. Basophil percentageOrdered B y: Morgan Moore on 01-04-2024 Basophil percentage 0.74 ng/mL 0.0-4.0 [facility] Comment on above: This test was perfor med using the TPSA assay method for the[employer] chemistry system. Values obtained with differentassay methods cannot be used interchangably.When changing PSA assays in the course of monitoring apatient, additional sequential testing should be carriedout to confirm baseline values. Bilirubin [Mass/Vol] 0.50 mg/dL 0.20-1.00 [facility] Comment on above: For patients on eltr ombopag therapy, use of Dimension [place] TBIL is not recommended. Chloride [Moles/Vol] 112 mmol/L 98-107 [facility] Cholesterol [Mass/Vol] 232 mg/dL <200 [facility] Comment on above: <200 mg/dL Desirable 200-240 mg/dL Borderline >240 mg/dL High Risk Glucose [Mass/Vol] 85 mg/dL 74-106 [facility] Potassium [Moles/Vol] 4.0 mmol/L 3.5-5.1 [facility] Protein [Mass/Vol] 6.8 g/dL 6.4-8.2 [facility] Sodium [Moles/Vol] 141 mmol/L 136-145 [facility] Testosterone [Mass/Vol] 688.23 ng/dL [facility] Comment on above: CENTRAL 90% REFERENC E RANGES MALE AGE <50 197.44 - 669.58 ng/dL MALE AGE > or = 50 187.72 - 684.19 ng/dL FEMALE AGE <50 8.38 - 35.01 ng/dL FEMALE AGE > or = 50 <7.00 - 35.92 ng/dL Effective as of 06/02/21 Triglyceride [Mass/Vol] 146 mg/dL <199 [facility] Comment on above: The drugs N-Acetylcy steine and Metamizole may falsely depress this assay.Serum Triglycerides Reference Interval Normal <150 mg/dL Borderline high 150 - 199 mg/dL High 200 - 499 mg/dL Very High > or = 500 mg/dL Laboratory - Chemistry and C hemistry - challengeOrdered By: Morgan Moore on 01-04-2024 Albumin/Globulin [Mass ratio] 1.1 {ratio} 0.9-2.4 [facility] ALP [Catalytic activity/Vol] 47 U/L 45-117 [facility] ALT [Catalytic activity/Vol] 16 U/L 16-61 [facility] Cholesterol in HDL [Mass/Vol] 38 mg/dL >40 [facility] Comment on above: The drugs N-Acetylcy steine and Metamizole may falsely depress this assay. Reference Range HDL <40 mg/dL Low HDL Cholesterol HDL >or= 60 mg/dL High HDL Cholesterol Cholesterol in LDL [Mass/Vol] 165 mg/dL 0-130 [facility] CO2 [Moles/Vol] 26.0 mmol/L 21.0-32.0 [facility] Globulin (S) [Mass/Vol] 3.3 g/dL 2.2-4.2 [facility] Urea nitrogen/Creatinine [Mass ratio] 21.9 mg/mg 10-20 [facility] No Panel InformationOrdered By: Morgan Moore on 01-04-2024 Estimated GFR (MDRD) Amer 101 mL/min >60 [facility] Comment on above: GFR Calc Estimated GFR (MDRD) Non-Af Amer 84 mL/min >60 [facility] Comment on above: Non- GFR Calc VLDL Cholesterol 29 mg/dL 5-40 [facility] Serum or plasma calcium fabrizio urement (mass/volume)Ordered By: Morgan Moore on 01-04-2024 Calcium [Mass/Vol] 8.9 mg/dL 8.5-10.1 [facility] Serum or plasma creatinine m easurement (mass/volume)Ordered By: Morgan Moore on 01-04-2024 Creatinine [Mass/Vol] 0.96 mg/dL 0.70-1.30 [facility] Comment on above: The validity of the calculated GFR & GFRAA in patients over 70 years has not been determined. Clinical correlation is essential. Serum or plasma urea nitroge n measurement (mass/volume)Ordered By: Morgan Moore on 01-04-2024 Urea nitrogen [Mass/Vol] 21 mg/dL 7-18 [facility] Thin prep Papanicolaou smear with manual screeningOrdered By: Morgan Moore on 01-04-2024 Thin prep Papanicolaou smear with manual screening 3.5 g/dL 3.2-5.0 [facility] Thin prep Papanicolaou smear with manual screening 13 U/L 15-37 [facility] Thin prep Papanicolaou smear with manual screening 3 5-15 [facility] Laboratory - Microbiology an d Antimicrobial susceptibilityon 04-20-2022 SARS-CoV-2 (COVID-19) RNA PIO+probe Ql (Unsp spec) Detected Not Detect [facility] Work Phone: Comment on above: Normal [...] CNP Authorized by: Renata Jasso CNP CPT 46407 - Large Joint Arthrocentesis: Consent given by: [...] well with no immediate complications [facility] 10-13-2021 Erythrocyte distribution width (RBC) [Ratio] 13.4 % Normal 11.5 - 14.5 [facility] Comment on above: Performed By: #### C BC #### [place] [address] Hematocrit (Bld) [Volume fraction] 46.1 % Normal 41.0 - 52.0 [facility] Comment on above: Performed By: #### C BC #### [address] [address] Hemoglobin (Bld) [Mass/Vol] 15.5 g/dL Normal 13.5 - 17.5 [facility] Comment on above: Performed By: #### C BC #### [address] [address] MCHC (RBC) [Mass/Vol] 33.7 g/dL Normal 32.0 - 36.0 [facility] Comment on above: Performed By: #### C BC #### [address] [address] MCV (RBC) [Entitic vol] 97 fL Normal 80 - 100 U [facility] Comment on above: Performed By: #### C BC #### [place] [id number] Platelets (Bld) [#/Vol] 222 10*3/uL Normal 150 - 450 [facility] Comment on above: Performed By: #### C BC #### [address] [address] RBC 4.77 x10E12/L Normal 4.50 - 5.90 [facility] Comment on above: Performed By: #### C BC #### [address] [address] WBC (Bld) [#/Vol] 5.9 10*3/uL Normal 4.4 - 11.3 [facility] Comment on above: Performed By: #### C BC #### [address] [address] COMPREHENSIVE PANELon 2020 Albumin [Mass/Vol] 4.4 g/dL Normal 3.4 - 5.0 [facility] Comment on above: Performed By: #### C MP #### [address] [address] ALP [Catalytic activity/Vol] 43 U/L Normal 33 - 136 [facility] Comment on above: Performed By: #### C MP #### [address] [address] ALT [Catalytic activity/Vol] 12 U/L Normal 10 - 52 [facility] Comment on above: Result Comment: Jannie ents treated with Sulfasalazine may generate falsely decreased results for ALT. Performed By: #### C MP #### [address] [address] Anion gap [Moles/Vol] 11 mmol/L Normal 10 - 20 [facility] Comment on above: Performed By: #### C MP #### [address] [address] AST [Catalytic activity/Vol] 13 U/L Normal 9 - 39 [facility] Comment on above: Performed By: #### C MP #### [address] [address] Bilirubin [Mass/Vol] 0.5 mg/dL Normal 0.0 - 1.2 [facility] Comment on above: Performed By: #### C MP #### [address] [address] Calcium [Mass/Vol] 9.1 mg/dL Normal 8.6 - 10.3 [facility] Comment on above: Performed By: #### C MP #### [address] [address] Chloride [Moles/Vol] 106 mmol/L Normal 98 - 107 [facility] Comment on above: Performed By: #### C MP #### [address] [address] Creatinine [Mass/Vol] 0.95 mg/dL Normal 0.50 - 1.30 [facility] Comment on above: Performed By: #### C MP #### [address] [address] GFR- AM. >60 Normal >60 [facility] Comment on above: Result Comment: CALC ULATIONS OF ESTIMATED GFR ARE PERFORMED USING THE MDRD STUDY EQUATION FOR THE IDMS-TRACEABLE CREATININE METHODS. CLIN CHEM 2007;53:766-72 Performed By: #### C MP #### [address] [address] GFR-NON AM. >60 Normal >60 [facility] Comment on above: Performed By: #### C MP #### [address] [address] Glucose [Mass/Vol] 86 mg/dL Normal 74 - 99 [facility] Comment on above: Performed By: #### C MP #### [address] [address] HCO3 (Bld) [Moles/Vol] 28 mmol/L Normal 21 - 32 [facility] Comment on above: Performed By: #### C MP #### [address] [address] Potassium [Moles/Vol] 4.2 mmol/L Normal 3.5 - 5.3 [facility] Comment on above: Performed By: #### C MP #### [address] [address] Protein [Mass/Vol] 6.6 g/dL Normal 6.4 - 8.2 [facility] Comment on above: Performed By: #### C MP #### [address] [address] Sodium [Moles/Vol] 141 mmol/L Normal 136 - 145 [facility] Comment on above: Performed By: #### C MP #### [address] [address] Urea nitrogen [Mass/Vol] 19 mg/dL Normal 6 - 23 [facility] Comment on above: Performed By: #### C MP #### [address] [address] LIPID PANEL (CORONARY RISK 2 )on 10-13-2021 Cholesterol [Mass/Vol] 226 mg/dL High 0 - 199 [facility] Comment on above: Result Comment: [...] dosing. Performed By: #### L IPID #### [address] [address] Cholesterol in HDL [Mass/Vol] 37.0 mg/dL Abnormal [facility] Comment on above: Result Comment: . AGE VERY LOW LOW NORMAL HIGH 0-19 Y < 35 < 40 40-45 ---- 20-24 Y ---- < 40 >45 ---- >24 Y ---- < 40 40-60 >60 . Performed By: #### L IPID #### [address] [address] Cholesterol in LDL [Mass/Vol] 139 mg/dL High 0 - 99 [facility] Comment on above: Result Comment: . NEAR BORD AGE DESIRABLE OPTIMAL HIGH HIGH VERY HIGH 0-19 Y 0 - 109 --- 110-129 >/= 130 ---- 20-24 Y 0 - 119 --- 120-159 >/= 160 ---- >24 Y 0 - 99 100-129 130-159 160-189 >/=190 . Performed By: #### L IPID #### [address] [address] Cholesterol in VLDL [Mass/Vol] 50 mg/dL High 0 - 40 [facility] Comment on above: Performed By: #### L IPID #### [address] [address] Cholesterol.total/Ingrid sterol in HDL [Mass ratio] 6.1 {ratio} Abnormal [facility] Comment on above: Result Comment: REF VALUES DESIRABLE < 3.4 HIGH RISK > 5.0 Performed By: #### L IPID #### [address] [address] NON-HDL CHOLESTEROL 189 mg/dL Normal [facility] Comment on above: Result Comment: AGE DESIRABLE BORDERLINE HIGH HIGH VERY HIGH 0-19 Y 0 - 119 120 - 144 >/= 145 >/= 160 20-24 Y 0 - 149 150 - 189 >/= 190 ---- >24 Y 30 MG/DL ABOVE LDL CHOLESTEROL GOAL . Performed By: #### L IPID #### [address] [address] Triglyceride [Mass/Vol] 250 mg/dL High 0 - 149 [facility] Comment on above: Result Comment: [...] dosing. Performed By: #### L IPID #### [facility] [address] [place] [id number] Laboratory - Chemistry and C hemistry - challengeon 10-13-2021 Albumin BCP dye [Mass/Vol] 4.4 g/dL 3.4 - 5.0 [facility] Work Phone: ALP [Catalytic activity/Vol] 43 U/L 33 - 136 [facility] Work Phone: [phone] ALT With P-5'-P [Catalytic activity/Vol] 12 U/L 10 - 52 [facility] Work Phone: [phone] Comment on above: Patients treated wit h Sulfasalazine may generate falsely decreased results for ALT. Anion gap [Moles/Vol] 11 mmol/L 10 - 20 [facility] [employer] [facility] Work Phone: [phone] AST With P-5'-P [Catalytic activity/Vol] 13 U/L 9 - 39 [facility] Work Phone: [phone] Bilirubin [Mass/Vol] 0.5 mg/dL 0.0 - 1.2 [facility] [employer] [facility] Work Phone: Calcium [Mass/Vol] 9.1 mg/dL 8.6 - 10.3 [employer] [facility] Work Phone: Chloride [Moles/Vol] 106 mmol/L 98 - 107 [employer] [facility] Work Phone: CO2 [Moles/Vol] 28 mmol/L 21 - 32 [facility] Work Phone: Creatinine [Mass/Vol] 0.95 mg/dL See Below [facility] [employer] [facility] Work Phone: [phone] Comment on above: Reference Range: 0.5 0 - 1.30 Glucose [Mass/Vol] 86 mg/dL 74 - 99 [facility] [employer] [facility] Work Phone: [phone] Potassium [Moles/Vol] 4.2 mmol/L 3.5 - 5.3 [facility] [employer] [facility] Work Phone: [phone] Protein [Mass/Vol] 6.6 g/dL 6.4 - 8.2 [facility] Work Phone: [phone] Sodium [Moles/Vol] 141 mmol/L 136 - 145 [facility] Work Phone: [phone] Urea nitrogen [Mass/Vol] 19 mg/dL 6 - 23 [facility] Work Phone: [phone] Laboratory - Hematology and Cell countson 10-13-2021 Erythrocyte distribution width (RBC) [Ratio] 13.4 % See Below [facility] Work Phone: [phone] Comment on above: Reference Range: 11. 5 - 14.5 Hematocrit (Bld) [Volume fraction] 46.1 % See Below [facility] Work Phone: [phone] Comment on above: Reference Range: 41. 0 - 52.0 Hemoglobin (Bld) [Mass/Vol] 15.5 g/dL See Below [facility] Work Phone: [phone] Comment on above: Reference Range: 13. 5 - 17.5 MCHC (RBC) [Mass/Vol] 33.7 g/dL See Below [facility] Work Phone: [phone] Comment on above: Reference Range: 32. 0 - 36.0 MCV (RBC) [Entitic vol] 97 fL 80 - [address] [facility] Work Phone: [phone] Platelets (Bld) [#/Vol] 222 10*3/uL 150 - 450 [facility] Work Phone: [phone] RBC (Bld) [#/Vol] 4.77 {x10E12/L} See Below [facility] Work Phone: [phone] Comment on above: Reference Range: 4.5 0 - 5.90 WBC (Bld) [#/Vol] 5.9 10*3/uL 4.4 - 11.3 [employer] [facility] [facility] Work Phone: Lipid Panelon 10-13-2021 Cholesterol [Mass/Vol] 226 mg/dL above hig h threshold 0 - 199 [employer] [facility] Work Phone: Comment on above: . AGE [...] Cholesterol in HDL [Mass/Vol] 37.0 mg/dL Abnormal [employer] [facility] Work Phone: Comment on above: . AGE VERY LOW LOW N ORMAL HIGH 0-19 Y < 35 < 40 40-45 ---- 20-24 Y ---- < 40 >45 ---- >24 Y ---- < 40 40-60 >60. Cholesterol in LDL [Mass/Vol] 139 mg/dL above high threshold 0 - 99 [employer] [facility] Work Phone: Comment on above: . NEAR BORD AGE ROHINI RABLE OPTIMAL HIGH HIGH VERY HIGH 0-19 Y 0 - 109 --- 110-129 >/= 130 ---- 20-24 Y 0 - 119 --- 120-159 >/= 160 ---- >24 Y 0 - 99 100-129 130-159 160-189 >/=190. Cholesterol non HDL [Mass/Vol] 189 mg/dL [employer] [facility] Work Phone: Comment on above: AGE DESIRABLE BORDER LINE HIGH HIGH VERY HIGH 0-19 Y 0 - 119 120 - 144 >/= 145 >/= 160 20-24 Y 0 - 149 150 - 189 >/= 190 ---- >24 Y 30 MG/DL ABOVE LDL CHOLESTEROL GOAL. Cholesterol.total/Ingrid sterol in HDL [Mass ratio] 6.1 {ratio} Abnormal [employer] [facility] Work Phone: Comment on above: REF VALUESDESIRABLE < 3.4HIGH RISK > 5.0 Triglyceride [Mass/Vol] 250 mg/dL above hi gh threshold 0 - 149 [employer] [facility] Work Phone: Comment on above: . [...] mg/dL above high threshold 0 - 40 [employer] [facility] Work Phone: No Panel Informationon 10-13 >60 >60 [employer] [facility] Work Phone: Comment on above: CALCULATIONS OF [...] Count; Status:In Progress - Specimen/Data Collected; Done: [id number] Comprehensive Metabolic Panel; Status:In Progress - Specimen/Data Collected; Done: [id number] Lipid Panel; Status:In Progress - Specimen/Data Collected; Done: [id number] Prostate Specific Antigen; Status:In Progress - Specimen/Data Collected; Done: [id number] TSH - Thyroid Stimulating Hormone, Serum; Status:In Progress - Specimen/Data Collected; Done: [id number] Vitamin B12, Serum; Status:In Progress - Specimen/Data Collected; Done: [id number] Provider Impressions Provider Impressions Free Text Note Form: OV 6 weeks 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 Integumentary: Warm, Dry, Mart, Intact. Psychiatric: Cooperative, Appropriate mood AND affect, Normal judgment. Signatures Electronically signed by : Edmundo Yost MD; Oct 13 2021 3:24PM EST (Author) Normal [employer] PROSTATE SPECIFIC AGon 10-13 Prostate specific Ag [Mass/Vol] 0.60 ng/mL Normal 0.00 - 4.00 [facility] Comment on above: Result Comment: The FDA requires that the method used for PSA assay be reported to the physician. Values obtained with different assay methods must not be used interchangeably. This test was performed at [facility] using the StudySoup PSA assay is a two-site immunoenzymatic sandwich assay. The assay is approved for measurement of prostate-specific antigen (PSA)in serum and may be used in conjunction with a digital rectal examination in men 50 years and older as an aid in detection of prostate cancer. 5-Jbojt-fwagjiwww inhibitors (e.g. Proscar, Finasteride, Avodart, Dutasteride and Miriam) for the treatment of BPH have been shown to lower PSA levels by an average of 50% after 6 months of treatment. Performed By: #### P SA #### [address] [address] Prostate Specific Antigenon 10-13-2021 Prostate specific Ag [Mass/Vol] 0.60 ng/mL See Below -[employer] [facility] Work Phone: Comment on above: Reference Range: 0.0 0 - 4.00The FDA requires that the method used for PSA assay be reported to the physician. Values obtained with different assay methods must not be used interchangeably. This testwas performed at [facility] using the Devto[employer]ritech PSA assay is a two-site immunoenzymatic sandwich assay. The assay is approved for measurement of prostate-specific antigen (PSA)in serum and may be used in conjunction with a digital rectal examination in men 50 years and older as an aid in detection of prostate cancer.8-Kqhaz-bsymydtql inhibitors (e.g. Proscar, Finasteride, Avodart, Dutasteride and Miriam) for the treatment of BPH have been shown to lower PSA levels by an average of 50% after 6 months of treatment. TSHon 10-13-2021 TSH Qn 1.64 m[IU]/L Normal 0.44 - 3.98 [facility] Comment on above: Result Comment: TSH testing is performed using different testing methodology at [facility] than at other [facility]. Direct result comparisons should only be made within the same method. Performed By: #### T SH2 #### [address] [address] TSH - Thyroid Stimulating Ho rmone, Serumon 10-13-2021 TSH Qn 1.64 m[IU]/L See Below [employer] [facility] Work Phone: Comment on above: Reference Range: 0.4 4 - 3.98 TSH testing is performed using different testing methodology at [facility] than at other [facility]. Direct result comparisons should only be made within the same method. Tobacco Screening.on Fall risk assessment a) No falls within the last year [employer] [facility] Work Phone: Tobacco use status CPHS b) No M -[employer] [facility] Work Phone: VITAMIN B12on 10-13-2021 Cobalamin (Vitamin B12) [Mass/Vol] pg/mL High 211 - 911 [facility] Comment on above: Performed By: #### V TB12 #### [facility] [address] [place] [address] Vitamin B12, Serumon 021 Cobalamin (Vitamin B12) [Mass/Vol] pg/mL above high threshold 211 - 911 [employer] [facility] Work Phone: [place] ORT LARGE JOINT ARTHROCEN TESISon 07-27-2021 Renata Jasso CNP 07/27/2021 12:33 PM LG Jt Injection/Arthrocentesi s: L knee Performed by: Renata Jasso CNP Authorized by: Renata Jasso CNP CPT 40406 - Large Joint Arthrocentesis: Consent given by: [...] the procedure well with no immediate complications [facility] XR KNEE LEFT 4+ VIEWS (SPECI FY [...] fracture. The soft tissues are radiographically normal. Flpfsrbj-cj-agijyg medial compartment, mild lateral, ahsz-pc-fcpcpbeu patellofemoral compartment osteoarthritis. Small suprapatellar joint effusion. Arteriovascular calcifications. Limited evaluation of the right knee demonstrates preserved alignment. Enrd-ul-rjqaxutd medial compartment osteoarthritis. IMPRESSION: No acute osseous abnormality. Kkkflrig-ew-mhlmsi medial compartment osteoarthritis. Small suprapatellar joint effusion. SA/lab Workstation ID: [id number] Dictated by: JONATHAN MCKENNA on TueJul 24, 2021 6:13:56 AM EDT Transcribed by: RIVERA DUBOSE on TueJul 24, 2021 6:31:33 AM EDT Finalized by: JONATHAN MCKENNA on TueJul 26, 2021 1:23:11 PM EDT Normal [facility] Comment on above: Order Comment: Injur y/Trauma [...] by Discern Expert. Performed By: #### 2 [id number] ####SHARONA [address] [place] [address] Basophils/100 WBC Auto (Bld) 0.8 % Normal 0.0-2.0 [facility] Comment on above: Order Comment: Order Added by Discern Expert. Performed By: #### 2 [id number] ####SHARONA [address] [place] [address] Eos Absolute 0.3 E3/mcL Normal 0.0-0.7 [facility] Comment on above: Order Comment: Order Added by Discern Expert. Performed By: #### 2 136281 ####SHARONA [address] [place] [address] Eosinophils/100 WBC Auto (Bld) 3.8 % Normal 0.0-11.0 [facility] Comment on above: Order Comment: Order Added by Discern Expert. Performed By: #### 2 [id number] ####SHARONA [address] [place] [address] Lymphocytes Auto #/vol (Bld) 1.4 E3/mcL Normal 1.2-3.4 [facility] Comment on above: Order Comment: Order Added by Discern Expert. Performed By: #### 2 838461 ####SHARONA [address] [place] [address] Lymphocytes/100 WBC Auto (Bld) 19.3 % Low 20.0-55.0 [facility] Comment on above: Order Comment: Order Added by Discern Expert. Performed By: #### 2 [id number] ####SHARONA [address] [place] [address] [place] Absolute 0.8 E3/mcL High 0.0-0.7 [facility] Comment on above: Order Comment: Order Added by Discern Expert. Performed By: #### 2 774505 ####SHARONA [address] [place] [address] Monocytes/100 WBC Auto (Bld) 10.0 % Normal 0.0-10.0 [facility] Comment on above: Order Comment: Order Added by Discern Expert. Performed By: #### 2 [id number] ####SHARONA [address] [place] [address] Neutro Absolute 5.0 E3/mcL Normal 1.4-6.5 [facility] Comment on above: Order Comment: Order Added by Discern Expert. Performed By: #### 2 126579 ####SHARONA [address] [place] [address] Neutro Auto 66.1 % Normal 37.0-75.0 [facility] Comment on above: Order Comment: Order Added by Discern Expert. Performed By: #### 2 714897 ####SHARONA [address] [place] [address] BMPon 09-30-2018 Anion gap 3 molar conc 9 mmol/L Low 10-20 [facility] Comment on above: Performed By: #### 2 357376 ####SHARONA [address] [place] [address] Calcium mass conc 9.0 mg/dL Normal 8.6-10.3 [facility] Comment on above: Performed By: #### 2 [id number] ####SHARONA [address] [place] [address] Chloride molar conc 108 mmol/L High 98-107 [facility] Comment on above: Performed By: #### 2 [id number] ####SHARONA [address] [place] [address] CO2 molar conc 26.0 mmol/L Normal 21.0-32.0 [facility] Comment on above: Performed By: #### 2 371177 ####SHARONA [address] [place] [address] Creatinine mass conc 0.9 mg/dL Normal 0.5-1.3 [facility] Comment on above: Performed By: #### 2 212493 ####SHARONA [address] [place] [address] Glucose mass conc 92 mg/dL Normal 70-99 [facility] Comment on above: Performed By: #### 2 942478 ####SHARONA [address] [place] [address] Potassium molar conc 3.9 mmol/L Normal 3.5-5.3 [facility] Comment on above: Performed By: #### 2 036511 ####SHARONA [address] [place] [address] Sodium molar conc 139 mmol/L Normal 136-145 [facility] Comment on above: Performed By: #### 2 510855 ####SHARONA [address] [place] [address] Urea nitrogen mass conc 15 mg/dL Normal 6-23 S [facility] Comment on above: Performed By: #### 2 291000 ####SHARONA [address] [place] [address] Urea nitrogen/Creatinine mass ratio 16.7 ratio Normal 5.4-30.0 [facility] Comment on above: Performed By: #### 2 285729 ####SHARONA [address] [place] [address] CBC w/ Auto Diffon 8 Erythrocyte distribution width Auto Ratio (RBC) 13.2 % Normal 11.5-14.5 [facility] Comment on above: Performed By: #### 2 082434 ####SHARONA [address] [place] [id number] Hematocrit Auto Volume Fraction (Bld) 42.6 % Normal 42.0-52.0 [facility] Comment on above: Performed By: #### 2 580215 ####SHARONA [address] [place] [address] Hemoglobin mass conc (Bld) 14.5 g/dL Normal 13.5-18.0 [facility] Comment on above: Performed By: #### 2 911044 ####SHARONA [address]msEp[address] [place] [address] MCH Auto Entitic mass (RBC) 32.4 pg High 27.0-31.0 [facility] Comment on above: Performed By: #### 2 545492 ####SHARONA [address] [place] [address] MCHC Auto mass conc (RBC) 34.2 g/dL Normal 33.0-37.0 [facility] Comment on above: Performed By: #### 2 698513 ####SHARONA [address] [place] [address] MCV Auto Entitic volume (RBC) 94.8 fL Normal 78.0-100.0 [facility] Comment on above: Performed By: #### 2 404819 ####SHARONA [address] [place] [address] Platelet mean volume Auto Entitic volume (Bld) 7.9 fL Normal 7.4-11.0 [facility] Comment on above: Performed By: #### 2 988203 ####SHARONA [address] [place] [address] Platelets Auto #/vol (Bld) 228 E3/mcL Normal 130-400 [facility] Comment on above: Performed By: #### 2 832925 ####SHARONACourtney Per[address]MprMdmk[address] [place] [address] RBC Auto #/vol (Bld) 4.49 E6/mcL Normal 3.90-6.10 [facility] Comment on above: Performed By: #### 2 816187 ####SHARONA [address] [place] [address] WBC Auto #/vol (Bld) 7.5 E3/mcL Normal 3.6-11.0 [facility] Comment on above: Performed By: #### 2 061025 ####SHARONA [address] [place] [address] CT Soft Tissue Neck w/ Contr stacy 09-30-2018 CT Soft Tissue Neck w/ Contrast Exam Date/Time:09/29/2018 22:59 ESTReason for Exam:Sore throat (pharyngitis)ReportSTUD Y:CT Soft Tissue Neck w/ Contrast; 09/29/2018 10:59 pmINDICATION:Sore throat (pharyngitis).COMPARISO N:NoneACCESSION NUMBER(S):[id number] CLINICIAN:Jean Marie Garibay:Followi ng intravenous injection [...] MONTES DE OCA, Avel Neil Technologist: ABRAHAM [facility] eGFRon 09-30-2018 eGFR AA >60 [facility] Comment on above: Order Comment: Order added by Discern Expert. Performed By: #### [id number] ####SHARONA [id number] [place] [address] GFR/1.73 sq M predicted among non-blacks MDRD vol rate/area (S/P/Bld) mL/min/{1.73_m2} [facility] Comment on above: Order Comment: Order added by Discern Expert. Performed By: #### [id number] ####SHARONA [id number] [place] [address] Vital Signs Date Time Vital Sign Value Performing Clinician Facility 12-19-2024 14:15-0500 Body temperature 98.06 [degF] DR MARISOL FRANKLIN MD [facility] 12-19-2024 14:15-0500 Diastolic Blood Pressure Non-Invasive 66 mm[Hg] DR MARISOL FRANKLIN MD [facility] 12-19-2024 14:15-0500 Heart rate 78 /min DR MARISOL FRANKLIN MD [facility] 12-19-2024 14:15-0500 Reason For Taking VItal Signs DR MARISOL FRANKLIN MD [facility] 12-19-2024 14:15-0500 Respiratory rate 18 /min DR MARISOL FRANKLIN MD [facility] 12-19-2024 14:15-0500 Systolic Blood Pressure Non-Invasive 146 mm[Hg] DR MARISOL FRANKLIN MD [facility] 12-19-2024 07:19-0500 Body temperature 98.42 [degF] DR MARISOL FRANKLIN MD [facility] 12-19-2024 07:19-0500 Diastolic Blood Pressure Non-Invasive 68 mm[Hg] DR MARISOL FRANKLIN MD [facility] 12-19-2024 07:19-0500 Heart rate 61 /min DR MARISOL FRANKLIN MD [facility] 12-19-2024 07:19-0500 Reason For Taking VItal Signs DR MARISOL FRANKLIN MD [facility] 12-19-2024 07:19-0500 Respiratory rate 18 /min DR MARISOL FRANKLIN MD [facility] 12-19-2024 07:19-0500 Systolic Blood Pressure Non-Invasive 142 mm[Hg] DR MARISOL FRANKLIN MD [facility] 12-19-2024 04:12-0500 Body temperature 96.8 [degF] DR MARISOL FRANKLIN MD [facility] 12-19-2024 04:12-0500 Diastolic Blood Pressure Non-Invasive 66 mm[Hg] DR MARISOL FRANKLIN MD [facility] 12-19-2024 04:12-0500 Heart rate 64 /min DR MARISOL FRANKLIN MD [facility] 12-19-2024 04:12-0500 Reason For Taking VItal Signs DR MARISOL FRANKLIN MD [facility] 12-19-2024 04:12-0500 Respiratory rate 18 /min DR MARISOL FRANKLIN MD [facility] 12-19-2024 04:12-0500 Systolic Blood Pressure Non-Invasive 137 mm[Hg] DR MARISOL FRANKLIN MD [facility] 12-18-2024 23:11-0500 Heart rate 66 /min DR MARISOL FRANKLIN MD [facility] 12-18-2024 18:48-0500 Heart rate 68 /min DR MARISOL FRANKLIN MD [facility] 12-18-2024 14:30-0500 Heart rate 60 /min DR MARISOL FRANKLIN MD [facility] 12-18-2024 11:12-0500 Body height 187.[address] MARISOL FRANKLIN MD [facility] 12-18-2024 11:12-0500 Body weight 111.[address] MARISOL FRANKLIN MD [facility] 12-18-2024 11:12-0500 Body weight 31.67 kg/m2 DR MARISOL FRANKLIN MD [facility] 12-18-2024 10:39-0500 Body temperature 97.7 [degF] DR MARISOL FRANKLIN MD [facility] 12-18-2024 08:50-0500 Respiratory Rate - Anes 3 br/min DR MARISOL FRANKLIN MD [facility] 12-18-2024 08:45-0500 Respiratory Rate - Anes 17 br/min DR MARISOL FRANKLIN MD [facility] 12-18-2024 08:40-0500 Respiratory Rate - Anes 18 br/min DR MARISOL FRANKLIN MD [facility] 12-18-2024 05:55-0500 Body height 187.[address] MARISOL FRANKLIN MD [facility] 12-18-2024 05:55-0500 Body temperature 98.6 [degF] DR MARISOL FRANKLIN MD [facility] 12-18-2024 05:55-0500 Body weight 111.[address] MARISOL FRANKLIN MD [facility] 12-18-2024 05:55-0500 Heart rate 64 /min DR MARISOL FRANKLIN MD [facility] 12-11-2024 12:26-0500 Body height 190.[address] Morgan Moore MD Work Phone: [facility] 12-11-2024 12:26-0500 Body mass index (BMI) [Ratio] 31.6 kg/m2 Dr. Morgan Moore MD Work Phone: [facility] 12-11-2024 12:26-0500 Body weight 114.[address] Morgan Moore MD Work Phone: [facility] 12-11-2024 12:26-0500 Diastolic blood pressure 78 mm[Hg] Dr. Morgan Moore MD Work Phone: [facility] 12-11-2024 12:26-0500 Heart rate 71 /min Dr. Morgan Moore MD Work Phone: [facility] 12-11-2024 12:26-0500 Respiratory rate 16 /min Dr. Morgan Moore MD Work Phone: [facility] 12-11-2024 12:26-0500 Systolic blood pressure 113 mm[Hg] Dr. Morgan Moore MD Work Phone: [facility] 11-26-2024 11:45-[address] MARISOL FRANKLIN MD [facility] 11-26-2024 11:45-[address] MARISOL FRANKLIN MD [facility] 11-26-2024 11:45-0500 Body height [address] MARISOL FRANKLIN MD [facility] 11-26-2024 11:45-0500 Body weight 113.[address] MARISOL FRANKLIN MD [facility] 11-26-2024 11:45-0500 Body weight 32.14 kg/m2 DR MARISOL FRANKLIN MD [facility] 11-26-2024 11:45-0500 Diastolic Blood Pressure Non-Invasive 82 mm[Hg] DR MARISOL FRANKLIN MD [facility] 11-26-2024 11:45-0500 Heart rate 74 /min DR MARISOL FRANKLIN MD [facility] 11-26-2024 11:45-0500 Respiratory rate 18 /min DR MARISOL FRANKLIN MD [facility] 11-26-2024 11:45-0500 Systolic Blood Pressure Non-Invasive 124 mm[Hg] DR MARISOL FRANKLIN MD [facility] 03-18-2024 16:00-0400 Body temperature 98.3 [degF] Dr. Morgan Moore Work Phone: [facility] 03-18-2024 16:00-0400 Diastolic blood pressure 74 mm[Hg] Dr. Morgan Moore Work Phone: [facility] 03-18-2024 16:00-0400 Heart rate 61 /min Dr. Morgan Moore Work Phone: [facility] 03-18-2024 16:00-0400 Respiratory rate 16 /min Dr. Morgan Moore Work Phone: [facility] 03-18-2024 16:00-0400 SaO2% (BldA) [Mass fraction] 98 % Dr. Morgan Moore Work Phone: [facility] 03-18-2024 16:00-0400 Systolic blood pressure 126 mm[Hg] Dr. Morgan Moore Work Phone: [facility] 03-18-2024 10:55-0400 Body height 191.[address] Morgan Moore Work Phone: [facility] 03-18-2024 10:55-0400 Body weight 112.[address] Morgan Moore Work Phone: [facility] 03-18-2024 01:31-0400 Body mass index (BMI) [Ratio] 30.8 kg/m2 Dr. Morgan Moore Work Phone: [facility] 03-17-2024 17:50-0400 Body temperature 97.8 [degF] [facility] 03-17-2024 17:50-0400 Diastolic blood pressure 76 mm[Hg] [facility] 03-17-2024 17:50-0400 Heart rate 60 /min [facility] 03-17-2024 17:50-0400 Respiratory rate 13 /min [facility] 03-17-2024 17:50-0400 SaO2% (BldA) [Mass fraction] 96 % [facility] 03-17-2024 17:50-0400 Systolic blood pressure 127 mm[Hg] [facility] 03-17-2024 16:29-0400 Body height 190.[address] [facility] 03-17-2024 16:29-0400 Body mass index (BMI) [Ratio] 31.4 kg/m2 [facility] 03-17-2024 16:29-0400 Body weight 113.[address] [facility] 10-13-2021 14:47-0500 Body height 190.5 cm Edmundo Yost Work Phone: [facility] Work Phone: 10-13-2021 14:47-0500 Body mass index (BMI) [Ratio] 32.66 kg/m2 Edmundo Yost Work Phone: [facility] Work Phone: 10-13-2021 14:47-0500 Body surface area Derived from formula 2.46 m2 Edmundo Yost Work Phone: [facility] Work Phone: 10-13-2021 14:47-0500 Body temperature 96.9 [degF] Edmundo Yost Work Phone: [facility] Work Phone: 10-13-2021 14:47-0500 Body weight 118.53 kg Edmundo Yost Work Phone: [facility] Work Phone: 10-13-2021 14:47-0500 Diastolic blood pressure 68 mm[Hg] Edmundo Yost Work Phone: [facility] Work Phone: 10-13-2021 14:47-0500 Heart rate 69 /min Edumndo Yost Work Phone: [facility] Work Phone: 10-13-2021 14:47-0500 SaO2% (BldA) [Mass fraction] 96 % Edmundo Yost Work Phone: [facility] Work Phone: 10-13-2021 14:47-0500 Systolic blood pressure 116 mm[Hg] Edmundo Yost Work Phone: [facility] Work Phone: 07-23-2021 14:02-0400 Body height 190.5 cm Renata Jasso CNP Work Phone: [facility] 07-23-2021 14:02-0400 Body mass index (BMI) [Ratio] 31.87 kg/m2 Renata Jasso CNP Work Phone: [facility] 07-23-2021 14:02-0400 Body weight 115.67 kg Renata Jasso CNP Work Phone: [facility] Encounters Encounter Date Encounter Type Care Provider Facility Start: 06-26-2025 ambulatory Ramon Finney Facility :[facility] Start: 05-15-2025 End: 05-15-[address] Morgan Moore MD Work Phone: [facility] Start: 05-15-2025 End: 05-15-[address] Morgan Moore MD [facility] Work Phone: Start: 05-15-2025 End: 05-15-2025 ambulatory Morgan Moore Facility:[facility] Start: 02-15-2025 End: 02-15-[address] Morgan Moore MD Work Phone: [facility] Work Phone: Start: 02-15-2025 End: 02-15-2025 Patient encounter procedure [facility]ARMER-C -[facility] Start: 02-15-2025 End: 02-15-2025 ambulatory [facility] Facility:[facility] Start: 12-18-2024 End: 12-19-[address] MARISOL FRANKLIN MD Facility:[facility] Start: 12-18-2024 End: 12-19-[address] MARISOL FRANKLIN MD [facility] Start: 12-11-2024 End: 12-11-2024 Patient encounter procedure Aj Granado NP-C -[facility] Work Phone: Start: 12-11-2024 End: 12-11-2024 Preoperative state Aj Granado NP-C [facility] Start: 12-11-2024 End: 12-11-2024 ambulatory Morgan Moore Facility:[facility] Start: 12-11-[address] Christian Moore MD Work Phone: [facility] Start: 12-10-2024 ambulatory Morgan Moore Facility:[facility] Start: 12-10-2024 Non-patient / Non-visit Dr. Krish olson MD -[facility] Start: 12-10-2024 End: 12-10-[address] Morgan Moore MD -[facility] Work Phone: Start: 12-10-2024 End: 12-10-2024 ambulatory Morgan Moore Facility:[facility] Start: 11-26-2024 End: 11-26-[address] MARISOL FRANKLIN MD Facility:[facility] Start: 11-26-2024 End: 11-26-[address] MARISOL FRANKLIN MD [facility] Start: 11-26-2024 End: 11-26-[address] MARISOL FRANKLIN MD [facility] Start: 11-26-2024 End: 11-26-[address] MARISOL FRANKLIN MD Facility:[facility] Start: 07-04-2024 ambulatory Mervat Gloria NP Facili ty:[facility] Start: 07-03-2024 ambulatory Morgan Moore Facility:[facility] Start: 07-03-2024 End: 07-03-2024 ambulatory Krish Leos Facility:[facility] Start: 06-28-2024 End: 06-28-2024 ambulatory Morgan Moore Facility:[facility] Start: 03-18-2024 Non-patient / Non-visit Dr. Serafin Moore Work Phone: [facility] Work Phone: Start: 03-17-2024 Non-patient / Non-visit Dr. Serafin Moore Work Phone: [facility] Work Phone: Start: 03-17-2024 End: 03-18-2024 Evaluation and management of inpatient [facility]-Progressive Care Unit Work Phone: Start: 03-17-2024 End: 03-18-[address] Morgan Moore Work Phone: [facility] Work Phone: Start: 01-04-2024 End: 01-04-2024 ambulatory [facility] Work Phone: Start: 01-04-2024 End: 01-04-2024 Patient encounter procedure [facility] Start: 12-09-2023 End: 12-09-2023 ambulatory [facility] Work Phone: Start: 12-09-2023 End: 12-09-2023 [facility] Work [facility]: Start: 06-06-2023 End: 06-06-[address] Morgan Moore Work Phone: [facility] Work Phone: Start: 06-06-2023 End: 06-06-[address] Morgan Moore Work Phone: [facility] Start: 05-25-2023 Non-patient / Non-visit Dr. Serafin Moore Work Phone: [facility] Start: 05-25-2023 End: 05-25-[address] Morgan Moore Work Phone: [facility]-Cardiovascula r Services Work Phone: Start: 04-20-2022 End: 04-20-2022 Patient encounter procedure [facility]-Laboratory, Specimen Start: 10-26-2021 End: 10-26-2021 ambulatory RENATA JASSO [facility] Start: 10-26-2021 End: 10-26-2021 Clinical Support Renata Jasso [facility] Work Phone: [facility] Comment on above: Primary osteoarthrit is of left knee (Primary Dx) Start: 10-14-2021 Chart Update Edmundo nava Work Phone: [facility] Work Phone: Start: 10-13-2021 Office outpatient ne w 45 minutes Edmundo Yost Work Phone: [facility] Work Phone: Start: 07-23-2021 End: 07-27-2021 ambulatory [facility] Start: 07-23-2021 End: 07-23-2021 Office outpatient new 45 minutes Renata Gordoncock [employer] Work Phone: [facility] Comment [...] &/inj major jt/bursa w/o us Renata Jasso [employer] Work Phone: Start: 07-27-2021 Arthrocentesis aspir &/inj major jt/bursa w/o us Renata Jasso [employer] Work Phone: Arthroplasty of knee DR EDILSON [...] Activity Detail Author Start: 03-18-2024 Patient discharge [facility] Start: 03-17-2024 Aspiration precautions [facility] Start: 03-17-2024 Assessment of risk of venous thromboembolism [facility] Start: 03-17-2024 Cardiac monitoring [facility] Start: 03-17-[address] [facility] Start: 03-17-2024 Consultation [facility] Start: 03-17-2024 Continuous pulse oximetry [facility] Start: 03-17-2024 Elevation of head of bed [facility] Start: 03-17-2024 Exercises [facility] Start: 03-17-2024 Insertion of catheter into peripheral vein [facility] Start: 03-17-2024 Notification of physician [facility] Start: 03-17-2024 Patient referral to dietitian [facility] Start: 03-17-2024 Providing care according to standard [facility] Start: 03-17-2024 Referral to occupational therapist [facility] Start: 03-17-2024 Referral to service [facility] Start: 03-17-2024 Speech therapy assessment [facility] Start: 03-17-2024 Telemedicine consultation with patient [facility] Start: 03-17-2024 Tobacco use cessation education [facility] Start: 03-17-2024 End: 03-17-2024 [facility] Start: 03-17-2024 Vital signs measurements [facility] Start: 03-17-2024 Following clinical pathway protocol [facility] Start: 03-17-2024 MRI of brain without contrast Brain without Contrast [facility] Start: 03-17-2024 Verification routine [facility] Start: 03-17-2024 Admission procedure [facility] Start: 03-17-2024 Hospital admission, emergency, from emergency room, medical nature [facility] Start: 03-17-2024 CT of head without contrast STROKE Brain/Head without Cont [facility] Start: 03-17-2024 CT Unspecified body region WO contrast [facility] Start: 03-17-2024 Oxygen therapy [facility] Start: 03-17-2024 Thyroid stimulating hormone measurement [facility] Start: 03-17-2024 [facility] Start: 03-17-2024 Patient referral to dietitian [facility] Start: 03-17-2024 [facility] Start: 06-06-2023 Factor V Leiden genotype [facility] Start: 06-06-2023 Lupus anticoagulant assay [facility] Start: 06-06-2023 Protein S assay [facility] Start: 07-08-2021 Influenza vaccination Sequential Influenza Vaccine (#1) [facility] Start: 03-09-2021 COVID-19 Vaccine (2 - Booster for Dell series) COVID-19 Vaccine (2 - Booster for Dell series) [facility] Start: 2009 Screening [facility] malignant neoplasm [facility] Start: 1977 Hepatitis C screening Hepatitis C Screening [facility] Start: 1974 HIV screening HIV Screening [facility] Start: 1971 Depression screening using PHQ-9 (Patient Health Questionnaire 9) score [facility] Start: 1962 History and physical examination, annual for health maintenance Wellness Visit [facility] Start: 1959 Prostate specific antigen measurement PSA Level [facility] Start: 1959 Tetanus vaccination Tetanus: Every 10yrs [facility] F5 gene mutations fo und [Identifier] in Blood or Tissue by Molecular genetics method Nominal [facility] Hemoglobin A1c/Hemoglobin.total in Blood [facility] Lupus anticoagulant neutralization platelet [Time] in Platelet poor plasma by Coagulation assay [facility] Partial thromboplast in time ratio [facility] Patient referral [facility] Work Phone: Protein C Ag actual/ normal in Platelet poor plasma by Immunoassay [facility] Protein S Free Ag actual/normal in Platelet poor plasma by Immunoassay [facility] Thrombin time [facility] Immunizations Immunization Date Immunization Notes Care Provider Fa cility 10-02-2024 influenza virus vacc ine, unspecified formulation DR MARISOL FRANKLIN MD [facility] 09-06-2023 influenza virus vacc ine, unspecified formulation DR MARISOL FRANKLIN MD [facility] 09-22-2022 influenza virus vacc ine, unspecified formulation DR MARISOL FRANKLIN MD [facility] 09-22-2022 SARS-CoV-2 (CV19)mRNA-[id number] MARISOL FRANKLIN MD [facility] Comment on above: Result Comment: 2024: [id number] 12-01-2021 tetanus toxoid, redu joseph diphtheria toxoid, and acellular pertussis vaccine, adsorbed DR MARISOL FRANKLIN MD [facility] 10-14-2021 SARS-CoV-2 (COVID-19 ) Ad26 vaccine, recombinant DR MARISOL FRANKLIN MD [facility] 06-09-2021 zoster vaccine recombinant Edmundo T Aidabrandy Work Phone: [facility] 03-31-2021 zoster vaccine recombinant Edmundo T Furness Work Phone: [facility] 01-12-2021 Dell COVID-19 Vac cine 0.5 ML Intramuscular Suspension Edmundo T Priyank Work Phone: [facility] Comment on above: Result Comment: 2024: [id number] Payers Date Payer Category Payer Medicare [id number] 2024 Medicare [id number] 2024 Unknown [id number] 2024 Self-pay [id number] 2015 Unknown MMO [employer]PER[employer] PPO [id number] 2015-Present [phone] [address] [place] [address] [id number] 2015 Unknown 2015 Unknown [id number] 1959 Unknown [id number] 1959 Unknown [id number] [id number] 1959 Unknown [id number] [id number] 1959 Unknown [id number] [id number] 1959 Unknown [id number] [id number] 1959 Unknown [id number] [id number] Unknown [id number] Unknown [facility] [id number] Unknown [id number] Unknown [id number] [id number] Unknown [id number] [id number] Unknown [id number] [id number] Unknown [id number] [id number] Unknown [id number] [id number] Unknown [id number] [id number] Unknown [id number] [id number] Unknown [id number] [id number] Unknown [id number] Social History Date Type Detail Facility Start: 04-14-2016 End: 12-11-2024 Tobacco smoking status NHIS Never smoked tobacco [facility] Start: 04-14-2016 Tobacco use and exposure Smoke less tobacco non-user [facility] Start: 07-27-2021 End: 10-26-2021 Alcohol intake Ex-drinker (finding) [facility] Start: 07-27-2021 End: 10-26-2021 Alcohol intake [facility] Start: 1960 Sex Assigned At Not [facility] file [facility] Exposure to SARS-CoV -2 (event) Not sure [facility] Start: 1960 Sex Assigned At Male [facility] Start: 03-17-2024 End: 03-18-2024 Tobacco smoking status NHIS Unknown if ever smoked [facility] Start: 03-18-2024 Non-smoker [facility] Sexual Orientation [facility] Start: 11-20-2024 End: 02-18-2025 Sex Male (finding) [facility] Goals Date Patient Goal Desired Activity /State Functional Status Date Assessment Result Facility 12-19-2024 Functional Status Supervised [facility] 12-19-2024 Functional Status [facility] 12-19-2024 Functional Status Breakfast Percent 100 A [facility] 12-19-2024 Functional Status Identified as high risk, Fall ID band on, Room located near nursing station, Door open, Non-Slip footwear [facility] 12-19-2024 Functional Status [facility] 12-19-2024 Functional Status [facility] 12-18-2024 Functional Status Antiembolism S tocking On/Re-applied bilateral thigh high [facility] 12-18-2024 Functional Status [facility] 12-18-2024 Functional Status [facility] 12-18-2024 Functional Status [facility] 12-18-2024 [facility] Functional Status Multilevel glenn e, 2nd floor bedroom, 2nd floor bathroom [facility] 12-18-2024 Functional Status [facility] 03-18-2024 Functional status Ambulates [facility] Work Phone: Mental Status Date Assessment Result Facility 12-19-2024 Mental Status Oriented x 4 [facility] 12-18-2024 Mental Status [facility] 12-18-2024 Mental Status [facility] 03-18-2024 Cognitive function Voice/Name [facility] Work Phone: 03-17-2024 Cognitive function Voice/Name [facility] Work Phone: Clinical Notes 07-27-2021 to 05-16-2025 Note Date & Type Note Facility 05-16-2025 Radiology Diagnostic study note [facility] Imaging Services [address] [place] [address] Hips B/L min 2 views w/ Pelvis MR#: [id number] Acct: [id number] Name: QIAN SEGAL Rep #: [id number] : 1960 M 64 From: Danitza Pleitez MD PCP: Dr. Morgan Moore MD Status: REG C RENETTA Study:Hips B/L min 2 views w/ Pelvis Date of Exam: 05/15/25 Exam# [id number] Ordering Dr: Morgan Moore MD PROCEDURE: HIPS [...] Mild bilateral hips arthritic changes. Reading [facility] CC: Dr. Morgan Moore MD ~ Electronic Tester: Signed [facility] 12-19-2024 Hospital Discharge instructions Patient Education 12/19/2024 13:49:00 Total Knee Replacement, Care After, Fshe-ia-Idyl Total Knee Replacement, Care After This sheet [...] Follow these instructions at home: Medicines Take odqy-uav-qexlvsl and prescription medicines only as told by [...] keep your pee (urine) pale yellow. ?Take lhwj-coz-pbxonej or prescription medicines. ?Eat foods that are [...] cannot use soap and water, use hand rn paralegal. ?Change your bandage as told by your [...] 01/15/2013 Document Revised: 03/03/2020 Document Reviewed: 06/07/2019 [employer] Patient Education 2020 [employer]. 12/19/2024 07:50:55 5 - [facility] Post-op Instruction 06/2017 (91039) [facility] Post-operative Instructions PLEASE FOLLOW [facility] POST-OP INSTRUCTIONS GIVEN WATCH FOR SIGNS OF INFECTION: call the office ([phone]) if experencing any of the following: (Usually [...] on your follow up instructions. Form: 338A [id number]) R: 03/13 Follow Up Care 11/20/2024 09:15:24 With:Donavan Overton [facility] Outpatient [facility] Address: [address] [place] [phone]- [phone] When:12/21/2024 10:00:00 Comments:This is your first physical therapy appointment. Follow-up as scheduled. With:DARYL PASTRANA PA-C, Orthopedic Address: [facility] [address] [place] [phone]- When:12/31/2024 15:15:00 Comments:This is your post-op appointment. Follow-up as scheduled. [facility] 12-19-2024 Note Discharge Instructions Thank you for allowing [facility] to assist you with your healthcare needs. The following is important discharge information regarding your hospital visit. Your Care Team Marisol Franklin MD Your Diagnosis DVT (deep venous thrombosis) GERD (gastroesophageal reflux disease) Status post total left knee replacement What to do next Follow Up Appointments Follow Up with [facility] Outpatient Therapy When:12/21/2024 10:00 AM EST Where:[address] [place] [address]- [phone] Additional Information: This is your first physical therapy appointment. Follow-up as scheduled. Follow Up with DARYL PASTRANA PA-C, Orthopedic When:12/31/2024 03:15 PM EST Where:[facility] [address] [place] [address]- Additional Information: This is your post-op appointment. [...] bowel movement, then as needed Pickup at [facility]/pharmacy #[id number] Unchanged elderberry (elderberry 350 mg oral capsule) 1 cap by mouth Once a day Unchanged famotidine (Pepcid 20 mg oral tablet) 1 tab(s) by mouth Once a day Pickup at [facility]/pharmacy #[id number] Unchanged herbal/ nutritional product (Bee pollen [...] for as needed for pain Pickup at [facility]/pharmacy #[id number] Unchanged rosuvastatin (rosuvastatin 10 mg oral tablet) 1 tab(s) by mouth Once a day Pharmacy Information [facility]/pharmacy #[id number]: [address], [place] [phone] Please take this list to your next [...] may report side effects to FDA at 1-360-AML-2311. What other drugs will affect famotidine? Famotidine oral can make it harder for your body to absorb other medicines you take by mouth. Tell your doctor if you are taking: cefditoren; dasatinib; delavirdine; fosamprenavir; or tizanidine (if you are taking famotidine liquid). This list is not complete. Other drugs may affect famotidine, including prescription and yezu-oyf-grpltta medicines, vitamins, and herbal products. Not all [...] to ensure that the information provided by [employer]. ('[employer]') is accurate, up-to-date, and complete, but no guarantee is made to that effect. Drug information contained herein may be time sensitive. [employer] information has been compiled for use by healthcare practitioners and consumers in the [place] and therefore [employer] does not warrant that uses outside of the [place] are appropriate, unless specifically indicated otherwise. [employer] drug information does not endorse drugs, diagnose patients or recommend therapy. [employer] drug information is an informational resource designed [...] effective or appropriate for any given patient. [employer] does not assume any responsibility for any aspect of healthcare administered with the aid of information [employer] provides. The information contained herein is not intended to cover all possible uses, directions, precautions, warnings, drug interactions, allergic reactions, or adverse effects. If you have questions about the drugs you are taking, check with your doctor, nurse or pharmacist. Copyright 3103-1228 [employer]. Version: . Revision Date: 05/30/2023. docusate and [...] may report side effects to FDA at 9-329-GOH-3988. What other drugs will affect docusate and senna? Other drugs may affect docusate and senna, including prescription and lytt-euu-qvosjpv medicines, vitamins, and herbal products. Tell your [...] to ensure that the information provided by [employer]') is accurate, up-to-date, and complete, but no guarantee is made to that effect. Drug information contained herein may be time sensitive. [employer] information has been compiled for use by healthcare practitioners and consumers in the [place] and therefore [employer] does not warrant that uses outside of the [place] are appropriate, unless specifically indicated otherwise. [employer]'s drug information does not endorse drugs, diagnose patients or recommend therapy. [employer] drug information is an informational resource designed [...] effective or appropriate for any given patient. [facility] does not assume any responsibility for any aspect of healthcare administered with the aid of information [facility] provides. The information contained herein is not intended to cover all possible uses, directions, precautions, warnings, drug interactions, allergic reactions, or adverse effects. If you have questions about the drugs you are taking, check with your doctor, nurse or pharmacist. Copyright 2814-2413 [facility]. Version: 5.. Revision Date: 06/13/2023. [...] were not tolerated. Extended-release oxycodone is for khrywi-cuc-dlenk treatment of severe and chronic pain that [...] by your doctor. Stop taking all other waqbdd-wrq-kbwyk opioid pain medicines when you start taking [...] may report side effects to FDA at 9-461-NXC-0019. What other drugs will affect oxycodone? You [...] may affect oxycodone. This includes prescription and vcou-wwv-atrwikp medicines, vitamins, and herbal products. Not all [...] to ensure that the information provided by [employer]') is accurate, up-to-date, and complete, but no guarantee is made to that effect. Drug information contained herein may be time sensitive. [employer] information has been compiled for use by healthcare practitioners and consumers in the [place] and therefore [employer] does not warrant that uses outside of the [place] are appropriate, unless specifically indicated otherwise. [employer]'s drug information does not endorse drugs, diagnose patients or recommend therapy. [employer] drug information is an informational resource designed [...] effective or appropriate for any given patient. [employer] does not assume any responsibility for any aspect of healthcare administered with the aid of information [employer] provides. The information contained herein is not intended to cover all possible uses, directions, precautions, warnings, drug interactions, allergic reactions, or adverse effects. If you have questions about the drugs you are taking, check with your doctor, nurse or pharmacist. Copyright 1549-2038 [employer]. Version: 17.. Revision Date: 11/29/2023. Education Materials [...] Follow these instructions at home: Medicines Take mvgz-utc-jgadeqn and prescription medicines only as told by [...] your pee (urine) pale yellow. ? Take ueym-bif-vtelmbd or prescription medicines. ? Eat foods that [...] cannot use soap and water, use hand rn paralegal. ? Change your bandage as told by [...] 01/15/2013 Document Revised: 03/03/2020 Document Reviewed: 06/07/2019 [employer] Patient Education 2020 [employer]. [facility] Post-operative Instructions PLEASE FOLLOW [facility] POST-OP INSTRUCTIONS GIVEN WATCH FOR SIGNS OF INFECTION: call the office ([phone]) if experencing any of the following: (Usually [...] on your follow up instructions. Form: 338A (33564) R: 03/13 Additional Information VACCINATE! IT SAVES LIVES! Members of the community who have not yet received the COVID-19 vaccine and would like to receive it can visit one of [facility] vaccine clinics. There are many vaccine clinic locations within the [facility]. For locations and available times, please visit https://gettheshot.coronavirus.o hio.gov/. It is important to note that some COVID mobile vaccine clinics are held outdoors and may be canceled in rainy or stormy conditions. To learn more about pediatric vaccinations (ages 5-11), we invite you to visit the [facility] webpage. https://www.akronDocument [employer]ilitys.org/p ages/9431-Vsvzh-Ckaiybcnckc-Freq kdfwop-Vwmmv-Vjjqzebho.html To learn more about the COVID-19 vaccine, we invite you to visit the CDC website for a list of frequently asked questions.https://www.cdc.gov/co ronavirus/2019-ncov/vaccines/faq .html [employer] Patient Portal Access Instructions: Stay connected with your healthcare team and access your personal medical information anytime with the [employer] Patient Portal. Please follow the directions below to create your [employer] account: 1.Access the email account you provided upon registration to the hospital/physician office.2.Look for an invitation email from [facility].3.Open the email and access the invitation link: Accept Invitation to [employer].4.Fill in the required smith to create your account. To access your account, visit [email or web address]. Click the blue button labeled "Access Patient [...] you will allow to register on the [employer] Patient Portal for access to your information. You can also access the [employer] Patient Portal on the [employer] nilo. Simply click on "Patient Portal" and then log into your account. If you would like to receive a full copy of your medical records, please contact the [facility] Medical Records Department by calling [phone], Tuesday through Tuesday between 8 a.m. and [...] Call your local pharmacy or go to [email or web address]/9N7Jl0g to find one close to you.3.Make use of household items: Use cat litter or old coffee grounds to dispose medications if other options are not available. Mix your drugs with these household products, seal them in an airtight container and throw it into the garbage. Call [facility]: [phone] to be sure your drugs can be [...] Education Materials Total Knee Replacement, Care After, Tdks-yc-Uxag 5 - [facility] Post-op Instruction 06/2017 (12537) Medication Leaflets famotidine (oral/injection), docusate and senna, oxycodone My discharge plan and instructions have been reviewed and explained to me and I,QIAN SEGAL understand my current condition and have read and understand these discharge instructions. I have received a written copy of the plan/instructions. If I have questions, I am aware that I should contact my doctor. 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 However I did discuss with him the complications we have had with narcotics with this pharmacy. We will now send his medications to [facility] in [facility]. He does have outpatient physical therapy established. Upon discharge patient will contact our office with any concerns or complications. I will call back in to talk with nursing to see how patient has done with therapy and possible discharge. I have reviewed the [place] Automated Rx Reporting System (OARRS) report for [...] DARYL PASTRANA PA-C on 12/19/2024 08:14 AM [facility] 12-18-2024 Note Exam Date Time Procedure Performing Provider Status 12/18/24 9:12 AM XR Knee 1 or 2 Views Left BUZZ MCINTYRE MD; Auth (Verified) [id number] ORIGINAL EXAMINATION: TWO XRAY VIEWS OF THE [...] periprosthetic lucency or fracture. Interpreted by: Fatimah cMintyre Preliminary Report By: Fatimah Mcintyre Electronically signed By Fatimah Mcintyre Dictated Date: 12/18/2024 9:40:29 AM Prelim Date: 12/18/2024 9:41:30 AM Sign Date: 12/18/2024 9:41:30 AM Ordering Provider: MARISOL FRANKLIN [facility]02-11-2025 Note* Exam Date Time Procedure Performing Provider Status 12/18/24 7:36 AM US Anesthesia Block Auth (Verified) [id number] ORIGINAL Images acquired, not reported on this accession number. [facility]02-11-2025 Anesthesiology Consult note Patient: QIAN SEGAL Age: 64 years Sex: Male : 1960 Associated Diagnoses: None Author: JACEY DUPONT APRN-SEWER CONNECTOR Preoperative Information Anesthesia history Patient's history: negative. [...] Mother Brother Procedure history: Tonsillectomy and adenoidectomy (710712494). Colonoscopy (074711338). Bone spur (2463368829). Comments: 12/18/2024 5:50 EST - Juany Rogel [...] Signs (last 24 hrs) Last Charted Temp Nzkaxkbr50.0 DegC (DEC 18 05:55) Heart Rate Qzzpsc43 bpm (DEC 18 05:55) TMD849 mmHg (DEC 18 05:55) DBP83 mmHg (DEC 18 05:55) Measurements from flowsheet : Measurements 12/18/2024 5:55 EST Height 187.9 cm Height in inches 74 inch(es) Admission Weight 111.8 kg Weight Lbs 246 lb [place] Body Weight 82.15 kg Admission Body Mass [...] - Additive IRRIGATION CHG 0.05% IRRISEPT /CA [id number] SN - Irl - Additive BETADINE (POVIDONE IODINE) SOLUT SN - IrI - Volume Out 450 mL SN - IrI - Volume Out 450 mL 12/18/2024 6:46 EST SN - ID - Route of Administration Local SN - ID - Route of Administration Local SN - ID - Route of Administration Local SN - ID - By (Single) SN - ID - By (Single) SN - ID - By (Single) SN - ID - By (Single) SN - ID - By (Single) SN - ID - By (Single) 12/18/2024 6:44 EST SN [...] Surgeon SN - CAt - Role Performed Customer Support Consultant 1 SN - CAt - Role Performed Scrub 1 SN - CAt - Role Performed Vision Mixer 1 SN - CAt - Role Performed SEWER CONNECTOR SN - CAt - Role Performed Physician General Teller SN - CAt - Role Performed Appliance Assembler 12/18/2024 6:24 EST SN - Preop - [...] Weight 111.8 kg Weight Lbs 246 lb [place] Body Weight 82.15 kg Admission Body Mass [...] no difficulties Skin Temperature Warm Skin Description Mart, Normal for ethnicity, Dry Skin Integrity Intact [...] Person #1 We May Share PHI BRIGID [phone] Designated Person #1 Relationship Spouse Privacy Restrictions [...] No Advanced Directives Yes Advance Directive Type [place] Durable Power of Claims Adjuster Supervisor for [employer], [place] Declaration (Living Will) Advance Directive Location [...] Allergies Yes Anesthesia Extension Set Applied Yes Topographical Drafter On Yes Consent Form Signed Yes Patient [...] Method Explanation, Printed materials Preferred Spoken Language Korean Preferred Written Language Korean Teaching Evaluation Verbalizes/Nonverbally indicates understanding Total Joint [...] Room 12/18/2024 5:41 . Assessment and Plan [place] Society of Anesthesiologists (ASA) physical status classification: Class III. Anesthetic Preoperative Plan Anesthetic technique: Spinal. Regional: Spinal. Postoperative pain management: adductor canal block. Risks discussed: nausea, vomiting, headache, hypotension, allergic reaction, serious complications. Informed consent: signed by patient. Digitally Signed by JACEY DUPONT on 12/18/2024 06:52 AM [facility]02-04-2025 Evaluation note* Diagnosis Onset Date Resolution Status Admit Date Anticoagulant long-term use chronic December 11, 2024 1:22pm Dyslipidemia chronic December 1:22pm History of DVT (deep vein thrombosis) chronic December 11 1:22pm PAC (premature atrial contraction) chronic December 11 1:22pm History of TIA (transient ischemic attack) resolved December 11 1:22pm Encounter for preoperative examination for general surgical procedure noneactive December 11, 2024 1:22pm [facility] Work Phone: 1(431) 347-913601-20-2025 Note* Exam Date Time Procedure Performing Provider Status 11/26/24 1:[address] Knee w/o Contrast Left BUZZ MCINTYRE MD; Auth (Verified) [id number] ORIGINAL EXAMINATION: CT OF THE LEFT KNEE [...] most pronounced in the medial compartment with eufj-ch-aikq, asymmetric joint space narrowing, marginal osteophyte formation [...] Sign Date: 11/26/2024 3:43:26 PM Ordering Provider: [facility]05-12-2024 Discharge summary Author Di Garcia [facility] March 18, 2024 2:34pm Note Date/Time March 18, 2024 2:23p [facility] Medical Records Department [address] [place] [address] Discharge Summary 03/18/24 1421 MR#: [id number] Acct: [id number] Name: QIAN SEGAL Rep #:[id number] : 1960 63 From: Di Garcia DO PCP: Dr. Morgan Moore MD Status:ADM I NO Location: [place] [address] Providers Date of Admission: 03/17/24 Date of [...] (Eliquis) 5 mg PO BID 03/17/24 inositol-choline avo-iwfnfndrm-lef B complex and C 500 mg tablet (Ear Health Plus) 1 tab PO TID tinnitus 03/17/24 loratadine-pseudoephedrine ER 10 mg-240 mg tablet,extended olommgi43xr (Loratadine-D) 1 tab PO DAILY 03/17/24 aspirin [...] Eliquis who presented to the emergency department [facility] on 03/18/2024 with a chief complaint of confusion and right facial droop with paresthesias. Patient reported that he was driving to their grandsons birthday earlier in the afternoon when his reported she began to notice that he was more confused and missed some exits offthe highway with the journey. She had them pull through hooker and noticed that the rightside of his [...] (Auto) 67.5, Lymph % (Auto) 18.4 L, [place] % (Auto) 10.7 H, Eos % (Auto) [...] Non-Af 80, BUN/Creatinine Ratio 19.0, Glucose 101, HnfxbliadgP8s 5.3, Calcium 9.2, Troponin I High Sens [...] Clear Calc 108.57, Est GFR (MDRD) Af Lzme586, Est GFR (MDRD) Non-Af 86, BUN/Creatinine Ratio [...] above Results were Read Back by Luan sEpino DO to Alex Severino MD, and understanding [...] Conclusions/right facial droop/right facial numbness Attending Provider: iD Garcia Primary Care Provider: Morgan Moore Consulting Providers: Santino Roland; Lorenzo Holland; Mayra Hutchinson; Kaya Pollock; Zari Meyer; Abraham Molina; Kirstie Licona; Adnrew Jean Baptiste; Alberto Wong; Joana Mckay; Andriy [...] Self Care Charges/Coding Visit Charges Inpatient E&M: 71798 Disch Hosp >30min 03/18/24 1434 <Electronically signed by Di Garcia DO> Cosigner Signature (if applicable): CC: Dr. Di Garcia DO; Dr. Morgan Moore MD~ Signed [facility] Work Phone: 1(928) 378-989405-12-2024 Consult note Author Abraham Molina [facility] March 18, 2024 12:39pm Note Date/Time March 18, 2024 12:39 pm [facility] Medical Records Department [address] [place] [address] Consultation - Neurology 03/18/24 1232 MR#: [id number] Acct: [id number] Name: QIAN SEGAL Rep #:[id number] : 1960 63 From: Abraham Ulrich PCP: Dr. Morgan Moore MD Status:ADM I NO Location: [place] [address] Assessment and Plan: Neuro Assessment/Plan Telestroke (Bidirectiona [...] statin. Follow up MRI brain and TTE. OT/PT/PHOTONICS TECHNICIAN I personally attended this patient and spent [...] focal weakness, headache(s), numbness, paresthesias or tingling [facility] Medical History Blood clot in leg Blood clots in brain DVT (deep venous thrombosis) Family history of abdominal aortic aneurysm Hypercholesteremia Non-smoker Home Medications apixaban 5 mg tablet (Eliquis) 5 mg PO BID 03/17/24 [History Last Taken Unknown] inositol-choline apz-pqdcqjwpm-kco B complex and C 500 mg tablet (Ear Health Plus) 1 tab PO TID tinnitus 03/17/24 [History Last Taken Unknown] loratadine-pseudoephedrine ER 10 mg-240 mg tablet,extended xuuwvfl99ug (Loratadine-D) 1 tab PO DAILY 03/17/24 [History [...] and with change in RN caregiver. Freq: C7XECLH Protocol: Activity Type Activity Date Activity User [...] (Auto) 67.5, Lymph % (Auto) 18.4 L, [place] % (Auto) 10.7 H, Eos % (Auto) [...] mls @ 15 mls/hr 03/17/24 18:11 IV .E49K14I PRN Additional IVPB Infusion Sodium Chloride 250 mls @ 15 mls/hr 03/17/24 18:11 IV .V83F52H PRN Saline Flush Labetalol HCl 20 mg [...] ml UD PRN Administration SALINE FLUSH 03/18/24 4307 <Electronically signed by Abraham Molina MD> Cosigner Signature (if applicable): CC: Dr. Morgan Moore MD~ Signed [facility] Work Phone: 1(122) 212-488105-11-2024 History and physical note Author Mark James [facility] March 17, 2024 8:41pm Note Date/Time March 17, 2024 5:40p m [facility] Medical Records Department [address] [place] [address] H&P Exam - Hospitalist 03/17/24 1740 MR#: [id number] Acct: [id number] Name: QIAN SEGAL Rep #:[id number] : 1960 63 From: Mark clancy DO PCP: Dr. Morgan Moore MD Status:ADM I NO Location: [place] [id number]- HPI - General General Date of Admission: 03/17/24 Date of Service: 03/17/24 Chief Complaint: Confusion and right facial droop with numbness HPI Narrative QIAN SEGAL, is a 63 M who presented to [facility] ED on 03/17/2024 with acute onset [...] they were driving to their grandson's birthday democrat earlier this afternoon when wifestates he began to appear more confused and missed the exit off the highway. She had him pull through hooker and noticed that the right side of [...] unremarkable. Will be admitted for further management. [facility] Medical History Blood clot in leg Blood clots in brain DVT (deep venous thrombosis) Family history of abdominal aortic aneurysm Hypercholesteremia Non-smoker Home Medications apixaban 5 mg tablet (Eliquis) 5 mg PO BID 03/17/24 [History Last Taken Unknown] inositol-choline toh-pmljyibwi-yob B complex and C 500 mg tablet (Ear Health Plus) 1 tab PO TID tinnitus 03/17/24 [History Last Taken Unknown] loratadine-pseudoephedrine ER 10 mg-240 mg tablet,extended jksgpxj65ps (Loratadine-D) 1 tab PO DAILY 03/17/24 [History [...] (Auto) 67.5, Lymph % (Auto) 18.4 L, [place] % (Auto) 10.7 H, Eos % (Auto) [...] Patient is a 63-year-old male who presented [facility] ED on 03/17/2024 with acute onset [...] 55 minutes. Charges/Coding Visit Charges Inpatient E&M: 81152 Init Hosp L2 03/17/242040 <Electronically signed by Mark James DO> Cosigner Signature (if applicable): CC: Dr. Mark James DO; Dr. Morgan Moore MD~ Signed [facility] Work Phone: [phone] [id number] Discharge summary Author Alex Severino [facility] March 17, 2024 5:45pm Note Date/Time March 17, 2024 4:47p m [facility] Medical Records Department [address] [place] [address] Emergency Department Summary 03/17/24 MR#: [id number] Acct: [id number] Name: QIAN SEGAL Rep #:[id number] : [...] right. 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 [place] Coma Scale: document GCS findings Spontaneous Obeys [...] (Auto) 67.5 Lymph % (Auto) 18.4 L [place] % (Auto) 10.7 H Eos % (Auto) [...] follows: Interpretation: Sinus Rhythm (Rate is 60. IA interval is 186 ms. Cures duration is 98 ms. QT duration 418 ms. Pendergrass is normal. There is a flipped T [...] Provider] - Disposition Disposition: Acute Care Hospital [facility] What to do if you have Problems For any increased pain, shortness of breath, bleeding, nausea or vomiting, chestpain, or any unexpected problems, contact your Primary Care Provider. Call [facility] ([phone]) or report to the closest Emergency Room. [...] cc: Dr. Morgan Moore MD ~* Signed [facility] Work Phone: 1(430) 306-758705-11-2024 Discharge summary Author Alex Severino [facility] March 17, 2024 5:45pm Note Date/Time March 17, 2024 4:47p m [facility] Medical Records Department [address] [place] [address] Emergency Department Summary 03/17/24 MR#: [id number] Acct: [id number] Name: QIAN SEGAL Rep #:[id number] : [...] right. 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 [place] Coma Scale: document GCS findings [...] (Auto) 67.5 Lymph % (Auto) 18.4 L [place] % (Auto) 10.7 H Eos % (Auto) [...] follows: Interpretation: Sinus Rhythm (Rate is 60. IA interval is 186 ms. Cures duration is 98 ms. QT duration 418 ms. Pender[place] is normal. There is a flipped T [...] Provider] - Disposition Disposition: Acute Care Hospital [facility] What to do if you have Problems For any increased pain, shortness of breath, bleeding, nausea or vomiting, chestpain, or any unexpected problems, contact your Primary Care Provider. Call [facility] ([phone]) or report to the closest Emergency Room. [...] cc: Dr. Morgan Moore MD ~* Signed [facility] Work Phone: 1(134) 862-163212-20-2021 History of Present illness Narrative* Renata Jasso CNP - 10/26/2021 11:45 AM EST Associated Order(s): LG Jt Injection/Arthrocentesis: L knee Post-Procedure Diagnose(s): Primary osteoarthritis of left knee LG Jt Injection/Arthrocentesis: L knee Performed by: Renata Jasso CNP Authorized by: Renata Jasso CNP CPT 88893 - Large Joint Arthrocentesis: Consent given by: [...] - 10/26/2021 11:41 AM EST [facility] [address] [facility] [address] [facility] [id number] Chief Complaint Patient presents with Follow-up Left [...] him back as needed. documented in this [id number] History of Present illness Narrative* Renata Jasso CNP - 07/27/2021 12:30 PM EDT Associated Order(s): LG Jt Injection/Arthrocentesis: L knee Post-Procedure Diagnose(s): Primary osteoarthritis of left knee LG Jt Injection/Arthrocentesis: L knee Performed by: Renata Jasso CNP Authorized by: Renata Jasso CNP CPT 15692 - Large Joint Arthrocentesis: Consent given by: [...] well with no immediate complications * Renata Jasos CNP - 07/23/2021 9:02 PM EDT Qian [...] Friends and Family: Not on file Attends [facility]: Not on file Active Member of [...] present Imaging:R Knee: No acute osseous abnormality. Uiexianf-gz-hdvyie medial compartment osteoarthritis. Small suprapatellar joint effusion. [...] [facility] note Future Appointments [facility] Evaluation note* Diagnosis Primary osteoarthritis of left knee- Primary [facility]* Diagnosis Primary osteoarthritis of left knee- Primary [facility] Work Phone: Evaluation note* Diagnosis Onset Date Resolution Status Acute confusion acute Anticoagulant long-term use acute Dyslipidemia acute Facial droop due to acute cerebrovascular accident (CV A) acute Numbness and tingling of right side of face acute [facility] Work Phone: History of Present illness [...] the heartburn [facility] Work Phone: Hospital course Narrative No data available for this section [facility] Hospital Discharge instructions No data available for this section [facility] Progress note No data available for this section [facility] Reason for referral (narrative)No reason for referral information availableWBar[facility] Work Phone: Summary Purpose Family [...] FoundDocuments on File Type Date Recorded 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 Advance Directives and Living Will Advance Directive Response Recorded Date/ Time Name of Medical Power of Claims Adjuster Supervisor Brigid Diony March 17, 2024 4:29pm Living Will Yes March 17, 2024 4 :29pm Power of Claims Adjuster Supervisor Yes March 17, 2024 4:29pm Advance Directive Response Recorded Date/ Time Name of Medical Power of Claims Adjuster Supervisor Brigid Diony March 17, 2024 6:34pm Living Will Yes March 17, 2024 6 :34pm Power of Claims Adjuster Supervisor Yes March 17, 2024 6:34pm 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 DATE CREATED AUTHOR AUTHOR'S ORGANIZ ATION 10/14/2021 [facility] DATE CREATED AUTHOR AUTHOR'S ORGANIZ ATION 10/14/2021 [employer] DATE CREATED AUTHOR AUTHOR'S ORGANIZ ATION 10/26/2021 [facility] DATE CREATED AUTHOR AUTHOR'S ORGANIZ ATION 12/24/2024 [facility] DATE CREATED AUTHOR AUTHOR'S ORGANIZ ATION 06/25/2025 [facility] Reason for Visit (unrecogniz ed section [...] 2024 End: December 11, 2024 Aj Granado EMU FARMER, EMU FARMER-C Attending Provider Active S tart: December 11, 2024 End: December 11, 2024 Team Status: Inactive Member Role Status Dates Dr. Morgan Moore MD Primary Care Provider Active Start: February 15, 2025 End: February 15, 2025 Jatinder Matias EMU FARMER, EMU FARMER-C Attending Provider Active Start: February 15, 2025 [...] Licona MD Other Provider Active Dr. Andrew Jaen Baptiste MD Other Provider Active Dr. Alberto [...] Dr. Di Garcia DO Attending Provider Active Solder Sprayer Relationship Specialty Start Date End Date Azalea Bay MD [address] [place] [address] PCP - General Family Medicine 04/14/16 Team [...] February 15, 2025 End: February 15, 2025 [facility] EMU FARMER, EMU FARMER-C Attending Provider Active Start: February 15, 2025 [...] BE BASED ON THE PRIMARY CLINICAL RECORDS. [facility] [employer] [facility]. provides no warranty or guarantee of the accuracy or completeness of information in this document.
[2025-09-01] MEDS: APIXABAN 5 MG TABLET PO (21:02)
[2025-09-02 02:30] VITALS: BP 132/80; PULSE 63; RESP 16; TEMP 36.6; O2SAT 95
[2025-09-02 07:17] LABS: Hematocrit 41.7 % (40-54); Hemoglobin 14.4 g/dL (13.0-16.5); Mean Corp Hgb Conc 34.5 g/dL (32-36); Mean Corpuscular Volume 92.9 fL (80-94); Mean Platelet Vol. 9.7 fl (6.2-12.0); Platelet Count 199 K/mm3 (150-450); RBC Distribution Width CV 12.3 % (11.6-14.6); RBC Distribution Width SD 42.3 fl (35.1-43.9); Red Blood Count 4.49 M/mm3 (4.6-6.2); White Blood Count 6.5 K/mm3 (4.4-11.0)
[2025-09-02 07:49] LABS: Anion Gap 11 (5-15); BUN 20 mg/dL (4-19); BUN/Creat Ratio 19.5 RATIO (10-20); Calcium,Total 9.0 mg/dL (7.6-11.0); Carbon Dioxide 23.6 mmol/L (21.0-32.0); Chloride 105 mmol/L (98-108); Estimated Creatinine Clearance 97.31 ml/min (50-250); Glucose 94 mg/dL (70-99); Potassium 4.2 mmol/L (3.3-5.1)
[2025-09-02] MEDS: APIXABAN 5 MG TABLET PO (08:29)
[2025-09-02 08:30] VITALS: BP 135/84; PULSE 69; RESP 16; TEMP 36.8; O2SAT 94
[2025-09-02 08:45] VITALS: O2SAT 96
--- NOTE | 2025-09-02 09:35 | MRI_ITS ---
PROCEDURE: BRAIN W/WO CONTRAST 09/02/2025 REASON FOR EXAM: STROKELIKE SYMPTOMS TECHNIQUE: Procedure Code: [id number] Modality: MR Procedure: BRAIN W/WO CONTRAST Multiplanar and multisequence images were obtained. FINDINGS: Multiple rounded FLAIR foci are noted throughout the bilateral cerebral white matter, nonspecific and without corresponding enhancement. Cavum septum pellucidum et vergae, normal variant. The remainder of the brain parenchyma appears unremarkable. The [place]-white matter differentiation is appropriate. The ventricles are normal in size and configuration. No midline shift. The corpus callosum, pituitary gland, and cerebellar vermis are intact. The cervicomedullary junction appears unremarkable. Sutm-tw-rvouyavv mucosal thickening within the bilateral maxillary sinuses. The remainder of the paranasal sinuses and mastoid air cells are clear. Diffusion-weighted images demonstrate no restricted diffusion. No abnormal enhancement pattern. MRI/Brain W/WO Contrast IMPRESSION: Nonspecific, nonenhancing rounded Nhfm-xw-vdxxghao bilateral maxillary sinusitis. FLAIR hyperintense foci within the bilateral cerebral white matter. These findings are concerning for a demyelinating process such as multiple sclerosis. Similar findings can be seen in patients experiencing migraine headaches. Chronic microvascular ischemic changes are al so a consideration. Reading Location: [id number]
--- NOTE | 2025-09-02 13:18 | NEURO.CONS ---
Assessment and Plan: Neuro Assessment/Plan QIAN SEGAL is a 65 M with a past medical history of TIA, prior brain clot, being evaluated by Teleneurology for Diagnosis: Plan: - EEG routine - MRI Brain without abnormality - based on frequency of events, recommend starting Keppra 500mg BID Recommend driving seizure precautions. Reveiwed with patient I personally attended this patient and spent a total time of 45minutes evaluating this patient including clinical assessment, review of chart, medical history imaging, and determining appropriate treatment and workup. HPI Consult Data Date of Consult: 09/02/25 HPI Narrative HPI Narrative: QIAN SEGAL, is a 65 M who presented to [facility] ED on 09/01/2025 with an episode of altered sense of taste and transient amnesia. Patient lives at home with his , has good functional status at baseline. He was hospitalized here in March 2024 for CVA rule out when he presented with acute confusion and right facial droop with numbness. Symptoms resolved during hospitalization and MRI brain was negative, and he was discharged home in stable condition on hospital day 2. Patient notes today that he had an episode of sensing a metallic taste in his mouth, and that he does not remember much for over an hour. His was there and notes that he appeared glassy eyed and was not able to remember anything. He did not have any weakness in his arms or legs and had no facial drooping noted. She notes that after about an hour he started to show signs of improvement and it took another few hours for him to come back to baseline. In the ED he was normotensive, in normal sinus rhythm and stable on room air at rest. CBC and BMP were benign. CT brain was unremarkable. Given his symptoms, hospitalist was contacted for admission. I saw the patient at bedside in the ED, is present. Patient was sitting back comfortably in bed, conversing normally, in no acute distress. On discussion with him, he notes that he has had similar episodes to this over the past several months but never to this degree. Each time he has a sensation of a metallic taste in his mouth prior to the amnesia. He otherwise is in good health, denies any new medications or any recent infections. He has no prior seizure history. No other acute concerns currently. Will be admitted for further management. Neurologic History Patient had just gotten out of the shower and told his that he had a metallic taste. Patient has had these events before. 1.5 yrs ago had a bad episode in March and had smaller episodes of a metallic taste and something will be happening and his eyes gets glazed over and will have numbness in his face. Continues to have some amnesia for the last couple days-month. With prior episodes, he feels weird and gets the metallic taste then it gets better and will go away quickly. 20 yrs ago he did have a "blood clot in his brain" and was on blood thinners for a while and was eventually taken off the medication. He recently was diagnosed witha DVT last year and was on apixaban for the rest of his life. Does not drink or use tobacco Exam - General: Laying comfortably in bed; in no acute distress. - HENT: Normal oropharynx and mucosa. Normal external appearance of ears and nose. Exophthalmos. - Neck: Supple, no pain or tenderness - CV: No peripheral edema. - Pulmonary: Normal respiratory effort. - Ext: No cyanosis, edema, or deformity - Skin: No rash. Normal palpation of skin. - Musculoskeletal: full range of motion; no joint tenderness. Normal digits and nails by inspection. No clubbing. - NEURO: - Mental Status: The patient was alert and oriented to time, place, and person. Normal recent/remote memory, concentration, and general fund of knowledge. - Language: speech is clear. Naming, repetition, fluency, and comprehension intact. - Cranial Nerves: PERRL 3 mm/brisk. EOMI but has a lazy L eye, visual smith full, no facial asymmetry, facial sensation intact, hearing intact, tongue midline, no evidence of atrophy or fibrillations. - Motor: normal bulk, tone, and strength throughout. No pronator drift or satelliting. Upper and lower extremities equal bilaterally. - Detailed strength exam as performed by the nurse/TANIYA and witnessed by the physician: R L SA 5 5 EE EF WE WF Job Analyst 5 5 HF KE KF 5 5 DF 5 5 PF - Tone: is normal and bulk is normal - Sensation- Intact to light touch bilaterally - Coordination: No dysmetria on dginly-wfer-fgmngp, finger follow finger or haqt-gyhd-dhoc. - Gait- deferred [facility] Medical History (Updated 09/01/25 @ 18:[address] Mark James, DO) Bone spur Elevated blood pressure reading BMI 31.0-31.9,adult Arthritis of knee TIA (transient ischemic attack) Non-smoker DVT (deep venous thrombosis) Anticoagulant long-term use Dyslipidemia Family history of abdominal aortic aneurysm Hypercholesteremia Blood clot in leg Blood clots in brain Home Medications Medication Instructions Recorded Last Taken Type apixaban 5 mg tablet (Eliquis) 5 mg PO BID blood thinner 03/17/24 09/01/25 History vit B complex and 1 tab PO TID tinnitus 03/17/24 09/01/25 History L-qydngxf-lbghakki-bioflavonoid,lemon 500 mg tablet (Ear Health Plus) rosuvastatin 10 mg tablet 10 mg PO DAILY #30 tabs 03/18/24 08/31/25 Rx bee pollen 550 mg capsule 550 mg PO TID 05/30/24 09/01/25 History cinnamon bark 500 mg capsule 500 mg PO BID 05/30/24 09/01/25 History (Cinnamon) elderberry fruit 350 mg capsule 350 mg PO BID 05/30/24 09/01/25 History loratadine 10 mg tablet (Claritin) 10 mg PO DAILY 05/30/24 09/01/25 History beta carotene 30 mg capsule 30 mg PO DAILY 06/28/24 09/01/25 History lycopene 10 mg capsule 10 mg PO QDAY 12/11/24 09/01/25 History mecobalamin (vitamin B12) 1,000 1,000 mcg PO QDAY 12/11/24 09/01/25 History mcg chewable tablet omega-3 fatty acids 1,000 mg 1,000 mg PO QDAY 12/11/24 09/01/25 History capsule Allergy/AdvReac Type Severity Reaction Status Date / Time ibuprofen Allergy MAKES Verified 09/01/25 15:39 RIGHT SIDE OF FACE TO GO NUMB Family History Father AAA (abdominal aortic aneurysm) Surgical History (Updated 09/01/25 @ 20:27 by Mirna Rubio) Total knee replacement status Hx of wisdom tooth extraction Social History household members: spouse Smoking Status: Never smoker alcohol intake: never substance use type: does not use caffeine: No Vital Signs Vital Signs Vital Signs: 09/01/25 15:39 09/01/25 17:27 09/01/25 17:30 Temperature 98.3 F Temperature Source Oral Pulse Rate 80 55 L 58 L Pulse Strength Respiratory Rate 18 22 H 16 Blood Pressure 139/84 H 120/60 127/77 H Blood Pressure Mean 102 77 93 Blood Pressure Source Blood Pressure Position Blood Pressure Location Pulse Ox 98 96 97 Oxygen Delivery Method Room Air 09/01/25 17:49 09/01/25 18:00 09/01/25 19:00 Temperature 98 F Temperature Source Pulse Rate 83 60 60 Pulse Strength Respiratory Rate 16 12 19 H Blood Pressure 133/82 H 124/75 H 130/82 H Blood Pressure Mean 99 88 96 Blood Pressure Source Blood Pressure Position Blood Pressure Location Pulse Ox 99 99 99 Oxygen Delivery Method 09/01/25 20:29 09/01/25 20:30 09/01/25 20:51 Temperature 97.9 F Temperature Source Oral Pulse Rate 60 Pulse Strength Normal (2+) Respiratory Rate 16 Blood Pressure 142/86 H Blood Pressure Mean 104 Blood Pressure Source Monitor Blood Pressure Position Semi-Fowlers Blood Pressure Location Left Arm Pulse Ox 97 Oxygen Delivery Method Room Air Room Air 09/01/25 21:06 09/02/25 02:30 09/02/25 08:30 Temperature 97.8 F 98.3 F Temperature Source Oral Oral Pulse Rate 63 69 Pulse Strength Respiratory Rate 16 16 Blood Pressure 132/80 H 135/84 H Blood Pressure Mean 97 101 Blood Pressure Source Monitor Monitor Blood Pressure Position Semi-Fowlers Semi-Fowlers Blood Pressure Location Left Arm Left Arm Pulse Ox 97 95 94 Oxygen Delivery Method Room Air Room Air Room Air 09/02/25 08:43 09/02/25 08:45 Temperature Temperature Source Pulse Rate Pulse Strength Normal (2+) Respiratory Rate Blood Pressure Blood Pressure Mean Blood Pressure Source Blood Pressure Position Blood Pressure Location Pulse Ox 96 Oxygen Delivery Method Room Air Weight Weight: 113.4 kg Body Mass Index (BMI) 32.1 EEG Results Procedure Details EEG Procedure Details: QIAN SIRENA SEGAL is a 65 year old M with a past medical history of , who presents for evaluation of Electroencephalogram on DATE at TIME Lab / Micro Data 09/02/25 06:35 09/02/25 06:35 Labs: Laboratory Results - last 24 hr 09/01/25 16:20: WBC 7.0, RBC 4.68, Hgb 15.2, Hct 43.6, MCV 93.2, MCH 32.5 H, MCHC 34.9, RDW Std Deviation 42.0, RDW Coeff of Eladio 12.2, Plt Count 208, MPV 9.6, Immature Gran % (Auto) 0.300, Neut % (Auto) 73.8 H, Lymph % (Auto) 15.8 L, [place] % (Auto) 8.6, Eos % (Auto) 0.9, Baso % (Auto) 0.6, Absolute Neuts (auto) 5.2, Absolute Lymphs (auto) 1.10, Nucleated RBC % 0, Sodium 140, Potassium 4.2, Chloride 104, Carbon Dioxide 25.0, Anion Gap 11, BUN 19, Creatinine 1.10, Estim Creat Clear Calc 90.43, Est GFR (MDRD) Non-Af 74, BUN/Creatinine Ratio 17.6, Glucose 99, Calcium 10.0 09/02/25 06:35: WBC 6.5, RBC 4.49 L, Hgb 14.4, Hct 41.7, MCV 92.9, MCH 32.1 H, MCHC 34.5, RDW Std Deviation 42.3, RDW Coeff of Eladio 12.3, Plt Count 199, MPV 9.7, Sodium 140, Potassium 4.2, Chloride 105, Carbon Dioxide 23.6, Anion Gap 11, BUN 20 H, Creatinine 1.00, Estim Creat Clear Calc 97.31, Est GFR (MDRD) Non-Af 83, BUN/Creatinine Ratio 19.5, Glucose 94, Calcium 9.0 Imaging Radiology Impression Brain CT 09/01/25 16:40 IMPRESSION: No acute intracranial abnormality. Reading Location: [facility] Brain MRI 09/02/25 09:35 IMPRESSION: Nonspecific, nonenhancing rounded Eukc-oy-lqqujlpd bilateral maxillary sinusitis. FLAIR hyperintense foci within the bilateral cerebral white matter. These findings are concerning for a demyelinating process such as multiple sclerosis. Similar findings can be seen in patients experiencing migraine headaches. Chronic microvascular ischemic changes are also a consideration. Reading Location: [id number] Active Medications Active Medications Active Medications: Current Medications Generic Name Dose Route Start Last Admin Trade Name Freq PRN Reason Stop Dose Admin Acetaminophen 650 mg 09/01/25 20:11 Acetaminophen 325 Mg Tablet PO Q6H PRN PRN Pain 1-10 Or Fever>100.7 Apixaban 5 mg 09/01/25 22:00 09/02/25 08:29 Apixaban 5 Mg Tablet PO 5 mg BID ANNIE Administration Atorvastatin Calcium 20 mg 09/01/25 22:00 09/01/25 21:02 Atorvastatin Calcium 20 Mg Tablet PO 20 mg QHS ANNIE Administration Cyanocobalamin 1,000 mcg 09/02/25 08:00 09/02/25 08:29 Cyanocobalamin 500 Mcg Tablet PO 1,000 mcg DAILYCM ANNIE Administration Loratadine 10 mg 09/02/25 10:00 09/02/25 08:29 Loratadine 10 Mg Tablet PO 10 mg DAILY ANNIE Administration Melatonin 3 mg 09/01/25 20:11 Melatonin 3 Mg Tablet PO QHS PRN PRN INSOMNIA Ondansetron HCl 4 mg 09/01/25 20:11 Ondansetron 4 Mg/2 Ml Vial IV Q8H PRN PRN NAUSEA/VOMITING Sodium Chloride 10 - 40 ml 09/01/25 20:32 0.9% Saline Lock 10 Ml Syringe IV UD PRN SALINE FLUSH
[2025-09-02 14:30] VITALS: BP 128/78; PULSE 64; RESP 16; TEMP 36.4; O2SAT 95
--- NOTE | 2025-09-02 15:21 | DCINST_ITS ---
Discharge Instructions DC O2, CPAP, BIPAP needs Home O2 Discharge instructions: No Dressing / Incision Discharge Activity: Return to Normal Activity and May Not Drive Weight Bearing Status: Full weight bearing Follow Up Care Test Results: Test results from this visit will be discussed in further detail at your follow- up appointment, if applicable. Discharge Plan Admission Admit Date/Time: 09/01/25 18:24 Primary Reason for Your Visit: Seizure disorder Attending Provider: Bam Holley Primary Care Provider: Morgan Moore Consulting Providers: Lorenzo Holland; Zari Meyer; Moo Jain; Joana Mckay; Sheree Weir; Santino Roland; Mayra Hutchinson; Kaya Pollock; Abraham Molina; Kirstie Licoan; Andrew Jean Baptiste; Alberto Wong; Nohemi Bucio; Andriy Aguilar; Char Miller; Jillian Carlin; Vamshi Wen; Jorgito Ortiz; Suhail Hurtado; Nancy Garcia; Awa Wu; Chhaya Chirinos; Ignacio Mcmillan; Braxton Hernández; ALICE POLO; Sharif Camacho; Flaca Louis; Mark James Discharge Orders/Prescriptions Prescriptions: New levetiracetam 750 mg Tablet 750 mg PO BID Qty: 60 0RF Rx Instructions: Start the morning of 09/03/2025 Continued elderberry fruit 350 mg capsule 350 mg PO BID cinnamon bark [Cinnamon] 500 mg capsule 500 mg PO BID bee pollen 550 mg capsule 550 mg PO TID loratadine [Claritin] 10 mg tablet 10 mg PO DAILY beta carotene 30 mg capsule 30 mg PO DAILY mecobalamin (vitamin B12) 1,000 mcg tablet,chewable 1,000 mcg PO QDAY lycopene 10 mg capsule 10 mg PO QDAY Rx Instructions: administer after a meal omega-3 fatty acids 1,000 mg capsule 1,000 mg PO QDAY Eliquis 5 mg tablet 5 mg PO BID Ear Health Plus 500 mg tablet 1 tab PO TID rosuvastatin 10 mg tablet 10 mg PO DAILY Qty: 30 0RF Referrals / Follow Up: Morgan Moore MD [Primary Care Provider, [facility]] - Within 1 Month Troy Richmond MD [Non-Staff, Neurology] - See Referral Note Referral Note: Call his office to schedule an appointment for establishment of a neurologist, notify him that you were hospitalized and were diagnosed with a seizure disorder Disposition Disposition (needs filled in before D/C Order can be placed): Home, Self Care
--- NOTE | 2025-09-02 15:25 | PCM.DC.SUM ---
Providers Date of Admission: 09/01/25 Date of Discharge: 09/02/25 Primary Care Physician: Dr. Morgan Moore MD Consultations 09/01/25 20:11 Neurology [Consult: Tele-Neurology] Routine Consulting Provider: [facility] Reason for Consult: episodes of dysgeusia and transient amnesia EMERGENT Consult: No MD Notified: Yes Date Notified: 09/01/25 Time Notified: 20:39 Method of Notification: Answering Service Nursing Unit Staff Notify [facility] of Tele-Neurology Consult: Yes Reason For Visit: ALTERED SENSE OF TASTE W/ TRANSIENT AMNESIA Diagnosis Discharge Diagnosis (1) Dysgeusia: Status: Acute Code(s): R43.2 - Parageusia (2) Transient amnesia: Status: Acute Code(s): R41.3 - Other amnesia Plan 1. 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 #3 hyperlipidemia Medications at Discharge Home Medications apixaban 5 mg tablet (Eliquis) 5 mg PO BID blood thinner 03/17/24 vit B complex and R-ohotvsw-ilkjhmic-bioflavonoid,lemon 500 mg tablet (Ear Health Plus) 1 tab PO TID tinnitus 03/17/24 rosuvastatin 10 mg tablet 10 mg PO DAILY #30 tabs 03/18/24 bee pollen 550 mg capsule 550 mg PO TID 05/30/24 cinnamon bark 500 mg capsule (Cinnamon) 500 mg PO BID 05/30/24 elderberry fruit 350 mg capsule 350 mg PO BID 05/30/24 loratadine 10 mg tablet (Claritin) 10 mg PO DAILY 05/30/24 beta carotene 30 mg capsule 30 mg PO DAILY 06/28/24 lycopene 10 mg capsule 10 mg PO QDAY 12/11/24 mecobalamin (vitamin B12) 1,000 mcg chewable tablet 1,000 mcg PO QDAY 12/11/24 omega-3 fatty acids 1,000 mg capsule 1,000 mg PO QDAY 12/11/24 levetiracetam 750 mg tablet 750 mg PO BID #60 tabs 09/02/25 Hospital Course Operations None Procedures Electroencephalogram Summary of Care Provided Minutes Spent on Discharge: 31 Hospital Course: This 65-year-old white male was seen in the emergency room at [facility] complaining of an episode of altered taste and transient amnesia. Patient lives at home with his , he was hospitalized in March 2024 for possible CVA-he was told at that time he may have had a TIA. Patient stated that he did not remember much for over an hour, stated that he appeared glassy eyed and was not able to remember simple things. Patient denied any weakness in his arms or legs workup in the ER revealed his NIH stroke score to be 0, emergency room physician documented there was no indication for stroke team to be called. CT of the brain was ordered which did not show any abnormality, CBC was unremarkable. Patient was placed in observation status on PCU and seen in consultation by teleneurology, he underwent an MRI of the brain which was unremarkable. Patient underwent an EEG and during the EEG teleneurology told me that it was noted he was having seizures. It was recommended the patient be loaded with 2500 mg of Keppra, teleneurology stated that after this was accomplished the patient could be discharged home on daily Keppra starting 09/03/2025. On 09/02/2025, patient was seen and examined: On examination he appeared in good health and spirits. Vital signs as documented. Skin warm and dry and without overt rashes. Neck without JVD, neck was supple, trachea midline, thyroid was normal. Lungs clear bilaterally, normal air movement was noted. Heart exam notable for regular rhythm, normal sounds and absence of murmurs, rubs or gallops. Abdomen unremarkable and without evidence of organomegaly, masses, or abdominal aortic enlargement. Bowel sounds are present, abdomen is not distended. Extremities nonedematous, no cyanosis was noted, no clubbing was noted. Neuro: Cranial nerves II through XII are grossly intact, no focal motor deficits were noted, sensation to light touch and pinprick intact, motor exam 5/5 throughout. Psych: Patient is alert and oriented x3, he does not appear anxious or depressed, he does not appear agitated. Patient appears stable for discharge home on 09/02/2025. I called the patient's PCP-Dr. Moore- and discussed the patient's medical problem with him. He was advised that the patient will need follow-up with neurology as an outpatient. Weight / BMI Weight Weight: 113.4 kg Body Mass Index (BMI) 32.1 ABG / Lab / Microbiology Data 09/02/25 06:35 09/02/25 06:35 Laboratory: Laboratory Results - last 24 hr 09/02/25 06:35: WBC 6.5, RBC 4.49 L, Hgb 14.4, Hct 41.7, MCV 92.9, MCH 32.1 H, MCHC 34.5, RDW Std Deviation 42.3, RDW Coeff of Eladio 12.3, Plt Count 199, MPV 9.7, Sodium 140, Potassium 4.2, Chloride 105, Carbon Dioxide 23.6, Anion Gap 11, BUN 20 H, Creatinine 1.00, Estim Creat Clear Calc 97.31, Est GFR (MDRD) Non-Af 83, BUN/Creatinine Ratio 19.5, Glucose 94, Calcium 9.0 Radiography Diagnostic Testing: Radiology Impression Brain MRI 09/02/25 09:35 IMPRESSION: Nonspecific, nonenhancing rounded Odpu-oi-pmlyyqyt bilateral maxillary sinusitis. FLAIR hyperintense foci within the bilateral cerebral white matter. These findings are concerning for a demyelinating process such as multiple sclerosis. Similar findings can be seen in patients experiencing migraine headaches. Chronic microvascular ischemic changes are also a consideration. Reading Location: [id number] Instructions Weight Bearing Status: Full weight bearing DC O2, CPAP, BIPAP Needs Home O2 Discharge instructions: No Meaningful Use Info Meaningful Use Meaningful Use Diagnoses (Choose all that apply): None applicable Discharge Plan Admission Admit Date/Time: 09/01/25 18:24 Primary Reason for Your Visit: Seizure disorder Attending Provider: Bam Holley Primary Care Provider: Morgan Moore Consulting Providers: Lorenzo Holland; Zari Meyer; Moo Jain; Joana Mckay; Sheree Weir; Santino Roland; Mayra Hutchinson; Kaya Pollock; Abraham Molina; Kirstie Licona; Andrew Jean Baptiste; Alberto Wong; Nohemi Bucio; Andriy Aguilar; Char Miller; Jillian Carlin; Vamshi Wne; Jorgito Ortiz; Suhail Hurtado; Nancy Garcia; Awa Wu; Chhaya Chirinos; Ignacio Mcmillan; Braxton Hernández; ALICE POLO; Sharif Camacho; Flaca Louis; Mark James Discharge Orders/Prescriptions Prescriptions: New levetiracetam 750 mg Tablet 750 mg PO BID Qty: 60 0RF Rx Instructions: Start the morning of 09/03/2025 Continued elderberry fruit 350 mg capsule 350 mg PO BID cinnamon bark [Cinnamon] 500 mg capsule 500 mg PO BID bee pollen 550 mg capsule 550 mg PO TID loratadine [Claritin] 10 mg tablet 10 mg PO DAILY beta carotene 30 mg capsule 30 mg PO DAILY mecobalamin (vitamin B12) 1,000 mcg tablet,chewable 1,000 mcg PO QDAY lycopene 10 mg capsule 10 mg PO QDAY Rx Instructions: administer after a meal omega-3 fatty acids 1,000 mg capsule 1,000 mg PO QDAY Eliquis 5 mg tablet 5 mg PO BID Ear Health Plus 500 mg tablet 1 tab PO TID rosuvastatin 10 mg tablet 10 mg PO DAILY Qty: 30 0RF Referrals / Follow Up: Morgan Moore MD [Primary Care Provider, Family Practice] - Within 1 Month Troy Richmond MD [Non-Staff, Neurology] - See Referral Note Referral Note: Call his office to schedule an appointment for establishment of a neurologist, notify him that you were hospitalized and were diagnosed with a seizure disorder Disposition Disposition (needs filled in before D/C Order can be placed): Home, Self Care Charges/Coding Visit Charges Inpatient E&M: 93479 Disch Hosp >30min
[2025-09-02] MEDS: 0.9% Saline Lock 10 ML Syringe IV (15:30)
--- NOTE | 2025-09-02 16:09 | PHA.DC.MC.R ---
Pharmacy [facility] Counseling Pharmacy Service has performed discharge medication reconciliation and counseling for this patient. The patient's discharge medication list was reviewed for discrepancies and discrepancies were resolved. The patient was counseled on the following discharge medications and changes in medications for homegoing were reviewed. The Reason for Use, instructions for use, and potential side effects were reviewed for all new medications. The patient's questions regarding all of their medications were answered. 1. Levetiracetam 750 mg PO BID The patient was able to verbally demonstrate an understanding of their discharge medications. Medications at Discharge Home Medications apixaban 5 mg tablet (Eliquis) 5 mg PO BID blood thinner 03/17/24 vit B complex and W-tyjwknt-ftmqokvo-bioflavonoid,lemon 500 mg tablet (Ear Health Plus) 1 tab PO TID tinnitus 03/17/24 rosuvastatin 10 mg tablet 10 mg PO DAILY #30 tabs 03/18/24 bee pollen 550 mg capsule 550 mg PO TID 05/30/24 cinnamon bark 500 mg capsule (Cinnamon) 500 mg PO BID 05/30/24 elderberry fruit 350 mg capsule 350 mg PO BID 05/30/24 loratadine 10 mg tablet (Claritin) 10 mg PO DAILY 05/30/24 beta carotene 30 mg capsule 30 mg PO DAILY 06/28/24 lycopene 10 mg capsule 10 mg PO QDAY 12/11/24 mecobalamin (vitamin B12) 1,000 mcg chewable tablet 1,000 mcg PO QDAY 12/11/24 omega-3 fatty acids 1,000 mg capsule 1,000 mg PO QDAY 12/11/24 levetiracetam 750 mg tablet 750 mg PO BID #60 tabs 09/02/25
== END 2025-09-02 17:58 | disposition home or self-care (01) ==
LOC: ED 18:11 → PCU 19:26
PROVIDERS: Admitting Provider Hospitalist; Emergency Provider Student in an Organized Health Care Education/Training Program; PCP Family Medicine; Visit Provider Internal Medicine
DX: R43.2 Parageusia (principal); G40.909 Epilepsy, unspecified, not intractable, without status epilepticus; R41.3 Other amnesia; Z86.718 Personal history of other venous thrombosis and embolism; E78.00 Pure hypercholesterolemia, unspecified; Z79.01 Long term (current) use of anticoagulants; Z79.899 Other long term (current) drug therapy; E66.811 Obesity, class 1; Z68.31 Body mass index [BMI] 31.0-31.9, adult; Z86.73 Personal history of transient ischemic attack (TIA), and cerebral infarction without residual deficits
CPT/HCPCS: 36415; 70450; 70553; 80048; 85025; 85027; 93005; 95819; 96374; 99221; 99284; A9575; A4216; G0378

== ENCOUNTER → 2025-09-23 | Outpatient (CLI) | payer MEDICARE, BC, SELFPAY ==
[2025-09-23 15:36] LABS: Ammonia 25.8 umol/L (16-60)
[2025-09-23 15:48] LABS: AST(SGOT) 19 U/L (<=37); Alanine Aminotransfer ALT/SGPT 14 U/L (<=46); Albumin, Serum 4.4 g/dL (3.4-4.8); Alkaline Phosphatase 54 U/L (40-129); Bilirubin, Direct 0.23 mg/dL (0.00-0.30); Globulin 3.0 g/dL (2.2-4.2); Vitamin B12 852 pg/mL (180-914)
[2025-09-23 15:57] LABS: CRP < 3.00 mg/L (0.0-3.0); Magnesium 2.3 mg/dL (1.5-2.2)
[2025-09-26 08:09] LABS: ANTINUCLEAR ANTIBODIES DIRECT Negative (Negative)
[2025-10-01 15:08] LABS: Anti-Cardiolipin Ab, IgA, Qn < 9 APL U/mL (0-11); Anti-Cardiolipin Ab, IgG, Qn < 9 GPL U/mL (0-14); Anti-Cardiolipin Ab, IgM, Qn < 9 MPL U/mL (0-12); Anti-Thrombin 3 AG, Immunol 87 % (72-124); Antithrombin 3 Function 117 % (75-135); Beta-2-Glycoprotein I IgA <9 (0-25); Beta-2-Glycoprotein I IgG <9 (0-20); Beta-2-Glycoprotein I IgM <9 (0-32); Complement CH50 > 60 U/mL (>41); Dilute Russell Viper Venom 58.8 sec (0.0-47.0); Dilute Russell Viper Venom Mix 46.1 sec (0.0-40.4); Immunoglobulin G 936 mg/dL (603-1613); Interpretation Comment: (.); PTT-LA 32.4 sec (0.0-43.5); Protein C, Functional 124 % (73-180); Protein S, Funtional 100 % (63-140)
== END | disposition home or self-care (01) ==
LOC: MTLAB 12:34
PROVIDERS: PCP Family Medicine
DX: G40.909 Epilepsy, unspecified, not intractable, without status epilepticus (principal); I66.9 Occlusion and stenosis of unspecified cerebral artery; Z86.73 Personal history of transient ischemic attack (TIA), and cerebral infarction without residual deficits
CPT/HCPCS: 36415; 80076; 81240; 81241; 81291; 82140; 82607; 82784; 83735; 84443; 85240; 85270; 85300; 85301; 85302; 85303; 85305; 85306; 85652; 86038; 86140; 86146; 86147; 86160; 86162; 86225; 86235

== ENCOUNTER → 2025-10-28 | Outpatient (CLI) | payer MEDICARE, BC, SELFPAY ==
[2025-10-28 15:44] LABS: AST(SGOT) 20 U/L (<=37); Alanine Aminotransfer ALT/SGPT 15 U/L (<=46); Albumin, Serum 4.3 g/dL (3.4-4.8); Alkaline Phosphatase 56 U/L (40-129); Anion Gap 14 (7-18); BUN 20 mg/dL (4-19); BUN/Creat Ratio 16.6 RATIO (10-20); Calcium,Total 9.5 mg/dL (7.6-11.0); Carbon Dioxide 25.1 mmol/L (20.0-29.0); Chloride 105 mmol/L (96-106); Globulin 2.5 g/dL (2.2-4.2); Glucose 86 mg/dL (70-99); Potassium 4.3 mmol/L (3.5-5.1)
[2025-10-28 15:45] LABS: Ammonia 29.6 umol/L (16-60)
--- OUTSIDE RECORDS SUMMARY | 2025-10-28 20:12 | XMS RPT_ITS | CCD ---
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 Morgan Whittaker Primary Care Provider Dr. Morgan Moore Referring Provider [phone] Dr. Austin White Attending Provider [phone] Dr. Morgan Moore Primary Care Provider Dr. Alex Severino Emergency Provider Dr. Mark James Admit Provider Dr. Mark James Attending Provider Dr. Mark James Other Provider MD Santino Roland Other Provider Unavailable Dr. Lorenzo Holland Other Provider MD Mayra Hutchinson Other Provider Unavailable Dr. Kaya Pollock Other Provider [phone] Zari Meyer Other Provider Dr. Abraham Molina Other Provider Dr. Kirstie Licona Other Provider Dr. Andrew Jean Baptiste Other Provider Dr. Alberto Wong Other Provider MD Joana Mckay Other Provider Dr. Andriy Aguilar Other Provider Dr. Sheree Weir Other Provider Dr. Char Miller Other Provider [phone] Jillian Carlin Other Provider Dr. Vamshi Wen Other Provider Dr. Jorgito Ortiz Other Provider Dr. Suhail Hurtado Other Provider [phone] Nancy Garcia Other Provider Unavailable MD [facility] Provider Unavailable Dr. Di Garcia Attending Provider Dr. Di Garcia Other Provider TERESA MONTES DE OCA, DR MORGAN Guerrier Primary Care Physician [phone] RIGOBERTO MONTES DE OCA, DR MARISOL Valdez Attending Fletcher Whittaker MD, DR MORGAN Guerrier Primary Care Kimi FRANKLIN MD, DR MARISOL Valdez Attending Fletcher Whittaker MD, DR MORGAN Guerrier Primary Care Unavailberenice FRANKLIN MD, DR MARISOL Valdez Admitting Fletcher Domingo MD, DR MARISOL Valdez Attending Violetaab bhavin [employer] ARCHITECT, EBENEZER M Consulting Unavaila sharan MOORE MD, DR MORGAN Guerrier Primary Care Unavailberenice Moore MD, Dr. Mora Primary Care Provider [phone] Dr. Morgan Moore MD Attending Provider Dr. Morgan Moore MD Referring Provider Teresa MONTES DE OCA, Dr. Mora Other Provider Deric MONTES DE OCA, Dr. Rutherford Attending Provider Vannesa COTTON FACTOR-CAj Attending Provider McMorrow COTTON FACTOR-C, Jatinder Attending Provider Teresa MONTES DE OCA, Dr. Mora Primary Care Provider Teresa MONTES DE OCA, Dr. Mora Attending Provider Teresa MONTES DE OCA, Dr. Mora Referring Provider Ramon Finney Attending Unavailable Teresa, Morgan Primary Care Unavailable Moore, Morgan Referring Unavailable Moore, Morgan Primary Care Unavailable Teresa, Morgan Consulting Unavailable Krish Leos Attending Unavailable Moore, Morgan Referring Unavailable Mark James Attending Unavailable Moore, Morgan Primary Care Unavailable Bam Holley Attending Unavailable Adeli, Amir Consulting Unavailable Mark James Admitting Unavailable Zha, Zari Consulting Unavailable Cristobal, Moo Consulting Unavailable Belev, Joana Consulting Unavailable Destin, Sheree Consulting Unavailable Luan, Santino Consulting Unavailable Hinduja, Mayra Consulting Unavailable Phill, Kaya Consulting Unavailable Tracy, Abraham Consulting Unavailable Monae, Kirstie Consulting Unavailable Andrew Jean Baptiste Consulting Unavailable Alberto Wong Consulting Unavailable Nohemi Bucio Consulting Unavailable Andriy Aguilar Consulting Unavailable Char Miller Consulting Unavailable Jillian Carlin Consulting UnavailVamshi Jenkins Consulting Unavailable Jorgito Ortiz Consulting Unavailable Suhail Hurtado Consulting Unavailable Nancy Garcia Consulting Unavailable Awa Wu Consulting Unavailable Chhaya Chirinos Consulting Unavailable Ignacio Mcmillan Consulting Unavailable Braxton Hernández Consulting Unavailable ALICE MARIE Consulting Unavailable Sharif Camacho Consulting Unavailable Flaca Louis Consulting Unavailable Mark James Consulting Unavailable Bam Holley Consulting Unavailable [facility] Aj RIVAS Attending Unavailable Teresa, Morgan Primary Care Unavailable Moore, Morgan Referring Unavailable Moore, Morgan Primary Care Unavailable McMorrow Jatinder RIVAS Attending Unavailable Teresa, Morgan Primary Care Unavailable Moore, Morgan Referring Unavailable Moore, Morgan Attending Unavailable Moore, Morgan Primary Care Unavailable Teresa, Morgan Referring Unavailable Moore, Morgan Attending Unavailable Bam Holley Attending Unavailable Skyler, Amir Consulting Unavailable Mark James Admitting Unavailable Moore, Morgan Primary Care Unavailable Zha, Zari Consulting Unavailable Cristobal Moo Consulting Unavailable Belev, Joana Consulting Unavailable Destin, Sheree Consulting Unavailable Wayside, Santino Consulting Unavailable Hinduja, Mayra Consulting Unavailable Phill, Kaya Consulting Unavailable Tracy, Abraham Consulting Unavailable Monae, Kirstie Consulting Unavailable Andrew Jean Baptiste Consulting Unavailable Alberto Wong Consulting Unavailable Nohemi Bucio Consulting Unavailable Andriy Aguilar Consulting Unavailable Char Miller Consulting Unavailable Jillian Carlin Consulting UnavailVamshi Jenkins Consulting Unavailable Jorgito Ortiz Consulting Unavailable Suhail Hurtado Consulting Unavailable Nancy Garcia Consulting Unavailable Awa Wu Consulting Unavailable Chhaya Chirinos Consulting Unavailable Ignacio Mcmillan Consulting Unavailable Braxton Hernández Consulting Unavailable ALICE MARIE Consulting Unavailable Sharif Camacho Consulting Unavailable Flaca Louis Consulting Unavailable Mark James Consulting Unavailable Allergies Allergy Classification Reported Allergen(s) Allergy Type Date of Onset Reaction(s) Facility (9 sources) Ibuprofen; Translations: [ibuprofen] Drug Allergy 4 MAKES RIGHT SIDE OF FACE TO GO NUMB, Facial edema [facility] (1 source) Ibuprofen Drug Allergy 5 [facility] Repository Medications Current Medications Medication Drug [...] 12:00am docusate sodium 50 mg / sennosides, retirement 8.6 mg oral tablet (1 source) Start: 12-19-2024 End: 12-22-2024 take 1 tablet by mouth twice daily Senokot S 50 mg-8.6 mg oral tablet Dose = 2 tab(s), Oral, BID, Take until first bowel movement, then as needed, X 3 day(s), # 12 tab(s), 0 Refill(s), Pharmacy: [facility]/pharmacy #[id number], 187.9, cm, 12/18/24 [...] qDay, # 30 tab(s), 0 Refill(s), Pharmacy: [facility]/pharmacy #[id number], 187.9, cm, 12/18/24 [...] 90.0 Unit: cap(s) Repeat number: 1 Inositol-Choline Wmb-Amxbk-G-C ([facility]) 500 mg tablet (3 sources) Start: 03-17-2024 Inositol-Choli ne Yac-Gsbkd-I-C ([facility] Plus) 500 mg tablet Active 1 {tbl} PO THREE TIMES A DAY March 17, 2024 12:00am tinnitus Start: 03-17-2024 Inositol-Choli ne Baj-Sfhha-M-C ([facility]) 500 mg tablet Active 1 {tbl} PO THREE TIMES A DAY March 17, 2024 12:00am Start: 03-17-2024 take 1 tablet by christine th three times daily Inositol-Choline Lfa-Qggcu-M-C ([facility]) 500 mg tablet Active [...] 30, 2024 12:00am December 11, 2024 2:58pm [facility] sources) Start: 11-26-2024 [facility] [place]ill(s) Start Date: 11/26/24 Status: Ordered Repeat number: 1 multivitamin capsule (2 sources) take 1 capsule by mouth once daily multivitamin capsule Take 1 capsule by mouth daily. 0 Active [place]-3 Fatty Acids 1,000 mg capsule (2 sources) Start: 12-11-2024 take 1 capsule by mouth once daily [place]-3 Fatty Acids 1,000 mg capsule Active 1000 [...] 0 Refill(s), 12/26/24 7:52:00 AM EST, Pharmacy: [facility]/pharmacy #[id number], Status post total left knee replacement, 187.9, [...] tablet Active 10 mg PO DAILY 30 0 March 18, 2024 12:00am Start: 03-17-2024 End: [...] capsule Discontinued 81 mg PO DAILY 1 0 March 18, 2024 12:00am June 28, 2024 [...] depolarization] 06-28-2024 Chronic Disorders of lipid metabolism (7 sources) Dyslipidemia; Translations: [Hyperlipidemia, unspecified] 03-17-2024 Chronic Esophageal disorders (3 sources) Gastroesophageal reflux disease without esophagitis; Translations: [Esophageal reflux] Onset: Chronic Genitourinary symptoms and ill-defined conditions (2 sources) Nocturia; Translations: [Nocturia] Episodic Malaise and fatigue (2 sources) Fatigue; Translations: [Other malaise and fatigue] Episodic Osteoarthritis (2 sources) Osteoarthritis of left knee joint; Translations: [Unilateral primary osteoarthritis, left knee] Chronic Other aftercare (5 sources) Long-term current use of anticoagulant; 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] 03-17-2024 Episodic Other aftercare (2 sources) 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; Translations: [Long-term (current) use of anticoagulants] 03-17-2024 Episodic Other [...] [Presence of left artificial knee joint] Onset: Chronic Other ear and sense organ disorders (2 sources) Bilateral tinnitus; Translations: [Tinnitus, unspecified] Episodic Other gastrointestinal disorders (2 sources) Dysphagia; Translations: [Dysphagia, unspecified] Episodic Other nervous system disorders (2 sources) Numbness; Translations: [Disturbance of skin sensation] Episodic Other nervous system disorders (4 sources) Facial paresthesia; Translations: [Anesthesia of skin] 03-17-2024 Episodic Other nervous system disorders (2 sources) Parageusia; Translations: [Parageusia] Onset: Episodic Other nutritional; endocrine; and metabolic disorders (2 sources) Body mass index 30+ - obesity; Translations: [Body mass index (BMI) 31.0-31.9, adult] 05-30-2024 Chronic Phlebitis; thrombophlebitis and thromboembolism (4 sources) Acute deep vein thrombosis of lower limb; Translations: [Acute embolism and thrombosis of unspecified deep veins of unspecified lower extremity] Onset: Episodic Residual codes; unclassified (4 sources) Acute confusion; Translations: [Disorientation, unspecified] 03-17-2024 Episodic Residual codes; unclassified (2 sources) Disorientation, unspecified; Translations: [Delirium due to conditions classified elsewhere] 03-17-2024 Episodic Residual codes; unclassified (2 sources) Other amnesia; Translations: [Other amnesia] Onset: Episodic Transient cerebral ischemia (2 sources) Transient cerebral ischemia; Translations: [Transient cerebral ischemic attack, unspecified] 05-30-2024 Chronic Past or Other Problems Problem Classification Problem Date Documented Da te Episodic/Chronic Fracture of upper limb (2 sources) Closed fracture of radius; Translations: [Unspecified fracture of unspecified forearm, initial encounter for closed fracture] Onset: 04-14-2016 04-14-2016 Episodic Other nervous system disorders (3 sources) Anesthesia of skin; Translations: [Disturbance of skin sensation] Onset: 02-18-2025 03-17-2024 Episodic Other non-traumatic joint disorders (1 source) Pain in unspecified hip; Translations: [Pain in unspecified hip] Onset: 05-23-2025 Episodic Other screening for suspected conditions (not mental disorders or infectious disease) (4 sources) Patient encounter status; Translations: [Screening for lipoid disorders] Onset: 12-27-2024 Episodic Results Test Name Value Interpretation Reference Range Facility [facility] 09-11-2025 [facility] Telephone (NIQ) ---- QIAN SEGAL ([id number]) 1960 M Date Time Provider Department 09/11/25 NILESH MOODY During your visit today, we recorded the following information about you: Allergies As of Date: 09/11/2025 (Not on File) Date Reviewed: Never Reviewed Reason for Visit: Future Appointment [256] Cmt: NEW PT, [place], ANY Problem List As Of Date: 09/11/2025 (None) Encounter Status:Closed by ROQUE CROWE on 09/11/25 Normal [facility] Basic Metabolic Profile (BMP )on 09-02-2025 BUN/CRE 19.5 RATIO Normal 08-26 [facility] Comment on above: Performed By: #### L 500.2500, L100.0500 #### [facility] Laboratory [address] [place], [place], [address] Calcium [Mass/Vol] 9.0 mg/dL Normal 7.6-11.0 [facility] Comment on above: Performed By: #### L 500.2500, L100.0500 #### [facility] [address] [place], [address] Chloride [Moles/Vol] 105 mmol/L Normal 98-108 [facility] Comment on above: Performed By: #### L 500.2500, L100.0500 #### [facility] [address] [place], [address] CO2 [Moles/Vol] 23.6 mmol/L Normal 21.0-32.0 [facility] Comment on above: Performed By: #### L 500.2500, L100.0500 #### [facility] [address] [place], [address] Creatinine [Mass/Vol] 1.00 mg/dL Normal 0.70-1.20 [facility] Comment on above: Performed By: #### L 500.2500, L100.0500 #### [facility] [address] [place], [address] ECRCL 97.31 ml/min Normal 50-250 [facility] Comment on above: Performed By: #### L 500.2500, L100.0500 #### [facility] [address] [place], [address] GAP 11 Normal 5-15 [facility] Comment on above: Performed By: #### L 500.2500, L100.0500 #### [facility] [address] [place], [address] GFR/1.73 sq M.predicted among non-blacks MDRD (S/P/Bld) [Vol rate/Area] 83 mL/min/{1.73_m2} Normal >60 [facility] Comment on above: Result Comment: mL/m in/1.73m2 CKD-EPI Creatinine Equation (2020) Performed By: #### L 500.2500, L100.0500 #### [facility] [address] [place], [address] Glucose [Mass/Vol] 94 mg/dL Normal 70-99 [facility] Comment on above: Performed By: #### L 500.2500, L100.0500 #### [facility] [address] [place], [address] Potassium [Moles/Vol] 4.2 mmol/L Normal 3.3-5.1 [facility] Comment on above: Performed By: #### L 500.2500, L100.0500 #### [facility] [address] [place], [address] Sodium [Moles/Vol] 140 mmol/L Normal 133-145 [facility] Comment on above: Performed By: #### L 500.2500, L100.0500 #### [facility] [address] [place], [address] Urea nitrogen [Mass/Vol] 20 mg/dL High 4-19 [facility] Comment on above: Performed By: #### L 500.2500, L100.0500 #### [facility] [address] [place], [address] Brain W/WO Contraston 2024 Brain W/WO Contrast [facility] Imaging Services [address] [place] [address] Brain W/WO Contrast MR#: [id number] Acct: [id number] Name: QIAN SEGAL Rep #: [id number] : 1960 M 65 From: Santiago Bingham MD PCP: Dr. Morgan Moore MD Status: DIS DALTON Study: Brain W/WO Contrast Date of Exam: 09/02/25 Exam# [id number] Ordering Dr: Mark James DO ADDENDUM by Dr. Santiago Bingham MD on 09/05/25 at 1240 Contrast: 21 mL Clariscan IV. Reading Location: [facility] 09/05/25 1241 Date cc: Dr. Mark James DO; Dr. Morgan Moore MD * Signed PROCEDURE: BRAIN W/WO CONTRAST 09/02/2025 REASON FOR EXAM: STROKELIKE SYMPTOMS TECHNIQUE: Procedure Code: MRIBRWW Modality: MR Procedure: BRAIN W/WO CONTRAST Multiplanar and multisequence images were obtained. FINDINGS: Multiple rounded FLAIR foci are noted throughout the bilateral cerebral white matter, nonspecific and without corresponding enhancement. Cavum septum pellucidum et vergae, normal variant. The remainder of the brain parenchyma appears unremarkable. The [place]-white matter differentiation is appropriate. The ventricles are normal in size and configuration. No midline shift. The corpus callosum, pituitary gland, and cerebellar vermis are intact. The cervicomedullary junction appears unremarkable. Kwql-jm-xrxgrlxr mucosal thickening within the bilateral maxillary sinuses. The remainder of the paranasal sinuses and mastoid air cells are clear. Diffusion-weighted images demonstrate no restricted diffusion. No abnormal enhancement pattern. MRI/Brain W/WO Contrast IMPRESSION: Nonspecific, nonenhancing rounded Syed-so-kvdyclzn bilateral maxillary sinusitis. FLAIR hyperintense foci within the bilateral cerebral white matter. These findings are concerning for a demyelinating process such as multiple sclerosis. Similar findings can be seen in patients experiencing migraine headaches. Chronic microvascular ischemic changes are also a consideration. Reading Location: [facility] CC: Dr. Mark James DO; Dr. Morgan Moore MD Dining Service Worker: Signed Normal [facility] CBC-Complete Blood Cnt No Di ffon 09-02-2025 Erythrocyte distribution width (RBC) [Ratio] 12.3 % Normal 11.6-14.6 [facility] Comment on above: Performed By: #### L 500.2500, L100.0500 #### [facility] [address] [place], [address] Hematocrit (Bld) [Volume fraction] 41.7 % Normal 40-54 [facility] Comment on above: Performed By: #### L 500.2500, L100.0500 #### [facility] [address] [place], [address] Hemoglobin (Bld) [Mass/Vol] 14.4 g/dL Normal 13.0-16.5 [facility] Comment on above: Performed By: #### L 500.2500, L100.0500 #### [facility] [address] [place], [address] MCH (RBC) [Entitic mass] 32.1 pg High 27.0-32.0 [facility] Comment on above: Performed By: #### L 500.2500, L100.0500 #### [facility] [address] [place], [address] MCHC (RBC) [Mass/Vol] 34.5 g/dL Normal 32-36 [facility] Comment on above: Performed By: #### L 500.2500, L100.0500 #### [facility] [address] [place], [address] MCV (RBC) [Entitic vol] 92.9 fL Normal 80-94 [facility] Comment on above: Performed By: #### L 500.2500, L100.0500 #### [facility] [address] [place], [address] Platelet mean volume (Bld) [Entitic vol] 9.7 fL Normal 6.2-12.0 [facility] Comment on above: Performed By: #### L 500.2500, L100.0500 #### [facility] [address] [place], [address] Platelets (Bld) [#/Vol] 199 10*3/uL Normal 150-450 [facility] Comment on above: Performed By: #### L 500.2500, L100.0500 #### [facility] [address] [place], [address] RBC (Bld) [#/Vol] 4.49 10*6/uL Low 4.6-6.2 [facility] Comment on above: Performed By: #### L 500.2500, L100.0500 #### [facility] [address] [place], [address] RDW SD 42.3 fl Normal 35.1-43.9 [facility] Comment on above: Performed By: #### L 500.2500, L100.0500 #### [facility] [address] [place], [address] WBC (Bld) [#/Vol] 6.5 10*3/uL Normal 4.4-11.0 [facility] Comment on above: Performed By: #### L 500.2500, L100.0500 #### [facility] [address] [place], [address] Discharge Instructionon 08-08 Discharge Instruction [facility] Medical Records Department [address] [place] [address] Instructions for Home/Discharge Instructions 09/02/25 1521 MR#: [id number] Acct: [id number] Name: QIAN SEGAL Rep #: [id number] : 1960 65 From: Bam Holley DO PCP: Dr. Morgan Moore MD Status:ADM DAL[place] Discharge Instructions DC O2, CPAP, BIPAP needs Home O2 Discharge instructions: No Dressing / Incision Discharge Activity: Return to Normal Activity and May Not Drive Weight Bearing Status: Full weight bearing Follow Up Care Test Results: Test results from this visit will be discussed in further detail at your follow-up appointment, if applicable. Discharge Plan Admission Admit Date/Time: 09/01/25 18:24 Primary Reason for Your Visit: Seizure disorder Attending Provider: Bam Holley Primary Care Provider: Morgan Moore Consulting Providers: Lorenzo Holland; Zari Meyer; Moo Jain; Joana Mckay; Sheree Weir; Santino Roland; Mayra Hutchinson; Kaya Pollock; Abraham Molina; Kirstie Licona; Andrew Jean Baptiste; Alberto Wong; Nohemi Bucio; Andriy Aguilar; Char Miller; Jillian Carlin; Vamshi Wen; Jorgito Ortiz; Suhail Hurtado; Nancy Garcia; Awa Wu; Chhaya Chirinos; Ignacio Mcmillan; Braxton Hernández; ALICE MARIE; Sharif Camacho; Flaca Louis; Mark James Discharge Orders/Prescription s Prescriptions: New levetiracetam 750 mg Tablet 750 mg PO BID Qty: 60 0RF Rx Instructions: Start the morning of 09/03/2025 Continued elderberry fruit 350 mg capsule 350 mg PO BID cinnamon bark [Cinnamon] 500 mg capsule 500 mg PO BID bee pollen 550 mg capsule 550 mg PO TID loratadine [Claritin] 10 mg tablet 10 mg PO DAILY beta carotene 30 mg capsule 30 mg PO DAILY mecobalamin (vitamin B12) 1,000 mcg tablet,chewable 1,000 mcg PO QDAY lycopene 10 mg capsule 10 mg PO QDAY Rx Instructions: administer after a meal omega-3 fatty acids 1,000 mg capsule 1,000 mg PO QDAY Eliquis 5 mg tablet 5 mg PO BID Ear Health Plus 500 mg tablet 1 tab PO TID rosuvastatin 10 mg tablet 10 mg PO DAILY Qty: 30 0RF Referrals / Follow Up: Morgan Moore MD [Primary Care Provider, Family Practice] - Within 1 Month Troy Richmond MD [Non-Staff, Neurology] - See Referral Note Referral Note: Call his office to schedule an appointment for establishment of a neurologist, notify him that you were hospitalized and were diagnosed with a seizure disorder Disposition Disposition (needs filled in before D/C Order can be placed): Home, Self Care 09/02/25 1525 Bam Holley DO CC: Kaya Pollock; Sheree Weir; Vamshi Wen; Zari Meyer MD; Mayra Hutchinson MD; Santino Roland MD; Chhaya Chirinos MD; Dr. Zaid Marie MD; Dr. Mark James DO; Dr. Lorenzo Holland MD; Dr. Abraham Molina MD; Dr. Kirstie Licona MD; Dr. Alberto Wong MD; Dr. Andrew Jean Baptiste MD; Dr. Moo Jain MD; Dr. Nohemi Bucio DO; Dr. Andriy Aguilar DO; Dr. Jillian Carlin MD; Dr. Char Miller MD; Dr. Morgan Moore MD; Dr. Jorgito Ortiz MD; Dr. Suhail Hurtado MD; Dr. Nancy Garcia MD; Braxton Hernández MD; Ignacio Mcmillan MD; Joana Mckay DO; Sharif Camacho MD; Flaca Louis DO; Awa Wu MD Signed Normal [facility] MR/CON.PCM.NEon 09-02-2025 MR/CON.PCM.NE [facility] Medical Records Department [address] [place] [address] Consultation - Neurology 09/02/25 1318 MR#: [id number] Acct: [id number] Name: QIAN SEGAL Rep #: [id number] : 1960 65 From: Zari Meyer MD PCP: Dr. Morgan Moore MD Status:ADM D[place] Location: [place] [address] Assessment and Plan: Neuro Assessment/Plan QIAN SEGAL is a 65 M with a past medical history of TIA, prior brain clot, being evaluated by Teleneurology for Diagnosis: Plan: - EEG routine - MRI Brain without abnormality - based on frequency of events, recommend starting Keppra 500mg BID Recommend driving seizure precautions. Reveiwed with patient I personally attended this patient and spent a total time of 45minutes evaluating this patient including clinical assessment, review of chart, medical history imaging, and determining appropriate treatment and workup. HPI Consult Data Date of Consult: 09/02/25 HPI Narrative HPI Narrative: QIAN SEGAL, is a 65 M who presented to [facility] ED on 09/01/2025 with an episode of altered sense of taste and transient amnesia. Patient lives at home with his , has good functional status at baseline. He was hospitalized here in March 2024 for CVA rule out when he presented with acute confusion and right facial droop with numbness. Symptoms resolved during hospitalization and MRI brain was negative, and he was discharged home in stable condition on hospital day 2. Patient notes today that he had an episode of sensing a metallic taste in his mouth, and that he does not remember much for over an hour. His was there and notes that he appeared glassy eyed and was not able to remember anything. He did not have any weakness in his arms or legs and had no facial drooping noted. She notes that after about an hour he started to show signs of improvement and it took another few hours for him to come back to baseline. In the ED he was normotensive, in normal sinus rhythm and stable on room air at rest. CBC and BMP were benign. CT brain was unremarkable. Given his symptoms, hospitalist was contacted for admission. I saw the patient at bedside in the ED, is present. Patient was sitting back comfortably in bed, conversing normally, in no acute distress. On discussion with him, he notes that he has had similar episodes to this over the past several months but never to this degree. Each time he has a sensation of a metallic taste in his mouth prior to the amnesia. He otherwise is in good health, denies any new medications or any recent infections. He has no prior seizure history. No other acute concerns currently. Will be admitted for further management. Neurologic History Patient had just gotten out of the shower and told his that he had a metallic taste. Patient has had these events before. 1.5 yrs ago had a bad episode in March and had smaller episodes of a metallic taste and something will be happening and his eyes gets glazed over and will have numbness in his face. Continues to have some amnesia for the last couple days-month. With prior episodes, he feels weird and gets the metallic taste then it gets better and will go away quickly. 20 yrs ago he did have a blood clot in his brain and was on blood thinners for a while and was eventually taken off the medication. He recently was diagnosed witha DVT last year and was on apixaban for the rest of his life. Does not drink or use tobacco Exam -? General: Laying comfortably in bed; in no acute distress. -? HENT: Normal oropharynx and mucosa. Normal external appearance of ears and nose. Exophthalmos. -? Neck: Supple, no pain or tenderness -? CV:??? No peripheral edema. -? Pulmonary:??? Normal respiratory effort. -? Ext: No cyanosis, edema, or deformity -? Skin: No rash. Normal palpation of skin.??? -? Musculoskeletal: full range of motion; no joint tenderness. Normal digits and nails by inspection. No clubbing. -? NEURO: -? Mental Status: The patient was alert and oriented to time, place, and person. Normal recent/remote memory, concentration, and general fund of knowledge. -? Language: speech is clear.??? Naming, repetition, fluency, and comprehension intact. -? Cranial Nerves: PERRL 3 mm/brisk. EOMI but has a lazy L eye, visual smith full, no facial asymmetry, facial sensation intact, hearing intact, tongue midline, no evidence of atrophy or fibrillations. -? Motor: normal bulk, tone, and strength throughout. No pronator drift or satelliting. Upper a (more content not included)... Normal [facility] Basic Metabolic Profile (BMP )on 09-01-2025 BUN/CRE 17.6 RATIO Normal -20 [facility] Comment on above: Performed By: #### L 100.0100, L500.2500 #### [facility] [address] [place], [address] Calcium [Mass/Vol] 10.0 mg/dL Normal 7.6-11.0 [facility] Comment on above: Performed By: #### L 100.0100, L500.2500 #### [facility] [address] [place], [address] Chloride [Moles/Vol] 104 mmol/L Normal 98-108 [facility] Comment on above: Performed By: #### L 100.0100, L500.2500 #### [facility] [address] [place], [address] CO2 [Moles/Vol] 25.0 mmol/L Normal 21.0-32.0 [facility] Comment on above: Performed By: #### L 100.0100, L500.2500 #### [facility] [address] [place], [address] Creatinine [Mass/Vol] 1.10 mg/dL Normal 0.70-1.20 [facility] Comment on above: Performed By: #### L 100.0100, L500.2500 #### [facility] [address] [place], [address] ECRCL 90.43 ml/min Normal 50-250 [facility] Comment on above: Performed By: #### L 100.0100, L500.2500 #### [facility] [address] [place], [address] GAP 11 Normal 5-15 [facility] Comment on above: Performed By: #### L 100.0100, L500.2500 #### [facility] [address] [place], [address] GFR/1.73 sq M.predicted among non-blacks MDRD (S/P/Bld) [Vol rate/Area] 74 mL/min/{1.73_m2} Normal >60 [facility] Comment on above: Result Comment: mL/m in/1.73m2 CKD-EPI Creatinine Equation (2020) Performed By: #### L 100.0100, L500.2500 #### [facility] [address] [place], [address] Glucose [Mass/Vol] 99 mg/dL Normal 70-99 [facility] Comment on above: Performed By: #### L 100.0100, L500.2500 #### [facility] [address] [place], [address] Potassium [Moles/Vol] 4.2 mmol/L Normal 3.3-5.1 [facility] Comment on above: Performed By: #### L 100.0100, L500.2500 #### [facility] [address] [place], [address] Sodium [Moles/Vol] 140 mmol/L Normal 133-145 [facility] Comment on above: Performed By: #### L 100.0100, L500.2500 #### [facility] [address] [place], [address] Urea nitrogen [Mass/Vol] 19 mg/dL Normal 4-19 [facility] Comment on above: Performed By: #### L 100.0100, L500.2500 #### [facility] [address] [place], [address] Brain/Head without Contrasto n 09-01-2025 Brain/Head without Contrast [facility] Imaging Services [address] [place] [address] Brain/Head without Contrast MR#: [id number] Acct: [id number] Name: QIAN SEGAL Rep #: [id number] : 1960 M 65 From: Génesis Vasquez MD PCP: Dr. Morgan Moore MD Status: REG ER Study: Brain/Head without Contrast Date of Exam: 08/08 05/01 Exam# [id number] Ordering Dr: Kalie Adorno MD PROCEDURE: BRAIN/HEAD WITHOUT CONTRAST 09/01/2025 REASON FOR EXAM: FACIAL NUMBNESS, HX OF TIA, TGA? TECHNIQUE: Procedure Code: CTBR Modality: CT Procedure: BRAIN/HEAD WITHOUT CONTRAST Coronal and Sagittal reconstruction series were provided. One or more dose reduction techniques were used (e.g., Automated exposure control, adjustment of the mA and/or kV according to patient size, use of iterative reconstruction technique. RADIATION DOSE SUMMARY: CTDlvol: 44.99 mGy DLP: 917 mGycm COMPARISON: None. FINDINGS: BRAIN: No acute intraparenchymal hemorrhage. No mass lesion. No CT evidence for acute territorial infarct. No midline shift or extra-axial collection. Mild periventricular white matter low attenuation, likely microvascular ischemic changes. VENTRICLES: No hydrocephalus. ORBITS: The orbits are unremarkable. SINUSES AND MASTOIDS: Bilateral maxillary sinus retention cysts/polyps. The mastoid air cells are clear. SOFT TISSUES: No acute abnormality seen. BONES: No acute osseous abnormality seen. OTHER: Carotid siphon calcification bilaterally. Soft tissue density within the external auditory canals bilaterally, likely cerumen. CT/Brain/Head without Contrast IMPRESSION: No acute intracranial abnormality. Reading Location: [facility] CC: Dr. Kalie Adorno MD; Dr. Morgan Moore MD Dining Service Worker: Signed Normal [facility] CBC W/Diff, Automatedon 08-08 Absolute Lymph 1.10 X10 3/uL Normal 0.83-4.51 [facility] Comment on above: Performed By: #### L 100.0100, L500.2500 #### [facility] [address] [place], [address] Absolute Neut 5.2 X10 3/uL Normal 2.0-7.7 [facility] Comment on above: Performed By: #### L 100.0100, L500.2500 #### [facility] [address] [place], [address] Basophils/100 WBC (Bld) 0.6 % Normal 0-1 [facility] Comment on above: Performed By: #### L 100.0100, L500.2500 #### [facility] [address] [place], [address] Eosinophils/100 WBC (Bld) 0.9 % Normal 0-5 [facility] Comment on above: Performed By: #### L 100.0100, L500.2500 #### [facility] [address] [place], [address] Erythrocyte distribution width (RBC) [Ratio] 12.2 % Normal 11.6-14.6 [facility] Comment on above: Performed By: #### L 100.0100, L500.2500 #### [facility] [address] [place], [address] Hematocrit (Bld) [Volume fraction] 43.6 % Normal 40-54 [facility] Comment on above: Performed By: #### L 100.0100, L500.2500 #### [facility] [address] [place], [address] Hemoglobin (Bld) [Mass/Vol] 15.2 g/dL Normal 13.0-16.5 [facility] Comment on above: Performed By: #### L 100.0100, L500.2500 #### [facility] [address] [place], [address] IG% 0.300 Normal 0.0-0.9 [facility] Comment on above: Result Comment: IG% - Immature Granulocytes (promyelocytes, myelocytes and metamyelocytes) > 1% indicates that a LEFT SHIFT is Present. Performed By: #### L 100.0100, L500.2500 #### [facility] [address], [address] Lymphocytes/100 WBC (Bld) 15.8 % Low 19-41 [facility] Comment on above: Performed By: #### L 100.0100, L500.2500 #### [facility] [address] [place], [address] MCH (RBC) [Entitic mass] 32.5 pg High 27.0-32.0 [facility] Comment on above: Performed By: #### L 100.0100, L500.2500 #### [facility] [address] [place], [address] MCHC (RBC) [Mass/Vol] 34.9 g/dL Normal 32-36 [facility] Comment on above: Performed By: #### L 100.0100, L500.2500 #### [facility] [address] [place], [address] MCV (RBC) [Entitic vol] 93.2 fL Normal 80-94 [facility] Comment on above: Performed By: #### L 100.0100, L500.2500 #### [facility] [address] [place], [address] Monocytes/100 WBC (Bld) 8.6 % Normal 0-10 [facility] Comment on above: Performed By: #### L 100.0100, L500.2500 #### [facility] [address] [place], [address] Neutrophils/100 WBC (Bld) 73.8 % High 47-70 [facility] Comment on above: Performed By: #### L 100.0100, L500.2500 #### [facility] [address] [place], [address] Nucleated RBC (Bld) [#/Vol] 0 10*3/uL Normal 0-5 [facility] Comment on above: Performed By: #### L 100.0100, L500.2500 #### [facility] [address] [place], [address] Platelet mean volume (Bld) [Entitic vol] 9.6 fL Normal 6.2-12.0 [facility] Comment on above: Performed By: #### L 100.0100, L500.2500 #### [facility] [address] [place], [address] Platelets (Bld) [#/Vol] 208 10*3/uL Normal 150-450 [facility] Comment on above: Performed By: #### L 100.0100, L500.2500 #### [facility] [address] [place], [address] RBC (Bld) [#/Vol] 4.68 10*6/uL Normal 4.6-6.2 [facility] Comment on above: Performed By: #### L 100.0100, L500.2500 #### [facility] [address] [place], [address] RDW SD 42.0 fl Normal 35.1-43.9 [facility] Comment on above: Performed By: #### L 100.0100, L500.2500 #### [facility] [address] [place], [address] WBC (Bld) [#/Vol] 7.0 10*3/uL Normal 4.4-11.0 [facility] Comment on above: Performed By: #### L 100.0100, L500.2500 #### [facility] [address] [place], [address] Emergency Department Summary on 09-01-2025 Emergency Department Summary [facility] Medical Records Department [address] [place] [address] Emergency Department Summary 09/01/25 MR#: [id number] Acct: [id number] Name: QIAN SEGAL Rep #: [id number] : 1960 65 From: Kalie Adorno MD PCP: Dr. Morgan Moore MD Status:REG ER Location: ED HPI History of Present Illness Chief Complaint: Confusion Narrative Narrative: Patient is a 65-year-old male presenting to the emergency department for an episode of retrograde amnesia and facial numbness for 1 hour. Patient has a past medical history of DVT on Eliquis. States he is compliant. He also has a history of TIA. He was here in March for a similar occurrence however at that time he did have an NIH of 1. MRI once admitted in the hospital was negative. Patient states that today he was at home with his when he developed a metallic taste in my mouth and reportedly complained of facial numbness to his . For about an hour he did not remember his dog's name or having knee replacement surgery for example. He states he does not remember the episode at all other than the metallic taste in his mouth and then coming out of it afterwards. He denies any symptoms at this time including headache, neck pain, vision changes, slurred speech, focal numbness or weakness. Denies any recent head trauma or falls. [facility] Medical History Bone spur Elevated blood pressure reading BMI 31.0-31.9,adult Arthritis of knee Anticoagulant long-term use Dyslipidemia TIA (transient ischemic attack) Non-smoker DVT (deep venous thrombosis) Family history of abdominal aortic aneurysm Hypercholesteremia Blood clot in leg Blood clots in brain Home Medications ???Medication ???Instructions ???Recorded ???Last Taken ???Type apixaban 5 mg tablet (Eliquis) 5 mg PO BID blood thinner 03/17/24 09/01/25 History vit B complex and 1 tab PO TID tinnitus 03/17/24 History X-qpcuxsx-xrqhaymq- bioflavonoid,lemon 500 mg tablet ([employer]) rosuvastatin 10 mg tablet 10 mg PO DAILY #30 tabs 03/18/24 1 Rx bee pollen 550 mg capsule 550 mg PO TID 05/30/24 09/01/25 Hi story cinnamon bark 500 mg capsule 500 mg PO BID 05/30/24 09/01/25 Hi story (Cinnamon) elderberry fruit 350 mg capsule 350 mg PO BID 05/30/24 09/01/25 Hi story loratadine 10 mg tablet (Claritin) 10 mg PO DAILY 05/30/24 09/01/25 History beta carotene 30 mg capsule 30 mg PO DAILY 06/28/24 09/01/25 H istory lycopene 10 mg capsule 10 mg PO QDAY 12/11/24 09/01/25 Hi story mecobalamin (vitamin B12) 1,000 1,000 mcg PO QDAY 12/11/24 5 History mcg chewable tablet omega-3 fatty acids 1,000 mg 1,000 mg PO QDAY 12/11/24 09/01/25 History capsule Allergy/AdvReac Type Severity Reaction Status Date / Time ibuprofen Allergy MAKES Verified 09/01/25 15:39 RIGHT SIDE OF FACE TO GO NUMB Family History Father AAA (abdominal aortic aneurysm) Surgical History Hx of wisdom tooth extraction Social History household members: spouse Smoking Status: Never smoker alcohol intake: never substance use type: does not use caffeine: No ROS ROS ED ROS Narrative see HPI EXAM Physical Exam Narrative Exam Narrative: Vital signs: Reviewed General: Alert and oriented x 3. No acute distress HEENT: Head is normocephalic and atraumatic, sinuses nontender, pupils equal round and reactive. Nares are patent. Oropharynx and throat exams normal. Neck: Supple without lymphadenopathy nontender Cardiovascular: Regular rate and rhythm, no murmurs. No rubs or gallops. Normal S1 and S2 Respiratory: Clear to auscultation bilaterally. No wheezes, rales, rhonchi Abdominal: Soft and nontender. Normal bowel sounds. No guarding or rebound. Nonsurgical abdomen Extremities: No tenderness. No bruising. Normal range of motion. Normal sensation. Skin: No rash or redness. Neurological: Cranial nerves II through XII are grossly intact. Normal strength and sensation. Normal cerebellar function The rest of the physical exam is unremarkable Const Vital Signs: 09/01/25 15:39 09/01/25 17:27 09/01/25 17:30 Temperature 98.3 F Temperature Source Oral Pulse Rate 80 55 L 58 L Respiratory Rate 18 22 H 16 Blood Pressure 139/84 H 120/60 127/77 H Blood Pressure Mean 102 77 93 Pulse Ox 98 96 97 Oxygen Delivery Method Room Air 09/01/25 17:49 09/01/25 18:00 09/01/25 19:00 Temperature 98 F Temperature Source Pulse Rate 83 60 60 Respiratory Rate 16 12 19 H Blood Pressure 133/82 H 124/75 H 130/82 H Blood Pressure Mean 99 88 96 Pulse (more content not included)... Normal [facility] H AND P Exam - Hospitaliston 09-01-2025 H&P Exam - Hospitalist [facility] Medical Records Department [address] [place] [address] H P Exam - Hospitalist 09/01/25 1824 MR#: [id number] Acct: [id number] Name: QIAN SEGAL Rep #: [id number] : 1960 65 From: Mark James DO PCP: Dr. Morgan Moore MD Status:REG ER Location: ED HPI - General General Date of Admission: 09/01/25 Date of Service: 09/01/25 Chief Complaint: Altered sense of taste and transient amnesia HPI Narrative QIAN SEGAL, is a 65 M who presented to [facility] ED on 09/01/2025 with an episode of altered sense of taste and transient amnesia. Patient lives at home with his , has good functional status at baseline. He was hospitalized here in March 2024 for CVA rule out when he presented with acute confusion and right facial droop with numbness. Symptoms resolved during hospitalization and MRI brain was negative, and he was discharged home in stable condition on hospital day 2. Patient notes today that he had an episode of sensing a metallic taste in his mouth, and that he does not remember much for over an hour. His was there and notes that he appeared glassy eyed and was not able to remember anything. He did not have any weakness in his arms or legs and had no facial drooping noted. She notes that after about an hour he started to show signs of improvement and it took another few hours for him to come back to baseline. In the ED he was normotensive, in normal sinus rhythm and stable on room air at rest. CBC and BMP were benign. CT brain was unremarkable. Given his symptoms, hospitalist was contacted for admission. I saw the patient at bedside in the ED, is present. Patient was sitting back comfortably in bed, conversing normally, in no acute distress. On discussion with him, he notes that he has had similar episodes to this over the past several months but never to this degree. Each time he has a sensation of a metallic taste in his mouth prior to the amnesia. He otherwise is in good health, denies any new medications or any recent infections. He has no prior seizure history. No other acute concerns currently. Will be admitted for further management. [facility] Medical History Bone spur Elevated blood pressure reading BMI 31.0-31.9,adult Arthritis of knee Anticoagulant long-term use Dyslipidemia TIA (transient ischemic attack) Non-smoker DVT (deep venous thrombosis) Family history of abdominal aortic aneurysm Hypercholesteremia Blood clot in leg Blood clots in brain Home Medications ???Medication ???Instructions ???Recorded ???Last Taken ???Type apixaban 5 mg tablet (Eliquis) 5 mg PO BID blood thinner 03/17/24 09/01/25 History vit B complex and 1 tab PO TID tinnitus 03/17/24 History F-rrlnqwp-odycwsuy- bioflavonoid,lemon 500 mg tablet ([employer]) rosuvastatin 10 mg tablet 10 mg PO DAILY #30 tabs 03/18/24 1 Rx bee pollen 550 mg capsule 550 mg PO TID 05/30/24 09/01/25 Hi story cinnamon bark 500 mg capsule 500 mg PO BID 05/30/24 09/01/25 Hi story (Cinnamon) elderberry fruit 350 mg capsule 350 mg PO BID 05/30/24 09/01/25 Hi story loratadine 10 mg tablet (Claritin) 10 mg PO DAILY 05/30/24 09/01/25 History beta carotene 30 mg capsule 30 mg PO DAILY 06/28/24 09/01/25 H istory lycopene 10 mg capsule 10 mg PO QDAY 12/11/24 09/01/25 Hi story mecobalamin (vitamin B12) 1,000 1,000 mcg PO QDAY 12/11/24 5 History mcg chewable tablet omega-3 fatty acids 1,000 mg 1,000 mg PO QDAY 12/11/24 09/01/25 History capsule Allergy/AdvReac Type Severity Reaction Status Date / Time ibuprofen Allergy MAKES Verified 09/01/25 15:39 RIGHT SIDE OF FACE TO GO NUMB Family History Father AAA (abdominal aortic aneurysm) Surgical History Hx of wisdom tooth extraction Social History household members: spouse Smoking Status: Never smoker alcohol intake: never substance use type: does not use caffeine: No ROS Constitutional Constitutional: Denies chills, fatigue, fever(s) or weakness Eyes Eyes: Denies change in vision Cardiovascular Cardiovascular: Denies chest pain, dyspnea on exertion, edema, lightheadedness or palpitations Respiratory/Chest Respiratory/Chest: Denies cough or shortness of breath at rest Gastrointestinal Gastrointestinal: Denies abdominal pain Musculoskeletal Musculoskeletal: Denies arthralgias or myalgias Neurologic Neurologic: Denies dizziness, focal weakness, headache(s), numbness or tingling Vital Signs Vital Signs Vital Signs: 09/01/25 15:39 09/01/25 17:27 09/01/25 17:30 Temper (more content not included)... Normal [facility] Hips B/L min 2 views w/ Pelv jessica 05-15-2025 Hips B/L min 2 views w/ Pelvis [facility] Imaging Services [address] [place] [address] Hips B/L min 2 views w/ Pelvis MR#: [id number] Acct: [id number] Name: QIAN SEGAL Rep #: [id number] : 1960 M 64 From: Dianelys palacios MD PCP: Dr. Morgan Moore MD Status: REG CLI Study: Hips B/L min 2 views w/ Pelvis Date of Exam: 0 05/15/25 Exam# [id number] Ordering Dr: Morgan Moore MD PROCEDURE: HIPS [...] Mild bilateral hips arthritic changes. Reading Location: [place] [address] CC: Dr. Morgan Moore MD Dining Service Worker: Signed Normal [facility] Anion gap in Serum or Plasma Ordered By: Jatinder Matias on 02-15-2025 Anion gap [Moles/Vol] 11 mmol/L - [facility] BUN/creatinine ratioOrdered By: Jatinder Matias on 02-15-2025 Urea nitrogen/Creatinine [Mass ratio] 16.8 mg/mg - [facility] Basic Metabolic Profile (BMP )on 02-15-2025 BUN/CRE 16.8 RATIO Normal - [facility] Comment on above: Order Comment: Order Date: 02/15/25 Order Info: [id number] - BMP Order Info: [id number] - MG Comments: numbness in head right side numbness in head right side Performed By: #### L 500.2500 #### [facility] Laboratory [address] [place], [address] Calcium [Mass/Vol] 9.4 mg/dL Normal 7.6-11.0 [facility] Comment on above: Order Comment: Order Date: 02/15/25 Order Info: 06 - BMP Order Info: [id number] - MG Comments: numbness in head right side numbness in head right side Performed By: #### L 500.2500 #### [facility] [address] [place], [place], [address] Chloride [Moles/Vol] 104 mmol/L Normal 98-108 [facility] Comment on above: Order Comment: Order Date: 02/15/25 Order Info: 666-11 - BMP Order Info: [id number] - MG Comments: numbness in head right side numbness in head right side Performed By: #### L 500.2500 #### [facility] [address] [place], [place], [address] CO2 [Moles/Vol] 23.1 mmol/L Normal 21.0-32.0 [facility] Comment on above: Order Comment: Order Date: 02/15/25 Order Info: 666-11 - [facility] Order Info: [id number] - MG Comments: numbness in head right side numbness in head right side Performed By: #### L 500.2500 #### [facility] [address] [place], [place], [address] Creatinine [Mass/Vol] 1.00 mg/dL Normal 0.70-1.20 [facility] Comment on above: Order Comment: Order Date: 02/15/25 Order Info: 666-11 - BMP Order Info: [id number] - MG Comments: numbness in head right side numbness in head right side Performed By: #### L 500.2500 #### [facility] [address] [place], [address] GAP 11 Normal 5-15 [facility] Comment on above: Order Comment: Order Date: 02/15/25 Order Info: 06 - BMP Order Info: [id number] - MG Comments: numbness in head right side numbness in head right side Performed By: #### L 500.2500 #### [facility] [address] [place], [address] GFR/1.73 sq M.predicted among non-blacks MDRD (S/P/Bld) [Vol rate/Area] 84 mL/min/{1.73_m2} Normal >60 [facility] Comment on above: Order Comment: Order Date: 02/15/25 Order Info: 666-11 - BMP Order Info: [id number] - MG Comments: numbness in head right side numbness in head right side Result Comment: mL/m in/1.73m2 CKD-EPI Creatinine Equation (2020) Performed By: #### L 500.2500 #### [facility] [address] [place], [place], [phone] Glucose [Mass/Vol] 92 mg/dL Normal 70-99 [facility] Comment on above: Order Comment: Order Date: 02/15/25 Order Info: 666-11 - BMP Order Info: [id number] - MG Comments: numbness in head right side numbness in head right side Performed By: #### L 500.2500 #### [facility] [address] [place], [place], [phone] Potassium [Moles/Vol] 4.3 mmol/L Normal 3.3-5.1 [facility] Comment on above: Order Comment: Order Date: 02/15/25 Order Info: 06 - BMP Order Info: [id number] - MG Comments: numbness in head right side numbness in head right side Performed By: #### L 500.2500 #### [facility] [address] [place], [place], [address] [phone] Sodium [Moles/Vol] 138 mmol/L Normal 133-145 [facility] Comment on above: Order Comment: Order Date: 02/15/25 Order Info: 666-11 - BMP Order Info: [id number] - MG Comments: numbness in head right side numbness in head right side Performed By: #### L 500.2500 #### [facility] [address] [place], [place], [address] Urea nitrogen [Mass/Vol] 17 mg/dL Normal 4-19 [facility] Comment on above: Order Comment: Order Date: 02/15/25 Order Info: 0667-1 - BMP Order Info: [id number] - MG Comments: numbness in head right side numbness in head right side Performed By: #### L 500.2500 #### [facility] [address] [place], [address] CBC-Complete Blood Cnt No Di ffon 02-15-2025 Erythrocyte distribution width (RBC) [Ratio] 12.8 % Normal 11.6-14.6 [facility] Comment on above: Order Comment: Order Date: 02/15/25 Order Info: [id number] - CBC Comments: numbness in head Performed By: #### L 100.0500 #### [facility] [address] [place], [address] Hematocrit (Bld) [Volume fraction] 43.2 % Normal 40-54 [facility] Comment on above: Order Comment: Order Date: 02/15/25 Order Info: [id number] - CBC Comments: numbness in head Performed By: #### L 100.0500 #### [facility] [address] [place], [address] Hemoglobin (Bld) [Mass/Vol] 14.5 g/dL Normal 13.0-16.5 [facility] Comment on above: Order Comment: Order Date: 02/15/25 Order Info: [id number] - CBC Comments: numbness in head Performed By: #### L 100.0500 #### [facility] [address] [place], [address] MCH (RBC) [Entitic mass] 31.9 pg Normal 27.0-32.0 [facility] Comment on above: Order Comment: Order Date: 02/15/25 Order Info: [id number] - CBC Comments: numbness in head Performed By: #### L 100.0500 #### [facility] [address] [place], [address] MCHC (RBC) [Mass/Vol] 33.6 g/dL Normal 32-36 [facility] Comment on above: Order Comment: Order Date: 02/15/25 Order Info: [id number] - CBC Comments: numbness in head Performed By: #### L 100.0500 #### [facility] [address] [place], [address] MCV (RBC) [Entitic vol] 95.2 fL High 80-94 [facility] Comment on above: Order Comment: Order Date: 02/15/25 Order Info: [id number] - CBC Comments: numbness in head Performed By: #### L 100.0500 #### [facility] [address] [place], [address] Platelet mean volume (Bld) [Entitic vol] 9.8 fL Normal 6.2-12.0 [facility] Comment on above: Order Comment: Order Date: 02/15/25 Order Info: [id number] - CBC Comments: numbness in head Performed By: #### L 100.0500 #### [facility] [address] [place], [address] Platelets (Bld) [#/Vol] 249 10*3/uL Normal 150-450 [facility] Comment on above: Order Comment: Order Date: 02/15/25 Order Info: [id number] - CBC Comments: numbness in head Performed By: #### L 100.0500 #### [facility] [address] [place], [address] RBC (Bld) [#/Vol] 4.54 10*6/uL Low 4.6-6.2 [facility] Comment on above: Order Comment: Order Date: 02/15/25 Order Info: [id number] - CBC Comments: numbness in head Performed By: #### L 100.0500 #### [facility] [address] [place], [address] RDW SD 44.9 fl High 35.1-43.9 [facility] Comment on above: Order Comment: Order Date: 02/15/25 Order Info: [id number] - CBC Comments: numbness in head Performed By: #### L 100.0500 #### [facility] [address] [place], [address] WBC (Bld) [#/Vol] 8.0 10*3/uL Normal 4.4-11.0 [facility] Comment on above: Order Comment: Order Date: 02/15/25 Order Info: [id number] - CBC Comments: numbness in head Performed By: #### L 100.0500 #### [facility] [address] [place], [address] Carbon dioxide, total [Moles /volume] in Central venous bloodOrdered By: Jatinder Matias on 02-15-2025 CO2 [Moles/Vol] 23.1 mmol/L 21.0-32.0 [facility] Chloride assayOrdered By: An gel orr on 02-15-2025 Chloride [Moles/Vol] 104 mmol/L 98-108 [facility] Erythrocyte distribution wid th (RBC) [Ratio]Ordered By: Jatinder [facility] on 02-15-2025 Erythrocyte distribution width (RBC) [Entitic vol] 44.9 fL High 35.1-43.9 [facility] Erythrocyte distribution wid th ratioOrdered By: Jatinder [facility]02-15-2025 Erythrocyte distribution width (RBC) [Ratio] 12.8 % 11.6-14.6 [facility] Erythrocyte distribution wid th standard deviationOrdered By: Jatinder [facility] on 02-15-2025 Erythrocyte distribution width (RBC) [Ratio] 44.9 fl High 35.1-43.9 [facility] GFR/1.73 sq M.predicted hai g non-blacks MDRD (S/P/Bld) [Vol rate/Area]Ordered By: Jatinder Matias on 02-15-2025 Estimated GFR (MDRD) Non-Af Amer 84 >60 [facility] Comment on above: mL/min/1.73m2 CKD-EP I Creatinine Equation (2020) Glomerular filtration rate ( GFR) estimation/1.73 sq m using serum, plasma, or whole bOrdered By: Jatinder Matias on 02-15-2025 GFR/1.73 sq M.predicted among non-blacks MDRD (S/P/Bld) [Vol rate/Area] 84 mL/min/{1.73_m2} >60 [facility] Comment on above: mL/min/1.73m2 CKD-EP I Creatinine Equation (2020) Hematocrit Auto (Bld) [Volum e fraction]Ordered By: Jatidner Matias on 02-15-2025 Hematocrit (Bld) [Volume fraction] 43.2 % 40-54 [facility] Hemoglobin measurementOrdere d By: Jatinder Matias on 02-15-2025 Hemoglobin (Bld) [Mass/Vol] 14.5 g/dL 13.0-16.5 [facility] MCV (mean corpuscular volume ) determinationOrdered By: Jatinder Matias on 02-15-2025 MCV (RBC) [Entitic vol] 95.2 fL High 80-94 [facility] [place] [facility] Magnesiumon 02-15-2025 Magnesium [Mass/Vol] 2.1 mg/dL Normal 1.5-2.2 [facility] Comment on above: Order Comment: Order Date: 02/15/25 Order Info: [id number] - BMP Order Info: [id number] - MG Comments: numbness in head right side Performed By: #### L 501.5200 #### [facility] [address] [place], [place] [address], [place], [id number] Magnesium (Unsp spec) [Mass/ Vol]Ordered By: Jatinder Matias on 02-15-2025 Magnesium [Mass/Vol] 2.1 mg/dL 1.5-2.2 [facility] Magnesium measurement (mass/ volume)Ordered By: Jatinder Matias on 02-15-2025 Magnesium (Unsp spec) [Mass/Vol] 2.1 mg/dL 1.5-2.2 [facility] Mean corpuscular hemoglobin (MCH) determinationOrdered By: Jatinder Matias on 02-15-2025 MCH (RBC) [Entitic mass] 31.9 pg 27.0-32.0 [facility] Mean corpuscular hemoglobin concentration (MCHC) determinationOrdered By: Jatinder Indratramaine on 02-15-2025 MCHC (RBC) [Mass/Vol] 33.6 g/dL 32-36 [facility] Mean platelet volume determi nationOrdered By: Jatinder Indrasiria 02-15-2025 Platelet mean volume (Bld) [Entitic vol] 9.8 fL 6.2-12.0 [facility] Platelet countOrdered By: Paola lynn orrsiria on 02-15-2025 Platelets (Bld) [#/Vol] 249 10*3/uL 150-450 [facility] Potassium (Unsp spec) [Mass/ Vol]Ordered By: Jatinder Indrasiria 02-15-2025 Potassium [Moles/Vol] 4.3 mmol/L 3.3-5.1 [facility] Potassium measurement (mass/ volume)Ordered By: Jatinder Corasiria 02-15-2025 Potassium (Unsp spec) [Mass/Vol] 4.3 mmol/L 3.3-5.1 [facility] RBC Auto (Bld) [#/Vol]Ordere d By: Jatinder Indrasiria 02-15-2025 RBC (Bld) [#/Vol] 4.54 10*6/uL Low 4.6-6.2 [facility] Serum creatinine measurement (mass/volume)Ordered By: Jatinder Indrasiria 02-15-2025 Creatinine [Mass/Vol] 1.00 mg/dL 0.70-1.20 [facility] Serum glucose measurement (m ass/volume)Ordered By: Jatinder Indrasiria 02-15-2025 Glucose [Mass/Vol] 92 mg/dL 70-99 [facility] Serum or plasma calcium fabrizio urement (mass/volume)Ordered By: Jatinder Indrasiria 02-15-2025 Calcium [Mass/Vol] 9.4 mg/dL 7.6-11.0 [facility] Serum or plasma urea nitroge n measurement (mass/volume)Ordered By: Jatinder Indratramaine 02-15-2025 Urea nitrogen [Mass/Vol] 17 mg/dL 4-19 [facility] Sodium levelOrdered By: Lisa judge McMorrsiria on 02-15-2025 Sodium [Moles/Vol] 138 mmol/L 133-145 [facility] White blood cell (WBC) count Ordered By: Jatinder Florencio on 02-15-2025 WBC (Bld) [#/Vol] 8.0 10*3/uL 4.4-11.0 [facility] .Auto Diffon 12-19-2024 Basophil, Absolute 0.0 10 3/mcL Normal 0.0-0.2 [facility] Comment on above: Performed By: #### A NICK ABSGEL #### [address] [address] Basophils/100 WBC (Bld) 0.1 % Normal 0.0-2.5 [facility] Comment on above: Performed By: #### A NICK ABSGEL #### [address] [address] Eosinophil, Absolute 0.0 10 3/mcL Normal 0.0-0.7 [facility] Comment on above: Performed By: #### A NICK ABSGEL #### [address] [address] Eosinophils/100 WBC (Bld) 0.0 % Normal 0.0-7.0 [facility] Comment on above: Performed By: #### Courtney ROMERO ABSGEL #### [address] [address] Lymphocyte, Absolute 0.8 10 3/mcL Low 0.9-4.3 [facility] Comment on above: Performed By: #### A NICK ABSGEL #### [address] [address] Lymphocytes/100 WBC (Bld) 5.4 % Low 20.0-40.0 [facility] Comment on above: Performed By: #### Courtney ROMERO ABSGEL #### [address] [address] Monocyte, Absolute 1.9 10 3/mcL High 0.1-1.4 [facility] Comment on above: Performed By: #### A ALYSSIA ROMERO #### [address] [address] Monocytes/100 WBC (Bld) 13.3 % High 2.0-13.0 [facility] Comment on above: Performed By: #### A ALYSSIA ROMERO #### [address] [address] Neutrophils/100 WBC (Bld) 81.2 % High 50.0-75.0 [facility] Comment on above: Performed By: #### A ALYSSIA ROMERO #### [address] [address] .GFRon 12-19-2024 Estimated Glomerular Filtration Rate 77 ml/min/1.73sqm Normal [facility] Comment on above: Result Comment: Stages of [...] Performed By: #### A ALYSSIA ROMERO #### [address] [address] .NEUABSon 12-19-2024 Neutrophil, Absolute 11.8 10 3/mcL High 2.3-8.1 [facility] Comment on above: Performed By: #### A ALYSSIA ROMERO #### [address] [address] BMPon 12-19-2024 BUN/Creatinine Ratio 23 ratio Normal 7-27 [facility] Comment on above: Performed By: #### A ALYSSIA ROMERO #### [address] [address] Calcium [Mass/Vol] 8.9 mg/dL Normal 8.4-10.2 [facility] Comment on above: Performed By: #### A ALYSSIA ROMERO #### [address] [address] Chloride [Moles/Vol] 102 mmol/L Normal 98-107 [facility] Comment on above: Performed By: #### A ALYSSIA ROMERO #### [address] [address] CO2 [Moles/Vol] 28 mmol/L Normal 23-31 [facility] Comment on above: Performed By: #### A ALYSSIA ROMERO #### [address] [address] Creatinine [Mass/Vol] 1.07 mg/dL Normal 0.70-1.30 [facility] Comment on above: Result Comment: Test ing performed on Siemens Dimension EXL analyzer using a modified kinetic Angi technique. Performed By: #### A ALYSSIA ROMERO #### [address] [address] Electrolyte Balance 6.0 mEq/L Normal 4.0-15.0 [facility] Comment on above: Performed By: #### A ALYSSIA ROMERO #### [address] [address] Glucose [Mass/Vol] 124 mg/dL High 80-115 [facility] Comment on above: Performed By: #### A ALYSSIA ROMERO #### [address] [address] Potassium [Moles/Vol] 4.8 mmol/L Normal 3.5-5.1 [facility] Comment on above: Performed By: #### A ALYSSIA ROMERO #### [address] [address] Sodium [Moles/Vol] 136 mmol/L Normal 136-145 [facility] Comment on above: Performed By: #### A ALYSSIA ROMERO #### [address] [address] Urea nitrogen [Mass/Vol] 25 mg/dL High 7-18 [facility] Comment on above: Performed By: #### A ALYSSIA ROMERO #### [address] [address] CBCon 12-19-2024 Erythrocyte distribution width (RBC) [Ratio] 12.9 % Normal 11.5-15.5 [facility] Comment on above: Performed By: #### A ALYSSIA ROMERO #### [address] [address] Hematocrit (Bld) [Volume fraction] 37.9 % Low 40.0-52.0 [facility] Comment on above: Performed By: #### A ALYSSIA ROMERO #### [address] [address] Hgb 13.0 G/dL Normal 13.0-17.5 [facility] Comment on above: Performed By: #### A ALYSSIA ROMERO #### [address] [address] MCH (RBC) [Entitic mass] 32.5 pg Normal 27.0-33.0 [facility] Comment on above: Performed By: #### A ALYSSIA ROMERO #### [address] [address] MCHC 34.3 G/dL Normal 32.0-36.0 [facility] Comment on above: Performed By: #### A ALYSSIA ROMERO #### [address] [address] MCV (RBC) [Entitic vol] 94.7 fL Normal 81.0-100.0 [facility] Comment on above: Performed By: #### A ALYSSIA ROMERO #### [address] [address] Platelet 193 10 3/mcL Normal 150-450 [facility] Comment on above: Performed By: #### A ALYSSIA ROMERO #### [facility] [address] [place], [place] [address] Platelet mean volume (Bld) [Entitic vol] 8.0 fL Normal 6.4-10.5 [facility] Comment on above: Performed By: #### A PANCHITO ROMEROGEL #### [facility] [address] [place], [place] [address] RBC 4.00 10 6/mcL Low 4.50-6.00 [facility] Comment on above: Performed By: #### A ALYSSIA ROMERO #### [facility] [address] [place], [place] [address] WBC 14.5 10 3/mcL High 4.5-10.8 [facility] Comment on above: Performed By: #### A ALYSSIA ROMERO #### [facility] [address] [place], [place] [address] LABORATORYOrdered By: SYSTEM SYSTEM on 12-19-2024 Basophils [...] MCH (RBC) [Entitic mass] 32.5 pg Normal 27. 0 - 33.0 pg AO Workflow SS MCHC [...] [Mass/Vol] 25 mg/dL High 7 - 18 mg/d L AO ADM SS Urea nitrogen/Creatinine [Mass ratio] 23 ratio Normal 7 - 27 ratio AO ADM SS WBC (Bld) [#/Vol] 14.5 103/mcL High 4.5 - 10.8 10^3/mcL AO Workflow SS ABO/Rh (Gel)on 12-18-2024 ABO/Rh Interp Positive Invalid Interpretation Code [facility] Comment on above: Performed By: #### A ALYSSIA ROMERO #### [address] [place], [place] [address] ABS (Gel)on 12-18-2024 ABSC Interp (Gel) Negative Normal [facility] Comment on above: Performed By: #### A ALYSSIA ROMERO #### [address] [address] LABORATORYOrdered By: Kristal Rodrigez on 12-18-2024 ABO and Rh group Nom (Bld) Blood group A Rh(D) positive Invalid Interpretation Code AO BB Auto SS Blood group antibody screen Ql Negative ABSC (12/18/24 6:02 AM) Normal AO BB Auto SS US ANESTHESIA BLOCKon 2024 US ANESTHESIA BLOCK ORIGINAL Images acquired, not reported on this accession number. Normal [facility] XR KNEE 1 OR 2 VIEWS LEFTon [...] 12/18/2024 9:41:30 AM Ordering Provider: MARISOL FRANKLIN [facility] Cardiology Visit Reporton Cardiology Visit Report [facility] 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 Normal [facility] Stress Reporton 12-10-2024 Stress Report [facility] [address] [place] [address] MR#: [id number] Acct: [id number] Name: QIAN SEGAL Rep #: [id number] : 1960 64 From: Krish Leos MD Primary Care: Dr. Morgan Moore MD Status: REG CLI Referring Dr: Morgan Moore MD Sex: M [...] dysrhythmias noted This note was generated with [employer] dictation software. It may contain incorrect words, spelling, and punctuation that were not noted in checking the note before signing. 12/10/24 1101 Date Krish Leos MD CC: Dr. 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: [place] Signed Normal [facility] .Auto Diffon 11-26-2024 Basophil, Absolute 0.0 10 3/mcL Normal 0.0-0.2 [facility] Comment on above: Performed By: #### A BSGEL, BMP, ANEU, GFR, ADIFF, ABOGEL, ALB, CBC #### [address] [address] Basophils/100 WBC (Bld) 0.5 % Normal 0.0-2.5 [facility] Comment on above: Performed By: #### A BSGEL, BMP, ANEU, GFR, ADIFF, ABOGEL, ALB, CBC #### [address] [address] Eosinophil, Absolute 0.1 10 3/mcL Normal 0.0-0.7 [facility] Comment on above: Performed By: #### A BSGEL, BMP, ANEU, GFR, ADIFF, ABOGEL, ALB, CBC #### [address] [address] Eosinophils/100 WBC (Bld) 2.2 % Normal 0.0-7.0 [facility] Comment on above: Performed By: #### A BSGEL, BMP, ANEU, GFR, ADIFF, ABOGEL, ALB, CBC #### [address] [address] Lymphocyte, Absolute 0.9 10 3/mcL Normal 0.9-4.3 [facility] Comment on above: Performed By: #### A BSGEL, BMP, ANEU, GFR, ADIFF, ABOGEL, ALB, CBC #### [address] [address] Lymphocytes/100 WBC (Bld) 14.3 % Low 20.0-40.0 [facility] Comment on above: Performed By: #### A BSGEL, BMP, ANEU, GFR, ADIFF, ABOGEL, ALB, CBC #### [address] [address] Monocyte, Absolute 0.7 10 3/mcL Normal 0.1-1.4 [facility] Comment on above: Performed By: #### A BSGEL, BMP, ANEU, GFR, ADIFF, ABOGEL, ALB, CBC #### [address] [address] Monocytes/100 WBC (Bld) 10.4 % Normal 2.0-13.0 [facility] Comment on above: Performed By: #### A BSGEL, BMP, ANEU, GFR, ADIFF, ABOGEL, ALB, CBC #### [address] [address] Neutrophils/100 WBC (Bld) 72.6 % Normal 50.0-75.0 [facility] Comment on above: Performed By: #### A BSGEL, BMP, ANEU, GFR, ADIFF, ABOGEL, ALB, CBC #### [address] [address] .GFRon 11-26-2024 GFR 82 ml/min/1.73sqm Normal [facility] Comment on above: Result Comment: GFR Population [...] Performed By: #### A ALYSSIA ROMERO #### [address] [address] GFR Non- 68 ml/min/1.73sqm Normal [facility] Comment on above: Result Comment: GFR Population [...] Performed By: #### A ALYSSIA ROMERO #### [address] [address] .NEUABSon 11-26-2024 Neutrophil, Absolute 4.7 10 3/mcL Normal 2.3-8.1 [facility] Comment on above: Performed By: #### A BSGEL, BMP, ANEU, GFR, ADIFF, ABOGEL, ALB, CBC #### [address] [place], [place] [address] ABO/Rh (Gel)on 11-26-2024 ABO/Rh Interp Positive Invalid Interpretation Code [facility] Comment on above: Order Comment: SURG ANNIE 12/18 -AC Performed By: #### A ALYSSIA ROMERO #### [address] [address] ABS (Gel)on 11-26-2024 ABSC Interp (Gel) Negative Normal [facility] Comment on above: Order Comment: SURG ANNIE 12/18 -AC Performed By: #### A PANCHITO ROMEROGEL #### [address] [address] ALBon 11-26-2024 Albumin Level 3.5 G/dL Normal 3.4-4.8 [facility] Comment on above: Performed By: #### A BSGEL, BMP, ANEU, GFR, ADIFF, ABOGEL, ALB, CBC #### [address] [address] BMPon 11-26-2024 BUN/Creatinine Ratio 18 ratio Normal 7-27 [facility] Comment on above: Performed By: #### A BSGEL, BMP, ANEU, GFR, ADIFF, ABOGEL, ALB, CBC #### [address] [address] Calcium [Mass/Vol] 9.1 mg/dL Normal 8.4-10.2 [facility] Comment on above: Performed By: #### A BSGEL, BMP, ANEU, GFR, ADIFF, ABOGEL, ALB, CBC #### [address] [address] Chloride [Moles/Vol] 106 mmol/L Normal 98-107 [facility] Comment on above: Performed By: #### A BSGEL, BMP, ANEU, GFR, ADIFF, ABOGEL, ALB, CBC #### [address] [address] CO2 [Moles/Vol] 27 mmol/L Normal 23-31 [facility] Comment on above: Performed By: #### A BSGEL, BMP, ANEU, GFR, ADIFF, ABOGEL, ALB, CBC #### [address] [address] Creatinine [Mass/Vol] 1.09 mg/dL Normal 0.70-1.30 [facility] Comment on above: Result Comment: Test ing performed on Siemens Dimension EXL analyzer using a modified kinetic Agni technique. Performed By: #### A BSGEL, BMP, ANEU, GFR, ADIFF, ABOGEL, ALB, CBC #### [address] [address] Electrolyte Balance 8.0 mEq/L Normal 4.0-15.0 [facility] Comment on above: Performed By: #### A BSGEL, BMP, ANEU, GFR, ADIFF, ABOGEL, ALB, CBC #### [address] [address] Glucose [Mass/Vol] 94 mg/dL Normal 80-115 [facility] Comment on above: Performed By: #### A BSGEL, BMP, ANEU, GFR, ADIFF, ABOGEL, ALB, CBC #### [address] [address] Potassium [Moles/Vol] 4.1 mmol/L Normal 3.5-5.1 [facility] Comment on above: Performed By: #### A BSGEL, BMP, ANEU, GFR, ADIFF, ABOGEL, ALB, CBC #### [address] [address] Sodium [Moles/Vol] 141 mmol/L Normal 136-145 [facility] Comment on above: Performed By: #### A BSGEL, BMP, ANEU, GFR, ADIFF, ABOGEL, ALB, CBC #### [address] [address] Urea nitrogen [Mass/Vol] 20 mg/dL High 7-18 [facility] Comment on above: Performed By: #### A BSGEL, BMP, ANEU, GFR, ADIFF, ABOGEL, ALB, CBC #### [address] [address] CBCon 11-26-2024 Erythrocyte distribution width (RBC) [Ratio] 13.1 % Normal 11.5-15.5 [facility] Comment on above: Order Comment: Pre-A dmission Testing Performed By: #### A BSGEL, BMP, ANEU, GFR, ADIFF, ABOGEL, ALB, CBC #### [address] [address] Hematocrit (Bld) [Volume fraction] 45.4 % Normal 40.0-52.0 [facility] Comment on above: Order Comment: Pre-A dmission Testing Performed By: #### A BSGEL, BMP, ANEU, GFR, ADIFF, ABOGEL, ALB, CBC #### [place] [address] Hgb 15.7 G/dL Normal 13.0-17.5 [facility] Comment on above: Order Comment: Pre-A dmission Testing Performed By: #### A BSGEL, BMP, ANEU, GFR, ADIFF, ABOGEL, ALB, CBC #### [address] [address] MCH (RBC) [Entitic mass] 32.9 pg Normal 27.0-33.0 [facility] Comment on above: Order Comment: Pre-A dmission Testing Performed By: #### A BSGEL, BMP, ANEU, GFR, ADIFF, ABOGEL, ALB, CBC #### [place] [address] MCHC 34.6 G/dL Normal 32.0-36.0 [facility] Comment on above: Order Comment: Pre-A dmission Testing Performed By: #### A BSGEL, BMP, ANEU, GFR, ADIFF, ABOGEL, ALB, CBC #### [address] [address] MCV (RBC) [Entitic vol] 95.1 fL Normal 81.0-100.0 [facility] Comment on above: Order Comment: Pre-A dmission Testing Performed By: #### A BSGEL, BMP, ANEU, GFR, ADIFF, ABOGEL, ALB, CBC #### [address] [address] Platelet 201 10 3/mcL Normal 150-450 [facility] Comment on above: Order Comment: Pre-A dmission Testing Performed By: #### A BSGEL, BMP, ANEU, GFR, ADIFF, ABOGEL, ALB, CBC #### [address] [address] Platelet mean volume (Bld) [Entitic vol] 8.2 fL Normal 6.4-10.5 [facility] Comment on above: Order Comment: Pre-A dmission Testing Performed By: #### A BSGEL, BMP, ANEU, GFR, ADIFF, ABOGEL, ALB, CBC #### [address] [address] RBC 4.77 10 6/mcL Normal 4.50-6.00 [facility] Comment on above: Order Comment: Pre-A dmission Testing Performed By: #### A BSGEL, BMP, ANEU, GFR, ADIFF, ABOGEL, ALB, CBC #### [address] [address] WBC 6.5 10 3/mcL Normal 4.5-10.8 [facility] Comment on above: Order Comment: Pre-A dmission Testing Performed By: #### A BSGEL, BMP, ANEU, GFR, ADIFF, ABOGEL, ALB, CBC #### [address] [address] [address] KNEE W/O CONTRAST LEFTon 11-26-2024 CT [...] most pronounced in the medial compartment with [id number], asymmetric joint space narrowing, marginal osteophyte formation [...] 11/26/2024 3:43:26 PM Ordering Provider: MARISOL Dhaliwal [facility] LABORATORYOrdered By: Kisha Silveira on 11-26-2024 ABO and Rh group Nom (Bld) Blood group A Rh(D) positive Invalid Interpretation Code AO BB Auto SS Blood group antibody screen Ql Negative ABSC (11/26/24 12:18 PM) Normal AO BB Auto SS LABORATORYOrdered By: SYSTEM SYSTEM on 11-26-2024 Albumin BCP dye [Mass/Vol] [...] MCH (RBC) [Entitic mass] 32.9 pg Normal 27. 0 - 33.0 pg AO Workflow SS MCHC [...] [Mass/Vol] 20 mg/dL High 7 - 18 mg/d L AO ADM SS Urea nitrogen/Creatinine [Mass ratio] 18 ratio Normal 7 - 27 ratio AO ADM SS WBC (Bld) [#/Vol] 6.5 103/mcL Normal 4.5 - 10.8 10^3/mcL AO Workflow SS LABORATORYOrdered By: Toby Michellerich on 11-26-2024 MRSA (PCR) Not Detected 1 (11/26/24 12:18 PM) Normal Not Detected Auto Viro/Sero SS Comment on above: Result Comment: [place] [id number] MRSA PCR Int MRSA DNA not detected by Real-Time Polymerase [...] MRSA (PCR) Not detected Normal Not Detected [facility] Comment on above: Result Comment: [place] [id number] Performed By: #### A ALYSSIA ROMERO #### [place] [address] MRSA PCR Int Normal [facility] Comment on above: Result Comment: MRSA DNA [...] Performed By: #### A ALYSSIA ROMERO #### [place] [address] Basophil percentageOrdered B y: Mark James on 03-18-2024 Chloride [Moles/Vol] 107 mmol/L 98-107 [facility] Cholesterol [Mass/Vol] 164 mg/dL <200 [facility] Comment on above: <200 mg/dL Desirable 200-240 mg/dL Borderline >240 mg/dL High Risk Glucose [Mass/Vol] 86 mg/dL 74-106 [facility] Hemoglobin (Bld) [Mass/Vol] 15.4 g/dL 13.0-16.5 [facility] Potassium [Moles/Vol] 4.0 mmol/L 3.5-5.1 [facility] Sodium [Moles/Vol] 139 mmol/L 136-145 [facility] Triglyceride [Mass/Vol] 159 mg/dL <199 [facility] Comment on above: The drugs N-Acetylcy steine and Metamizole may falsely depress this assay.Serum Triglycerides Reference Interval Normal <150 mg/dL Borderline high 150 - 199 mg/dL High 200 - 499 mg/dL Very High > or = 500 mg/dL WBC (Bld) [#/Vol] 7.0 10*3/uL 4.4-11.0 [facility] Determination of erythrocyte mean corpuscular volume (MCV)Ordered By: Mark James on 03-18-2024 MCV (RBC) [Entitic vol] 95.8 fL 80-94 [facility] Erythrocyte distribution wid th ratioOrdered By: Mark James on 03-18-2024 Erythrocyte distribution width (RBC) [Ratio] 12.4 % 11.6-14.6 [facility] Erythrocyte distribution wid th standard deviationOrdered By: Mark James on 03-18-2024 Erythrocyte distribution width (RBC) [Entitic vol] 44.1 fL 35.1-43.9 [facility] Hematocrit Auto (Bld) [Volum e fraction]Ordered By: Mark James on 03-18-2024 Hematocrit (Bld) [Volume fraction] 45.5 % 40-54 [facility] Laboratory - Chemistry and C hemistry - challengeOrdered By: Mark Jamse on 03-18-2024 Cholesterol in HDL [Mass/Vol] 40 mg/dL >40 [facility] Comment on above: The drugs N-Acetylcy steine and Metamizole may falsely depress this assay. Reference Range HDL <40 mg/dL Low HDL Cholesterol HDL >or= 60 mg/dL High HDL Cholesterol Cholesterol in LDL [Mass/Vol] 92 mg/dL 0-130 [facility] CO2 [Moles/Vol] 28.0 mmol/L 21.0-32.0 [facility] Urea nitrogen/Creatinine [Mass ratio] 16.1 mg/mg 10-20 [facility] Laboratory - Hematology and Cell countsOrdered By: Mark James on 03-18-2024 MCH (RBC) [Entitic mass] 32.4 pg 27.0-32.0 [facility] MCHC (RBC) [Mass/Vol] 33.8 g/dL 32-36 [facility] Platelet mean volume (Bld) [Entitic vol] 9.5 fL 6.2-12.0 [facility] Platelets (Bld) [#/Vol] 217 10*3/uL 150-450 [facility] No Panel InformationOrdered By: Mark James on 03-18-2024 Estimated Creatinine Clearance Calc 108.57 ml/min [facility] Estimated GFR (MDRD) Amer 105 mL/min >60 [facility] Comment on above: GFR Calc Estimated GFR (MDRD) Non-Af Amer 86 mL/min >60 [facility] Comment on above: Non- GFR Calc VLDL Cholesterol 32 mg/dL 5-40 [facility] RBC Auto (Bld) [#/Vol]Ordere d By: Mark James on 03-18-2024 RBC (Bld) [#/Vol] 4.75 10*6/uL 4.6-6.2 [facility] Serum or plasma calcium fabrizio urement (mass/volume)Ordered By: Mark James on 03-18-2024 Calcium [Mass/Vol] 9.0 mg/dL 8.5-10.1 [facility] Serum or plasma creatinine m easurement (mass/volume)Ordered By: Mark James on 03-18-2024 Creatinine [Mass/Vol] 0.93 mg/dL 0.70-1.30 [facility] Comment on above: The validity of the calculated GFR & GFRAA in patients over 70 years has not been determined. Clinical correlation is essential. Serum or plasma urea nitroge n measurement (mass/volume)Ordered By: Mark James on 03-18-2024 Urea nitrogen [Mass/Vol] 15 mg/dL 7-18 [facility] Thin prep Papanicolaou smear with manual screeningOrdered By: Mark James on 03-18-2024 Thin prep Papanicolaou smear with manual screening 4 5-15 [facility] Absolute lymphocyte countOrd ered By: Alex Severino on 03-17-2024 Lymphocytes Auto (Unsp spec) [#/Vol] 1.24 10*3/uL 0.83-4.51 [facility] Activated partial thrombopla stin time (aPTT) in platelet poor plasma by coagulation aOrdered By: Alexjordan Severino on 03-17-2024 aPTT Coag (PPP) [Time] 25.5 s 24.1-36.2 [facility] Automated lymphocyte count a s percentage of total leukocytesOrdered By: Alexjordan Severino on 03-17-2024 Lymphocytes/100 WBC Auto (Unsp spec) 18.4 % 19-41 [facility] Basophil percentageOrdered B y: Alexjordan Severino on 03-17-2024 Basophils/100 WBC (Bld) 0.6 % 0-1 [facility] Chloride [Moles/Vol] 105 mmol/L 98-107 [facility] Eosinophils/100 WBC (Bld) 2.4 % 0-5 [facility] Glucose [Mass/Vol] 101 mg/dL 74-106 [facility] Comment on above: Fasting Glucose resu lt from 100 to 125 mg/dL suggests IMPAIRED HOMEOSTASIS per A.D.A. criteria. Hemoglobin (Bld) [Mass/Vol] 14.9 g/dL 13.0-16.5 [facility] Monocytes/100 WBC (Bld) 10.7 % 0-10 [facility] Neutrophils (Bld) [#/Vol] 4.5 10*3/uL 2.0-7.7 [facility] Neutrophils/100 WBC (Bld) 67.5 % 47-70 [facility] Potassium [Moles/Vol] 3.8 mmol/L 3.5-5.1 [facility] Sodium [Moles/Vol] 138 mmol/L 136-145 [facility] WBC (Bld) [#/Vol] 6.7 10*3/uL 4.4-11.0 [facility] Determination of erythrocyte mean corpuscular volume (MCV)Ordered By: Alexjordan Severino on 03-17-2024 MCV (RBC) [Entitic vol] 95.7 fL 80-94 [facility] Erythrocyte distribution wid th ratioOrdered By: Alex Severino on 03-17-2024 Erythrocyte distribution width (RBC) [Ratio] 12.5 % 11.6-14.6 [facility] Erythrocyte distribution wid th standard deviationOrdered By: Alexjordan Severino on 03-17-2024 Erythrocyte distribution width (RBC) [Entitic vol] 43.8 fL 35.1-43.9 [facility] Hematocrit Auto (Bld) [Volum e fraction]Ordered By: Alex Severino on 03-17-2024 Hematocrit (Bld) [Volume fraction] 44.6 % 40-54 [facility] Immature granulocytes/100 WB C Auto (Bld)Ordered By: Alexjordan Severino on 03-17-2024 Immature granulocytes/100 WBC (Bld) 0.400 % 0.0-0.9 [facility] Comment on above: IG% - Immature Granu locytes (promyelocytes, myelocytes and metamyelocytes) > 1% indicates that a LEFT SHIFT is Present. Laboratory - Chemistry and C hemistry - challengeOrdered By: Alex Severino on 03-17-2024 CO2 [Moles/Vol] 28.0 mmol/L 21.0-32.0 [facility] Urea nitrogen/Creatinine [Mass ratio] 19.0 mg/mg 10-20 [facility] Laboratory - CoagulationOrde red By: Alex Severino on 03-17-2024 INR Coag (Bld) [Relative time] 1.1 {INR} [facility] PT Coag (PPP) [Time] 14.2 s 11.7-14.9 [facility] Laboratory - Hematology and Cell countsOrdered By: Alex Severino on 03-17-2024 MCH (RBC) [Entitic mass] 32.0 pg 27.0-32.0 [facility] MCHC (RBC) [Mass/Vol] 33.4 g/dL 32-36 [facility] Nucleated RBC/100 WBC (Bld) [Ratio] 0 % 0-5 [facility] Platelet mean volume (Bld) [Entitic vol] 9.5 fL 6.2-12.0 [facility] Platelets (Bld) [#/Vol] 218 10*3/uL 150-450 [facility] No Panel InformationOrdered By: Alex Severino on 03-17-2024 Estimated Creatinine Clearance Calc 101.59 ml/min [facility] Estimated GFR (MDRD) Amer 97 mL/min >60 [facility] Comment on above: GFR Calc Estimated GFR (MDRD) Non-Af Amer 80 mL/min >60 [facility] Comment on above: Non- GFR Calc Troponin I High Sensitivity < 3 pg/mL 3.0-78.0 [facility] Comment on above: Please Note: New Elva t Units and Gender Specific Reference Ranges. For more information see Policy Stat Procedure [place] High Sensitivity Troponin (TNIH) and attachments. RBC Auto (Bld) [#/Vol]Ordere d By: Alexjordan Severino on 03-17-2024 RBC (Bld) [#/Vol] 4.66 10*6/uL 4.6-6.2 [facility] Serum or plasma calcium fabrizio urement (mass/volume)Ordered By: Alexjordan Severino on 03-17-2024 Calcium [Mass/Vol] 9.2 mg/dL 8.5-10.1 [facility] Serum or plasma creatinine m easurement (mass/volume)Ordered By: Alexjordan Severino on 03-17-2024 Creatinine [Mass/Vol] 1.00 mg/dL 0.70-1.30 [facility] Comment on above: The validity of the calculated GFR & GFRAA in patients over 70 years has not been determined. Clinical correlation is essential. Serum or plasma thyroid stim ulating hormone (TSH) measurement (units/volume)Ordered By: Mark James on 03-17-2024 TSH Qn 1.40 uIU/mL 0.358-3.74 [facility] Serum or plasma urea nitroge n measurement (mass/volume)Ordered By: Alexjordan Severino on 03-17-2024 Urea nitrogen [Mass/Vol] 19 mg/dL 7-18 [facility] Thin prep Papanicolaou smear with manual screeningOrdered By: Alex Severino on 03-17-2024 Thin prep Papanicolaou smear with manual screening 93 mg/dL 74-106 [facility] Comment on above: MANAGEMENT OF PATIEN T CARE PER NURSING PROTOCOL Thin prep Papanicolaou smear with manual screening 5 5-15 [facility] Whole blood hemoglobin A1c/t otal hemoglobin ratio (mass fraction)Ordered By: Mark James on 03-17-2024 HbA1c (Bld) [Mass fraction] 5.3 % 3.8-5.6 [facility] Comment on above: Normal < 5.7 % Predi abetic 5.7 - 6.4 % Diabetic >or= 6.5 % Please note range changes. Basophil percentageOrdered B y: Morgan Moore on 01-04-2024 Basophil percentage 0.74 ng/mL 0.0-4.0 [facility] Comment on above: This test was perfor med using the TPSA assay method for theDist. elizabeths hospitalsion chemistry system. Values obtained with differentassay methods cannot be used interchangably.When changing PSA assays in the course of monitoring apatient, additional sequential testing should be carriedout to confirm baseline values. Bilirubin [Mass/Vol] 0.50 mg/dL 0.20-1.00 [facility] Comment on above: For patients on eltr ombopag therapy, use of Dimension [place] TBIL is not recommended. Chloride [Moles/Vol] 112 mmol/L 98-107 [facility] Cholesterol [Mass/Vol] 232 mg/dL <200 [facility] Comment on above: <200 mg/dL Desirable 200-240 mg/dL Borderline >240 mg/dL High Risk Glucose [Mass/Vol] 85 mg/dL 74-106 [facility] Potassium [Moles/Vol] 4.0 mmol/L 3.5-5.1 [facility] Protein [Mass/Vol] 6.8 g/dL 6.4-8.2 [facility] Sodium [Moles/Vol] 141 mmol/L 136-145 [facility] Testosterone [Mass/Vol] 688.23 ng/dL [facility] Comment on above: CENTRAL 90% REFERENC E RANGES MALE AGE <50 197.44 - 669.58 ng/dL MALE AGE > or = 50 187.72 - 684.19 ng/dL FEMALE AGE <50 8.38 - 35.01 ng/dL FEMALE AGE > or = 50 <7.00 - 35.92 ng/dL Effective as of 06/02/21 Triglyceride [Mass/Vol] 146 mg/dL <199 [facility] Comment on above: The drugs N-Acetylcy steine and Metamizole may falsely depress this assay.Serum Triglycerides Reference Interval Normal <150 mg/dL Borderline high 150 - 199 mg/dL High 200 - 499 mg/dL Very High > or = 500 mg/dL Laboratory - Chemistry and C hemistry - challengeOrdered By: Morgan Moore on 01-04-2024 Albumin/Globulin [Mass ratio] 1.1 {ratio} 0.9-2.4 [facility] ALP [Catalytic activity/Vol] 47 U/L 45-117 [facility] ALT [Catalytic activity/Vol] 16 U/L 16-61 [facility] Cholesterol in HDL [Mass/Vol] 38 mg/dL >40 [facility] Comment on above: The drugs N-Acetylcy steine and Metamizole may falsely depress this assay. Reference Range HDL <40 mg/dL Low HDL Cholesterol HDL >or= 60 mg/dL High HDL Cholesterol Cholesterol in LDL [Mass/Vol] 165 mg/dL 0-130 [facility] CO2 [Moles/Vol] 26.0 mmol/L 21.0-32.0 [facility] Globulin (S) [Mass/Vol] 3.3 g/dL 2.2-4.2 [facility] Urea nitrogen/Creatinine [Mass ratio] 21.9 mg/mg 10-20 [facility] No Panel InformationOrdered By: Morgan Moore on 01-04-2024 Estimated GFR (MDRD) Amer 101 mL/min >60 [facility] Comment on above: GFR Calc Estimated GFR (MDRD) Non-Af Amer 84 mL/min >60 [facility] Comment on above: Non- GFR Calc VLDL Cholesterol 29 mg/dL 5-40 [facility] Serum or plasma calcium fabrizio urement (mass/volume)Ordered By: Morgan Moore on 01-04-2024 Calcium [Mass/Vol] 8.9 mg/dL 8.5-10.1 [facility] Serum or plasma creatinine m easurement (mass/volume)Ordered By: Morgan Moore on 01-04-2024 Creatinine [Mass/Vol] 0.96 mg/dL 0.70-1.30 [facility] Comment on above: The validity of the calculated GFR & GFRAA in patients over 70 years has not been determined. Clinical correlation is essential. Serum or plasma urea nitroge n measurement (mass/volume)Ordered By: Morgan Moore on 01-04-2024 Urea nitrogen [Mass/Vol] 21 mg/dL 7-18 [facility] Thin prep Papanicolaou smear with manual screeningOrdered By: Morgan Moore on 01-04-2024 Thin prep Papanicolaou smear with manual screening 3.5 g/dL 3.2-5.0 [facility] Thin prep Papanicolaou smear with manual screening 13 U/L 15-37 [facility] Thin prep Papanicolaou smear with manual screening 3 5-15 [facility] Laboratory - Microbiology an d Antimicrobial susceptibilityon 04-20-2022 SARS-CoV-2 (COVID-19) RNA PIO+probe Ql (Unsp spec) Detected Not Detect [facility] Work Phone: Comment on above: Normal Reference Ran ge: Not DetectedMethod:(RT-PCR) real-time reverse transcriptase PCRLuminex Wan Shidao management Instrument*The Food and Drug Administration (FDA) has issued an Emergency Use Authorization (EAU) for the Wan Shidao management SARS-CoV-2 Assay for the rapid detection of [...] clinical presentation or has had recent exposure. LG Jt Injection/Arthrocentes is: L kneeon 10-26-2021 Renata Jasso CNP 10/26/2021 11:46 AM LG Jt Injection/Arthrocen tesis: L knee Performed by: Renata Jasso CNP Authorized by: Renata Jasso CNP CPT 64991 - Large Joint Arthrocentesis: Consent given by: [...] the procedure well with no immediate complications [facility] CBCon 10-13-2021 Erythrocyte distribution width (RBC) [Ratio] 13.4 % Normal 11.5 - 14.5 [facility] Comment on above: Performed By: #### C BC #### [address] [address] Hematocrit (Bld) [Volume fraction] 46.1 % Normal 41.0 - 52.0 [facility] Comment on above: Performed By: #### C BC #### [address] [address] Hemoglobin (Bld) [Mass/Vol] 15.5 g/dL Normal 13.5 - 17.5 [facility] Comment on above: Performed By: #### C BC #### [address] [address] MCHC (RBC) [Mass/Vol] 33.7 g/dL Normal 32.0 - 36.0 [facility] Comment on above: Performed By: #### C BC #### [address] [address] MCV (RBC) [Entitic vol] 97 fL Normal 80 - 100 [facility] Comment on above: Performed By: #### C BC #### [address] [address] Platelets (Bld) [#/Vol] 222 10*3/uL Normal 150 - 450 [facility] Comment on above: Performed By: #### C BC #### [address] [address] RBC 4.77 x10E12/L Normal 4.50 - 5.90 [facility] Comment on above: Performed By: #### C BC #### [address] [address] WBC (Bld) [#/Vol] 5.9 10*3/uL Normal 4.4 - 11.3 [facility] Comment on above: Performed By: #### C BC #### [address] [address] COMPREHENSIVE PANELon 2020 Albumin [Mass/Vol] 4.4 g/dL Normal 3.4 - 5.0 [facility] Comment on above: Performed By: #### C MP #### [address] [address] ALP [Catalytic activity/Vol] 43 U/L Normal 33 - 136 [facility] Comment on above: Performed By: #### C MP #### [address] [address] ALT [Catalytic activity/Vol] 12 U/L Normal 10 - 52 [facility] Comment on above: Result Comment: Jannie ents treated with Sulfasalazine may generate falsely decreased results for ALT. Performed By: #### C MP #### [address] [address] Anion gap [Moles/Vol] 11 mmol/L Normal 10 - 20 [facility] Comment on above: Performed By: #### C MP #### [address] [address] AST [Catalytic activity/Vol] 13 U/L Normal 9 - 39 [facility] Comment on above: Performed By: #### C MP #### [address] [address] Bilirubin [Mass/Vol] 0.5 mg/dL Normal 0.0 - 1.2 [facility] Comment on above: Performed By: #### C MP #### [address] [address] Calcium [Mass/Vol] 9.1 mg/dL Normal 8.6 - 10.3 [facility] Comment on above: Performed By: #### C MP #### [address] [address] Chloride [Moles/Vol] 106 mmol/L Normal 98 - 107 [facility] Comment on above: Performed By: #### C MP #### [address] [address] Creatinine [Mass/Vol] 0.95 mg/dL Normal 0.50 - 1.30 [facility] Comment on above: Performed By: #### C MP #### [address] [address] GFR- AM. >60 Normal >60 [facility] Comment on above: Result Comment: CALC ULATIONS OF ESTIMATED GFR ARE PERFORMED USING THE MDRD STUDY EQUATION FOR THE IDMS-TRACEABLE CREATININE METHODS. CLIN CHEM 2007;53:766-72 Performed By: #### C MP #### [address] [address] GFR-NON AM. >60 Normal >60 [facility] Comment on above: Performed By: #### C MP #### [address] [address] Glucose [Mass/Vol] 86 mg/dL Normal 74 - 99 [facility] Comment on above: Performed By: #### C MP #### [address] [address] HCO3 (Bld) [Moles/Vol] 28 mmol/L Normal 21 - 32 [facility] Comment on above: Performed By: #### C MP #### [address] [address] Potassium [Moles/Vol] 4.2 mmol/L Normal 3.5 - 5.3 [facility] Comment on above: Performed By: #### C MP #### [address] [address] Protein [Mass/Vol] 6.6 g/dL Normal 6.4 - 8.2 [facility] Comment on above: Performed By: #### C MP #### [address] [address] Sodium [Moles/Vol] 141 mmol/L Normal 136 - 145 [facility] Comment on above: Performed By: #### C MP #### [address] [address] Urea nitrogen [Mass/Vol] 19 mg/dL Normal 6 - 23 [facility] Comment on above: Performed By: #### C MP #### [address] [address] LIPID PANEL (CORONARY RISK 2 )on 10-13-2021 Cholesterol [Mass/Vol] 226 mg/dL High 0 - 199 [facility] Comment on above: Result Comment: [...] dosing. Performed By: #### L IPID #### [address] [address] Cholesterol in HDL [Mass/Vol] 37.0 mg/dL Abnormal [facility] Comment on above: Result Comment: . AGE VERY LOW LOW NORMAL HIGH 0-19 Y < 35 < 40 40-45 ---- 20-24 Y ---- < 40 >45 ---- >24 Y ---- < 40 40-60 >60 . Performed By: #### L IPID #### [address] [address] Cholesterol in LDL [Mass/Vol] 139 mg/dL High 0 - 99 [facility] Comment on above: Result Comment: . NEAR BORD AGE DESIRABLE OPTIMAL HIGH HIGH VERY HIGH 0-19 Y 0 - 109 --- 110-129 >/= 130 ---- 20-24 Y 0 - 119 --- 120-159 >/= 160 ---- >24 Y 0 - 99 100-129 130-159 160-189 >/=190 . Performed By: #### L IPID #### [address] [address] Cholesterol in VLDL [Mass/Vol] 50 mg/dL High 0 - 40 [facility] Comment on above: Performed By: #### L IPID #### [address] [address] Cholesterol.total/Choles terol in HDL [Mass ratio] 6.1 {ratio} Abnormal [facility] Comment on above: Result Comment: REF VALUES DESIRABLE < 3.4 HIGH RISK > 5.0 Performed By: #### L IPID #### [id number] [place] [address] NON-HDL CHOLESTEROL 189 mg/dL Normal [facility] [place] Comment on above: Result Comment: AGE DESIRABLE BORDERLINE HIGH HIGH VERY HIGH 0-19 Y 0 - 119 120 - 144 >/= 145 >/= 160 20-24 Y 0 - 149 150 - 189 >/= 190 ---- >24 Y 30 MG/DL ABOVE LDL CHOLESTEROL GOAL . Performed By: #### L IPID #### [address] [address] Triglyceride [Mass/Vol] 250 mg/dL High 0 - 149 [facility] Comment on above: Result Comment: . AGE [...] dosing. Performed By: #### L IPID #### [address] [address] Laboratory - Chemistry and C hemistry - challengeon 10-13-2021 Albumin BCP dye [Mass/Vol] 4.4 g/dL 3.4 - 5.0 -[facility] Work Phone: ALP [Catalytic activity/Vol] 43 U/L 33 - 136 [facility] Work Phone: ALT With P-5'-P [Catalytic activity/Vol] 12 U/L 10 - 52 [facility] Work Phone: Comment on above: Patients treated wit h Sulfasalazine may generate falsely decreased results for ALT. Anion gap [Moles/Vol] 11 mmol/L 10 - 20 [facility] Work Phone: AST With P-5'-P [Catalytic activity/Vol] 13 U/L 9 - 39 [facility] Work Phone: Bilirubin [Mass/Vol] 0.5 mg/dL 0.0 - 1.2 [facility] Work Phone: Calcium [Mass/Vol] 9.1 mg/dL 8.6 - 10.3 [facility] Work Phone: Chloride [Moles/Vol] 106 mmol/L 98 - 107 [facility] Work Phone: CO2 [Moles/Vol] 28 mmol/L 21 - 32 [facility] Work Phone: Creatinine [Mass/Vol] 0.95 mg/dL See Below [facility] Medical [facility] Work Phone: Comment on above: Reference Range: 0.5 0 - 1.30 Glucose [Mass/Vol] 86 mg/dL 74 - 99 [facility] Work Phone: Potassium [Moles/Vol] 4.2 mmol/L 3.5 - 5.3 [facility] Medical [facility] Work Phone: Protein [Mass/Vol] 6.6 g/dL 6.4 - 8.2 [facility] Work Phone: Sodium [Moles/Vol] 141 mmol/L 136 - 145 [facility] Work Phone: Urea nitrogen [Mass/Vol] 19 mg/dL 6 - 23 [facility] Work Phone: Laboratory - Hematology and Cell countson 10-13-2021 Erythrocyte distribution width (RBC) [Ratio] 13.4 % See Below [facility] Work Phone: Comment on above: Reference Range: 11. 5 - 14.5 Hematocrit (Bld) [Volume fraction] 46.1 % See Below [facility] Work Phone: Comment on above: Reference Range: 41. 0 - 52.0 Hemoglobin (Bld) [Mass/Vol] 15.5 g/dL See Below [facility] Work Phone: Comment on above: Reference Range: 13. 5 - 17.5 MCHC (RBC) [Mass/Vol] 33.7 g/dL See Below [facility] Work Phone: Comment on above: Reference Range: 32. 0 - 36.0 MCV (RBC) [Entitic vol] 97 fL 80 - 100 M [facility] Work Phone: Platelets (Bld) [#/Vol] 222 10*3/uL 150 - 450 [facility] Work Phone: RBC (Bld) [#/Vol] 4.77 {x10E12/L} See Below [facility] Work Phone: Comment on above: Reference Range: 4.5 0 - 5.90 WBC (Bld) [#/Vol] 5.9 10*3/uL 4.4 - 11.3 [facility] [employer] [facility] Work Phone: Lipid Panelon 10-13-2021 Cholesterol [Mass/Vol] 226 mg/dL above hig h threshold 0 - 199 [facility] Work Phone: Comment on above: . [...] Cholesterol in HDL [Mass/Vol] 37.0 mg/dL Abnormal [facility] Work Phone: Comment on above: . AGE VERY LOW LOW N ORMAL HIGH 0-19 Y < 35 < 40 40-45 ---- 20-24 Y ---- < 40 >45 ---- >24 Y ---- < 40 40-60 >60. Cholesterol in LDL [Mass/Vol] 139 mg/dL above high threshold 0 - 99 [facility] Work Phone: Comment on above: . NEAR BORD AGE ROHINI RABLE OPTIMAL HIGH HIGH VERY HIGH 0-19 Y 0 - 109 --- 110-129 >/= 130 ---- 20-24 Y 0 - 119 --- 120-159 >/= 160 ---- >24 Y 0 - 99 100-129 130-159 160-189 >/=190. Cholesterol non HDL [Mass/Vol] 189 mg/dL [employer] [facility] Work Phone: Comment on above: AGE DESIRABLE BORDER LINE HIGH HIGH VERY HIGH 0-19 Y 0 - 119 120 - 144 >/= 145 >/= 160 20-24 Y 0 - 149 150 - 189 >/= 190 ---- >24 Y 30 MG/DL ABOVE LDL CHOLESTEROL GOAL. Cholesterol.total/Choles terol in HDL [Mass ratio] 6.1 {ratio} Abnormal [facility] [facility] Work Phone: Comment on above: REF VALUESDESIRABLE < 3.4HIGH RISK > 5.0 Triglyceride [Mass/Vol] 250 mg/dL above hi gh threshold 0 - 149 [employer] [facility] Work Phone: Comment on above: . [...] mg/dL above high threshold 0 - 40 [facility] Work Phone: No Panel Informationon 10-13 >60 >60 [facility] Work Phone: Comment on above: CALCULATIONS [...] Count; Status:In Progress - Specimen/Data Collected; Done: [id number] Comprehensive Metabolic Panel; Status:In Progress - Specimen/Data Collected; Done: [id number] Lipid Panel; Status:In Progress - Specimen/Data Collected; Done: [id number] Prostate Specific Antigen; Status:In Progress - Specimen/Data Collected; Done: [id number] TSH - Thyroid Stimulating Hormone, Serum; Status:In Progress - Specimen/Data Collected; Done: [id number] Vitamin B12, Serum; Status:In Progress - Specimen/Data Collected; Done: [id number] Provider Impressions Provider Impressions Free Text Note Form: OV 6 weeks Chief Complaint COTTON FACTOR HIGH BP History of Present Illness colonoscopy [...] Allergies Medication ibuprofen Vitals Vital Signs Recorded: [id number] 02:47PM Temperature: 96.9 F Heart Rate: 69 [...] No murmur, No gallop. Integumentary: Warm, Dry, Wayside, Intact. Psychiatric: Cooperative, Appropriate mood AND affect, Normal judgment. Signatures Electronically signed by : Edmundo Yost MD; Oct 13 2021 3:24PM EST (Author) Normal [facility] PROSTATE SPECIFIC AGon 10-13 Prostate specific Ag [Mass/Vol] 0.60 ng/mL Normal 0.00 - 4.00 [facility] Comment on above: Result Comment: The FDA requires that the method used for PSA assay be reported to the physician. Values obtained with different assay methods must not be used interchangeably. This test was performed at [facility] using the Access Hybritech PSA assay is a two-site immunoenzymatic sandwich assay. The assay is approved for measurement of prostate-specific antigen (PSA)in serum and may be used in conjunction with a digital rectal examination in men 50 years and older as an aid in detection of prostate cancer. 0-Bqwix-vhgqghfuh inhibitors (e.g. Proscar, Finasteride, Avodart, Dutasteride and Miriam) for the treatment of BPH have been shown to lower PSA levels by an average of 50% after 6 months of treatment. Performed By: #### P SA #### [address] [place] [address] Prostate Specific Antigenon 10-13-2021 Prostate specific Ag [Mass/Vol] 0.60 ng/mL See Below [facility] Work Phone: Comment on above: Reference Range: 0.0 0 - 4.00The FDA requires that the method used for PSA assay be reported to the physician. Values obtained with different assay methods must not be used interchangeably. This testwas performed at [facility] using the Access Hybritech PSA assay is a two-site immunoenzymatic sandwich assay. The assay is approved for measurement of prostate-specific antigen (PSA)in serum and may be used in conjunction with a digital rectal examination in men 50 years and older as an aid in detection of prostate cancer.2-Rdlco-jtzwhouhg inhibitors (e.g. Proscar, Finasteride, Avodart, Dutasteride and Miriam) for the treatment of BPH have been shown to lower PSA levels by an average of 50% after 6 months of treatment. TSHon 10-13-2021 TSH Qn 1.64 m[IU]/L Normal 0.44 - 3.98 [facility] Comment on above: Result Comment: TSH testing is performed using different testing methodology at [facility] than at [facility]. Direct result comparisons should only be made within the same method. Performed By: #### T SH2 #### [address] [address] TSH - Thyroid Stimulating Ho rmone, Serumon 10-13-2021 TSH Qn 1.64 m[IU]/L See Below -[facility] Work Phone: Comment on above: Reference Range: 0.4 4 - 3.98 TSH testing is performed using different testing methodology at [facility] than at [facility]. Direct result comparisons should only be made within the same method. Tobacco Screening.on 021 Fall risk assessment a) No falls within the last year -[facility] Work Phone: Tobacco use status CPHS b) No M -[facility] Work Phone: VITAMIN B12on 10-13-2021 Cobalamin (Vitamin B12) [Mass/Vol] pg/mL High 211 - 911 [facility] Comment on above: Performed By: #### V TB12 #### [address] [address] Vitamin B12, Serumon 021 Cobalamin (Vitamin B12) [Mass/Vol] pg/mL above high threshold 211 - 911 [facility] Work Phone: [place] ORT LARGE JOINT ARTHROCEN TESISon 07-27-2021 Renata Jasso CNP 07/27/2021 12:33 PM LG Jt Injection/Arthrocen tesis: L knee Performed by: Renata Jasso CNP Authorized by: Renata Jasso CNP CPT 86012 - Large Joint Arthrocentesis: Consent given by: [...] the procedure well with no immediate complications [facility] XR KNEE LEFT 4+ VIEWS [...] fracture. The soft tissues are radiographically normal. Vohljrzx-ja-ycozrj medial compartment, mild lateral, fobr-ie-mtlezzkg patellofemoral compartment osteoarthritis. Small suprapatellar joint effusion. Arteriovascular calcifications. Limited evaluation of the right knee demonstrates preserved alignment. Vnvl-dd-llotuozc medial compartment osteoarthritis. IMPRESSION: No acute osseous abnormality. Qiabuhhr-hr-pmpmxq medial compartment osteoarthritis. Small suprapatellar joint effusion. SA/lab Workstation ID: [id number] Dictated by: JONATHAN MCKENNA on TueJul 24, 2021 6:13:56 AM EDT Transcribed by: RIVERA DUBOSE on TueJul 24, 2021 6:31:33 AM EDT Finalized by: JONATHAN MCKENNA on TueJul 26, 2021 1:23:11 PM EDT Normal [facility] Comment on above: Order Comment: Injur y/Trauma or Illness?:Injury/Trauma How long have you had these symptoms (acute/chronic)?:Chronic Reason for exam?:l knee pain x 10 yrs getting worse History of cancer?:u Surgeries, chemotherapy, or radiation?:u Type of Exam?:Unknown Mechanism of injury?:l knee pain x 10 yrs getting worse Auto Diffon 09-30-2018 Basophils Auto #/vol (Bld) 0.1 E3/mcL Normal 0.0-0.2 [facility] Comment on above: Order Comment: Order Added by Discern Expert. Performed By: #### 2 [id number] ####SHARONA [address] [place] [address] Basophils/100 WBC Auto (Bld) 0.8 % Normal 0.0-2.0 [facility] Comment on above: Order Comment: Order Added by Discern Expert. Performed By: #### 2 [id number] ####SHARONA [address]wqEwhh[address] [place] [address] Eos Absolute 0.3 E3/mcL Normal 0.0-0.7 [facility] Comment on above: Order Comment: Order Added by Discern Expert. Performed By: #### 2 [id number] ####SHARONA Per[address]LkiBbiy[address] [place] [address] Eosinophils/100 WBC Auto (Bld) 3.8 % Normal 0.0-11.0 [facility] Comment on above: Order Comment: Order Added by Discern Expert. Performed By: #### 2 [id number] ####SHARONA [address]azEafd[address] [place] [address] Lymphocytes Auto #/vol (Bld) 1.4 E3/mcL Normal 1.2-3.4 [facility] Comment on above: Order Comment: Order Added by Discern Expert. Performed By: #### 2 [id number] ####SHARONA [address]Vybq[address] [place] [address] Lymphocytes/100 WBC Auto (Bld) 19.3 % Low 20.0-55.0 [facility] Comment on above: Order Comment: Order Added by Discern Expert. Performed By: #### 2 [id number] ####SHARONA [address] [place] [address] Banks Absolute 0.8 E3/mcL High 0.0-0.7 [facility] Comment on above: Order Comment: Order Added by Discern Expert. Performed By: #### 2 [id number] ####SHARONA [address] [place] [address] Monocytes/100 WBC Auto (Bld) 10.0 % Normal 0.0-10.0 [facility] Comment on above: Order Comment: Order Added by Discern Expert. Performed By: #### 2 118419 ####SH[address] [place] [address] Neutro Absolute 5.0 E3/mcL Normal 1.4-6.5 [facility] Comment on above: Order Comment: Order Added by Discern Expert. Performed By: #### 2 [id number] ####SH[address] [place] [address] Neutro Auto 66.1 % Normal 37.0-75.0 [facility] Comment on above: Order Comment: Order Added by Discern Expert. Performed By: #### 2 [id number] ####SHARONA [address]fjPcwm8709 [place] [address] BMPon 09-30-2018 Anion gap 3 molar conc 9 mmol/L Low 10-20 [facility] Comment on above: Performed By: #### 2 [id number] ####SHARONA Q[address]liqod39[address] [place] [address] Calcium mass conc 9.0 mg/dL Normal 8.6-10.3 [facility] Comment on above: Performed By: #### 2 101587 ####SHARONA [address]es[address] [place] [address] Chloride molar conc 108 mmol/L High 98-107 [facility] Comment on above: Performed By: #### 2 [id number] ####SHARONA [address]brv[address] [place] [address] CO2 molar conc 26.0 mmol/L Normal 21.0-32.0 [facility] Comment on above: Performed By: #### 2 [id number] ####SHARONA [address] [place] [address] Creatinine mass conc 0.9 mg/dL Normal 0.5-1.3 [facility] Comment on above: Performed By: #### 2 [id number] ####SHARONA [address] [place] [address] Glucose mass conc 92 mg/dL Normal 70-99 [facility] Comment on above: Performed By: #### 2 816258 ####SHARONA R[address]epzcc[address] [place] [address] Potassium molar conc 3.9 mmol/L Normal 3.5-5.3 [facility] Comment on above: Performed By: #### 2 833814 ####SHARONA [address]vyknzkc[address] [place] [address] Sodium molar conc 139 mmol/L Normal 136-145 [facility] Comment on above: Performed By: #### 2 439604 ####SHARONA Sfzmbgkl4293 [place] [address] Urea nitrogen mass conc 15 mg/dL Normal 6-23 [facility] Comment on above: Performed By: #### 2 396205 ####SHARONA Juiwkkmd[address]703 [place] [address] Urea nitrogen/Creatinine mass ratio 16.7 ratio Normal 5.4-30.0 [facility] Comment on above: Performed By: #### 2 590846 ####SHARONA Prfgcfrp8499 [place] [address] CBC w/ Auto Diffon 8 Erythrocyte distribution width Auto Ratio (RBC) 13.2 % Normal 11.5-14.5 [facility] Comment on above: Performed By: #### 2 623484 ####SHARONA RkiOgpw1461 [place] [address] Hematocrit Auto Volume Fraction (Bld) 42.6 % Normal 42.0-52.0 [facility] Comment on above: Performed By: #### 2 018116 ####SHARONA JlnGjkb3081 [place] [address] Hemoglobin mass conc (Bld) 14.5 g/dL Normal 13.5-18.0 [facility] Comment on above: Performed By: #### 2 798734 ####SHARONA [address] [place] [address] MCH Auto Entitic mass (RBC) 32.4 pg High 27.0-31.0 [facility] Comment on above: Performed By: #### 2 488031 ####SHARONA Per[address]CydGqhw[address]207 [place] [address] MCHC Auto mass conc (RBC) 34.2 g/dL Normal 33.0-37.0 [facility] Comment on above: Performed By: #### 2 767573 ####SHARONA [address] [place] [address] MCV Auto Entitic volume (RBC) 94.8 fL Normal 78.0-100.0 [facility] Comment on above: Performed By: #### 2 943827 ####SHARONA [address] [place] [address] Platelet mean volume Auto Entitic volume (Bld) 7.9 fL Normal 7.4-11.0 [facility] Comment on above: Performed By: #### 2 834441 ####SHARONA [address] [place] [address] Platelets Auto #/vol (Bld) 228 E3/mcL Normal 130-400 [facility] Comment on above: Performed By: #### 2 [id number] ####SHARONA Per[address]IxqUokw[address]32 [place] [address] RBC Auto #/vol (Bld) 4.49 E6/mcL Normal 3.90-6.10 [facility] Comment on above: Performed By: #### 2 051148 ####SHARONA [address] [place] [address] WBC Auto #/vol (Bld) 7.5 E3/mcL Normal 3.6-11.0 [facility] Comment on above: Performed By: #### 2 030274 ####SHARONA PerdueJdsCwnm4031 [place] [address] CT Soft Tissue Neck w/ Contr stacy 09-30-2018 CT Soft Tissue Neck w/ Contrast Exam Date/Time: 8 22:59 ESTReason for Exam:Sore throat (pharyngitis)Report STUDY:CT Soft Tissue Neck w/ Contrast; 09/29/2018 10:59 pmINDICATION:Sore throat (pharyngitis).MICK DALY:NoneACCESSION NUMBER(S):[id number] CLINICIAN:Jean Marie Garibay:Akanksha velazquez intravenous injection axial CT was performed from [...] bilateral dependent atelectasis and areas of air trapping.IMPRESSION :Prominence of the pharyngeal mucosa and multiple nonenlarged lymph nodes, likely reactive in nature; attention on follow-up.No focal mass or abscess.Exam Date/Time: 8 22:59 ESTReportDirect visualization is recommended for further evaluation if clinically indicated. FINAL REPORT Dictated: 09/29/2018 11:56 pm Avel Lam MD OSigned (Electronic Signature): 09/29/2018 11:56 pmSigned by: Avel Lam MD Technologist: ABRAHAM [facility] eGFRon 09-30-2018 eGFR AA >60 [facility] Comment on above: Order Comment: Order added by Discern Expert. Performed By: #### 1 [id number] ####SHARONA Per[address]VotSwjg[address]99 [place] [address] GFR/1.73 sq M predicted among non-blacks MDRD vol rate/area (S/P/Bld) mL/min/{1.73_m2} [facility] Comment on above: Order Comment: Order added by Discern Expert. Performed By: #### 1 [id number] ####SHARONA [address] [place] [address] Vital Signs Date Time Vital Sign Value Performing Clinician Facility 12-19-2024 14:15-0500 Body temperature 98.06 [degF] DR MARISOL FRANKLIN MD [facility] 12-19-2024 14:15-0500 Diastolic Blood Pressure Non-Invasive 66 mm[Hg] DR MARISOL FRANKLIN MD [facility] 12-19-2024 14:15-0500 Heart rate 78 /min DR MARISOL FRANKLIN MD [facility] 12-19-2024 14:15-0500 Reason For Taking VItal Signs DR MARISOL FRANKLIN MD [facility] 12-19-2024 14:15-0500 Respiratory rate 18 /min DR MARISOL FRANKLIN MD [facility] 12-19-2024 14:15-0500 Systolic Blood Pressure Non-Invasive 146 mm[Hg] DR MARISOL FRANKLIN MD [facility] 12-19-2024 07:19-0500 Body temperature 98.42 [degF] DR MARISOL FRANKLIN MD [facility] 12-19-2024 07:19-0500 Diastolic Blood Pressure Non-Invasive 68 mm[Hg] DR MARISOL FRANKLIN MD [facility] 12-19-2024 07:19-0500 Heart rate 61 /min DR MARISOL FRANKLIN MD [facility] 12-19-2024 07:19-0500 Reason For Taking VItal Signs DR MARISOL FRANKLIN MD [facility] 12-19-2024 07:19-0500 Respiratory rate 18 /min DR MARISOL FRANKLIN MD [facility] 12-19-2024 07:19-0500 Systolic Blood Pressure Non-Invasive 142 mm[Hg] DR MARISOL FRANKLIN MD [facility] 12-19-2024 04:12-0500 Body temperature 96.8 [degF] DR MARISOL FRANKLIN MD [facility] 12-19-2024 04:12-0500 Diastolic Blood Pressure Non-Invasive 66 mm[Hg] DR MARISOL FRANKLIN MD [facility] 12-19-2024 04:12-0500 Heart rate 64 /min DR MARISOL FRANKLIN MD [facility] 12-19-2024 04:12-0500 Reason For Taking VItal Signs DR MARISOL FRANKLIN MD [facility] 12-19-2024 04:12-0500 Respiratory rate 18 /min DR MARISOL FRANKLIN MD [facility] 12-19-2024 04:12-0500 Systolic Blood Pressure Non-Invasive 137 mm[Hg] DR MARISOL FRANKLIN MD [facility] 12-18-2024 23:11-0500 Heart rate 66 /min DR MARISOL FRANKLIN MD [facility] 12-18-2024 18:48-0500 Heart rate 68 /min DR MARISOL FRAKNLIN MD [facility] 12-18-2024 14:30-0500 Heart rate 60 /min DR MARISOL FRANKLIN MD [facility] 12-18-2024 11:12-0500 Body height 187.[address] MARISOL FRANKLIN MD [facility] 12-18-2024 11:12-0500 Body weight 111.[address] MARISOL FRANKLIN MD [facility] 12-18-2024 11:12-0500 Body weight 31.67 kg/m2 DR MARISOL FRANKLIN MD [facility] 12-18-2024 10:39-0500 Body temperature 97.7 [degF] DR MARISOL FRANKLIN MD [facility] 12-18-2024 08:50-0500 Respiratory Rate - Anes 3 br/min DR MARISOL FRANKLIN MD [facility] 12-18-2024 08:45-0500 Respiratory Rate - Anes 17 br/min DR MARISOL FRANKLIN MD [facility] 12-18-2024 08:40-0500 Respiratory Rate - Anes 18 br/min DR MARISOL FRANKLIN MD [facility] 12-18-2024 05:55-0500 Body height 187.[address] MARISOL FRANKLIN MD [facility] 12-18-2024 05:55-0500 Body temperature 98.6 [degF] DR MARISOL FRANKLIN MD [facility] 12-18-2024 05:55-0500 Body weight 111.[address] MARISOL FRANKLIN MD [facility] 12-18-2024 05:55-0500 Heart rate 64 /min DR MARISOL FRANKLIN MD [facility] 12-11-2024 12:26-0500 Body height 190.[address] Morgan Moore MD Work Phone: [facility] 12-11-2024 12:26-0500 Body mass index (BMI) [Ratio] 31.6 kg/m2 Dr. Morgan Moore MD Work Phone: [facility] 12-11-2024 12:26-0500 Body weight 114.[address] Morgan Moore MD Work Phone: [facility] 12-11-2024 12:26-0500 Diastolic blood pressure 78 mm[Hg] Dr. Morgan Moore MD Work Phone: [facility] 12-11-2024 12:26-0500 Heart rate 71 /min Dr. Morgan Moore MD Work Phone: [facility] 12-11-2024 12:26-0500 Respiratory rate 16 /min Dr. Morgan Moore MD Work Phone: [facility] 12-11-2024 12:26-0500 Systolic blood pressure 113 mm[Hg] Dr. Morgan Moore MD Work Phone: [facility] 11-26-2024 11:45-[address] MARISOL FRANKLIN MD [facility] 11-26-2024 11:45-[address] MARISOL FRANKLIN MD [facility] 11-26-2024 11:45-0500 Body height [address] MARISOL FRANKLIN MD [facility] 11-26-2024 11:45-0500 Body weight 113.[address] MARISOL FRANKLIN MD [facility] 11-26-2024 11:45-0500 Body weight 32.14 kg/m2 DR MARISOL FRANKLIN MD [facility] 11-26-2024 11:45-0500 Diastolic Blood Pressure Non-Invasive 82 mm[Hg] DR MARISOL FRANKLIN MD [facility] 11-26-2024 11:45-0500 Heart rate 74 /min DR MARISOL FRANKLIN MD [facility] 11-26-2024 11:45-0500 Respiratory rate 18 /min DR MARISOL FRANKLIN MD [facility] 11-26-2024 11:45-0500 Systolic Blood Pressure Non-Invasive 124 mm[Hg] DR MARISOL FRANKLIN MD [facility] 03-18-2024 16:00-0400 Body temperature 98.3 [degF] Dr. Morgan Moore Work Phone: [facility] 03-18-2024 16:00-0400 Diastolic blood pressure 74 mm[Hg] Dr. Morgan Moore Work Phone: [facility] 03-18-2024 16:00-0400 Heart rate 61 /min Dr. Morgan Moore Work Phone: [facility] 03-18-2024 16:00-0400 Respiratory rate 16 /min Dr. Morgan Moore Work Phone: [facility] 03-18-2024 16:00-0400 SaO2% (BldA) [Mass fraction] 98 % Dr. Morgan Moore Work Phone: [facility] 03-18-2024 16:00-0400 Systolic blood pressure 126 mm[Hg] Dr. Morgan Moore Work Phone: [facility] 03-18-2024 10:55-0400 Body height 191.[address] Morgan Moore Work Phone: [facility] 03-18-2024 10:55-0400 Body weight 112.[address] Morgan Moore Work Phone: [facility] 03-18-2024 01:31-0400 Body mass index (BMI) [Ratio] 30.8 kg/m2 Dr. Morgan Moore Work Phone: [facility] 03-17-2024 17:50-0400 Body temperature 97.8 [degF] [facility] 03-17-2024 17:50-0400 Diastolic blood pressure 76 mm[Hg] [facility] 03-17-2024 17:50-0400 Heart rate 60 /min [facility] 03-17-2024 17:50-0400 Respiratory rate 13 /min [facility] 03-17-2024 17:50-0400 SaO2% (BldA) [Mass fraction] 96 % [facility] 03-17-2024 17:50-0400 Systolic blood pressure 127 mm[Hg] [facility] 03-17-2024 16:29-0400 Body height 190.[address] [facility] 03-17-2024 16:29-0400 Body mass index (BMI) [Ratio] 31.4 kg/m2 [facility] 03-17-2024 16:29-0400 Body weight 113.[address] [facility] 10-13-2021 14:47-0500 Body height 190.5 cm Edmundo Yost Work Phone: [facility] Work Phone: 10-13-2021 14:47-0500 Body mass index (BMI) [Ratio] 32.66 kg/m2 Edmundo Yost Work Phone: [facility] Work Phone: 10-13-2021 14:47-0500 Body surface area Derived from formula 2.46 m2 Edmundo Yost Work Phone: [facility] Work Phone: 10-13-2021 14:47-0500 Body temperature 96.9 [degF] Edmundo Yost Work Phone: [facility] Work Phone: 10-13-2021 14:47-0500 Body weight 118.53 kg Edmundo Yost Work Phone: [facility] Work Phone: 10-13-2021 14:47-0500 Diastolic blood pressure 68 mm[Hg] Edmundo Yost Work Phone: [facility] Work Phone: 10-13-2021 14:47-0500 Heart rate 69 /min Edmundo Yost Work Phone: [facility] Work Phone: 10-13-2021 14:47-0500 SaO2% (BldA) [Mass fraction] 96 % Edmundo Yost Work Phone: [facility] Work Phone: 10-13-2021 14:47-0500 Systolic blood pressure 116 mm[Hg] Edmundo Yost Work Phone: [facility] [facility] Work Phone: 07-23-2021 14:02-0400 Body height 190.5 cm Renata Jasso CNP Work Phone: [facility] 07-23-2021 14:02-0400 Body mass index (BMI) [Ratio] 31.87 kg/m2 Renata Jasso CNP Work Phone: [facility] 07-23-2021 14:02-0400 Body weight 115.67 kg Renata Jasso CNP Work Phone: [facility] Encounters Encounter Date Encounter Type Care Provider Facility Start: 09-01-2025 End: 09-02-2025 ambulatory Bam Holley Facility:[facility] Start: 06-26-2025 ambulatory Ramon Finney Facility :[facility] Start: 05-15-2025 End: 05-15-[address] Morgan Moore MD Work Phone: [facility] [place] Start: 05-15-2025 End: 05-15-[address] Morgan Moore MD [facility] [place] Work Phone: Start: 05-15-2025 End: 05-15-2025 ambulatory Morgan Moore Facility:[facility] Start: 02-15-2025 End: 02-15-[address] Morgan Moore MD Work Phone: [facility] Work Phone: Start: 02-15-2025 End: 02-15-2025 Patient encounter [facility] Start: 02-15-2025 End: 02-15-2025 ambulatory Morgan Moore Facility:[facility] Start: 12-18-2024 End: 12-19-[address] MARISOL FRANKLIN MD Facility:[facility] Start: 12-18-2024 End: 12-19-[address] MARISOL FRANKLIN MD [facility] Start: 12-11-2024 End: 12-11-2024 Patient encounter procedure Aj Granado COT[facility] FACTOR-C -[facility] Work Phone: Start: 12-11-2024 End: 12-11-2024 Preoperative state Aj Granado C[facility] FA[facility]-C [facility] Start: 12-11-2024 End: 12-11-2024 ambulatory Aj Granado NP Facility:[facility] Start: 12-11-[address] Christian Moore MD Work Phone: [facility] Start: 12-10-2024 ambulatory Morgan Moore Facility:[facility] Start: 12-10-2024 Non-patient / Non-visit Dr. Krish olson MD -[facility] Start: 12-10-2024 End: 12-10-[address] Morgan Moore MD -Cardiovascular Services Work Phone: Start: 12-10-2024 End: 12-10-2024 ambulatory Morgan Moore Facility:[facility] Start: 11-26-2024 End: 11-26-[address] MARISOL FRANKLIN MD Facility:[facility] Start: 11-26-2024 End: 11-26-[address] MARISOL FRANKLIN MD [facility] Start: 11-26-2024 End: 11-26-[address] MARISOL FRANKLIN MD [facility] Start: 11-26-2024 End: 11-26-[address] MARISOL FRANKLIN MD Facility:[facility] Start: 03-18-2024 Non-patient / Non-visit Dr. Serafin Moore Work Phone: [facility] Work Phone: Start: 03-17-2024 Non-patient / Non-visit Dr. Serafin Moore Work Phone: [facility] Work Phone: Start: 03-17-2024 End: 03-18-2024 Evaluation and management of inpatient [facility]-Progressive Care Unit Work Phone: Start: 03-17-2024 End: 03-18-[address] Morgan Moore Work Phone: [facility] Work Phone: Start: 01-04-2024 End: 01-04-2024 ambulatory [facility] Work Phone: Start: 01-04-2024 End: 01-04-2024 Patient encounter procedure [facility] Start: 12-09-2023 End: 12-09-2023 ambulatory [facility] Work Phone: Start: 12-09-2023 End: 12-09-2023 Patient encounter procedure [facility] Work Phone: Start: 06-06-2023 End: 06-06-[address] Morgan Moore Work Phone: [facility] Work Phone: Start: 06-06-2023 End: 06-06-[address] Morgan Moore Work Phone: [facility]-Laboratory, [place] [facility] Start: 05-25-2023 Non-patient / Non-visit Dr. Serafin Moore Work Phone: [facility] Start: 05-25-2023 End: 05-25-[address] Morgan Moore Work Phone: [facility]-Cardiovascul ar Services Work Phone: Start: 04-20-2022 End: 04-20-2022 Patient encounter procedure [facility]-Laboratory, Specimen Start: 10-26-2021 End: 10-26-2021 [facility] Start: 10-26-2021 End: 10-26-2021 Clinical Support Renata Jasso LEAD ENTERPRISE ARCHITECT Work Phone: [facility] Comment on above: Primary osteoarthrit is of left knee (Primary Dx) Start: 10-14-2021 Chart Update Edmundo Parra ess Work Phone: [facility] Work Phone: Start: 10-13-2021 Office outpatient ne w 45 minutes Edmundo Yost Work Phone: [facility] Work Phone: Start: 07-23-2021 End: 07-27-2021 ambulatory RENATA [facility] Start: 07-23-2021 End: 07-23-2021 Office outpatient new 45 minutes Renata Jasso LEAD ENTERPRISE ARCHITECT Work Phone: [facility] Comment on [...] aspir &/inj major jt/bursa w/o us Renata Shayy Jasso LEAD ENTERPRISE ARCHITECT Work Phone: Start: 07-27-2021 Arthrocentesis aspir &/inj major jt/bursa w/o us Renata Shayy Jasso LEAD ENTERPRISE ARCHITECT Work Phone: Arthroplasty of knee DR EDILSON FRANKLIN MD Comment on above: LEFT Arthroscopy of knee Edmundotash Yost Work Phone: Colonoscopy DR MARISOL Guerrier MD Osteophyte of bone (disorder) DR MARISOL FRANKLIN MD Comment on above: left knee Strabismus surgery Edmundo T Furnbrandy Work Phone: Tonsillectomy and adenoidectomy Edmundo T Furnbrandy Work Phone: Tonsillectomy and adenoidectomy DR MARISOL FRANKLIN MD Plan of Treatment Date Care Activity Detail Author Start: 03-18-2024 Patient discharge [facility] Start: 03-17-2024 Aspiration precautions [facility] Start: 03-17-2024 Assessment of risk of venous thromboembolism [facility] Start: 03-17-2024 Cardiac monitoring [facility] Start: 03-17-[address] [facility] Start: 03-17-2024 Consultation [facility] Start: 03-17-2024 Continuous pulse oximetry [facility] Start: 03-17-2024 Elevation of head of bed [facility] Start: 03-17-2024 Exercises [facility] Start: 03-17-2024 Insertion of catheter into peripheral vein [facility] Start: 03-17-2024 Notification of physician [facility] Start: 03-17-2024 Patient referral to dietitian [facility] Start: 03-17-2024 Providing care according to standard [facility] Start: 03-17-2024 Referral to occupational therapist [facility] Start: 03-17-2024 Referral to service [facility] Start: 03-17-2024 Speech therapy assessment [facility] Start: 03-17-2024 Telemedicine consultation with patient [facility] Start: 03-17-2024 Tobacco use cessation education [facility] Start: 03-17-2024 End: 03-17-2024 [facility] Start: 03-17-2024 Vital signs measurements [facility] Start: 03-17-2024 Following clinical pathway protocol [facility] Start: 03-17-2024 MRI of brain without contrast Brain without Contrast [facility] Start: 03-17-2024 Verification routine [facility] Start: 03-17-2024 Admission procedure [facility] Start: 03-17-2024 Hospital admission, emergency, from emergency room, medical nature [facility] Start: 03-17-2024 CT of head without contrast STROKE Brain/Head without Cont [facility] Start: 03-17-2024 CT Unspecified body region WO contrast [facility] Start: 03-17-2024 Oxygen therapy [facility] Start: 03-17-2024 Thyroid stimulating hormone measurement [facility] Start: 03-17-2024 [facility] Start: 03-17-2024 Patient referral to dietitian [facility] Start: 03-17-2024 [facility] Start: 06-06-2023 Factor V Leiden genotype [facility] Start: 06-06-2023 Lupus anticoagulant assay [facility] Start: 06-06-2023 Protein S assay [facility] Start: 07-08-2021 Influenza vaccination Sequential Influenza Vaccine (#1) [facility] Start: 03-09-2021 COVID-19 Vaccine (2 - Booster for Dell series) COVID-19 Vaccine (2 - Booster for Dell series) [facility] Start: 2009 Screening for malignant neoplasm of colon [facility] Start: 1977 Hepatitis C screening Hepatitis C Screening [facility] Start: 1974 HIV screening HIV Screening [facility] Start: 1971 Depression screening using PHQ-9 (Patient Health Questionnaire 9) score [facility] Start: 1962 History and physical examination, annual for health maintenance Wellness Visit [facility] Start: 1959 Prostate specific antigen measurement PSA Level [facility] Start: 1959 Tetanus vaccination Tetanus: Every 10yrs [facility] F5 gene mutations fo und [Identifier] in Blood or Tissue by Molecular genetics method Nominal [facility] Hemoglobin A1c/Hemoglobin.total in Blood [facility] Lupus anticoagulant neutralization platelet [Time] in Platelet poor plasma by Coagulation assay [facility] Partial thromboplast in time ratio [facility] Patient referral [facility] Work Phone: Protein C Ag actual/ normal in Platelet poor plasma by Immunoassay [facility] Protein S Free Ag actual/normal in Platelet poor plasma by Immunoassay [facility] Thrombin time [facility] Immunizations Immunization Date Immunization Notes Care Provider [facility] 10-02-2024 influenza virus vacc ine, unspecified formulation DR MARISOL FRANKLIN MD [facility] 09-06-2023 influenza virus vacc ine, unspecified formulation DR MARISOL FRANKLIN MD [facility] 09-22-2022 influenza virus vacc ine, unspecified formulation DR MARISOL FRANKLIN MD [facility] 09-22-2022 SARS-CoV-2 (CV19)mRNA-[address] MARISOL FRANKLIN MD [facility] Comment on above: Result Comment: 2024: [id number] 12-01-2021 tetanus toxoid, redu joseph diphtheria toxoid, and acellular pertussis vaccine, adsorbed DR MARISOL FRANKLIN MD [facility] 10-14-2021 SARS-CoV-2 (COVID-19 ) Ad26 vaccine, recombinant DR MARISOL FRANKLIN MD [facility] 06-09-2021 zoster vaccine recombinant Edmundo Yost Work Phone: [facility] 03-31-2021 zoster vaccine recombinant Edmundo Yost Work Phone: [facility] 01-12-2021 Dell COVID-19 Vac cine 0.5 ML Intramuscular Suspension Edmundo Yost Work Phone: [facility] Comment on above: Result Comment: 2024: [id number] Payers Date Payer Category Payer Self-pay [id number] 2024 Medicare [id number] 2024 Medicare [id number] 2024 Unknown [id number] 2015 Unknown MMO MED [employer]PER[employer] PPO [id number] 2015-Present [phone] [address] [place] [address] [id number] 2015 Unknown 2015 Unknown [id number] 1959 Unknown [id number] 1959 Unknown [id number] [id number] 1959 Unknown [id number] 1959 Unknown [id number] 1959 Unknown [id number] 1959 Unknown [id number] Unknown [id number] Unknown [facility] [place] [id number] Unknown [id number] Unknown [id number] Unknown [id number] Unknown [id number] [id number] Unknown [id number] [id number] Unknown [id number] Unknown [id number] [id number] Unknown [id number] Unknown [id number] Social History Date Type Detail Facility Start: 04-14-2016 End: 12-11-2024 Tobacco smoking status NYIS Never smoked tobacco [facility] Start: 04-14-2016 Tobacco use and exposure Smoke less tobacco non-user [facility] Start: 07-27-2021 End: 10-26-2021 Alcohol intake Ex-drinker (finding) [facility] Start: 07-27-2021 End: 10-26-2021 Alcohol intake [facility] Start: 1960 Sex Assigned At Not [facility] Exposure to SARS-CoV -2 (event) Not sure [facility] Start: 1960 Sex Assigned At Male [facility] Start: 03-17-2024 End: 03-18-2024 Tobacco smoking status NHIS Unknown if ever smoked [facility] Start: 03-18-2024 Non-smoker [facility] Sexual Orientation Shikha blood [facility] Start: 11-20-2024 End: 02-18-2025 Sex Male (finding) [facility] Goals Date Patient Goal Desired Activity /State Functional Status Date Assessment Result Facility 12-19-2024 [facility] Functional Status Shikha Li [facility] 12-19-2024 Functional Status Breakfast Percent 100 A [facility] 12-19-2024 Functional Status Identified as high risk, Fall ID band on, Room located near nursing station, Door open, Non-Slip footwear [facility] 12-19-2024 Functional Status Shikha Li [facility] 12-19-2024 Functional Status Shikha Li [facility] 12-18-2024 Functional Status Antiembolism S tocking On/Re-applied bilateral thigh high [facility] 12-18-2024 Functional Status Shikha Li [facility] 12-18-2024 Functional Status Shikha Li [facility] 12-18-2024 Functional Status Shikha Li [facility] 12-18-2024 Functional Status Shikha Li [facility] 12-18-2024 Functional Status Multilevel glenn e, 2nd floor bedroom, 2nd floor bathroom [facility] 12-18-2024 Functional Status Shikha Li [facility] 03-18-2024 Functional status Ambulates [facility] Work Phone: Mental Status Date Assessment Result Facility 12-19-2024 Mental Status Oriented x 4 [facility] 12-18-2024 Mental Status [facility] 12-18-2024 Mental Status [facility] 03-18-2024 Cognitive function Voice/Name [facility] Work Phone: 03-17-2024 Cognitive function Voice/Name [facility] Work Phone: Clinical Notes 07-27-2021 to 09-02-2025 Note Date & Type Note Facility 09-02-2025 Note [facility] Medical Records Department [address] [place] [address] Discharge Summary 09/02/25 1525 MR#: [id number] Acct: [id number] Name: QIAN SEGAL Rep #: [id number] : 1960 65 From: Bam Holley DO PCP: Dr. Morgan Moore MD Status:DIS [place]ALTON Location: [place] [id number] Providers Date of Admission: 09/01/25 Date of Discharge: 09/02/25 Primary Care Physician: Dr. Morgan Moore MD Consultations 09/01/25 20:11 Neurology [Consult: Tele-Neurology] Routine Consulting Provider: [facility] Reason for Consult: episodes of dysgeusia and transient amnesia EMERGENT Consult: No MD Notified: Yes Date Notified: 09/01/25 Time Notified: 20:39 Method of Notification: Answering Service Nursing Unit Staff Notify [facility] of Tele-Neurology Consult: Yes Reason For Visit: ALTERED SENSE OF TASTE W/ TRANSIENT AMNESIA Diagnosis Discharge Diagnosis (1) Dysgeusia: Status: Acute Code(s): R43.2 - Parageusia (2) Transient amnesia: Status: Acute Code(s): R41.3 - Other amnesia Plan 1. 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 #3 hyperlipidemia Medications at Discharge Home Medications apixaban 5 mg tablet (Eliquis) 5 mg PO BID blood thinner 03/17/24 vit B complex and W-akwwann-gpesgkal-bioflavonoid, lemon 500 mg tablet (Ear Health Plus) 1 tab PO TID tinnitus 03/17/24 rosuvastatin 10 mg tablet 10 mg PO DAILY #30 tabs 03/18/24 bee pollen 550 mg capsule 550 mg PO TID 05/30/24 cinnamon bark 500 mg capsule (Cinnamon) 500 mg PO BID 05/30/24 elderberry fruit 350 mg capsule 350 mg PO BID 05/30/24 loratadine 10 mg tablet (Claritin) 10 mg PO DAILY 05/30/24 beta carotene 30 mg capsule 30 mg PO DAILY 06/28/24 lycopene 10 mg capsule 10 mg PO QDAY 12/11/24 mecobalamin (vitamin B12) 1,000 mcg chewable tablet 1,000 mcg PO QDAY 12/11/24 omega-3 fatty acids 1,000 mg capsule 1,000 mg PO QDAY 12/11/24 levetiracetam 750 mg tablet 750 mg PO BID #60 tabs 09/02/25 Hospital Course Operations None Procedures Electroencephalogram Summary of Care Provided Minutes Spent on Discharge: 31 Hospital Course: This 65-year-old white male was seen in the emergency room at [facility] complaining of an episode of altered taste and transient amnesia. Patient lives at home with his , he was hospitalized in March 2024 for possible CVA-he was told at that time he may have had a TIA. Patient stated that he did not remember much for over an hour, stated that he appeared glassy eyed and was not able to remember simple things. Patient denied any weakness in his arms or legs workup in the ER revealed his NIH stroke score to be 0, emergency room physician documented there was no indication for stroke team to be called. CT of the brain was ordered which did not show any abnormality, CBC was unremarkable. Patient was placed in observation status on PCU and seen in consultation by teleneurology, he underwent an MRI of the brain which was unremarkable. Patient underwent an EEG and during the EEG teleneurology told me that it was noted he was having seizures. It was recommended the patient be loaded with 2500 mg of Keppra, teleneurology stated that after this was accomplished the patient could be discharged home on daily Keppra starting 09/03/2025. On 09/02/2025, patient was seen and examined: On examination he appeared in good health and spirits. Vital signs as documented. Skin warm and dry and without overt rashes. Neck without JVD, neck was supple, trachea midline, thyroid was normal. Lungs clear bilaterally, normal air movement was noted. Heart exam notable for regular rhythm, normal sounds and absence of murmurs, rubs or gallops. Abdomen unremarkable and without evidence of organomegaly, masses, or abdominal aortic enlargement. Bowel sounds are present, abdomen is not distended. Extremities nonedematous, no cyanosis was noted, no clubbing was noted. Neuro: Cranial nerves II through XII are grossly intact, no focal motor deficits were noted, sensation to light touch and pinprick intact, motor exam 5/5 throughout. Psych: Patient is alert and oriented x3, he does not appear anxious or depressed, he does not appear agitated. Patient appears stable for discharge home on 09/02/2025. I called the patient's PCP-Dr. Moore- and discussed the patient's medical problem with him. He was advised that the patient will need follow-up with neurology as an outpatient. Weight / BMI Weight Weight: 113.4 kg Body Mass Index (BMI) 32.1 ABG / Lab / Microbiology Data 09/02/25 06:35 09/02/25 06:35 Laboratory: Laboratory Results - last 24 hr 09/02/25 06:35: WBC 6.5, RBC 4.49 L, Hgb 14.4, Hct 41.7, MCV 92.9, MCH 32.1 H, MCHC 34.5, RDW Std Deviation 42.3, RDW Coeff of Eladio 12.3, Plt Count 199, MPV 9.7, Sodium 140, Potassium 4.2, Chloride 105, (more content not included)... [facility] 05-16-2025 Radiology Diagnostic study note [facility] Imaging Services [address] [place] [address] Hips B/L min 2 views w/ Pelvis MR#: [id number] Acct: [id number] Name: QIAN SEGAL Rep #: [id number] : 1960 M 64 From: Danitza Pleitez MD PCP: Dr. Morgan Moore MD Status: REG C RENETTA Study:Hips B/L min 2 views w/ Pelvis Date of Exam: 05/15/25 Exam# [id number] Ordering Dr: Morgan Moore MD PROCEDURE: HIPS [...] Mild bilateral hips arthritic changes. Reading [facility] CC: Dr. 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 ?Take biya-mud-rkxpmri or prescription medicines. ?Eat foods that are [...] cannot use soap and water, use hand manager servicing. ?Change your bandage as told by your [...] 01/15/2013 Document Revised: 03/03/2020 Document Reviewed: 06/07/2019 ElseShiftgig Patient Education 2020 ChipX. 12/19/2024 07:50:55 5 - [facility] Post-op Instruction 06/2017 (80830) [facility] Post-operative Instructions PLEASE FOLLOW [facility] POST-OP INSTRUCTIONS GIVEN WATCH FOR SIGNS OF INFECTION: call the office ([phone]) if experencing any of the following: (Usually [...] on your follow up instructions. Form: 338A (97854) R: 03/13 Follow Up Care 11/20/2024 09:15:24 With:Donavan Overton [facility] Address: [address] [place] [id number] [phone] When:12/21/2024 10:00:00 Comments:This is your first physical therapy appointment. Follow-up as scheduled. With:DARYL PASTRANA PA-C, Orthopedic Address: [facility] [address] [place] [phone] When:12/31/2024 15:15:00 Comments:This is your post-op appointment. Follow-up as scheduled. [facility] 12-19-2024 Note Discharge Instructions Thank you for allowing [facility] to assist you with your healthcare needs. The following is important discharge information regarding your hospital visit. Your Care Team Marisol Franklin MD Your Diagnosis DVT (deep venous thrombosis) GERD (gastroesophageal reflux disease) Status post total left knee replacement What to do next Follow Up Appointments Follow Up with [facility] Outpatient Therapy When:12/21/2024 10:00 AM EST Where:[address] [place] [phone] Additional Information: This is your first physical therapy appointment. Follow-up as scheduled. Follow Up with DARYL PASTRANA PA-C, Orthopedic When:12/31/2024 03:15 PM EST Where:[facility] [address] [facility] [place] [address]- Additional Information: This is your post-op appointment. [...] bowel movement, then as needed Pickup at [facility]/pharmacy #[id number] Unchanged elderberry (elderberry 350 mg oral capsule) 1 cap by mouth Once a day Unchanged famotidine (Pepcid 20 mg oral tablet) 1 tab(s) by mouth Once a day Pickup at [facility]/pharmacy #6167 Unchanged herbal/ nutritional [...] for as needed for pain Pickup at [facility]/pharmacy #6167 Unchanged rosuvastatin (rosuvastatin 10 mg oral tablet) 1 tab(s) by mouth Once a day Pharmacy Information [facility]/pharmacy #[id number]: [address] [place], [place] [phone] Please take this list to your next [...] may report side effects to FDA at 6-166-POM-1942. What other drugs will affect famotidine? Famotidine oral can make it harder for your body to absorb other medicines you take by mouth. Tell your doctor if you are taking: cefditoren; dasatinib; delavirdine; fosamprenavir; or tizanidine (if you are taking famotidine liquid). This list is not complete. Other drugs may affect famotidine, including prescription and igsf-qau-gxeszrz medicines, vitamins, and herbal products. Not all [...] to ensure that the information provided by [employer]. ('Multum') is accurate, up-to-date, and complete, but no guarantee is made to that effect. Drug information contained herein may be time sensitive. [employer] information has been compiled for use by healthcare practitioners and consumers in the [place] and therefore [employer] does not warrant that uses outside of the [place] are appropriate, unless specifically indicated otherwise. The [employer] drug information does not endorse drugs, diagnose patients or recommend therapy. The [employer] drug information is an informational resource designed [...] effective or appropriate for any given patient. [employer] does not assume any responsibility for any aspect of healthcare administered with the aid of information [employer] provides. The information contained herein is not intended to cover all possible uses, directions, precautions, warnings, drug interactions, allergic reactions, or adverse effects. If you have questions about the drugs you are taking, check with your doctor, nurse or pharmacist. Copyright 2051-0283 [employer]. Version: 20.. Revision Date: 05/30/2023. docusate and senna (DOK [...] may report side effects to FDA at 5-649-ISF-6606. What other drugs will affect docusate and senna? Other drugs may affect docusate and senna, including prescription and pwtz-lhs-eahsffw medicines, vitamins, and herbal products. Tell your [...] to ensure that the information provided by [employer] Manager. ('YellowDog Mediatum') is accurate, up-to-date, and complete, but no guarantee is made to that effect. Drug information contained herein may be time sensitive. [employer] information has been compiled for use by healthcare practitioners and consumers in the [place] and therefore [employer] does not warrant that uses outside of the [place] are appropriate, unless specifically indicated otherwise. The [employer] drug information does not endorse drugs, diagnose patients or recommend therapy. The [employer] drug information is an informational resource designed [...] effective or appropriate for any given patient. [facility] does not assume any responsibility for any aspect of healthcare administered with the aid of information [facility] provides. The information contained herein is not intended to cover all possible uses, directions, precautions, warnings, drug interactions, allergic reactions, or adverse effects. If you have questions about the drugs you are taking, check with your doctor, nurse or pharmacist. Copyright 4778-1292 [facility] Software. Version: 5.01. Revision Date: 06/13/2023. oxycodone (ox i KOE [...] were not tolerated. Extended-release oxycodone is for mpjjtl-zhj-oatqu treatment of severe and chronic pain that [...] by your doctor. Stop taking all other mtigao-jqx-otdws opioid pain medicines when you start taking [...] may report side effects to FDA at 3-916-TVE-2565. What other drugs will affect oxycodone? You [...] may affect oxycodone. This includes prescription and jfve-thk-iowtdoa medicines, vitamins, and herbal products. Not all [...] to ensure that the information provided by [employer]. ('Multum') is accurate, up-to-date, and complete, but no guarantee is made to that effect. Drug information contained herein may be time sensitive. [employer] information has been compiled for use by healthcare practitioners and consumers in the [place] and therefore [employer] does not warrant that uses outside of the [place] are appropriate, unless specifically indicated otherwise. The [employer] drug information does not endorse drugs, diagnose patients or recommend therapy. [employer] drug information is an informational resource designed [...] effective or appropriate for any given patient. [employer] does not assume any responsibility for any aspect of healthcare administered with the aid of information [employer] provides. The information contained herein is not intended to cover all possible uses, directions, precautions, warnings, drug interactions, allergic reactions, or adverse effects. If you have questions about the drugs you are taking, check with your doctor, nurse or pharmacist. Copyright 0085-0035 [employer] Manager. Version: 17.. Revision Date: 11/29/2023. Education Materials [...] Follow these instructions at home: Medicines Take damh-dgv-hrkhkvk and prescription medicines only as told by [...] your pee (urine) pale yellow. ? Take mcsj-ltw-pjyvcvt or prescription medicines. ? Eat foods that [...] cannot use soap and water, use hand manager servicing. ? Change your bandage as told by [...] 01/15/2013 Document Revised: 03/03/2020 Document Reviewed: 06/07/2019 [employer] Patient Education 2020 ChipX. [facility] Post-operative Instructions PLEASE FOLLOW [facility] POST-OP INSTRUCTIONS GIVEN WATCH FOR SIGNS OF INFECTION: call the office ([phone]) if experencing any of the following: (Usually [...] on your follow up instructions. Form: 338A (15875) R: 03/13 Additional Information VACCINATE! IT SAVES LIVES! Members of the community who have not yet received the COVID-19 vaccine and would like to receive it can visit one of [facility] vaccine clinics. There are many vaccine clinic locations within the [facility]. For locations and available times, please visit https://gettheshot.coronavirus.o hio.gov/. It is important to note that some COVID mobile vaccine clinics are held outdoors and may be canceled in rainy or stormy conditions. To learn more about pediatric vaccinations (ages 5-11), we invite you to visit the [facility] webpage. https://www.ak2 Minutess.org/p ages/2544-Cvqec-Hceqthfpeel-Freq gvweer-Kgdtw-Uceazxauv.html To learn more about the COVID-19 vaccine, we invite you to visit the CDC website for a list of frequently asked questions.https://www.cdc.gov/co ronavirus/2019-ncov/vaccines/faq .html [facility] Patient Portal Access Instructions: Stay connected with your healthcare team and access your personal medical information anytime with the [facility] Patient Portal. Please follow the directions below to create your [facility] account: 1.Access the email account you provided upon registration to the hospital/physician office.2.Look for an invitation email from [facility].3.Open the email and access the invitation link: Accept Invitation to [facility].4.Fill in the required smith to create your account. To access your account, visit [email or web address]. Click the blue button labeled Access Patient Portal and then log in with the username [...] you will allow to register on the [facility] Patient Portal for access to your information. You can also access the [facility] Patient Portal on the Oyster.comwhere nilo. Simply click on Patient Portal and then log into your account. If you would like to receive a full copy of your medical records, please contact the [facility] Medical Records Department by calling [phone], Tuesday through Tuesday between 8 a.m. and [...] Call your local pharmacy or go to [email or web address] to find one close to you.3.Make use of household items: Use cat litter or old coffee grounds to dispose medications if other options are not available. Mix your drugs with these household products, seal them in an airtight container and throw it into the garbage. Call [facility]: [phone] to be sure your drugs can be [...] Education Materials Total Knee Replacement, Care After, Okce-xv-Esau 5 - [facility] Post-op Instruction 06/2017 (84407) Medication Leaflets famotidine (oral/injection), docusate and senna, oxycodone My discharge plan and instructions have been reviewed and explained to me and IPHILIPP DAVID understand my current condition and have read and understand these discharge instructions. I have received a written copy of the plan/instructions. If I have questions, I am aware that I should contact my doctor. Patient/Order Puller Signature: Date/Time: Relationship to Patient: Witness Name/Signature: Date/Time: [facility] 12-19-2024 Note Date of Service December [...] pain with weightbearing. Patient states he feels wiped out. Objective Vitals and Measurements T: 36.9 C [...] with Minerals Tablet 1 tab(s), Oral, qDayM xmdiw-4-isee ethyl esters 1000 mg capsule 1,000 mg [...] DVT prophylaxis. Patient will continue with MAYRA walker postoperatively. 4. Physical therapy: Weightbearing as tolerated [...] initially wanted his prescriptions E scribed to [facility]. However I did discuss with him the complications we have had with narcotics with this pharmacy. We will now send his medications to [facility] in [facility]. He does have outpatient physical therapy established. Upon discharge patient will contact our office with any concerns or complications. I will call back in to talk with nursing to see how patient has done with therapy and possible discharge. I have reviewed the [place] Automated Rx Reporting System (OARRS) report for [...] DARYL PASTRANA PA-C on 12/19/2024 08:14 AM [facility] 12-18-2024 Note Exam Date Time Procedure Performing Provider Status 12/18/24 9:12 AM XR Knee 1 or 2 Views Left BUZZ MCINTYRE MD; Auth (Verified) [id number] ORIGINAL EXAMINATION: TWO XRAY VIEWS OF THE [...] 12/18/2024 9:41:30 AM Ordering Provider: MARISOL FRANKLIN [facility]02-11-2025 Note* Exam Date Time Procedure Performing Provider Status 12/18/24 7:36 AM US Anesthesia Block Auth (Verified) [id number] ORIGINAL Images acquired, not reported on this accession number. [facility]02-11-2025 Anesthesiology Consult note Patient: QIAN SEGAL Age: 64 years Sex: Male : 1960 Associated Diagnoses: None Author: JACEY DUPONT Preoperative Information Anesthesia history Patient's history: negative. [...] Mother Brother Procedure history: Tonsillectomy and adenoidectomy ([id number]). Colonoscopy (005300827). Bone spur ([id number]). Comments: 12/18/2024 5:50 EST - Juany Rogel [...] Signs (last 24 hrs) Last Charted Temp Rkqhattl20.0 DegC (DEC 18 05:55) Heart Rate Dcihnx33 bpm (DEC 18 05:55) SMU648 mmHg (DEC 18 05:55) DBP83 mmHg (DEC 18 05:55) Measurements from flowsheet : Measurements 12/18/2024 5:55 EST Height 187.9 cm Height in inches 74 inch(es) Admission Weight 111.8 kg Weight Lbs 246 lb George Body Weight 82.15 kg Admission Body Mass [...] Irl - Additive IRRIGATION CHG 0.05% IRRISEPT / [id number]-702-[id number] SN - Irl - Additive BETADINE (POVIDONE IODINE) SOLUT SN - IrI - Volume Out 450 mL SN - IrI - Volume Out 450 mL 12/18/2024 6:46 EST SN - IN - Route of Administration Local SN - IN - Route of Administration Local SN - IN - Route of Administration Local SN - IN - By (Single) SN - IN - By (Single) SN - IN - By (Single) SN - IN - By (Single) SN - IN - By (Single) SN - IN - By (Single) 12/18/2024 6:44 EST SN [...] Surgeon SN - CAt - Role Performed Hotel Clerk 1 SN - CAt - Role Performed Scrub 1 SN - CAt - Role Performed Ornamental Metal Fabricator Apprentice 1 SN - CAt - Role Performed CAR DELIVERER SN - CAt - Role Performed Physician Rd Project Manager SN - CAt - Role Performed Float Tender 12/18/2024 6:24 EST SN - Preop - [...] Weight 111.8 kg Weight Lbs 246 lb George Body Weight 82.15 kg Admission Body Mass [...] no difficulties Skin Temperature Warm Skin Description Wayside, Normal for ethnicity, Dry Skin Integrity Intact [...] EST Designated Person #1 We May Share WAGNER BYRNE [phone] Designated Person #1 Relationship Spouse Privacy Restrictions [...] No Advanced Directives Yes Advance Directive Type [place] Durable Power of Repairer And Checker [facility] [place] Declaration (Living Will) Advance Directive Location [...] Allergies Yes Anesthesia Extension Set Applied Yes 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 Assessment and Plan [place] Society of Anesthesiologists (ASA) physical status classification: Class III. Anesthetic Preoperative Plan Anesthetic technique: Spinal. Regional: Spinal. Postoperative pain management: adductor canal block. Risks discussed: nausea, vomiting, headache, hypotension, allergic reaction, serious complications. Informed consent: signed by patient. Digitally Signed by JACEY DUPONT on 12/18/2024 06:52 AM [facility]02-04-2025 Evaluation note* Diagnosis Onset Date Resolution Status Admit Date Anticoagulant long-term use chronic December 11, 2024 1:22pm Dyslipidemia chronic December 1:22pm History of DVT (deep vein thrombosis) chronic December 11 1:22pm PAC (premature atrial contraction) chronic December 11 1:22pm History of TIA (transient ischemic attack) resolved December 11 1:22pm Encounter for preoperative examination for general surgical procedure noneactive December 11, 2024 1:22pm [facility] Work Phone: 1(986) 402-951001-20-2025 Note* Exam Date Time Procedure Performing Provider Status 11/26/24 1:[address] Knee w/o Contrast Left BUZZ MCINTYRE MD; Auth (Verified) [id number] ORIGINAL EXAMINATION: CT OF THE LEFT KNEE [...] most pronounced in the medial compartment with jxzj-el-kdvm, asymmetric joint space narrowing, marginal osteophyte formation [...] Sign Date: 11/26/2024 3:43:26 PM Ordering Provider: [facility]05-12-2024 Discharge summary Author Di Garcia [facility] March 18, 2024 2:34pm Note Date/Time March 18, 2024 2:23p [facility] Medical Records Department [address] [place] [address] Discharge Summary 03/18/24 1421 MR#: [id number] Acct: [id number] Name: QIAN SEGAL Rep #:[id number] : 1960 63 From: Di Garcia DO PCP: Dr. Morgan Moore MD Status:ADM I NO Location: [place] [address] Providers Date of Admission: 03/17/24 Date of [...] (Eliquis) 5 mg PO BID 03/17/24 inositol-choline myk-bnplmftip-fdy B complex and C 500 mg tablet (Ear Health Plus) 1 tab PO TID tinnitus 03/17/24 loratadine-pseudoephedrine ER 10 mg-240 mg tablet,extended hfstppb97go (Loratadine-D) 1 tab PO DAILY 03/17/24 aspirin [...] Eliquis who presented to the emergency department [facility] on 03/18/2024 with a chief complaint of confusion and right facial droop with paresthesias. Patient reported that he was driving to their grandsons birthday earlier in the afternoon when his reported she began to notice that he was more confused and missed some exits offthe highway with the journey. She had them order puller and noticed that the rightside of his [...] and sent a new prescription for Tue supply to his local pharmacy. We also [...] (Auto) 67.5, Lymph % (Auto) 18.4 L, Banks % (Auto) 10.7 H, Eos % (Auto) [...] Non-Af 80, BUN/Creatinine Ratio 19.0, Glucose 101, AmdkbgkxjeM5n 5.3, Calcium 9.2, Troponin I High Sens [...] Clear Calc 108.57, Est GFR (MDRD) Af Drne872, Est GFR (MDRD) Non-Af 86, BUN/Creatinine Ratio [...] on 03/17/2024 17:11:37 (ET). Electronically Signed: Luan EspinoDO at 17:09 EDT , Chest X-Ray 03/17/24 16:57 IMPRESSION: Left basilar atelectasis. Electronically Signed: Luan DO Srinivas at 17:16 EDT , Brain MRI 03/18/24 17:39 IMPRESSION: 1. Involutional and chronic ischemic changes of the brain, as described above. Electronically Signed: Ktoa Flores MD at 13:58 EDT , D/C [...] Self Care Charges/Coding Visit Charges Inpatient E&M: 21866 Disch Hosp >30min 03/18/24 1434 <Electronically signed by Di Garcia DO> Cosigner Signature (if applicable): CC: Dr. Di Garcia DO; Dr. Morgan Moore MD~ Signed [facility] Work Phone: 1(916) 140-812905-12-2024 Consult note Author Abraham Molina [facility] March 18, 2024 12:39pm Note Date/Time March 18, 2024 12:39 pm [facility] Medical Records Department [address] [place] [address] Consultation - Neurology 03/18/24 1232 MR#: [id number] Acct: [id number] Name: QIAN SEGAL Rep #:[id number] : 1960 63 From: Abraham Ulrich PCP: Dr. Morgan Moore MD Status:ADM I NO Location: [place] [address] Assessment and Plan: Neuro Assessment/Plan Telestroke (Bidirectiona [...] statin. Follow up MRI brain and TTE. OT/PT/HOME VISITS NURSE I personally attended this patient and spent [...] focal weakness, headache(s), numbness, paresthesias or tingling [facility] Blood clot in leg Blood clots in brain DVT (deep venous thrombosis) Family history of abdominal aortic aneurysm Hypercholesteremia Non-smoker Home Medications apixaban 5 mg tablet (Eliquis) 5 mg PO BID 03/17/24 [History Last Taken Unknown] inositol-choline der-lufkbvokk-nig B complex and C 500 mg tablet (Ear Health Plus) 1 tab PO TID tinnitus 03/17/24 [History Last Taken Unknown] loratadine-pseudoephedrine ER 10 mg-240 mg tablet,extended givqeuf34kj (Loratadine-D) 1 tab PO DAILY 03/17/24 [History [...] and with change in RN caregiver. Freq: [id number] Protocol: Activity Type Activity Date Activity User E-sign Co-sign Detail Recorded Client Recorded Date Recorded By Document 03/18/24 10:00 BS Desktop 03/18/24 12:17 BS 03/18/24 10:00 NIH Stroke Scale [NIHSS] A score of 0 is normal or asymptomatic . Total possible score is [...] 0 Query Text:A score of 0 is normal or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
== END | disposition home or self-care (01) ==
LOC: MTLAB 12:48
PROVIDERS: PCP Family Medicine
DX: G40.909 Epilepsy, unspecified, not intractable, without status epilepticus (principal)
CPT/HCPCS: 36415; 80053; 82140; 82542